=== PATIENT | male | born 1970 | race Caucasian/White ===

== ENCOUNTER 2020-03-25 11:55 | Inpatient (IN) | payer MEDICAID, SELFPAY ==
--- NOTE | 2020-03-25 | CT_ITS ---
EXAMINATION: CT ANGIOGRAM OF THE CHEST WITH AND WITHOUT CONTRAST (CT PULMONARY ANGIOGRAM FOR PE) CLINICAL INFORMATION: Reason for Exam IVDA pleuritic chest pain COMPARISON: None TECHNIQUE: Prior to contrast administration, noncontrast localization images were obtained. Subsequently, multidetector volumetric imaging was performed from the thoracic inlet to below the diaphragms following the administration of 65 mL Omnipaque 350 intravenous contrast. No contrast reaction reported Sagittal, coronal, and MIP oblique sagittal reformatted images were obtained on the CT workstation, uploaded to PACS, and reviewed. This CT examination was performed using dose optimization techniques as appropriate, variously including the following: *Automated exposure control *Adjustment of mA and/or kV according to patient size (this includes techniques or standardized protocols for targeted exams where dose is matched to indication/reason for exam; i.e. extremities or head) *Use of iterative reconstruction technique Total exam dose-length product 346 mGy-cm FINDINGS: QUALITY OF STUDY/CONTRAST BOLUS: Satisfactory. PULMONARY ARTERIES: There is no evidence of large or central pulmonary embolism. Evaluation of smaller segmental and subsegmental pulmonary arteries is limited due to artifact from respiratory motion, particularly at the lung bases. No evidence of a pulmonary embolism is seen. THORACIC AORTA: The thoracic aorta is upper normal in size. The descending thoracic aorta is tortuous. No aneurysm or dissection is seen. LUNG: There may be a 4 mm right middle lobe nodule axial image 28 series 4. There may be a 5 mm left lower lobe nodule axial image 28 series 4. There may be semisolid 7 mm left lower lobe nodule axial image 25 series 4. There is subsegmental atelectasis at the right lung base in the right middle lobe. Evaluation of the lung bases is limited due to respiratory motion. PLEURA: No pleural effusion or pneumothorax. MEDIASTINUM: The heart is enlarged. There is no pericardial effusion. No evidence of septal bowing or right heart strain. There is no adenopathy. There is a small hiatal hernia. CHEST WALL/AXILLA: No axillary or internal mammary lymphadenopathy. OSSEOUS STRUCTURES: There are degenerative changes of the spine. UPPER ABDOMEN: The liver may be enlarged. The visualized liver measures at least 20 cm in length. No reflux of contrast into the hepatic veins to suggest elevated right heart pressures. CT/CT angio chest PE protocol IMPRESSION: Limited exam due to artifact from respiratory motion. No evidence of large or central pulmonary embolism. Question small pulmonary nodules. Enlarged heart. Upper normal-sized thoracic aorta. Hiatal hernia. VTE: negative
[2020-03-25 12:30] VITALS: BP 129/73; PULSE 89; RESP 22; TEMP 36.7; O2SAT 96; BMI 34.2
--- NOTE | 2020-03-25 13:02 | ED.CHESTPAIN ---
HPI - Chest Pain General Chief Complaint: Chest Pain Stated Complaint: chest pain Time Seen by Provider: 03/25/20 13:02 Related Data Home Medications Medication Instructions Recorded Confirmed methadone 03/25/20 Allergies Allergy/AdvReac Type Severity Reaction Status Date / Time No Known Allergies Allergy Unverified 01/03/20 18:53 [No Known Allergies*] [facility] Past Medical History Medical History (Updated 03/25/20 @ 15:32 by Abi Pritchard DO) Substance abuse Social History Social History Smoked in Last 30 Days: No Use of substances other than those prescribed or required for medical reasons: Yes Substance Use Type: Crack/Cocaine and Heroin Substance Use Frequency: Daily Last Used Substance: Hours (ago) Any prior treatment program specific to substance use: Yes Advance Directives: No Advance Directives Information Provided: No Physical Exam Vital Signs: Vital Signs: Last Vital Signs Temp 98.0 F 03/25/20 12:30 Pulse 67 03/25/20 15:21 Resp 16 03/25/20 15:21 BP 128/83 03/25/20 15:21 Pulse Ox 97 03/25/20 15:21 Body Mass Index 34.2 Course Course Course Narrative: this note was copied from visit in error [id number] HPI - Chest Pain General Chief Complaint: Chest Pain Stated Complaint: SOB/CP X4DAYS Time Seen by Provider: 03/25/20 11:33 Source: patient and EMS Mode of arrival: EMS Limitations: no limitations History of Present Illness MD complaint: chest pain and other (shortness of breath) Pertinent past history: other (IVDA just used heroin and cocaine, took his methadone this AM) Onset (ago): day(s) (2) Timing of current episode: constant Onset: during rest and associated with drug use Pain location: substernal and left chest Pain radiation: none Severity: moderate Quality: sharp Relieving factors: nothing Exacerbating factors: inspiration Context: other (IVDA) Associated symptoms: diaphoresis, dyspnea and cough Treatment prior to arrival: none Related Data Home Medications Medication Instructions Recorded Confirmed methadone 03/25/20 Allergies Allergy/AdvReac Type Severity Reaction Status Date / Time No Known Allergies Allergy Unverified 01/03/20 18:06 Review of Systems Review of Systems: Constitutional : No Weight loss, No Fever, No Chills ENT/Mouth : No sore throat, No Rhinorrhea Eyes: No Eye Pain, No Swelling Cardiovascular : pos Chest Pain, pos SOB, no Dyspnea on Exertion, No Orthopnea, No Edema, No Palpitations Respiratory : No Cough, No Sputum Gastrointestinal : pos Nausea, No Vomiting, No Diarrhea, No abdominal Pain, No Hematochezia, No Melena Genitourinary : No Dysuria, No Urinary Frequency Musculoskeletal : No joint pain, No Myalgias, No Joint Swelling Skin : No Skin Lesions, No rash Neuro : No Weakness, No Numbness, No Dizziness, No Headache Psych : No Anxiety/Panic, No Depression Heme/Lymph: No Bruising, No Lymphadenopathy Endocrine : No Polyuria, No Polydipsia All other systems reviewed and are negative [facility] Past Medical History Attestation statement: The following information was validated with the patient. Medical History (Updated 03/25/20 @ 12:08 by Abi Pritchard DO) Substance abuse Social History Social History (Updated 03/25/20 @ 12:08 by Abi Pritchard DO) Smoking Status: Current every day smoker Substance Use Type: Crack/Cocaine, Heroin and IV Drugs Physical Exam Vital Signs: Vital Signs: Last Vital Signs Temp 98.0 F 03/25/20 11:30 Pulse 84 03/25/20 11:30 Resp 22 H 03/25/20 11:30 BP 129/73 03/25/20 11:30 Pulse Ox 96 03/25/20 11:30 Body Mass Index 33.7 Appearance: Alert. Oriented X3. No acute distress. Anxious Eyes: Pupils equal, round and reactive to light. ENT: Pharynx normal. Neck: Normal inspection. Neck supple. CVS: Normal heart rate and rhythm. Pulses normal. Respiratory: No respiratory distress. Breath sounds normal. Abdomen: Soft and non-tender. Skin: Skin warm and sweaty. pale skin color. Normal skin turgor. Extremities: No lower extremity edema. No calf ttp bilateral active track salazar Neuro: Oriented X 3. No motor deficit. No sensory deficit. [address] [address] Emergency Department Note Draft Patient: Brian BonillaMR#: [id number] : 03/17/1987Acct:[id number] Age/Sex: 33 / MADM Date: 03/25/20 Loc:HO.ED Date of Service: 03/25/[address]: cc: ~ HPI - Chest Pain General Chief Complaint: Chest Pain Stated Complaint: SOB/CP X4DAYS Time Seen by Provider: 03/25/20 11:33 Source: patient and EMS Mode of arrival: EMS Limitations: no limitations History of Present Illness MD complaint: chest pain and other (shortness of breath) Pertinent past history: other (IVDA just used heroin and cocaine, took his methadone this AM) Onset (ago): day(s) (2) Timing of current episode: constant Onset: during rest and associated with drug use Pain location: substernal and left chest Pain radiation: none Severity: moderate Quality: sharp Relieving factors: nothing Exacerbating factors: inspiration Context: other (IVDA) Associated symptoms: diaphoresis, dyspnea and cough Treatment prior to arrival: none Related Data Home Medications Medication Instructions Recorded Confirmed methadone 59 mg 03/25/20 Allergies Allergy/AdvReac Type Severity Reaction Status Date / Time No Known Allergies Allergy Unverified 01/03/20 18:06 Review of Systems Review of Systems: Constitutional : No Weight loss, pos Fever, pos Chills, pos sweats ENT/Mouth : No sore throat, No Rhinorrhea Eyes: No Eye Pain, No Swelling Cardiovascular : pos Chest Pain, pos SOB, no Dyspnea on Exertion, No Orthopnea, No Edema, No Palpitations Respiratory : No Cough, No Sputum Gastrointestinal : pos Nausea, No Vomiting, No Diarrhea, No abdominal Pain, No Hematochezia, No Melena Genitourinary : No Dysuria, No Urinary Frequency Musculoskeletal : No joint pain, No Myalgias, No Joint Swelling Skin : No Skin Lesions, No rash Neuro : No Weakness, No Numbness, No Dizziness, No Headache Psych : No Anxiety/Panic, No Depression Heme/Lymph: No Bruising, No Lymphadenopathy Endocrine : No Polyuria, No Polydipsia All other systems reviewed and are negative PMFSH Past Medical History Attestation statement: The following information was validated with the patient. Medical History (Updated 03/25/20 @ 12:08 by Abi Pritchard DO) Substance abuse Social History Social History (Updated 03/25/20 @ 12:08 by Abi Pritchard DO) Smoking Status: Current every day smoker Substance Use Type: Crack/Cocaine, Heroin and IV Drugs Physical Exam Vital Signs: Vital Signs: Last Vital Signs Temp 99.8 F 03/25/20 12:00 Pulse 84 12/08/20 11:30 Resp 22 H 03/25/20 11:30 BP 129/73 03/25/20 11:30 Pulse Ox 100 03/25/20 12:00 Body Mass Index 33.7 Appearance: Alert. Oriented X3. No acute distress. Anxious Eyes: Pupils equal, round and reactive to light. ENT: Pharynx normal. Neck: Normal inspection. Neck supple. CVS: Normal heart rate and rhythm. Pulses normal. Respiratory: No respiratory distress. Breath sounds normal. Abdomen: Soft and non-tender. Skin: Skin warm and sweaty. pale skin color. Normal skin turgor. Extremities: No lower extremity edema. No calf ttp bilateral active track salazar Neuro: Oriented X 3. No motor deficit. No sensory deficit. Course Course Narrative: no pneumonia, no PE, normal troponin but given IVDA could be endocarditis, will admit overnight for ECHO at this time given fevers, pleuritic chest pain, sweats and active IVDA MDM - Chest Pain MDM Narrative Medical decision making narrative: patient with IVDA recently used heroin and cocaine - here with pleuritic chest pain will need labs, cultures, troponin x 1, CTA for PE/pneumonia, possible endocarditis as well, dispo per results and findings ECG Data ECG #1: Attestation: I personally reviewed and interpreted this ECG as follows: ECG interpretation date: 03/25/20 ECG interpretation time: 11:44 Interpretation: Rate: 75 Rhythm: NSR [place]: left Normal P waves. Normal PAT. Normal QRS complex. ST T wave : normal no OSBALDO qTC: normal prior studies: no acute ischemia The study has been interpreted contemporaneously by me. . Discharge Plan Discharge Clinical Impression: Active substance abuse Chest pain Qualifiers: Chest pain type: chest pain on breathing Qualified Code(s): R07.1 - Chest pain on breathing Patient Disposition: Admitted As Inpatient
[2020-03-25 15:21] VITALS: BP 128/83; PULSE 67; RESP 16; O2SAT 97
--- NOTE | 2020-03-25 16:59 | PM.IMHP ---
History of Present Illness Date of Service: 03/25/20 Chief Complaint: chest pain, later developed left buttock pain 49-year-old male complaining of about 4 days of chest pain, anxiety, chills without fever. Patient actively uses IV heroin and snorts cocaine. He also reports injecting alcohol including fireball shots. pain is relieved by heroin, exacerbated by activity and deep breaths. in ED troponin is negative, EKG unremarkable. Afebrile, CTA negative. In ED patient also started complaining of left-sided sciatic pain. Review of Systems Review of Systems: Constitutional: Denies fever, +Chills Eyes: denies blurry vision ENT: denies sore throat CVS: chest pain Respiratory: Denies dyspnea GI: no abdominal pain : denies dysuria MSK: denies neck pain Skin: denies rash Neuro: denies specific motor weakness Psych: denies suicidal ideation Endocrine: denies heat/cold intoleratnce Hematologic: denies easy bleeding Allergy: denies hives [facility] Medical History (Updated 03/25/20 @ 17:05 by Saul Rogers MD) Substance abuse Functional capacity: independent ambulation Pertinent family history: cad Social History Alcohol intake: current Alcohol intake frequency: does not drink Smoking Status: Former smoker Smoked in Last 30 Days: No Use of substances other than those prescribed or required for medical reasons: Yes Substance Use Type: Crack/Cocaine and Heroin Substance Use Frequency: Daily Last Used Substance: Hours (ago) Any prior treatment program specific to substance use: Yes Advance Directives: No Advance Directives Information Provided: No Meds Allergies Allergy/AdvReac Type Severity Reaction Status Date / Time No Known Allergies Allergy Unverified 01/03/20 18:53 [No Known Allergies*] Home Medications Medication Instructions Recorded Confirmed Type methadone 03/25/20 History Physical Exam Vital Signs and Narrative: Vital Signs: Last Vital Signs Temp 98.0 F 03/25/20 12:30 Pulse 67 03/25/20 15:21 Resp 16 03/25/20 15:21 BP 128/83 03/25/20 15:21 Pulse Ox 97 03/25/20 15:21 Body Mass Index 34.2 General: in pain HEENT: atraumatic Neck: normal to visual inspection CVS: S1, S2, RRR Resp: CTA bilateral Chest: non tender GI: soft, non tender, non distended : no CVA tenderness Skin: no rashes Extremities: no edema, no spinal tenderness Neuro: Oriented X3, grossly intact Psych: cooperative, Assessment and Plan (1) Chest pain: Qualifiers: Chest pain type: chest pain on breathing Qualified Code(s): R07.1 - Chest pain on breathing Status: Acute (2) Active substance abuse: Status: Acute (3) Hyponatremia: Status: Acute (4) Chills: Status: Acute 49M presented iwth chest pain, chills chest pain likely cocaine related, now improved, negative trop and ekg chills history ivda, will rule out endocarditis, check echo, cultures empiric vanc likely opiate withdrawl morphine, ativan, psych eval hyponatremia reports high fluid intake, check urine studies, fluid restrict for now, monitor
[2020-03-25 17:12] VITALS: BP 151/92; PULSE 81; RESP 20; TEMP 37.6; O2SAT 100
[2020-03-25] MEDS: Morphine Sulfate 4 MG/ML CARTRIDGE IVPUSH (18:17)
[2020-03-25 18:36] VITALS: BP 161/86; PULSE 82; RESP 20; O2SAT 99
[2020-03-25 19:11] VITALS: BP 161/86; PULSE 87; RESP 15; TEMP 37.6; O2SAT 96
[2020-03-25 19:50] LABS: B Type Natriuretic Peptide 13 pg/mL (<100); Lactic Acid 0.6 mmol/L (0.5-2.0)
[2020-03-25 19:52] LABS: Ethanol < 10 mg/dL
[2020-03-25 19:52] LABS: Barbiturates, Urine Not Detected (Not Detect); Opiate Screen Urine POSITIVE (Not Detect)
[2020-03-25 19:53] LABS: Hematocrit 34.7 % (42-52); Hemoglobin 11.6 g/dl (14.0-18.0); Mean Corpuscular HGB Conc 33.4 g/dl (31.0-36.0); Mean Corpuscular Hemoglobin 30.1 pg (27.0-33.0); Mean Corpuscular Volume 89.9 fL (80-98); Mean Platelet Volume 9.2 fL (9.4-12.4); Platelet Count 164 X10*3/uL (160-400); Red Blood Count 3.86 X10*6/uL (4.60-5.80); Red Cell Distribution Width 13.1 % (11.0-16.0); White Blood Count 11.4 X10*3/uL (4.8-10.8)
[2020-03-25 19:53] LABS: Amphetamine Screen Urine Not Detected (Not Detect); Benzodiazepines Screen Urine Not Detected (Not Detect); Cannabinoid Screen Urine Not Detected (Not Detect); Cocaine Screen Urine POSITIVE (Not Detect); Phencyclidine Screen Urine Not Detected (Not Detect)
[2020-03-25 19:54] LABS: Basophils Percent Auto 0.1 % (0-2); Imm Gran Pct Auto 0.9 % (0.0-0.4); Lymphocytes Absolute Auto 0.7 X10*3/uL (1.2-4.9); Lymphocytes Percent Auto 5.7 % (20-40); MANUAL DIFF FLAG SCAN; Monocytes Absolute Auto 0.8 X10*3/uL (0.1-1.2); Neutrophils Absolute Auto 9.8 X10*3/uL (2.0-8.3); Neutrophils Percent Auto 86.3 % (45-73); SCAN SMEAR FLAG 1
[2020-03-25 19:58] LABS: SLIDE REVIEW VERIFIED
[2020-03-25 19:59] LABS: INTERNATIONAL NORM RATIO 1.1 (0.9-1.1); Prothrombin Time 13.3 SEC (10.8-13.0); Sodium 126 mmol/L (135-145)
[2020-03-25 20:00] LABS: Anion Gap 13 (12-20); Blood Urea Nitrogen 16 mg/dL (9-16); Carbon Dioxide 22 mmol/L (22-29); Chloride 95 mmol/L (96-108); Creatinine Clr Calc Pharmacy 139.4; Estimated Glomerular Filt Rate > 60; Potassium 3.9 mmol/l (3.3-5.1)
[2020-03-25 20:03] LABS: COVID-19 Test Negative (Negative); IDNOW Serial# 9DD0AD1C
[2020-03-25 20:07] LABS: Calcium 8.2 mg/dL (8.4-10.2); Glucose Random 110 mg/dL (60-115)
[2020-03-25 20:08] LABS: Alanine Aminotransferase 26 U/L (0-40); Albumin Level 3.5 g/dL (3.5-5.0); Aspartate Amino Transferase 33 U/L (5-37); Bilirubin Direct 0.3 mg/dL (0.0-0.5); Bilirubin Total 0.6 mg/dL (0.0-1.0); Ferritin 271 ng/mL (20-250); Lactate Dehydrogenase 231 U/L (118-273); Magnesium 2.2 mg/dL (1.6-2.6); Total Protein 7.5 g/dL (6.5-8.0)
[2020-03-25 20:09] LABS: Alkaline Phosphatase 117 U/L (39-117); Lipase 13 U/L (8-78)
[2020-03-25 20:11] LABS: Troponin-I High Sensitivity < 3.5 ng/L (<3.5-35.0)
[2020-03-25 21:04] VITALS: BP 142/67; PULSE 82; RESP 18; TEMP 36.6; O2SAT 97
[2020-03-25] MEDS: LORazepam 2 MG/ML VIAL IVPUSH (21:04)
[2020-03-25 21:05] LABS: Osmolality Urine 708 mosm/kg (373-1093)
[2020-03-25] MEDS: Enoxaparin Sodium 40 MG/0.4 ML SYRINGE SUBCUT (21:07)
[2020-03-25] MEDS: Acetaminophen 325 MG TABLET 650 MG PO (21:08)
[2020-03-26] VITALS (9 sets, daily range): BP systolic 124–163; BP diastolic 78–97; PULSE 75–89; RESP 15–20; TEMP 36.7–38.1; O2SAT 94–97; BMI 34.2
[2020-03-26] MEDS: 0.9 % Sodium Chloride Flush 3 ML SYRINGE IVFLUSH ×3 (00:24→22:01)
[2020-03-26] MEDS: Morphine Sulfate 4 MG/ML CARTRIDGE IVPUSH ×5 (00:26→22:02)
[2020-03-26] MEDS: Acetaminophen 325 MG TABLET 650 MG PO ×3 (04:55→23:55)
[2020-03-26 06:13] LABS: MANUAL DIFF FLAG NO
[2020-03-26 06:26] LABS: Basophils Percent Auto 0.2 % (0-2); Hematocrit 32.4 % (42-52); Hemoglobin 10.8 g/dl (14.0-18.0); Imm Gran Abs Auto 0.08 X10*3/uL (0.00-0.03); Imm Gran Pct Auto 0.7 % (0.0-0.4); Lymphocytes Absolute Auto 1.1 X10*3/uL (1.2-4.9); Lymphocytes Percent Auto 9.5 % (20-40); Mean Corpuscular HGB Conc 33.3 g/dl (31.0-36.0); Mean Corpuscular Hemoglobin 29.4 pg (27.0-33.0); Mean Corpuscular Volume 88.3 fL (80-98); Mean Platelet Volume 9.5 fL (9.4-12.4); Monocytes Absolute Auto 1.2 X10*3/uL (0.1-1.2); Neutrophils Absolute Auto 9.3 X10*3/uL (2.0-8.3); Neutrophils Percent Auto 79.6 % (45-73); Platelet Count 149 X10*3/uL (160-400); Red Blood Count 3.67 X10*6/uL (4.60-5.80); White Blood Count 11.7 X10*3/uL (4.8-10.8)
[2020-03-26 06:47] LABS: Anion Gap 14 (12-20); Blood Urea Nitrogen 8 mg/dL (9-16); Calcium 7.7 mg/dL (8.4-10.2); Carbon Dioxide 23 mmol/L (22-29); Chloride 95 mmol/L (96-108); Creatinine Clr Calc Pharmacy 168.6; Estimated Glomerular Filt Rate > 60; Glucose Random 94 mg/dL (60-115); Potassium 3.5 mmol/l (3.3-5.1); Sodium 128 mmol/L (135-145)
--- NOTE | 2020-03-26 07:32 | PC.NURSE ---
0345; Lab called with positive blood cultures; 2 sets positive, gram positive cocci in clusters. Current patient chart does not have history of blood cultures drawn or results. Patient has 2 charts, first one was initiated in the ED, due to an error on the chart, another chart was created. The blood cultures drawn are charted in the incorrect patient chart, [id number]. The correct and current active patient chart is [id number]. Critical reporting charted under current chart. Slider Assembler made aware, per patient registration supervisor the 2 charts will be merged this morning. MD notified about positive blood cultures and to refer to other patient chart if necessary. Day shift RN update.
--- NOTE | 2020-03-26 08:38 | MHC.CM.PN ---
Male 49 DX Chest pain. He lives with . He is independent all functional mobility. Financial Counselor referral made. Pt was on manjula; but that ended. Education provided re HCP. Patient is considering who he should name. Instructed the Patient that I will assist with HCP, when he is ready. HCP document provided in Thai and Haitian. DP home no services family transport. CM will follow
[2020-03-26] MEDS: LORazepam 2 MG/ML VIAL IVPUSH ×2 (11:31→18:11)
--- NOTE | 2020-03-26 12:23 | P.PNIM_ITS ---
Subjective Subjective Date of Service: 03/26/20 Interval History: feeling better Cardiovascular Cardiovascular: Reports no additional cardiovascular complaints Respiratory Respiratory: Reports no additional respiratory complaints Physical Exam Vital Signs: Vital Signs: Last Vital Signs Temp 98.0 F 03/26/20 08:00 Pulse 75 03/26/20 08:00 Resp 18 03/26/20 08:00 BP 137/89 03/26/20 08:00 Pulse Ox 96 03/26/20 08:00 Body Mass Index 34.2 General: AO X 3, no acute distress Resp: CTA bilateral CVS: S1,S2,RRR GI: soft, non tender, non distended Neuro: motor grossly intact Psych: appropriate affect Objective Data Current Medications Generic Name Dose Route Start Last Admin Trade Name Freq PRN Reason Stop Dose Admin Acetaminophen 650 mg 03/25/20 16:47 03/26/20 04:55 Acetaminophen 325 Mg Tablet PO 650 mg Q6H PRN Administration Pain, Mild (Pain Scale 1-3) Enoxaparin Sodium 40 mg 03/25/20 22:00 03/25/20 21:07 Enoxaparin Sodium 40 Mg/0.4 Ml Syringe SUBCUT 40 mg Q24H MINAL Administration Vancomycin HCl 750 mg/ 275 mls @ 183.333 mls/hr 03/25/20 22:00 03/26/20 07:42 Vancomycin HCl 500 mg/ Sodium IV Infused Chloride Q8H MINAL Infusion Lorazepam 2 mg 03/25/20 16:52 03/26/20 11:31 Lorazepam 2 Mg/Ml Vial IVPUSH 2 mg Q4H PRN Administration anxiety Morphine Sulfate 4 mg 03/25/20 16:52 03/26/20 11:31 Morphine Sulfate 4 Mg/Ml Cartridge IVPUSH 4 mg Q4H PRN Administration pain Sodium Chloride 3 ml 03/26/20 00:00 03/26/20 07:42 0.9 % Sodium Chloride Flush 3 Ml Syringe IVFLUSH Not Given QSHIFT [facility] Labs CBC & Chem 7: 03/26/20 05:25 03/26/20 05:25 Microbiology Microbiology Results: Microbiology 03/25/20 13:05 Blood - Venous Blood Culture - Preliminary 03/25/20 13:05 Blood - Venous Blood Culture - Preliminary Assessment and Plan (1) Chest pain: Status: Acute (2) Active substance abuse: Status: Acute (3) Hyponatremia: Status: Acute (4) Chills: Status: Deleted (5) Bacteremia: Status: Acute Assessment and Plan: 49M presented iwth chest pain, chills chest pain likely cocaine related, now improved, negative trop and ekg chills due to gpc 2/2 in blood likely staph, history ivda, will rule out endocarditis, check echo, follow up repeat cultures continue vanc, ID likely opiate withdrawl improved morphine, ativan, psych eval hyponatremia reports high fluid intake, check urine studies, fluid restrict, labs c/w SIADH please note in ED some information was placed on a different chart such as CTA, the information will be planned to be moved over
--- NOTE | 2020-03-26 14:17 | MHC.CARE ---
Recovery Support note: This database report writer attempted to meet with patient to discuss substance use. Patient was initially able to engage in conversation. Reports he was sober for five years and found Methadone and staying busy with work and school to be helpful during that time. Patient reports him and his relapsed due to the pandemic. This database report writer began to discuss supports and resources with patient however patient requested this database report writer return later on or tomorrow due to brain fog. This database report writer will return tomorrow to continue this conversation with patient.
--- NOTE | 2020-03-26 16:21 | W.PM.IDCN ---
History of Present Illness Data of Consult Service Date: 03/26/20 Requesting physician: Saul Rogers Primary Care Provider: MD MARK Castillo Reason for consult: bacteremia He has used cocaine and opiates He has some fever and chills He has symptoms for 3 days He has gram positive bacteremia Review of Systems Review of Systems: Yes all other systems are reviewed and are negative PMFSH Past Medical History Medical History Substance abuse Functional capacity: independent ambulation Social History Social History Household Members: Spouse Housing: House Do you presently have visiting nurse or other home services: No Alcohol intake: current Alcohol intake frequency: does not drink Smoking Status: Former smoker Smoked in Last 30 Days: No Use of substances other than those prescribed or required for medical reasons: Yes Substance Use Type: Crack/Cocaine and Heroin Substance Use Frequency: Daily Last Used Substance: Unknown Currently Displaying Signs/Symptoms of Drug Intoxication Withdrawal: No Any prior treatment program specific to substance use: Yes Have you been hit, kicked, punched, or otherwise hurt by someone within the past year? If so, by whom?: No Do you feel safe in your current relationship?: Yes Is there a partner from a previous relationship who is making you feel unsafe now?: No Are you made to feel afraid or neglected: No Advance Directives: No Advance Directives Information Provided: No Do you have thoughts of harming others: None Do you have a plan to hurt others: No Plan Recently lost weight without trying: No service: No Current occupational status: unemployed Meds Allergies Allergy/AdvReac Type Severity Reaction Status Date / Time No Known Allergies Allergy Unverified 01/03/20 18:53 [No Known Allergies*] Home Medications Medication Instructions Recorded Confirmed Type methadone 59 mg PO DAILY 03/25/20 03/26/20 History Physical Exam Vital Signs: Vital Signs: Last Vital Signs Temp 98.9 F 03/26/20 15:47 Pulse 75 03/26/20 15:47 Resp 18 03/26/20 15:47 BP 136/85 03/26/20 15:47 Pulse Ox 94 03/26/20 15:47 Body Mass Index 34.2 Const: General: cooperative HENMT: Head: Yes normal to inspection Mouth: oropharynx normal Eyes: General: appearance normal, both eyes and all related structures Resp: Effort & Inspection: normal respiratory effort Cardio: Rate: regular rate Rhythm: regular rhythm GI: Inspection: Yes normal to inspection Skin: General skin exam: no rashes or lesions noted Extrem: General: Yes normal to inspection Assessment and Plan (1) Bacteremia: Problem details: He has bacteremia There is concern over endocarditis Dont see cellulitis Status: Acute Vancomycin Await further cultures Echo Substance counseling (2) Active substance abuse: Status: Acute Results Labs CBC & Chem 7: 03/26/20 05:25 03/26/20 05:25 Labs: Short CBC 03/25/20 03/26/20 Range/Units 13:05 05:25 WBC 11.4 H 11.7 H (4.8-10.8) X10*3/uL Hgb 11.6 L 10.8 L (14.0-18.0) g/dl Hct 34.7 L 32.4 L (42-52) % Plt Count 164 149 L (160-400) X10*3/uL BMP 03/25/20 03/26/20 13:05 05:25 Sodium 126 L 128 L Potassium 3.9 3.5 Chloride 95 L 95 L Carbon Dioxide 22 23 BUN 16 8 L Creatinine 0.75 0.62 Calcium 8.2 L 7.7 L D Liver Function 03/25/20 Range/Units 13:05 Total Bilirubin 0.6 (0.0-1.0) mg/dL Direct Bilirubin 0.3 (0.0-0.5) mg/dL AST 33 (5-37) U/L ALT 26 (0-40) U/L Alkaline Phosphatase 117 (39-117) U/L Albumin 3.5 (3.5-5.0) g/dL Microbiology Microbiology Results: Microbiology 03/25/20 13:05 Blood - Venous Blood Culture - Preliminary 03/25/20 13:05 Blood - Venous Blood Culture - Preliminary
--- NOTE | 2020-03-26 20:30 | CA_ITS ---
Transthoracic Echocardiogram Patient (Last, First, Middle): Brian Bonilla, Gender: Male Date of : 1970 Age: 49 Procedure Date: 03/26/2020 Procedure Type: Transthoracic Echocardiogram [place] [facility] [place]: 172.72 cm Weight: 102. kg BSA: 2.15 m2 Heart Rate: bpm BP: 137 / 89 mmHg Batch Blender: DYLAN Goldman MD: Saul Rogers MD Symptoms: rule out endocarditis Study Quality: Good ECG Rhythm: Sinus Conclusions: - The left ventricular systolic function is normal. The visually estimated ejection fraction is between 65-70%. - There is mild calcification of the aortic valve. - No obvious valvular pathology seen on this study. - There is mild dilatation of the ascending aorta measuring 4.00 cm. Findings Left Ventricle Normal left ventricular cavity size. There is mildly increased left ventricular wall thickness. The left ventricular systolic function is normal. The visually estimated ejection fraction is between 65-70%. There is no evidence of regional wall motion abnormalities. Diastolic function is normal for age. Right Ventricle Normal right ventricular cavity size and systolic function. Atria The left atrium is normal in size. The right atrium is normal in size. Aortic Valve There is a normal trileaflet aortic valve. There is mild calcification of the aortic valve. There is no aortic valve stenosis. There is no aortic valve regurgitation. Mitral Valve There is mild anterior mitral leaflet thickening. There is mild mitral annular calcification. There is trace mitral valve regurgitation. There is no mitral valve stenosis. Pulmonic Valve The pulmonic valve was not well visualized. Tricuspid Valve Normal tricuspid valve structure. There is trace tricuspid valve regurgitation. The pulmonary artery systolic pressure is normal. Great Vessels There is mild dilatation of the ascending aorta measuring 4.00 cm. Venous The inferior vena cava is normal in size and collapses greater than 50% with inspiration. Pericardium/Pleural There is no evidence of pericardial effusion. Prior Study Comparison No prior study available for comparison. Recommendations, Care & Conclusions No obvious valvular pathology seen on this study. Measurements 2D Linear Measurements RVIDd: 3.84 RVIDd Index: 1.79 IVSd: 1.20 0.6-0.9/0.6-1.0 cm LVIDd: 4.98 3.9-5.3/4.2-5.9 cm LVIDd Index: 2.32 2.4-3.2/2.2-3.1 cm/m2 LVIDs: 2.85 2.0-3.6 cm LVPWd: 1.11 0.7-1.1 cm Ao Root: 3.60 2.1-3.5 cm LV Mass: 274.47 67-162/88-224 g LV Mass Index: 127.66 43-95/49-115 g/m2 LVOT Diam: 2.40 3.0+(-)1.3 cm 2D Systolic Function EF 4C: 65.10 >55% EF 2C: 81.40 >55% EF BiP: 75.00 >55% Mitral Valve MV Pk E: 0.80 MV PK A: 0.50 MV Decel Time: 186.00 E/A: 1.60 E'Lateral: 9.14 E'Medial: 9.03 E/E' Med: 8.90 E/E' Lat: 8.80 Aortic Valve AoV Pk Marquis: 1.66 AoV Mn Marquis: 1.28 AoV VTI: 0.28 AoV Pk Grad: 11.00 Aov Mn Grad: 7.00 TRAVIS Cont.VTI: 3.71 LVOT LVOT Pk Marquis: 1.23 LVOT Mn Marquis: 0.90 LVOT VTI: 0.23 LVOT Pk Grad: 6.00 LVOT Mn Grad: 4.00 LVOT Diam: 2.40 LVOT Area: 4.52 Diastolic Function MV Pk E: 0.80 MV Pk A: 0.50 E/A: 1.60 E'Medial: 9.03 E/E' Med: 8.90 E' Laterial: 9.14 E/E' Lat: 8.80 Tricuspid Valve TR Pk Marquis: 1.94 TR Pk Grad: 15.00 RA Press: 8.00 RVSP: 23.00 Great Vessels Aorta Ao Root-2D: 3.60 2.0-3.7 cm Ao Asc: 4.00 2.1-3.4 cm Ao Arch: 3.20 Updated in Other Vendor System with Status of Final Mike Williamson MD electronically signed on 03/26/2020 5:19:00 PM with status of Final
[2020-03-26 21:36] LABS: Vancomycin Trough 10.2 mcg/mL (10.0-20.0)
[2020-03-26] MEDS: Enoxaparin Sodium 40 MG/0.4 ML SYRINGE SUBCUT (22:01)
[2020-03-27] VITALS (7 sets, daily range): BP systolic 136–154; BP diastolic 78–99; PULSE 80–95; RESP 18–19; TEMP 36.6–37.3; O2SAT 95–99
[2020-03-27] MEDS: Acetaminophen 325 MG TABLET 650 MG PO ×3 (06:31→23:23)
[2020-03-27] MEDS: Morphine Sulfate 4 MG/ML CARTRIDGE IVPUSH ×3 (06:40→21:32)
[2020-03-27 06:52] LABS: Basophils Percent Auto 0.2 % (0-2); Hematocrit 34.5 % (42-52); Hemoglobin 11.6 g/dl (14.0-18.0); Imm Gran Abs Auto 0.07 X10*3/uL (0.00-0.03); Imm Gran Pct Auto 0.5 % (0.0-0.4); Lymphocytes Absolute Auto 1.7 X10*3/uL (1.2-4.9); Lymphocytes Percent Auto 12.9 % (20-40); MANUAL DIFF FLAG SCAN; Mean Corpuscular HGB Conc 33.6 g/dl (31.0-36.0); Mean Corpuscular Hemoglobin 29.7 pg (27.0-33.0); Mean Corpuscular Volume 88.2 fL (80-98); Mean Platelet Volume 9.8 fL (9.4-12.4); Monocytes Absolute Auto 1.8 X10*3/uL (0.1-1.2); Monocytes Percent Auto 13.7 % (2-11); Neutrophils Absolute Auto 9.5 X10*3/uL (2.0-8.3); Neutrophils Percent Auto 72.7 % (45-73); Platelet Count 175 X10*3/uL (160-400); Red Blood Count 3.91 X10*6/uL (4.60-5.80); SCAN SMEAR FLAG 1
[2020-03-27 07:23] LABS: Anion Gap 16 (12-20); Blood Urea Nitrogen 9 mg/dL (9-16); Calcium 8.2 mg/dL (8.4-10.2); Carbon Dioxide 24 mmol/L (22-29); Chloride 95 mmol/L (96-108); Creatinine Clr Calc Pharmacy 163.3; Estimated Glomerular Filt Rate > 60; Glucose Fasting 87 mg/dL (60-99); Potassium 4.1 mmol/l (3.3-5.1); Sodium 131 mmol/L (135-145)
[2020-03-27 07:54] LABS: SLIDE REVIEW VERIFIED
[2020-03-27] MEDS: 0.9 % Sodium Chloride Flush 3 ML SYRINGE IVFLUSH ×3 (09:00→21:32)
--- NOTE | 2020-03-27 10:55 | HO.PM.IMPN ---
Subjective Subjective Date of Service: 03/27/20 Interval History: feeling better Cardiovascular Cardiovascular: Reports no additional cardiovascular complaints Respiratory Respiratory: Reports no additional respiratory complaints Physical Exam Vital Signs: Vital Signs: Last Vital Signs Temp 98.6 F 03/27/20 08:00 Pulse 80 03/27/20 08:00 Resp 18 03/27/20 08:00 BP 150/88 H 03/27/20 08:00 Pulse Ox 97 03/27/20 08:00 Body Mass Index 34.2 General: AO X 3, no acute distress Resp: CTA bilateral CVS: S1,S2,RRR GI: soft, non tender, non distended Neuro: motor grossly intact Psych: appropriate affect Objective Data Current Medications Generic Name Dose Route Start Last Admin Trade Name Freq PRN Reason Stop Dose Admin Acetaminophen 650 mg 03/25/20 16:47 03/27/20 06:31 Acetaminophen 325 Mg Tablet PO 650 mg Q6H PRN Administration Pain, Mild (Pain Scale 1-3) Enoxaparin Sodium 40 mg 03/25/20 22:00 03/26/20 22:01 Enoxaparin Sodium 40 Mg/0.4 Ml Syringe SUBCUT 40 mg Q24H MINAL Administration Vancomycin HCl 1,500 mg/ 280 mls @ 186.667 mls/hr 03/27/20 14:00 Sodium Chloride IV Q8H MINAL Lorazepam 2 mg 03/25/20 16:52 03/26/20 18:11 Lorazepam 2 Mg/Ml Vial IVPUSH 2 mg Q4H PRN Administration anxiety Methadone HCl 60 mg 03/26/20 12:30 03/27/20 09:34 Methadone Hcl 1 Mg/0.1 Ml Oral.Conc PO 60 mg DAILY MINAL Administration Morphine Sulfate 4 mg 03/25/20 16:52 03/27/20 06:40 Morphine Sulfate 4 Mg/Ml Cartridge IVPUSH 4 mg Q4H PRN Administration pain Sodium Chloride 3 ml 03/26/20 00:00 03/27/20 09:00 0.9 % Sodium Chloride Flush 3 Ml Syringe IVFLUSH 3 ml QSHIFT MINAL Administration Labs CBC & Chem 7: 03/27/20 05:30 03/27/20 05:32 Microbiology Microbiology Results: Microbiology 03/25/20 13:05 Blood - Venous Blood Culture - Preliminary Staphylococcus aureus 03/25/20 13:05 Blood - Venous Blood Culture - Preliminary Staphylococcus aureus Assessment and Plan (1) Chest pain: Status: Acute (2) Active substance abuse: Status: Acute (3) Hyponatremia: Status: Acute (4) Chills: Status: Deleted (5) Bacteremia: Problem details: He has bacteremia There is concern over endocarditis Dont see cellulitis Status: Acute Assessment and Plan: 49M presented iwth chest pain, chills chest pain likely cocaine related, now improved, negative trop and ekg chills due to staph aureus bacteremia echo unremarkable continue vanc, follow up sensitivities and repeat culture, ID follow up for duration of therapy likely opiate withdrawl improved continue methadone, wean morphine hyponatremia fluid restrict, labs c/w SIADH please note in ED some information was placed on a different chart such as CTA, the information will be planned to be moved over
--- NOTE | 2020-03-27 11:43 | MHC.CARE ---
Recovery Support note: Patient is a 49 year old Kiswahili speaking male who [place] [facility] [place] and was medically admitted. 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 Patient reports him and his both relapsed due to the stress and isolation of the pandemic. Patient reports he has been on Methadone throughout his recovery and has found it helpful. 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 Patient states he previously worked at [employer] for over a year however reports he was let go due to false accusations made by a patient. Patient reports that the false accusations ruined his life and that he has been traumatized by the situation. Discussed recovery supports with patient, including IOP, NA support groups and [facility] [place]. Provided patient with information on these resources. Patient declined the offer to meet with a Ror Engineer at this time. 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 Patient reports that this hospitalization has been a wake up call and that he has no other option. Discussed outpatient therapy with patient and provided patient with information on this support.
[2020-03-27] MEDS: LORazepam 2 MG/ML VIAL IVPUSH ×2 (13:53→23:23)
[2020-03-27] MEDS: Enoxaparin Sodium 40 MG/0.4 ML SYRINGE SUBCUT (21:31)
[2020-03-28] VITALS: BP 138/87; PULSE 87; RESP 18; TEMP 37.3; O2SAT 94
[2020-03-28 04:00] VITALS: BP 135/80; PULSE 75; RESP 20; TEMP 36.9; O2SAT 94
[2020-03-28 06:25] LABS: MANUAL DIFF FLAG NO
[2020-03-28 06:33] LABS: Basophils Percent Auto 0.3 % (0-2); Eosinophils Percent Auto 0.3 % (0-4); Hematocrit 34.9 % (42-52); Hemoglobin 11.6 g/dl (14.0-18.0); Imm Gran Abs Auto 0.12 X10*3/uL (0.00-0.03); Lymphocytes Percent Auto 17.4 % (20-40); Mean Corpuscular HGB Conc 33.2 g/dl (31.0-36.0); Mean Corpuscular Hemoglobin 29.7 pg (27.0-33.0); Mean Corpuscular Volume 89.3 fL (80-98); Mean Platelet Volume 9.7 fL (9.4-12.4); Monocytes Absolute Auto 1.5 X10*3/uL (0.1-1.2); Monocytes Percent Auto 12.7 % (2-11); Neutrophils Absolute Auto 7.9 X10*3/uL (2.0-8.3); Neutrophils Percent Auto 68.3 % (45-73); Platelet Count 189 X10*3/uL (160-400); Red Blood Count 3.91 X10*6/uL (4.60-5.80); Red Cell Distribution Width 13.2 % (11.0-16.0); White Blood Count 11.6 X10*3/uL (4.8-10.8)
[2020-03-28 06:53] LABS: Anion Gap 14 (12-20); Blood Urea Nitrogen 8 mg/dL (9-16); Calcium 8.1 mg/dL (8.4-10.2); Carbon Dioxide 26 mmol/L (22-29); Chloride 95 mmol/L (96-108); Creatinine Clr Calc Pharmacy 160.8; Estimated Glomerular Filt Rate > 60; Glucose Fasting 82 mg/dL (60-99); Potassium 3.9 mmol/l (3.3-5.1); Sodium 131 mmol/L (135-145)
[2020-03-28 08:00] VITALS: BP 143/84; PULSE 85; RESP 17; TEMP 36.8; O2SAT 94
[2020-03-28] MEDS: 0.9 % Sodium Chloride Flush 3 ML SYRINGE IVFLUSH ×3 (08:12→21:42)
[2020-03-28] MEDS: oxyCODONE HCl Immed Release 5 MG TABLET PO ×4 (08:25→21:38)
[2020-03-28] MEDS: LORazepam 2 MG/ML VIAL IVPUSH ×2 (08:25→16:55)
--- NOTE | 2020-03-28 10:48 | HO.PM.IMPN ---
Subjective Subjective Date of Service: 03/28/20 Interval History: Siatica pain Cardiovascular Cardiovascular: Reports no additional cardiovascular complaints Respiratory Respiratory: Reports no additional respiratory complaints Physical Exam Vital Signs: Vital Signs: Last Vital Signs Temp 98.3 F 03/28/20 08:00 Pulse 85 03/28/20 08:00 Resp 17 03/28/20 08:00 BP 143/84 H 03/28/20 08:00 Pulse Ox 94 03/28/20 08:00 Body Mass Index 34.2 General: AO X 3, no acute distress Resp: CTA bilateral CVS: S1,S2,RRR GI: soft, non tender, non distended Neuro: motor grossly intact Psych: appropriate affect Objective Data Current Medications Generic Name Dose Route Start Last Admin Trade Name Freq PRN Reason Stop Dose Admin Acetaminophen 650 mg 03/25/20 16:47 03/27/20 23:23 Acetaminophen 325 Mg Tablet PO 650 mg Q6H PRN Administration Pain, Mild (Pain Scale 1-3) Enoxaparin Sodium 40 mg 03/25/20 22:00 03/27/20 21:31 Enoxaparin Sodium 40 Mg/0.4 Ml Syringe SUBCUT 40 mg Q24H MINAL Administration Vancomycin HCl 1,500 mg/ 280 mls @ 186.667 mls/hr 03/27/20 14:00 03/28/20 08:14 Sodium Chloride IV Infused Q8H MINAL Infusion Lorazepam 2 mg 03/25/20 16:52 03/28/20 08:25 Lorazepam 2 Mg/Ml Vial IVPUSH 2 mg Q4H PRN Administration anxiety Methadone HCl 60 mg 03/26/20 12:30 03/28/20 08:12 Methadone Hcl 1 Mg/0.1 Ml Oral.Conc PO 60 mg DAILY MINAL Administration Morphine Sulfate 4 mg 03/25/20 16:52 03/27/20 21:32 Morphine Sulfate 4 Mg/Ml Cartridge IVPUSH 4 mg Q4H PRN Administration pain Oxycodone HCl 5 mg 03/28/20 08:14 03/28/20 08:25 Oxycodone Hcl Immed Release 5 Mg Tablet PO 5 mg Q4H PRN Administration pain Sodium Chloride 3 ml 03/26/20 00:00 03/28/20 08:12 0.9 % Sodium Chloride Flush 3 Ml Syringe IVFLUSH 3 ml QSHIFT MINAL Administration Labs CBC & Chem 7: 03/28/20 05:23 03/28/20 05:23 Microbiology Microbiology Results: Microbiology 03/27/20 05:30 Blood - Venous Blood Culture - Preliminary No growth after 24 hours. 03/27/20 05:32 Blood - Venous Blood Culture - Preliminary No growth after 24 hours. 03/25/20 13:05 Blood - Venous Blood Culture - Final Staphylococcus aureus 03/25/20 13:05 Blood - Venous Blood Culture - Final Staphylococcus aureus Assessment and Plan (1) Chest pain: Status: Acute (2) Active substance abuse: Status: Acute (3) Hyponatremia: Status: Acute (4) Bacteremia: Problem details: He has bacteremia There is concern over endocarditis Dont see cellulitis Status: Acute Assessment and Plan: 49M presented iwth chest pain, chills chest pain likely cocaine related, now improved, negative trop and ekg chills due to MSSA bacteremia echo unremarkable, CT with septic emboli follow up repeat culture, plan for 6 weeks from negative change vanc to ancef 2gm q8 likely opiate withdrawl improved continue methadone, wean morphine hyponatremia fluid restrict, labs c/w SIADH
[2020-03-28 11:29] VITALS: BP 137/89; PULSE 80; RESP 18; TEMP 36.6; O2SAT 97
[2020-03-28] MEDS: ceFAZolin Sodium/Dextrose,Iso 2 GM/50 ML PIGGYBACK IV ×2 (13:12→21:41)
--- NOTE | 2020-03-28 14:17 | MHC.CM.PN ---
CM met with patient to discuss discharge plan since patient will need 6 wks IV ABT and is on methadone. Patient's choices for STR is [facility], 2nd choice is [facility] in [place]. Referrals made via allscripts. CM will continue to follow for discharge needs.
[2020-03-28 15:19] VITALS: BP 139/85; PULSE 82; RESP 18; TEMP 36.8; O2SAT 96
[2020-03-28] MEDS: Acetaminophen 325 MG TABLET 650 MG PO (16:53)
[2020-03-28 19:17] VITALS: BP 115/81; PULSE 82; RESP 18; TEMP 36.9; O2SAT 95
[2020-03-28] MEDS: Enoxaparin Sodium 40 MG/0.4 ML SYRINGE SUBCUT (21:41)
[2020-03-29] VITALS (7 sets, daily range): BP systolic 110–150; BP diastolic 64–82; PULSE 73–103; RESP 18–20; TEMP 36.4–37.7; O2SAT 92–98
--- NOTE | 2020-03-29 01:16 | PC.NURSE ---
tele revewed by [facility] [place] [facility]
[2020-03-29] MEDS: oxyCODONE HCl Immed Release 5 MG TABLET PO ×2 (05:30→20:22)
[2020-03-29] MEDS: ceFAZolin Sodium/Dextrose,Iso 2 GM/50 ML PIGGYBACK IV ×3 (05:33→21:56)
[2020-03-29] MEDS: LORazepam 2 MG/ML VIAL IVPUSH (05:33)
[2020-03-29] MEDS: 0.9 % Sodium Chloride Flush 3 ML SYRINGE IVFLUSH ×2 (10:04→15:03)
--- NOTE | 2020-03-29 10:57 | HO.PM.IMPN ---
Subjective Subjective Date of Service: 03/29/20 Interval History: sciatica Cardiovascular Cardiovascular: Reports no additional cardiovascular complaints Respiratory Respiratory: Reports no additional respiratory complaints Physical Exam Vital Signs: Vital Signs: Last Vital Signs Temp 98.2 F 03/29/20 08:00 Pulse 81 03/29/20 08:00 Resp 20 03/29/20 08:00 BP 138/73 03/29/20 08:00 Pulse Ox 95 03/29/20 08:00 Body Mass Index 34.2 General: AO X 3, no acute distress Resp: CTA bilateral CVS: S1,S2,RRR GI: soft, non tender, non distended Neuro: motor grossly intact Psych: appropriate affect Objective Data Current Medications Generic Name Dose Route Start Last Admin Trade Name Freq PRN Reason Stop Dose Admin Acetaminophen 650 mg 03/25/20 16:47 03/28/20 16:53 Acetaminophen 325 Mg Tablet PO 650 mg Q6H PRN Administration Pain, Mild (Pain Scale 1-3) Enoxaparin Sodium 40 mg 03/25/20 22:00 03/28/20 21:41 Enoxaparin Sodium 40 Mg/0.4 Ml Syringe SUBCUT 40 mg Q24H MINAL Administration Cefazolin Sodium/Dextrose 2 gm in 50 mls @ 100 mls/hr 03/28/20 13:00 03/29/20 06:37 Ancef IV Infused Q8H MINAL Infusion Lorazepam 2 mg 03/25/20 16:52 03/29/20 05:33 Lorazepam 2 Mg/Ml Vial IVPUSH 2 mg Q4H PRN Administration anxiety Methadone HCl 60 mg 03/26/20 12:30 03/29/20 10:35 Methadone Hcl 1 Mg/0.1 Ml Oral.Conc PO 60 mg DAILY MINAL Administration Morphine Sulfate 4 mg 03/25/20 16:52 03/27/20 21:32 Morphine Sulfate 4 Mg/Ml Cartridge IVPUSH 4 mg Q4H PRN Administration pain Oxycodone HCl 5 mg 03/28/20 08:14 03/29/20 05:30 Oxycodone Hcl Immed Release 5 Mg Tablet PO 5 mg Q4H PRN Administration pain Sodium Chloride 3 ml 03/26/20 00:00 03/29/20 10:04 0.9 % Sodium Chloride Flush 3 Ml Syringe IVFLUSH 3 ml QSHIFT MINAL Administration Labs CBC & Chem 7: 03/28/20 05:23 03/28/20 05:23 Microbiology Microbiology Results: Microbiology 03/27/20 05:32 Blood - Venous Blood Culture - Preliminary No growth after 48 hours. 03/27/20 05:30 Blood - Venous Blood Culture - Preliminary No growth after 24 hours. 03/25/20 13:05 Blood - Venous Blood Culture - Final Staphylococcus aureus 03/25/20 13:05 Blood - Venous Blood Culture - Final Staphylococcus aureus Assessment and Plan (1) Chest pain: Status: Acute (2) Active substance abuse: Status: Acute (3) Hyponatremia: Status: Acute (4) Bacteremia: Problem details: He has bacteremia There is concern over endocarditis Dont see cellulitis Status: Acute Assessment and Plan: 49M presented iwth chest pain, chills chest pain likely cocaine related, now improved, negative trop and ekg chills due to MSSA bacteremia echo unremarkable, CT with septic emboli so far 03/27 cultures negative plan for picc line and 6 weeks ancef 2gm q8h, day 3, end may 07, 2020 will need to be done in observed setting due to IVDA opiate withdrawl improved continue methadone, wean morphine hyponatremia fluid restrict, labs c/w SIADH
[2020-03-29] MEDS: Enoxaparin Sodium 40 MG/0.4 ML SYRINGE SUBCUT (21:56)
[2020-03-30] VITALS (7 sets, daily range): BP systolic 113–140; BP diastolic 70–80; PULSE 66–79; RESP 18–20; TEMP 36.2–37.3; O2SAT 94–98
[2020-03-30] MEDS: 0.9 % Sodium Chloride Flush 3 ML SYRINGE IVFLUSH ×4 (00:13→23:18)
[2020-03-30] MEDS: oxyCODONE HCl Immed Release 5 MG TABLET PO (02:08)
[2020-03-30] MEDS: ceFAZolin Sodium/Dextrose,Iso 2 GM/50 ML PIGGYBACK IV ×3 (05:57→20:32)
[2020-03-30] MEDS: bisacodyL 10 MG SUPP.RECT PR (10:17)
--- NOTE | 2020-03-30 11:09 | HO.PM.IMPN ---
Subjective Subjective Date of Service: 03/30/20 Interval History: constipated Cardiovascular Cardiovascular: Reports no additional cardiovascular complaints Respiratory Respiratory: Reports no additional respiratory complaints Physical Exam Vital Signs: Vital Signs: Last Vital Signs Temp 98.7 F 03/30/20 08:00 Pulse 66 03/30/20 08:00 Resp 20 03/30/20 08:00 BP 116/72 03/30/20 08:00 Pulse Ox 95 03/30/20 08:00 Body Mass Index 34.2 General: AO X 3, no acute distress Resp: CTA bilateral CVS: S1,S2,RRR GI: soft, non tender, non distended Neuro: motor grossly intact Psych: appropriate affect Objective Data Current Medications Generic Name Dose Route Start Last Admin Trade Name Freq PRN Reason Stop Dose Admin Acetaminophen 650 mg 03/25/20 16:47 03/28/20 16:53 Acetaminophen 325 Mg Tablet PO 650 mg Q6H PRN Administration Pain, Mild (Pain Scale 1-3) Enoxaparin Sodium 40 mg 03/25/20 22:00 03/29/20 21:56 Enoxaparin Sodium 40 Mg/0.4 Ml Syringe SUBCUT 40 mg Q24H MINAL Administration Cefazolin Sodium/Dextrose 2 gm in 50 mls @ 100 mls/hr 03/28/20 13:00 03/30/20 07:06 Ancef IV Infused Q8H MINAL Infusion Lorazepam 2 mg 03/25/20 16:52 03/29/20 05:33 Lorazepam 2 Mg/Ml Vial IVPUSH 2 mg Q4H PRN Administration anxiety Methadone HCl 60 mg 03/26/20 12:30 03/30/20 07:41 Methadone Hcl 1 Mg/0.1 Ml Oral.Conc PO 60 mg DAILY MINAL Administration Morphine Sulfate 4 mg 03/25/20 16:52 03/27/20 21:32 Morphine Sulfate 4 Mg/Ml Cartridge IVPUSH 4 mg Q4H PRN Administration pain Oxycodone HCl 5 mg 03/28/20 08:14 03/30/20 02:08 Oxycodone Hcl Immed Release 5 Mg Tablet PO 5 mg Q4H PRN Administration pain Sodium Chloride 3 ml 03/26/20 00:00 03/30/20 07:16 0.9 % Sodium Chloride Flush 3 Ml Syringe IVFLUSH 3 ml QSHIFT MINAL Administration Labs CBC & Chem 7: 03/28/20 05:23 03/28/20 05:23 Microbiology Microbiology Results: Microbiology 03/27/20 05:32 Blood - Venous Blood Culture - Preliminary No growth after 48 hours. 03/27/20 05:30 Blood - Venous Blood Culture - Preliminary No growth after 24 hours. 03/25/20 13:05 Blood - Venous Blood Culture - Final Staphylococcus aureus 03/25/20 13:05 Blood - Venous Blood Culture - Final Staphylococcus aureus Assessment and Plan (1) Chest pain: Status: Acute (2) Active substance abuse: Status: Acute (3) Hyponatremia: Status: Acute (4) Bacteremia: Problem details: He has bacteremia There is concern over endocarditis Dont see cellulitis Status: Acute Assessment and Plan: 49M presented iwth chest pain, chills chest pain likely cocaine related, now improved, negative trop and ekg chills due to MSSA bacteremia echo unremarkable, CT with septic emboli so far 03/27 cultures negative plan for picc line and 6 weeks ancef 2gm q8h, day , end may 07, 2020 will need to be done in observed setting due to IVDA constipation dulcolax pr opiate withdrawl improved continue methadone, wean morphine hyponatremia fluid restrict, labs c/w SIADH
[2020-03-30] MEDS: LORazepam 2 MG/ML VIAL IVPUSH (15:49)
[2020-03-30] MEDS: Enoxaparin Sodium 40 MG/0.4 ML SYRINGE SUBCUT (20:32)
[2020-03-30] MEDS: Morphine Sulfate 4 MG/ML CARTRIDGE IVPUSH (20:32)
[2020-03-31 04:00] VITALS: BP 129/89; PULSE 77; RESP 20; TEMP 36.7; O2SAT 97
[2020-03-31] MEDS: ceFAZolin Sodium/Dextrose,Iso 2 GM/50 ML PIGGYBACK IV ×3 (04:24→20:10)
[2020-03-31 08:00] VITALS: BP 127/78; PULSE 80; RESP 18; O2SAT 94
[2020-03-31] MEDS: 0.9 % Sodium Chloride Flush 3 ML SYRINGE IVFLUSH ×2 (09:52→20:09)
[2020-03-31] MEDS: Morphine Sulfate 4 MG/ML CARTRIDGE IVPUSH ×2 (10:34→20:14)
--- NOTE | 2020-03-31 11:22 | HO.PM.IMPN ---
Subjective Subjective Date of Service: 03/31/20 Interval History: No complaints Cardiovascular Cardiovascular: Reports no additional cardiovascular complaints Respiratory Respiratory: Reports no additional respiratory complaints Physical Exam Vital Signs: Vital Signs: Last Vital Signs Temp 98.1 F 03/31/20 04:00 Pulse 80 03/31/20 08:00 Resp 18 03/31/20 08:00 BP 127/78 03/31/20 08:00 Pulse Ox 94 03/31/20 08:00 Body Mass Index 34.2 General: AO X 3, no acute distress Resp: CTA bilateral CVS: S1,S2,RRR GI: soft, non tender, non distended Neuro: motor grossly intact Psych: appropriate affect Objective Data Current Medications Generic Name Dose Route Start Last Admin Trade Name Freq PRN Reason Stop Dose Admin Acetaminophen 650 mg 03/25/20 16:47 03/28/20 16:53 Acetaminophen 325 Mg Tablet PO 650 mg Q6H PRN Administration Pain, Mild (Pain Scale 1-3) Enoxaparin Sodium 40 mg 03/25/20 22:00 03/30/20 20:32 Enoxaparin Sodium 40 Mg/0.4 Ml Syringe SUBCUT 40 mg Q24H MINAL Administration Cefazolin Sodium/Dextrose 2 gm in 50 mls @ 100 mls/hr 03/28/20 13:00 03/31/20 05:16 Ancef IV Infused Q8H MINAL Infusion Lorazepam 2 mg 03/25/20 16:52 03/30/20 15:49 Lorazepam 2 Mg/Ml Vial IVPUSH 2 mg Q4H PRN Administration anxiety Methadone HCl 60 mg 03/26/20 12:30 03/31/20 09:52 Methadone Hcl 1 Mg/0.1 Ml Oral.Conc PO 60 mg DAILY MINAL Administration Morphine Sulfate 4 mg 03/25/20 16:52 03/31/20 10:34 Morphine Sulfate 4 Mg/Ml Cartridge IVPUSH 4 mg Q4H PRN Administration pain Oxycodone HCl 5 mg 03/28/20 08:14 03/30/20 02:08 Oxycodone Hcl Immed Release 5 Mg Tablet PO 5 mg Q4H PRN Administration pain Sodium Chloride 3 ml 03/26/20 00:00 03/31/20 09:52 0.9 % Sodium Chloride Flush 3 Ml Syringe IVFLUSH 3 ml QSHIFT MINAL Administration Labs CBC & Chem 7: 03/28/20 05:23 03/28/20 05:23 Microbiology Microbiology Results: Microbiology 03/27/20 05:32 Blood - Venous Blood Culture - Preliminary No growth after 48 hours. 03/27/20 05:30 Blood - Venous Blood Culture - Preliminary No growth after 24 hours. 03/25/20 13:05 Blood - Venous Blood Culture - Final Staphylococcus aureus 03/25/20 13:05 Blood - Venous Blood Culture - Final Staphylococcus aureus Assessment and Plan (1) Chest pain: Status: Acute (2) Active substance abuse: Status: Acute (3) Hyponatremia: Status: Acute (4) Bacteremia: Problem details: He has bacteremia There is concern over endocarditis Dont see cellulitis Status: Acute Assessment and Plan: 49M presented iwth chest pain, chills chest pain likely cocaine related, now improved, negative trop and ekg chills due to MSSA bacteremia echo unremarkable, CT with septic emboli so far 03/27 cultures negative plan for picc line and 6 weeks ancef 2gm q8h, day , end may 07, 2020 will need to be done in observed setting due to IVDA, however, as of now patient does not have insurance constipation dulcolax pr opiate withdrawl improved continue methadone, wean morphine hyponatremia fluid restrict, labs c/w SIADH
[2020-03-31 12:00] VITALS: BP 134/84; PULSE 82; RESP 20; TEMP 36.3; O2SAT 96
--- NOTE | 2020-03-31 12:49 | HO.PICC ---
[facility] Diagnosis: [MSSA BACTEREMIA] Indication: [CORRECTION IV ANTIBIOTIC THERAPY] Pertinent Labs: [REVIEWED] Technique: Following informed consent including risks, benefits and alternatives and using sterile technique including cap and mask, sterile gown, glove and drape, the [RIGHT] arm was prepped and draped in the usual sterile fashion of full barrier technique with CHG. Following completion of [place] Protocol the skin and soft tissues were anesthetized with 1% Lidocaine plain. Using ultrasound guidance, [THE RIGHT BRACHIAL] vein access was obtained WITH ONE ATTEMPT BY THIS RN. Over an 0.018 wire through peel-away sheath, a [SINGLE LUMEN] PICC line was positioned. Catheter length is [38 CM] internal length, [1 CM] external length, for a total trimmed length of [39 CM]. The procedure was performed in [ROOM 7]. Tip verification was performed by Yary Mercado with [facility]lock 3CG. Tip located in SVC. Ultrasound was used to document vein patency and for needle entry. A formal ultrasound picture and cardiac rhythm strip was recorded. Vascular Connie Cleaner has released the line for use and it is currently dressed with a StatLock, Tegaderm, and CHG disc. Verification has been performed for blood return and line patency. Arm Circumference: [36 CM] Equipment: [BARD POWER SOLO PICC] Catheter Type: [4 CROATIAN SINGLE LUMEN] Lot #: [[id number]]
--- NOTE | 2020-03-31 14:49 | MHC.CM.PN ---
Patient does not have insurance and not able to go to [facility]. Financial are working with patient to get [facility] health. Discharge plan is [facility] when insurance is obtained.
[2020-03-31 16:00] VITALS: BP 129/70; PULSE 73; RESP 18; TEMP 36.8; O2SAT 98
[2020-03-31 19:57] VITALS: BP 130/75; PULSE 80; RESP 19; TEMP 523.8; TEMP 975; O2SAT 95
[2020-03-31 20:14] VITALS: RESP 19
[2020-03-31] MEDS: Enoxaparin Sodium 40 MG/0.4 ML SYRINGE SUBCUT (22:48)
[2020-04-01] VITALS (8 sets, daily range): BP systolic 98–139; BP diastolic 67–85; PULSE 63–73; RESP 18–20; TEMP 35.5–37.1; O2SAT 94–98
[2020-04-01] MEDS: 0.9 % Sodium Chloride Flush 3 ML SYRINGE IVFLUSH ×4 (01:28→23:45)
[2020-04-01] MEDS: Morphine Sulfate 4 MG/ML CARTRIDGE IVPUSH (01:28)
[2020-04-01] MEDS: Acetaminophen 325 MG TABLET 650 MG PO ×2 (04:59→18:48)
[2020-04-01] MEDS: oxyCODONE HCl Immed Release 5 MG TABLET PO ×3 (05:02→23:09)
[2020-04-01] MEDS: ceFAZolin Sodium/Dextrose,Iso 2 GM/50 ML PIGGYBACK IV ×3 (06:07→22:47)
[2020-04-01 06:17] LABS: MANUAL DIFF FLAG NO
[2020-04-01 06:22] LABS: Basophils Percent Auto 0.3 % (0-2); Eosinophils Percent Auto 0.2 % (0-4); Hematocrit 32.3 % (42-52); Hemoglobin 10.8 g/dl (14.0-18.0); Imm Gran Abs Auto 0.39 X10*3/uL (0.00-0.03); Imm Gran Pct Auto 3.5 % (0.0-0.4); Lymphocytes Absolute Auto 2.3 X10*3/uL (1.2-4.9); Lymphocytes Percent Auto 20.9 % (20-40); Mean Corpuscular HGB Conc 33.4 g/dl (31.0-36.0); Mean Corpuscular Hemoglobin 29.8 pg (27.0-33.0); Mean Platelet Volume 9.1 fL (9.4-12.4); Monocytes Absolute Auto 0.8 X10*3/uL (0.1-1.2); Neutrophils Absolute Auto 7.6 X10*3/uL (2.0-8.3); Neutrophils Percent Auto 68.1 % (45-73); Platelet Count 318 X10*3/uL (160-400); Red Blood Count 3.63 X10*6/uL (4.60-5.80); Red Cell Distribution Width 12.9 % (11.0-16.0); White Blood Count 11.2 X10*3/uL (4.8-10.8)
[2020-04-01 06:48] LABS: Anion Gap 15 (12-20); Blood Urea Nitrogen 13 mg/dL (9-16); Calcium 8.4 mg/dL (8.4-10.2); Carbon Dioxide 22 mmol/L (22-29); Chloride 98 mmol/L (96-108); Creatinine Clr Calc Pharmacy 160.8; Estimated Glomerular Filt Rate > 60; Glucose Fasting 83 mg/dL (60-99); Potassium 4.7 mmol/l (3.3-5.1); Sodium 130 mmol/L (135-145)
[2020-04-01] MEDS: 0.9 % Sodium Chloride Flush 10 ML SYRINGE 5 ML IVFLUSH ×3 (08:13→23:48)
--- NOTE | 2020-04-01 10:55 | HO.PM.IMPN ---
Subjective Subjective Date of Service: 04/01/20 Interval History: seen in f/u for bactremia and awaiting placment, No new issues Physical Exam Vital Signs: Vital Signs: Last Vital Signs Temp 98 F 04/01/20 07:09 Pulse 64 04/01/20 07:09 Resp 18 04/01/20 07:09 BP 118/73 04/01/20 07:09 Pulse Ox 96 04/01/20 07:09 Body Mass Index 34.2 General: AO X 3, no acute distress Resp: CTA bilateral CVS: S1,S2,RRR GI: +BS, NT, no distention Skin: No rash Neuro: motor grossly intact Psych: appropriate affect Objective Data Current Medications Generic Name Dose Route Start Last Admin Trade Name Freq PRN Reason Stop Dose Admin Acetaminophen 650 mg 03/25/20 16:47 04/01/20 04:59 Acetaminophen 325 Mg Tablet PO 650 mg Q6H PRN Administration Pain, Mild (Pain Scale 1-3) Enoxaparin Sodium 40 mg 03/25/20 22:00 03/31/20 22:48 Enoxaparin Sodium 40 Mg/0.4 Ml Syringe SUBCUT 40 mg Q24H MINAL Administration Cefazolin Sodium/Dextrose 2 gm in 50 mls @ 100 mls/hr 03/28/20 13:00 04/01/20 06:40 Ancef IV Infused Q8H MINAL Infusion Lorazepam 2 mg 03/25/20 16:52 03/30/20 15:49 Lorazepam 2 Mg/Ml Vial IVPUSH 2 mg Q4H PRN Administration anxiety Methadone HCl 60 mg 03/26/20 12:30 04/01/20 08:09 Methadone Hcl 1 Mg/0.1 Ml Oral.Conc PO 60 mg DAILY MINAL Administration Morphine Sulfate 4 mg 03/25/20 16:52 04/01/20 01:28 Morphine Sulfate 4 Mg/Ml Cartridge IVPUSH 4 mg Q4H PRN Administration pain Oxycodone HCl 5 mg 03/28/20 08:14 04/01/20 05:02 Oxycodone Hcl Immed Release 5 Mg Tablet PO 5 mg Q4H PRN Administration pain Sodium Chloride 3 ml 03/26/20 00:00 04/01/20 08:10 0.9 % Sodium Chloride Flush 3 Ml Syringe IVFLUSH 3 ml QSHIFT MINAL Administration Sodium Chloride 5 ml 03/31/20 21:00 04/01/20 08:13 0.9 % Sodium Chloride Flush 10 Ml Syringe IVFLUSH 5 ml TID MINAL Administration Labs CBC & Chem 7: 04/01/20 05:15 04/01/20 05:15 Microbiology Microbiology Results: Microbiology 03/27/20 05:32 Blood - Venous Blood Culture - Final No growth after 5 days. 03/27/20 05:30 Blood - Venous Blood Culture - Preliminary No growth after 24 hours. 03/25/20 13:05 Blood - Venous Blood Culture - Final Staphylococcus aureus 03/25/20 13:05 Blood - Venous Blood Culture - Final Staphylococcus aureus Assessment and Plan (1) Chest pain: Status: Acute (2) Active substance abuse: Status: Acute (3) Hyponatremia: Status: Acute (4) Bacteremia: Problem details: He has bacteremia There is concern over endocarditis Dont see cellulitis Status: Acute Assessment and Plan: 49M presented iwth chest pain, chills and found to hace MSSA bacteremia MSSA bacteremia from 03/25 cultures x 2--unlear source. echo unremarkable, CT with septic emboli so far 03/27 cultures negative plan for weeks of ancef 2gm q8h, day , end may 07, 2020. Picc done on 03/31. To go to SNF d/t drug use status chest pain likely cocaine related, now improved, negative trop and ekg constipation dulcolax pr opiate withdrawl improved continue methadone, wean morphine hyponatremia--stable around 130 fluid restrict, labs c/w SIADH
[2020-04-01] MEDS: Enoxaparin Sodium 40 MG/0.4 ML SYRINGE SUBCUT (22:47)
[2020-04-02] MEDS: Acetaminophen 325 MG TABLET 650 MG PO ×3 (03:15→23:42)
[2020-04-02] MEDS: oxyCODONE HCl Immed Release 5 MG TABLET PO ×4 (03:15→23:43)
[2020-04-02 04:00] VITALS: BP 116/72; PULSE 70; RESP 18; TEMP 37; O2SAT 97
[2020-04-02] MEDS: ceFAZolin Sodium/Dextrose,Iso 2 GM/50 ML PIGGYBACK IV ×3 (05:57→21:26)
[2020-04-02] MEDS: 0.9 % Sodium Chloride Flush 3 ML SYRINGE IVFLUSH ×3 (07:34→23:38)
[2020-04-02 08:00] VITALS: BP 126/76; PULSE 69; RESP 20; TEMP 36.2; O2SAT 99
--- NOTE | 2020-04-02 10:06 | MHC.CM.PN ---
CM spoke with Karla in [facility] who reports they never received a referral for this patient. CM re-faxed referral, fax confirmation scanned into chart. CM will continue to follow patient for discharge needs.
--- NOTE | 2020-04-02 11:39 | HO.PM.IMPN ---
Subjective Subjective Date of Service: 04/02/20 Interval History: seen in f/u for bactremia and awaiting placment, No new issues Physical Exam Vital Signs: Vital Signs: Last Vital Signs Temp 97.2 F 04/02/20 08:00 Pulse 69 04/02/20 08:00 Resp 20 04/02/20 08:00 BP 126/76 04/02/20 08:00 Pulse Ox 99 04/02/20 08:00 Body Mass Index 34.2 General: AO X 3, no acute distress Resp: CTA bilateral CVS: S1,S2,RRR GI: +BS, NT, no distention Skin: No rash Neuro: motor grossly intact Psych: appropriate affect Objective Data Current Medications Generic Name Dose Route Start Last Admin Trade Name Freq PRN Reason Stop Dose Admin Acetaminophen 650 mg 03/25/20 16:47 04/02/20 03:15 Acetaminophen 325 Mg Tablet PO 650 mg Q6H PRN Administration Pain, Mild (Pain Scale 1-3) Enoxaparin Sodium 40 mg 03/25/20 22:00 04/01/20 22:47 Enoxaparin Sodium 40 Mg/0.4 Ml Syringe SUBCUT 40 mg Q24H MINAL Administration Cefazolin Sodium/Dextrose 2 gm in 50 mls @ 100 mls/hr 03/28/20 13:00 04/02/20 06:27 Ancef IV Infused Q8H MINAL Infusion Lorazepam 2 mg 03/25/20 16:52 03/30/20 15:49 Lorazepam 2 Mg/Ml Vial IVPUSH 2 mg Q4H PRN Administration anxiety Methadone HCl 60 mg 03/26/20 12:30 04/02/20 07:35 Methadone Hcl 1 Mg/0.1 Ml Oral.Conc PO 60 mg DAILY MINAL Administration Morphine Sulfate 4 mg 03/25/20 16:52 04/01/20 01:28 Morphine Sulfate 4 Mg/Ml Cartridge IVPUSH 4 mg Q4H PRN Administration pain Sodium Chloride 3 ml 03/26/20 00:00 04/02/20 07:34 0.9 % Sodium Chloride Flush 3 Ml Syringe IVFLUSH 3 ml QSHIFT MINAL Administration Sodium Chloride 5 ml 03/31/20 21:00 04/01/20 23:48 0.9 % Sodium Chloride Flush 10 Ml Syringe IVFLUSH 5 ml TID MINAL Administration Labs CBC & Chem 7: 04/01/20 05:15 04/01/20 05:15 Microbiology Microbiology Results: Microbiology 03/27/20 05:30 Blood - Venous Blood Culture - Final No growth after 5 days. 03/27/20 05:32 Blood - Venous Blood Culture - Final No growth after 5 days. 03/25/20 13:05 Blood - Venous Blood Culture - Final Staphylococcus aureus 03/25/20 13:05 Blood - Venous Blood Culture - Final Staphylococcus aureus Assessment and Plan (1) Chest pain: Status: Acute (2) Active substance abuse: Status: Acute (3) Hyponatremia: Status: Acute (4) Bacteremia: Status: Acute Assessment and Plan: 49M presented iwth chest pain, chills and found to hace MSSA bacteremia MSSA bacteremia from 03/25 cultures x 2--unlear source. echo unremarkable, CT with septic emboli so far 03/27 cultures negative plan for weeks of ancef 2gm q8h, day 742, end may 07, 2020. Picc done on 03/31. To go to SNF d/t drug use status chest pain likely cocaine related, now improved, negative trop and ekg constipation dulcolax pr opiate withdrawl improved continue methadone, wean morphine hyponatremia--stable around 130 fluid restrict, labs c/w SIADH
[2020-04-02 12:00] VITALS: BP 119/75; PULSE 69; RESP 20; TEMP 36.5; O2SAT 99
[2020-04-02] MEDS: 0.9 % Sodium Chloride Flush 10 ML SYRINGE 5 ML IVFLUSH ×2 (12:34→21:27)
--- NOTE | 2020-04-02 14:30 | MHC.CLN ---
F/U 75% AVG DIET RX: REGULAR 1500CC FLUID RESTRICTION-APPROPRIATE FOLLOWING
[2020-04-02 15:43] VITALS: BP 119/68; PULSE 87; RESP 20; TEMP 36.3; O2SAT 97
[2020-04-02 19:19] VITALS: BP 133/80; PULSE 75; RESP 20; TEMP 36.4; O2SAT 97
[2020-04-02] MEDS: Enoxaparin Sodium 40 MG/0.4 ML SYRINGE SUBCUT (21:26)
[2020-04-03] VITALS: BP 140/83; PULSE 72; RESP 18; TEMP 36.9; O2SAT 97
[2020-04-03 03:21] VITALS: BP 129/79; PULSE 65; RESP 18; TEMP 37.1; O2SAT 96
[2020-04-03] MEDS: ceFAZolin Sodium/Dextrose,Iso 2 GM/50 ML PIGGYBACK IV ×3 (05:46→20:08)
[2020-04-03] MEDS: Acetaminophen 325 MG TABLET 650 MG PO ×3 (05:46→19:20)
[2020-04-03] MEDS: oxyCODONE HCl Immed Release 5 MG TABLET PO ×3 (05:47→19:21)
[2020-04-03 08:00] VITALS: BP 119/81; PULSE 76; RESP 18; TEMP 36.4; O2SAT 98
[2020-04-03] MEDS: 0.9 % Sodium Chloride Flush 3 ML SYRINGE IVFLUSH ×3 (08:34→20:08)
[2020-04-03] MEDS: 0.9 % Sodium Chloride Flush 10 ML SYRINGE 5 ML IVFLUSH ×3 (08:34→20:09)
[2020-04-03 12:00] VITALS: BP 145/87; PULSE 82; RESP 18; TEMP 36.7; O2SAT 100
[2020-04-03 16:00] VITALS: BP 114/68; PULSE 71; RESP 18; TEMP 37.1; O2SAT 96
[2020-04-03 19:58] VITALS: BP 141/80; PULSE 81; RESP 18; TEMP 37.8; O2SAT 96
[2020-04-03] MEDS: Enoxaparin Sodium 40 MG/0.4 ML SYRINGE SUBCUT (20:08)
[2020-04-04] VITALS (9 sets, daily range): BP systolic 103–147; BP diastolic 58–97; PULSE 62–87; RESP 18–20; TEMP 36.6–38.7; O2SAT 96–99
[2020-04-04] MEDS: Magnesium Hydrox/Alum Hydrox 30 ML ORAL.SUSP 15 ML PO (01:44)
[2020-04-04] MEDS: oxyCODONE HCl Immed Release 5 MG TABLET PO ×4 (01:48→20:39)
[2020-04-04] MEDS: Acetaminophen 325 MG TABLET 650 MG PO ×4 (01:48→20:40)
[2020-04-04] MEDS: ceFAZolin Sodium/Dextrose,Iso 2 GM/50 ML PIGGYBACK IV ×3 (05:10→20:40)
[2020-04-04] MEDS: 0.9 % Sodium Chloride Flush 10 ML SYRINGE 5 ML IVFLUSH ×3 (08:06→21:27)
--- NOTE | 2020-04-04 11:21 | HO.PM.IMPN ---
Subjective Subjective Date of Service: 04/04/20 Interval History: seen in f/u for bactremia and awaiting placment. Fever of 101, no sob, no cough, no sore throat, no loss of taste or smell Physical Exam Vital Signs: Vital Signs: Last Vital Signs Temp 101.6 F H 04/04/20 08:00 Pulse 62 04/04/20 08:00 Resp 20 04/04/20 08:00 BP 141/79 H 04/04/20 08:00 Pulse Ox 98 04/04/20 08:00 Body Mass Index 34.2 General: AO X 3, no acute distress Resp: CTA bilateral CVS: S1,S2,RRR GI: +BS, NT, no distention Skin: No rash Neuro: motor grossly intact Psych: appropriate affect Objective Data Current Medications Generic Name Dose Route Start Last Admin Trade Name Freq PRN Reason Stop Dose Admin Acetaminophen 650 mg 03/25/20 16:47 04/04/20 08:06 Acetaminophen 325 Mg Tablet PO 650 mg Q6H PRN Administration Pain, Mild (Pain Scale 1-3) Enoxaparin Sodium 40 mg 03/25/20 22:00 04/03/20 20:08 Enoxaparin Sodium 40 Mg/0.4 Ml Syringe SUBCUT 40 mg Q24H MINAL Administration Cefazolin Sodium/Dextrose 2 gm in 50 mls @ 100 mls/hr 03/28/20 13:00 04/04/20 05:47 Ancef IV Infused Q8H MINAL Infusion Methadone HCl 60 mg 03/26/20 12:30 04/04/20 08:06 Methadone Hcl 1 Mg/0.1 Ml Oral.Conc PO 60 mg DAILY MINAL Administration Oxycodone HCl 5 mg 04/02/20 12:34 04/04/20 08:06 Oxycodone Hcl Immed Release 5 Mg Tablet PO 5 mg Q6H PRN Administration Pain, Severe (Pain Scale 7-10) Sodium Chloride 3 ml 03/26/20 00:00 04/04/20 08:09 0.9 % Sodium Chloride Flush 3 Ml Syringe IVFLUSH Not Given QSHIFT MINAL Sodium Chloride 5 ml 03/31/20 21:00 04/04/20 08:06 0.9 % Sodium Chloride Flush 10 Ml Syringe IVFLUSH 5 ml TID MINAL Administration Labs CBC & Chem 7: 04/01/20 05:15 04/01/20 05:15 Microbiology Microbiology Results: Microbiology 03/27/20 05:30 Blood - Venous Blood Culture - Final No growth after 5 days. 03/27/20 05:32 Blood - Venous Blood Culture - Final No growth after 5 days. 03/25/20 13:05 Blood - Venous Blood Culture - Final Staphylococcus aureus 03/25/20 13:05 Blood - Venous Blood Culture - Final Staphylococcus aureus Assessment and Plan (1) Chest pain: Status: Acute (2) Active substance abuse: Status: Acute (3) Hyponatremia: Status: Acute (4) Bacteremia: Status: Acute Assessment and Plan: 49M presented iwth chest pain, chills and found to hace MSSA bacteremia MSSA bacteremia from 03/25 cultures x 2--unlear source. echo unremarkable, CT with septic emboli so far 03/27 cultures negative plan for weeks of ancef 2gm q8h, day 742, end may 07, 2020. Picc done on 03/31. To go to SNF d/t drug use status chest pain likely cocaine related, now improved, negative trop and ekg Fever--repeat blood cultures. constipation dulcolax pr opiate withdrawl improved continue methadone, wean morphine hyponatremia--stable around 130 fluid restrict, labs c/w SIADH
--- NOTE | 2020-04-04 12:12 | MHC.CM.PN ---
Patient continues on IV Cefazolin Q8hrs for MSSA bacteremia and will need 6 wks total. CM spoke with Karla in financial who states patient has [facility] from [employer]. Karla will work with patient to pick a plan and get [employer] activated. CM will update [facility] . CM will continue to follow patient for discharge needs.
[2020-04-04] MEDS: Enoxaparin Sodium 40 MG/0.4 ML SYRINGE SUBCUT (20:39)
[2020-04-04] MEDS: 0.9 % Sodium Chloride Flush 3 ML SYRINGE IVFLUSH (20:39)
[2020-04-05 04:00] VITALS: BP 116/78; PULSE 77; RESP 20; TEMP 37.6; O2SAT 98
[2020-04-05] MEDS: oxyCODONE HCl Immed Release 5 MG TABLET PO ×4 (04:00→21:46)
[2020-04-05] MEDS: ceFAZolin Sodium/Dextrose,Iso 2 GM/50 ML PIGGYBACK IV ×3 (04:01→21:47)
[2020-04-05] MEDS: Acetaminophen 325 MG TABLET 650 MG PO ×4 (04:01→21:46)
[2020-04-05 07:38] VITALS: BP 117/80; PULSE 67; RESP 18; TEMP 36.7; O2SAT 95
[2020-04-05] MEDS: 0.9 % Sodium Chloride Flush 10 ML SYRINGE 5 ML IVFLUSH ×3 (08:10→21:46)
[2020-04-05] MEDS: 0.9 % Sodium Chloride Flush 3 ML SYRINGE IVFLUSH ×4 (08:10→21:46)
[2020-04-05 08:46] LABS: COVID-19 Test Negative (Negative); IDNOW Serial# 9DD0AD1C
--- NOTE | 2020-04-05 11:02 | HO.PM.IMPN ---
Subjective Subjective Date of Service: 04/05/20 Interval History: seen in f/u for bactremia and awaiting placment. Fever of 101, no sob, no cough, no sore throat, no loss of taste or smell ROS: fever, no sob, no chest pain, no conusion Physical Exam Vital Signs: Vital Signs: Last Vital Signs Temp 98.1 F 04/05/20 07:38 Pulse 67 04/05/20 07:38 Resp 18 04/05/20 07:38 BP 117/80 04/05/20 07:38 Pulse Ox 95 04/05/20 07:38 Body Mass Index 34.2 General: AO X 3, no acute distress Resp: CTA bilateral CVS: S1,S2,RRR GI: +BS, NT, no distention Skin: No rash Neuro: motor grossly intact Psych: appropriate affect Objective Data Current Medications Generic Name Dose Route Start Last Admin Trade Name Freq PRN Reason Stop Dose Admin Acetaminophen 650 mg 03/25/20 16:47 04/05/20 10:05 Acetaminophen 325 Mg Tablet PO 650 mg Q6H PRN Administration Pain, Mild (Pain Scale 1-3) Enoxaparin Sodium 40 mg 03/25/20 22:00 04/04/20 20:39 Enoxaparin Sodium 40 Mg/0.4 Ml Syringe SUBCUT 40 mg Q24H MINAL Administration Cefazolin Sodium/Dextrose 2 gm in 50 mls @ 100 mls/hr 04/04/20 21:00 04/05/20 05:02 Ancef IV Infused Q8H MINAL Infusion Methadone HCl 60 mg 03/26/20 12:30 04/05/20 08:10 Methadone Hcl 1 Mg/0.1 Ml Oral.Conc PO 60 mg DAILY MINAL Administration Oxycodone HCl 5 mg 04/02/20 12:34 04/05/20 10:05 Oxycodone Hcl Immed Release 5 Mg Tablet PO 5 mg Q6H PRN Administration Pain, Severe (Pain Scale 7-10) Sodium Chloride 3 ml 03/26/20 00:00 04/05/20 08:10 0.9 % Sodium Chloride Flush 3 Ml Syringe IVFLUSH 3 ml QSHIFT MINAL Administration Sodium Chloride 5 ml 03/31/20 21:00 04/05/20 08:10 0.9 % Sodium Chloride Flush 10 Ml Syringe IVFLUSH 5 ml TID MINAL Administration Labs CBC & Chem 7: 04/01/20 05:15 04/01/20 05:15 Microbiology Microbiology Results: Microbiology 03/27/20 05:30 Blood - Venous Blood Culture - Final No growth after 5 days. 03/27/20 05:32 Blood - Venous Blood Culture - Final No growth after 5 days. 03/25/20 13:05 Blood - Venous Blood Culture - Final Staphylococcus aureus 03/25/20 13:05 Blood - Venous Blood Culture - Final Staphylococcus aureus Assessment and Plan (1) Chest pain: Status: Acute (2) Active substance abuse: Status: Acute (3) Hyponatremia: Status: Acute (4) Bacteremia: Status: Acute Assessment and Plan: 49M presented iwth chest pain, chills and found to hace MSSA bacteremia MSSA bacteremia from 03/25 cultures x 2--unlear source. Fever the last 24 hours echo unremarkable, CT with septic emboli so far 03/27 cultures negative plan for 6 weeks of ancef 2gm q8h, day , end may 07, 2020. Picc placed on 03/31. To go to SNF d/t drug use status, so far no insurance -negative covid 04/05 -repeat blood cultures today chest pain likely cocaine related, now improved, negative trop and ekg Fever--repeat blood cultures. constipation dulcolax pr opiate withdrawl improved continue methadone, wean morphine hyponatremia--stable around 130 fluid restrict, labs c/w SIADH Essentially can't leave unless he gets insurance
[2020-04-05 11:08] VITALS: BP 131/87; PULSE 62; RESP 18; TEMP 36.7; O2SAT 96
[2020-04-05 11:30] LABS: Anion Gap 12 (12-20); Blood Urea Nitrogen 11 mg/dL (9-16); Calcium 9.1 mg/dL (8.4-10.2); Carbon Dioxide 26 mmol/L (22-29); Chloride 100 mmol/L (96-108); Creatinine Clr Calc Pharmacy 141.3; Estimated Glomerular Filt Rate > 60; Glucose Random 96 mg/dL (60-115); Potassium 5.1 mmol/l (3.3-5.1); Sodium 133 mmol/L (135-145)
[2020-04-05 15:06] VITALS: BP 137/82; PULSE 62; RESP 18; TEMP 36.1; O2SAT 97
[2020-04-05 18:50] VITALS: BP 135/94; PULSE 68; RESP 18; TEMP 36.8; O2SAT 97
[2020-04-05] MEDS: Enoxaparin Sodium 40 MG/0.4 ML SYRINGE SUBCUT (21:47)
[2020-04-06] VITALS: BP 116/68; PULSE 63; RESP 18; TEMP 36.7; O2SAT 96
[2020-04-06 03:10] VITALS: BP 137/86; PULSE 71; RESP 18; TEMP 36.6; O2SAT 97
[2020-04-06] MEDS: oxyCODONE HCl Immed Release 5 MG TABLET PO ×3 (04:13→23:11)
[2020-04-06] MEDS: ceFAZolin Sodium/Dextrose,Iso 2 GM/50 ML PIGGYBACK IV ×3 (04:13→21:05)
[2020-04-06] MEDS: Acetaminophen 325 MG TABLET 650 MG PO ×3 (04:13→23:10)
[2020-04-06 07:07] LABS: Hemoglobin 10.7 g/dl (14.0-18.0); Mean Corpuscular HGB Conc 32.4 g/dl (31.0-36.0); Mean Corpuscular Hemoglobin 29.4 pg (27.0-33.0); Mean Corpuscular Volume 90.7 fL (80-98); Mean Platelet Volume 8.9 fL (9.4-12.4); Platelet Count 332 X10*3/uL (160-400); Red Blood Count 3.64 X10*6/uL (4.60-5.80); Red Cell Distribution Width 12.5 % (11.0-16.0); White Blood Count 7.6 X10*3/uL (4.8-10.8)
[2020-04-06 07:19] VITALS: BP 108/71; PULSE 57; RESP 18; TEMP 36.9; O2SAT 95
[2020-04-06] MEDS: 0.9 % Sodium Chloride Flush 3 ML SYRINGE IVFLUSH ×3 (08:59→13:24)
[2020-04-06] MEDS: 0.9 % Sodium Chloride Flush 10 ML SYRINGE 5 ML IVFLUSH ×3 (09:00→21:07)
--- NOTE | 2020-04-06 09:04 | HO.PM.IMPN ---
Subjective Subjective Date of Service: 04/06/20 Interval History: seen in f/u for bactremia and awaiting placment. No more fever and no new iss ROS: no fever, no sob, no chest pain, no confusion Physical Exam Vital Signs: Vital Signs: Last Vital Signs Temp 98.5 F 04/06/20 07:19 Pulse 57 04/06/20 07:19 Resp 18 04/06/20 07:19 BP 108/71 04/06/20 07:19 Pulse Ox 95 04/06/20 07:19 Body Mass Index 34.2 General: AO X 3, no acute distress Resp: CTA bilateral CVS: S1,S2,RRR GI: +BS, NT, no distention Skin: No rash Neuro: motor grossly intact Psych: appropriate affect Objective Data Current Medications Generic Name Dose Route Start Last Admin Trade Name Freq PRN Reason Stop Dose Admin Acetaminophen 650 mg 03/25/20 16:47 04/06/20 04:13 Acetaminophen 325 Mg Tablet PO 650 mg Q6H PRN Administration Pain, Mild (Pain Scale 1-3) Enoxaparin Sodium 40 mg 03/25/20 22:00 04/05/20 21:47 Enoxaparin Sodium 40 Mg/0.4 Ml Syringe SUBCUT 40 mg Q24H MINAL Administration Cefazolin Sodium/Dextrose 2 gm in 50 mls @ 100 mls/hr 04/04/20 21:00 04/06/20 05:12 Ancef IV Infused Q8H MINAL Infusion Methadone HCl 60 mg 03/26/20 12:30 04/06/20 08:59 Methadone Hcl 1 Mg/0.1 Ml Oral.Conc PO 60 mg DAILY MINAL Administration Oxycodone HCl 5 mg 04/02/20 12:34 04/06/20 04:13 Oxycodone Hcl Immed Release 5 Mg Tablet PO 5 mg Q6H PRN Administration Pain, Severe (Pain Scale 7-10) Sodium Chloride 3 ml 03/26/20 00:00 04/06/20 09:00 0.9 % Sodium Chloride Flush 3 Ml Syringe IVFLUSH 3 ml QSHIFT MINAL Administration Sodium Chloride 5 ml 03/31/20 21:00 04/06/20 09:00 0.9 % Sodium Chloride Flush 10 Ml Syringe IVFLUSH 5 ml TID MINAL Administration Labs CBC & Chem 7: 04/06/20 05:50 04/05/20 07:55 Microbiology Microbiology Results: Microbiology 03/27/20 05:30 Blood - Venous Blood Culture - Final No growth after 5 days. 03/27/20 05:32 Blood - Venous Blood Culture - Final No growth after 5 days. 03/25/20 13:05 Blood - Venous Blood Culture - Final Staphylococcus aureus 03/25/20 13:05 Blood - Venous Blood Culture - Final Staphylococcus aureus Assessment and Plan (1) Chest pain: Status: Acute (2) Active substance abuse: Status: Acute (3) Hyponatremia: Status: Acute (4) Bacteremia: Status: Acute Assessment and Plan: 49M presented iwth chest pain, chills and found to hace MSSA bacteremia MSSA bacteremia from 03/25 cultures x 2--unlear source. Fever the last 24 hours echo unremarkable, CT with septic emboli so far 03/27 cultures negative plan for 6 weeks of ancef 2gm q8h, day 742, end may 07, 2020. Picc placed on 03/31. To go to SNF d/t drug use status, so far no insurance -negative covid 04/05 -repeat blood cultures 04/05--pending chest pain likely cocaine related, now improved, negative trop and ekg Fever on --repeaed blood cultures. constipation dulcolax pr opiate withdrawl improved continue methadone, wean morphine hyponatremia--stable around 130 fluid restrict, labs c/w SIADH Essentially can't leave unless he gets insurance and get placed
[2020-04-06 11:30] VITALS: BP 141/96; PULSE 68; RESP 18; TEMP 36.6; O2SAT 96
[2020-04-06 15:18] VITALS: BP 128/74; PULSE 82; RESP 18; TEMP 36.9; O2SAT 96
[2020-04-06 19:43] VITALS: BP 119/81; PULSE 68; RESP 18; TEMP 37.1; O2SAT 97
[2020-04-06] MEDS: Enoxaparin Sodium 40 MG/0.4 ML SYRINGE SUBCUT (21:06)
[2020-04-07] VITALS (7 sets, daily range): BP systolic 111–134; BP diastolic 67–84; PULSE 54–74; RESP 18–20; TEMP 36.4–37; O2SAT 95–98
[2020-04-07] MEDS: ceFAZolin Sodium/Dextrose,Iso 2 GM/50 ML PIGGYBACK IV ×3 (05:20→22:10)
[2020-04-07] MEDS: 0.9 % Sodium Chloride Flush 3 ML SYRINGE IVFLUSH ×2 (08:32→16:37)
[2020-04-07] MEDS: 0.9 % Sodium Chloride Flush 10 ML SYRINGE 5 ML IVFLUSH ×3 (08:33→22:09)
--- NOTE | 2020-04-07 11:52 | MHC.CM.PN ---
Patient is on IV Cefazolin for MRSA bacteremia. Also has drug history and on methadone. Patient is waiting for [facility] [place], TC to Ryanne in financial who will look into his insurance and get back to . Discharge plan is to [facility] when he has insurance. Will need S transport. will continue to follow patient for discharge needs.
--- NOTE | 2020-04-07 13:02 | HO.PM.IMPN ---
Subjective Subjective Date of Service: 04/07/20 Interval History: no complaints Cardiovascular Cardiovascular: Reports no additional cardiovascular complaints Respiratory Respiratory: Reports no additional respiratory complaints Physical Exam Vital Signs: Vital Signs: Last Vital Signs Temp 97.6 F 04/07/20 11:19 Pulse 74 04/07/20 11:19 Resp 18 04/07/20 11:19 BP 134/84 04/07/20 11:19 Pulse Ox 97 04/07/20 11:19 Body Mass Index 34.2 General: AO X 3, no acute distress Resp: CTA bilateral CVS: S1,S2,RRR GI: soft, non tender, non distended Neuro: motor grossly intact Psych: appropriate affect Objective Data Current Medications Generic Name Dose Route Start Last Admin Trade Name Freq PRN Reason Stop Dose Admin Acetaminophen 650 mg 03/25/20 16:47 04/06/20 23:10 Acetaminophen 325 Mg Tablet PO 650 mg Q6H PRN Administration Pain, Mild (Pain Scale 1-3) Enoxaparin Sodium 40 mg 03/25/20 22:00 04/06/20 21:06 Enoxaparin Sodium 40 Mg/0.4 Ml Syringe SUBCUT 40 mg Q24H MINAL Administration Cefazolin Sodium/Dextrose 2 gm in 50 mls @ 100 mls/hr 04/04/20 21:00 04/07/20 11:47 Ancef IV 100 mls/hr Q8H MINAL Administration Methadone HCl 60 mg 03/26/20 12:30 04/07/20 08:32 Methadone Hcl 1 Mg/0.1 Ml Oral.Conc PO 60 mg DAILY MINAL Administration Sodium Chloride 3 ml 03/26/20 00:00 04/07/20 08:32 0.9 % Sodium Chloride Flush 3 Ml Syringe IVFLUSH 3 ml QSHIFT MINAL Administration Sodium Chloride 5 ml 03/31/20 21:00 04/07/20 08:33 0.9 % Sodium Chloride Flush 10 Ml Syringe IVFLUSH 5 ml TID MINAL Administration Labs CBC & Chem 7: 04/06/20 05:50 04/05/20 07:55 Microbiology Microbiology Results: Microbiology 04/05/20 07:55 Blood - Venous Blood Culture - Preliminary No growth after 48 hours. 04/05/20 08:10 Blood - Venous Blood Culture - Preliminary No growth after 48 hours. 03/27/20 05:30 Blood - Venous Blood Culture - Final No growth after 5 days. 03/27/20 05:32 Blood - Venous Blood Culture - Final No growth after 5 days. 03/25/20 13:05 Blood - Venous Blood Culture - Final Staphylococcus aureus 03/25/20 13:05 Blood - Venous Blood Culture - Final Staphylococcus aureus Assessment and Plan (1) Chest pain: Status: Acute (2) Active substance abuse: Status: Acute (3) Hyponatremia: Status: Acute (4) Bacteremia: Status: Acute Assessment and Plan: 49M presented iwth chest pain, chills chest pain likely cocaine related, resolved, negative trop and ekg chills due to MSSA bacteremia echo unremarkable, CT with septic emboli 03/27 cultures negative s/p picc line, plan for 6 weeks ancef 2gm q8h, day , end may 07, 2020 will need to be done in observed setting due to IVDA, awaiting placement opiate withdrawl improved continue methadone hyponatremia fluid restrict, labs c/w SIADH, improved
[2020-04-07] MEDS: Enoxaparin Sodium 40 MG/0.4 ML SYRINGE SUBCUT (22:10)
[2020-04-08 03:49] VITALS: BP 110/58; PULSE 64; RESP 18; TEMP 36.8; O2SAT 95
[2020-04-08] MEDS: ceFAZolin Sodium/Dextrose,Iso 2 GM/50 ML PIGGYBACK IV ×3 (04:42→22:19)
[2020-04-08 07:41] VITALS: BP 139/81; PULSE 80; RESP 18; TEMP 36.4; O2SAT 96
[2020-04-08] MEDS: 0.9 % Sodium Chloride Flush 10 ML SYRINGE 5 ML IVFLUSH ×3 (09:39→22:20)
[2020-04-08] MEDS: 0.9 % Sodium Chloride Flush 3 ML SYRINGE IVFLUSH (09:40)
[2020-04-08 11:41] VITALS: BP 125/70; PULSE 73; RESP 18; TEMP 36.7; O2SAT 95
--- NOTE | 2020-04-08 12:37 | HO.PM.IMPN ---
Subjective Subjective Date of Service: 04/08/20 Interval History: No complaint Cardiovascular Cardiovascular: Reports no additional cardiovascular complaints Respiratory Respiratory: Reports no additional respiratory complaints Physical Exam Vital Signs: Vital Signs: Last Vital Signs Temp 98.0 F 04/08/20 11:41 Pulse 73 04/08/20 11:41 Resp 18 04/08/20 11:41 BP 125/70 04/08/20 11:41 Pulse Ox 95 04/08/20 11:41 Body Mass Index 34.2 General: AO X 3, no acute distress Resp: CTA bilateral CVS: S1,S2,RRR GI: soft, non tender, non distended Neuro: motor grossly intact Psych: appropriate affect Objective Data Current Medications Generic Name Dose Route Start Last Admin Trade Name Freq PRN Reason Stop Dose Admin Acetaminophen 650 mg 03/25/20 16:47 04/06/20 23:10 Acetaminophen 325 Mg Tablet PO 650 mg Q6H PRN Administration Pain, Mild (Pain Scale 1-3) Enoxaparin Sodium 40 mg 03/25/20 22:00 04/07/20 22:10 Enoxaparin Sodium 40 Mg/0.4 Ml Syringe SUBCUT 40 mg Q24H MINAL Administration Cefazolin Sodium/Dextrose 2 gm in 50 mls @ 100 mls/hr 04/04/20 21:00 04/08/20 05:18 Ancef IV Infused Q8H MINAL Infusion Methadone HCl 60 mg 03/26/20 12:30 04/08/20 09:39 Methadone Hcl 1 Mg/0.1 Ml Oral.Conc PO 60 mg DAILY MINAL Administration Sodium Chloride 3 ml 03/26/20 00:00 04/08/20 09:40 0.9 % Sodium Chloride Flush 3 Ml Syringe IVFLUSH 3 ml QSHIFT IMNAL Administration Sodium Chloride 5 ml 03/31/20 21:00 04/08/20 09:39 0.9 % Sodium Chloride Flush 10 Ml Syringe IVFLUSH 5 ml TID MINAL Administration Labs CBC & Chem 7: 04/06/20 05:50 04/05/20 07:55 Microbiology Microbiology Results: Microbiology 04/05/20 07:55 Blood - Venous Blood Culture - Preliminary No growth after 48 hours. 04/05/20 08:10 Blood - Venous Blood Culture - Preliminary No growth after 48 hours. 03/27/20 05:30 Blood - Venous Blood Culture - Final No growth after 5 days. 03/27/20 05:32 Blood - Venous Blood Culture - Final No growth after 5 days. 03/25/20 13:05 Blood - Venous Blood Culture - Final Staphylococcus aureus 03/25/20 13:05 Blood - Venous Blood Culture - Final Staphylococcus aureus Assessment and Plan (1) Chest pain: Status: Acute (2) Active substance abuse: Status: Acute (3) Hyponatremia: Status: Acute (4) Bacteremia: Status: Acute Assessment and Plan: 49M presented iwth chest pain, chills chest pain likely cocaine related, resolved, negative trop and ekg chills due to MSSA bacteremia echo unremarkable, CT with septic emboli 03/27 cultures negative s/p picc line, plan for 6 weeks ancef 2gm q8h, day , end may 07, 2020 will need to be done in observed setting due to IVDA, awaiting placement opiate withdrawl improved continue methadone hyponatremia fluid restrict, labs c/w SIADH, improved
[2020-04-08 15:44] VITALS: BP 118/69; PULSE 78; RESP 20; TEMP 36.7; O2SAT 97
[2020-04-08 19:26] VITALS: BP 102/61; PULSE 66; RESP 20; TEMP 36.6; O2SAT 96
--- NOTE | 2020-04-08 20:28 | PC.NURSE ---
04/08/20 at 20:00 recorded by TWIN and verified by Rivera KING RN.
[2020-04-08] MEDS: Enoxaparin Sodium 40 MG/0.4 ML SYRINGE SUBCUT (22:20)
[2020-04-09] VITALS (7 sets, daily range): BP systolic 99–120; BP diastolic 58–83; PULSE 65–82; RESP 18; TEMP 36.1–37.3; O2SAT 95–97
[2020-04-09] MEDS: 0.9 % Sodium Chloride Flush 3 ML SYRINGE IVFLUSH ×3 (00:42→17:13)
[2020-04-09] MEDS: ceFAZolin Sodium/Dextrose,Iso 2 GM/50 ML PIGGYBACK IV ×3 (05:50→20:12)
[2020-04-09] MEDS: 0.9 % Sodium Chloride Flush 10 ML SYRINGE 5 ML IVFLUSH ×3 (08:56→21:36)
--- NOTE | 2020-04-09 11:07 | HO.PM.IMPN ---
Subjective Subjective Date of Service: 04/09/20 Interval History: no complaints Cardiovascular Cardiovascular: Reports no additional cardiovascular complaints Gastrointestinal Gastrointestinal: Reports no additional gastrointestinal complaints Physical Exam Vital Signs: Vital Signs: Last Vital Signs Temp 96.9 F 04/09/20 10:58 Pulse 82 04/09/20 10:58 Resp 18 04/09/20 10:58 BP 119/83 04/09/20 10:58 Pulse Ox 97 04/09/20 10:58 Body Mass Index 34.2 General: AO X 3, no acute distress Resp: CTA bilateral CVS: S1,S2,RRR GI: soft, non tender, non distended Neuro: motor grossly intact Psych: appropriate affect Objective Data Current Medications Generic Name Dose Route Start Last Admin Trade Name Freq PRN Reason Stop Dose Admin Acetaminophen 650 mg 03/25/20 16:47 04/06/20 23:10 Acetaminophen 325 Mg Tablet PO 650 mg Q6H PRN Administration Pain, Mild (Pain Scale 1-3) Enoxaparin Sodium 40 mg 03/25/20 22:00 04/08/20 22:20 Enoxaparin Sodium 40 Mg/0.4 Ml Syringe SUBCUT 40 mg Q24H MINAL Administration Cefazolin Sodium/Dextrose 2 gm in 50 mls @ 100 mls/hr 04/04/20 21:00 04/09/20 06:31 Ancef IV Infused Q8H MINAL Infusion Methadone HCl 60 mg 03/26/20 12:30 04/09/20 08:56 Methadone Hcl 1 Mg/0.1 Ml Oral.Conc PO 60 mg DAILY MINAL Administration Sodium Chloride 3 ml 03/26/20 00:00 04/09/20 08:55 0.9 % Sodium Chloride Flush 3 Ml Syringe IVFLUSH 3 ml QSHIFT MINAL Administration Sodium Chloride 5 ml 03/31/20 21:00 04/09/20 08:56 0.9 % Sodium Chloride Flush 10 Ml Syringe IVFLUSH 5 ml TID MINAL Administration Labs CBC & Chem 7: 04/06/20 05:50 04/05/20 07:55 Microbiology Microbiology Results: Microbiology 04/05/20 07:55 Blood - Venous Blood Culture - Preliminary No growth after 48 hours. 04/05/20 08:10 Blood - Venous Blood Culture - Preliminary No growth after 48 hours. 03/27/20 05:30 Blood - Venous Blood Culture - Final No growth after 5 days. 03/27/20 05:32 Blood - Venous Blood Culture - Final No growth after 5 days. 03/25/20 13:05 Blood - Venous Blood Culture - Final Staphylococcus aureus 03/25/20 13:05 Blood - Venous Blood Culture - Final Staphylococcus aureus Assessment and Plan (1) Chest pain: Status: Acute (2) Active substance abuse: Status: Acute (3) Hyponatremia: Status: Acute (4) Bacteremia: Status: Acute Assessment and Plan: 49M presented iwth chest pain, chills chest pain likely cocaine related, resolved, negative trop and ekg chills due to MSSA bacteremia echo unremarkable, CT with septic emboli 03/27 cultures negative s/p picc line, plan for 6 weeks ancef 2gm q8h, day , end may 07, 2020 will need to be done in observed setting due to IVDA, awaiting placement opiate withdrawl improved continue methadone hyponatremia fluid restrict, labs c/w SIADH, improved
--- NOTE | 2020-04-09 13:59 | MHC.CLN ---
F/U 100% PO DIET RX: REGULAR 1500CC FLUID RESTRICTION-APPROPRIATE 1900 CALORIES PER DAY WILL PROMOTE SLOW WT LOSS FOLLOWING
--- NOTE | 2020-04-09 14:41 | MHC.CM.PN ---
Discharge plan is to [facility] when bed available. CM received message today from [facility], no bed available today. patient made aware. CM will continue to follow for discharge needs.
[2020-04-09] MEDS: Enoxaparin Sodium 40 MG/0.4 ML SYRINGE SUBCUT (20:12)
[2020-04-10] MEDS: 0.9 % Sodium Chloride Flush 3 ML SYRINGE IVFLUSH ×2 (00:27→07:50)
[2020-04-10 03:48] VITALS: BP 108/58; PULSE 61; RESP 16; TEMP 36.2; O2SAT 98
[2020-04-10] MEDS: ceFAZolin Sodium/Dextrose,Iso 2 GM/50 ML PIGGYBACK IV ×3 (06:23→20:59)
[2020-04-10] MEDS: 0.9 % Sodium Chloride Flush 10 ML SYRINGE 5 ML IVFLUSH ×3 (07:50→21:01)
[2020-04-10 08:00] VITALS: BP 122/81; PULSE 84; RESP 18; TEMP 36.7; O2SAT 97
--- NOTE | 2020-04-10 10:56 | HO.PM.IMPN ---
Subjective Subjective Date of Service: 04/10/20 Interval History: no complaints Cardiovascular Cardiovascular: Reports no additional cardiovascular complaints Respiratory Respiratory: Reports no additional respiratory complaints Physical Exam Vital Signs: Vital Signs: Last Vital Signs Temp 98.0 F 04/10/20 08:00 Pulse 84 04/10/20 08:00 Resp 18 04/10/20 08:00 BP 122/81 04/10/20 08:00 Pulse Ox 97 04/10/20 08:00 Body Mass Index 34.2 General: AO X 3, no acute distress Resp: CTA bilateral CVS: S1,S2,RRR GI: soft, non tender, non distended Neuro: motor grossly intact Psych: appropriate affect Objective Data Current Medications Generic Name Dose Route Start Last Admin Trade Name Freq PRN Reason Stop Dose Admin Acetaminophen 650 mg 03/25/20 16:47 04/06/20 23:10 Acetaminophen 325 Mg Tablet PO 650 mg Q6H PRN Administration Pain, Mild (Pain Scale 1-3) Enoxaparin Sodium 40 mg 03/25/20 22:00 04/09/20 20:12 Enoxaparin Sodium 40 Mg/0.4 Ml Syringe SUBCUT 40 mg Q24H MINAL Administration Cefazolin Sodium/Dextrose 2 gm in 50 mls @ 100 mls/hr 04/04/20 21:00 04/10/20 07:01 Ancef IV Infused Q8H MINAL Infusion Methadone HCl 60 mg 03/26/20 12:30 04/10/20 07:50 Methadone Hcl 1 Mg/0.1 Ml Oral.Conc PO 60 mg DAILY MINAL Administration Sodium Chloride 3 ml 03/26/20 00:00 04/10/20 07:50 0.9 % Sodium Chloride Flush 3 Ml Syringe IVFLUSH 3 ml QSHIFT MINAL Administration Sodium Chloride 5 ml 03/31/20 21:00 04/10/20 07:50 0.9 % Sodium Chloride Flush 10 Ml Syringe IVFLUSH 5 ml TID MINAL Administration Labs CBC & Chem 7: 04/06/20 05:50 04/05/20 07:55 Microbiology Microbiology Results: Microbiology 04/05/20 07:55 Blood - Venous Blood Culture - Final No growth after 5 days. 04/05/20 08:10 Blood - Venous Blood Culture - Final No growth after 5 days. 03/27/20 05:30 Blood - Venous Blood Culture - Final No growth after 5 days. 03/27/20 05:32 Blood - Venous Blood Culture - Final No growth after 5 days. 03/25/20 13:05 Blood - Venous Blood Culture - Final Staphylococcus aureus 03/25/20 13:05 Blood - Venous Blood Culture - Final Staphylococcus aureus Assessment and Plan (1) Chest pain: Status: Acute (2) Active substance abuse: Status: Acute (3) Hyponatremia: Status: Acute (4) Bacteremia: Status: Acute Assessment and Plan: 49M presented iwth chest pain, chills chest pain likely cocaine related, resolved, negative trop and ekg chills due to MSSA bacteremia echo unremarkable, CT with septic emboli 03/27 cultures negative s/p picc line, plan for 6 weeks ancef 2gm q8h, day , end may 07, 2020 will need to be done in observed setting due to IVDA, awaiting placement opiate withdrawl improved continue methadone hyponatremia fluid restrict, labs c/w SIADH, improved
[2020-04-10 11:53] VITALS: BP 125/65; PULSE 66; RESP 18; TEMP 36.6; O2SAT 96
[2020-04-10 15:58] VITALS: BP 106/78; PULSE 66; RESP 18; TEMP 35.7; O2SAT 95
[2020-04-10 19:42] VITALS: BP 130/78; PULSE 68; TEMP 36.5; O2SAT 98
[2020-04-10] MEDS: Enoxaparin Sodium 40 MG/0.4 ML SYRINGE SUBCUT (21:00)
[2020-04-11] VITALS: BP 106/69; PULSE 73; RESP 16; TEMP 36.7; O2SAT 95
[2020-04-11 03:22] VITALS: BP 123/67; PULSE 62; RESP 16; TEMP 36.7; O2SAT 96
[2020-04-11] MEDS: ceFAZolin Sodium/Dextrose,Iso 2 GM/50 ML PIGGYBACK IV ×3 (04:06→20:11)
[2020-04-11 08:00] VITALS: BP 138/96; PULSE 67; RESP 16; TEMP 36.7; O2SAT 95
[2020-04-11] MEDS: 0.9 % Sodium Chloride Flush 10 ML SYRINGE 5 ML IVFLUSH ×3 (08:37→20:12)
--- NOTE | 2020-04-11 09:10 | MHC.CM.PN ---
CM received a message from [facility] indicating they would not be accepting this pt. Referrals made to [facility]. Pt will need 6 weeks of IV Abx Ancef q 8 and is on methadone maintenance.
--- NOTE | 2020-04-11 09:47 | HO.PM.IMPN ---
Subjective Subjective Date of Service: 04/11/20 Interval History: no complaints Cardiovascular Cardiovascular: Reports no additional cardiovascular complaints Respiratory Respiratory: Reports no additional respiratory complaints Physical Exam Vital Signs: Vital Signs: Last Vital Signs Temp 98.0 F 04/11/20 08:00 Pulse 67 04/11/20 08:00 Resp 16 04/11/20 08:00 BP 138/96 H 04/11/20 08:00 Pulse Ox 95 04/11/20 08:00 Body Mass Index 34.2 General: AO X 3, no acute distress Resp: CTA bilateral CVS: S1,S2,RRR GI: soft, non tender, non distended Neuro: motor grossly intact Psych: appropriate affect Objective Data Current Medications Generic Name Dose Route Start Last Admin Trade Name Freq PRN Reason Stop Dose Admin Acetaminophen 650 mg 03/25/20 16:47 04/06/20 23:10 Acetaminophen 325 Mg Tablet PO 650 mg Q6H PRN Administration Pain, Mild (Pain Scale 1-3) Enoxaparin Sodium 40 mg 03/25/20 22:00 04/10/20 21:00 Enoxaparin Sodium 40 Mg/0.4 Ml Syringe SUBCUT 40 mg Q24H MINAL Administration Cefazolin Sodium/Dextrose 2 gm in 50 mls @ 100 mls/hr 04/04/20 21:00 04/11/20 04:36 Ancef IV Infused Q8H MINAL Infusion Methadone HCl 60 mg 03/26/20 12:30 04/11/20 08:37 Methadone Hcl 1 Mg/0.1 Ml Oral.Conc PO 60 mg DAILY MINAL Administration Sodium Chloride 3 ml 03/26/20 00:00 04/11/20 08:38 0.9 % Sodium Chloride Flush 3 Ml Syringe IVFLUSH Not Given QSHIFT MINAL Sodium Chloride 5 ml 03/31/20 21:00 04/11/20 08:37 0.9 % Sodium Chloride Flush 10 Ml Syringe IVFLUSH 5 ml TID MINAL Administration Labs CBC & Chem 7: 04/06/20 05:50 04/05/20 07:55 Microbiology Microbiology Results: Microbiology 04/05/20 07:55 Blood - Venous Blood Culture - Final No growth after 5 days. 04/05/20 08:10 Blood - Venous Blood Culture - Final No growth after 5 days. 03/27/20 05:30 Blood - Venous Blood Culture - Final No growth after 5 days. 03/27/20 05:32 Blood - Venous Blood Culture - Final No growth after 5 days. 03/25/20 13:05 Blood - Venous Blood Culture - Final Staphylococcus aureus 03/25/20 13:05 Blood - Venous Blood Culture - Final Staphylococcus aureus Assessment and Plan (1) Chest pain: Status: Acute (2) Active substance abuse: Status: Acute (3) Hyponatremia: Status: Acute (4) Bacteremia: Status: Acute Assessment and Plan: 49M presented iwth chest pain, chills chest pain likely cocaine related, resolved, negative trop and ekg chills due to MSSA bacteremia echo unremarkable, CT with septic emboli 03/27 cultures negative s/p picc line, plan for 6 weeks ancef 2gm q8h, day , end may 07, 2020 will need to be done in observed setting due to IVDA, awaiting placement opiate withdrawl improved continue methadone hyponatremia fluid restrict, labs c/w SIADH, improved
[2020-04-11 11:32] VITALS: BP 111/76; PULSE 76; RESP 20; TEMP 36.7; O2SAT 97
--- NOTE | 2020-04-11 13:54 | MHC.CM.PN ---
[facility] VIA BLS FOR IV ABX. CM WILL FOLLOW.
[2020-04-11 15:42] VITALS: BP 104/71; PULSE 65; RESP 16; TEMP 36.6; O2SAT 95
--- NOTE | 2020-04-11 18:18 | PC.NURSE ---
Pt alert and oriented, able to make needs known. Ambulates freely within room with steady gait, educated on daily plan and safety. Pt repos self.
[2020-04-11 19:40] VITALS: BP 117/77; PULSE 66; RESP 16; TEMP 36.6; O2SAT 97
[2020-04-11] MEDS: Enoxaparin Sodium 40 MG/0.4 ML SYRINGE SUBCUT (20:11)
[2020-04-11] MEDS: 0.9 % Sodium Chloride Flush 3 ML SYRINGE IVFLUSH (20:12)
[2020-04-12] VITALS (7 sets, daily range): BP systolic 110–138; BP diastolic 66–98; PULSE 56–70; RESP 18–20; TEMP 36.6–36.9; O2SAT 95–96
[2020-04-12] MEDS: ceFAZolin Sodium/Dextrose,Iso 2 GM/50 ML PIGGYBACK IV ×3 (04:59→20:12)
[2020-04-12] MEDS: 0.9 % Sodium Chloride Flush 10 ML SYRINGE 5 ML IVFLUSH ×3 (07:53→20:16)
--- NOTE | 2020-04-12 11:50 | HO.PM.IMPN ---
Subjective Subjective Date of Service: 04/12/20 Interval History: no compaints Cardiovascular Cardiovascular: Reports no additional cardiovascular complaints Gastrointestinal Gastrointestinal: Reports no additional gastrointestinal complaints Physical Exam Vital Signs: Vital Signs: Last Vital Signs Temp 98.0 F 04/12/20 08:00 Pulse 59 04/12/20 08:00 Resp 20 04/12/20 08:00 BP 130/96 H 04/12/20 08:00 Pulse Ox 95 04/12/20 08:00 Body Mass Index 34.2 General: AO X 3, no acute distress Resp: CTA bilateral CVS: S1,S2,RRR GI: soft, non tender, non distended Neuro: motor grossly intact Psych: appropriate affect Objective Data Current Medications Generic Name Dose Route Start Last Admin Trade Name Freq PRN Reason Stop Dose Admin Acetaminophen 650 mg 03/25/20 16:47 04/06/20 23:10 Acetaminophen 325 Mg Tablet PO 650 mg Q6H PRN Administration Pain, Mild (Pain Scale 1-3) Enoxaparin Sodium 40 mg 03/25/20 22:00 04/11/20 20:11 Enoxaparin Sodium 40 Mg/0.4 Ml Syringe SUBCUT 40 mg Q24H MINAL Administration Cefazolin Sodium/Dextrose 2 gm in 50 mls @ 100 mls/hr 04/04/20 21:00 04/12/20 05:33 Ancef IV Infused Q8H MINAL Infusion Methadone HCl 60 mg 03/26/20 12:30 04/12/20 07:53 Methadone Hcl 1 Mg/0.1 Ml Oral.Conc PO 60 mg DAILY MINAL Administration Sodium Chloride 3 ml 03/26/20 00:00 04/12/20 07:36 0.9 % Sodium Chloride Flush 3 Ml Syringe IVFLUSH Not Given QSHIFT MINAL Sodium Chloride 5 ml 03/31/20 21:00 04/12/20 07:53 0.9 % Sodium Chloride Flush 10 Ml Syringe IVFLUSH 5 ml TID MINAL Administration Labs CBC & Chem 7: 04/06/20 05:50 04/05/20 07:55 Microbiology Microbiology Results: Microbiology 04/05/20 07:55 Blood - Venous Blood Culture - Final No growth after 5 days. 04/05/20 08:10 Blood - Venous Blood Culture - Final No growth after 5 days. 03/27/20 05:30 Blood - Venous Blood Culture - Final No growth after 5 days. 03/27/20 05:32 Blood - Venous Blood Culture - Final No growth after 5 days. 03/25/20 13:05 Blood - Venous Blood Culture - Final Staphylococcus aureus 03/25/20 13:05 Blood - Venous Blood Culture - Final Staphylococcus aureus Assessment and Plan (1) Chest pain: Status: Acute (2) Active substance abuse: Status: Acute (3) Hyponatremia: Status: Acute (4) Bacteremia: Status: Acute Assessment and Plan: 49M presented iwth chest pain, chills chest pain likely cocaine related, resolved, negative trop and ekg chills due to MSSA bacteremia echo unremarkable, CT with septic emboli 03/27 cultures negative s/p picc line, plan for 6 weeks ancef 2gm q8h, day , end may 07, 2020 will need to be done in observed setting due to IVDA, awaiting placement will monitor labs weekly opiate withdrawl improved continue methadone hyponatremia fluid restrict, labs c/w SIADH, improved
[2020-04-12] MEDS: 0.9 % Sodium Chloride Flush 3 ML SYRINGE IVFLUSH (20:13)
[2020-04-12] MEDS: Enoxaparin Sodium 40 MG/0.4 ML SYRINGE SUBCUT (20:13)
[2020-04-13] VITALS (7 sets, daily range): BP systolic 99–127; BP diastolic 56–75; PULSE 53–70; RESP 14–18; TEMP 36.6–37; O2SAT 95–97
[2020-04-13] MEDS: ceFAZolin Sodium/Dextrose,Iso 2 GM/50 ML PIGGYBACK IV ×3 (04:54→20:59)
[2020-04-13 06:34] LABS: MANUAL DIFF FLAG NO
[2020-04-13 07:00] LABS: Basophils Percent Auto 0.6 % (0-2); Eosinophils Absolute Auto 0.1 X10*3/uL (0.0-0.4); Eosinophils Percent Auto 0.8 % (0-4); Hematocrit 34.2 % (42-52); Hemoglobin 11.1 g/dl (14.0-18.0); Imm Gran Abs Auto 0.07 X10*3/uL (0.00-0.03); Imm Gran Pct Auto 1.1 % (0.0-0.4); Lymphocytes Absolute Auto 2.9 X10*3/uL (1.2-4.9); Lymphocytes Percent Auto 45.1 % (20-40); Mean Corpuscular HGB Conc 32.5 g/dl (31.0-36.0); Mean Corpuscular Hemoglobin 29.4 pg (27.0-33.0); Mean Corpuscular Volume 90.5 fL (80-98); Mean Platelet Volume 8.9 fL (9.4-12.4); Monocytes Absolute Auto 0.7 X10*3/uL (0.1-1.2); Monocytes Percent Auto 11.2 % (2-11); Neutrophils Absolute Auto 2.6 X10*3/uL (2.0-8.3); Neutrophils Percent Auto 41.2 % (45-73); Platelet Count 277 X10*3/uL (160-400); Red Blood Count 3.78 X10*6/uL (4.60-5.80); Red Cell Distribution Width 12.4 % (11.0-16.0); White Blood Count 6.3 X10*3/uL (4.8-10.8)
[2020-04-13 07:21] LABS: Anion Gap 13 (12-20); Blood Urea Nitrogen 13 mg/dL (9-16); Carbon Dioxide 25 mmol/L (22-29); Chloride 103 mmol/L (96-108); Creatinine Clr Calc Pharmacy 143.2; Estimated Glomerular Filt Rate > 60; Glucose Fasting 94 mg/dL (60-99); Potassium 4.5 mmol/l (3.3-5.1); Sodium 136 mmol/L (135-145)
[2020-04-13] MEDS: 0.9 % Sodium Chloride Flush 10 ML SYRINGE 5 ML IVFLUSH ×3 (07:56→21:30)
--- NOTE | 2020-04-13 11:35 | HO.PM.IMPN ---
Subjective Subjective Date of Service: 04/13/20 Interval History: no complaints Cardiovascular Cardiovascular: Reports no additional cardiovascular complaints Respiratory Respiratory: Reports no additional respiratory complaints Physical Exam Vital Signs: Vital Signs: Last Vital Signs Temp 98.2 F 04/13/20 08:00 Pulse 60 04/13/20 08:00 Resp 18 04/13/20 08:00 BP 127/68 04/13/20 08:00 Pulse Ox 96 04/13/20 08:00 Body Mass Index 34.2 General: AO X 3, no acute distress Resp: CTA bilateral CVS: S1,S2,RRR GI: soft, non tender, non distended Neuro: motor grossly intact Psych: appropriate affect Objective Data Current Medications Generic Name Dose Route Start Last Admin Trade Name Freq PRN Reason Stop Dose Admin Acetaminophen 650 mg 03/25/20 16:47 04/06/20 23:10 Acetaminophen 325 Mg Tablet PO 650 mg Q6H PRN Administration Pain, Mild (Pain Scale 1-3) Enoxaparin Sodium 40 mg 03/25/20 22:00 04/12/20 20:13 Enoxaparin Sodium 40 Mg/0.4 Ml Syringe SUBCUT 40 mg Q24H MINAL Administration Cefazolin Sodium/Dextrose 2 gm in 50 mls @ 100 mls/hr 04/04/20 21:00 04/13/20 05:29 Ancef IV Infused Q8H MINAL Infusion Methadone HCl 60 mg 03/26/20 12:30 04/13/20 07:56 Methadone Hcl 1 Mg/0.1 Ml Oral.Conc PO 60 mg DAILY MINAL Administration Sodium Chloride 3 ml 03/26/20 00:00 04/13/20 07:57 0.9 % Sodium Chloride Flush 3 Ml Syringe IVFLUSH Not Given QSHIFT MINAL Sodium Chloride 5 ml 03/31/20 21:00 04/13/20 07:56 0.9 % Sodium Chloride Flush 10 Ml Syringe IVFLUSH 5 ml TID MINAL Administration Labs CBC & Chem 7: 04/13/20 06:15 04/13/20 06:15 Microbiology Microbiology Results: Microbiology 04/05/20 07:55 Blood - Venous Blood Culture - Final No growth after 5 days. 04/05/20 08:10 Blood - Venous Blood Culture - Final No growth after 5 days. 03/27/20 05:30 Blood - Venous Blood Culture - Final No growth after 5 days. 03/27/20 05:32 Blood - Venous Blood Culture - Final No growth after 5 days. 03/25/20 13:05 Blood - Venous Blood Culture - Final Staphylococcus aureus 03/25/20 13:05 Blood - Venous Blood Culture - Final Staphylococcus aureus Assessment and Plan (1) Chest pain: Status: Acute (2) Active substance abuse: Status: Acute (3) Hyponatremia: Status: Acute (4) Bacteremia: Status: Acute Assessment and Plan: 49M presented iwth chest pain, chills chest pain likely cocaine related, resolved, negative trop and ekg chills due to MSSA bacteremia echo unremarkable, CT with septic emboli 03/27 cultures negative s/p picc line, plan for 6 weeks ancef 2gm q8h, day , end may 07, 2020 will need to be done in observed setting due to IVDA, awaiting placement will monitor labs weekly opiate withdrawl improved continue methadone hyponatremia fluid restrict, labs c/w SIADH, improved
[2020-04-13] MEDS: Enoxaparin Sodium 40 MG/0.4 ML SYRINGE SUBCUT (21:02)
[2020-04-14 03:22] VITALS: BP 108/70; PULSE 51; RESP 16; TEMP 36.7; O2SAT 97
[2020-04-14] MEDS: ceFAZolin Sodium/Dextrose,Iso 2 GM/50 ML PIGGYBACK IV ×3 (05:33→21:04)
[2020-04-14 08:00] VITALS: BP 117/70; PULSE 69; RESP 18; TEMP 36.5; O2SAT 98
[2020-04-14] MEDS: 0.9 % Sodium Chloride Flush 10 ML SYRINGE 5 ML IVFLUSH ×3 (08:16→21:44)
[2020-04-14] MEDS: 0.9 % Sodium Chloride Flush 3 ML SYRINGE IVFLUSH ×5 (08:16→21:05)
--- NOTE | 2020-04-14 10:10 | HO.PM.IMPN ---
Subjective Subjective Date of Service: 04/14/20 <Ryanne Guerrier NP - Last Filed: 04/14/20 10:23> 04/14/20 <Margaret Jacome MD - Last Filed: 04/14/20 12:39> Interval History: no complaints <Ryanne Guerrier NP - Last Filed: 04/14/20 10:23> Patient offers no acute complaints is requesting for regular diet and no fluid restriction. <Margaret Jacome MD - Last Filed: 04/14/20 12:39> Review of Systems Constitutional: Denies fever, +Chills Eyes: denies blurry vision ENT: denies sore throat CVS: chest pain Respiratory: Denies dyspnea GI: no abdominal pain : denies dysuria MSK: denies neck pain Skin: denies rash Neuro: denies specific motor weakness Psych: denies suicidal ideation Endocrine: denies heat/cold intoleratnce Hematologic: denies easy bleeding Allergy: denies hives <Ryanne Guerrier NP - Last Filed: 04/14/20 10:23> General no headache no dizziness no fever chills. CVS no chest pain, no palpitation. Respiratory no cough no sputum production no respiratory distress. Gastrointestinal no nausea no vomiting, no abdominal pain <Margaret Jacome MD - Last Filed: 04/14/20 12:39> Cardiovascular Cardiovascular: Reports no additional cardiovascular complaints <Ryanne Guerrier NP - Last Filed: 04/14/20 10:23> Respiratory Respiratory: Reports no additional respiratory complaints <Ryanne Guerrier NP - Last Filed: 04/14/20 10:23> Gastrointestinal Gastrointestinal: Reports no additional gastrointestinal complaints <Ryanne Guerrier NP - Last Filed: 04/14/20 10:23> Physical Exam Vital Signs: Vital Signs: Last Vital Signs Temp 97.7 F 04/14/20 08:00 Pulse 69 04/14/20 08:00 Resp 18 04/14/20 08:00 BP 117/70 04/14/20 08:00 Pulse Ox 98 04/14/20 08:00 Body Mass Index 34.2 <Ryanne Guerrier NP - Last Filed: 04/14/20 10:23> Appearing in no acute distress, walking around room head is normocephalic atraumatic eyes pupils are PERRLA sclera is anicteric mouth throat mucous membranes are intact and moist neck is supple no lymphadenopathy, no JVD noted lung sounds are clear to auscultation heart regular rate rhythm, clear S1, S2 positive bowel sounds, abdomen is soft, nontender neuro patient is alert x3, no focal deficits <Ryanne Guerrier NP - Last Filed: 04/14/20 10:23> Const: General: cooperative <Ryanne Guerrier NP - Last Filed: 04/14/20 10:23> Objective Data Current Medications Generic Name Dose Route Start Last Admin Trade Name Freq PRN Reason Stop Dose Admin Acetaminophen 650 mg 03/25/20 16:47 04/06/20 23:10 Acetaminophen 325 Mg Tablet PO 650 mg Q6H PRN Administration Pain, Mild (Pain Scale 1-3) Enoxaparin Sodium 40 mg 03/25/20 22:00 04/13/20 21:02 Enoxaparin Sodium 40 Mg/0.4 Ml Syringe SUBCUT 40 mg Q24H MINAL Administration Cefazolin Sodium/Dextrose 2 gm in 50 mls @ 100 mls/hr 04/04/20 21:00 04/14/20 06:03 Ancef IV Infused Q8H MINAL Infusion Methadone HCl 60 mg 03/26/20 12:30 04/14/20 08:16 Methadone Hcl 1 Mg/0.1 Ml Oral.Conc PO 60 mg DAILY MINAL Administration Sodium Chloride 3 ml 03/26/20 00:00 04/14/20 08:16 0.9 % Sodium Chloride Flush 3 Ml Syringe IVFLUSH 3 ml QSHIFT MINAL Administration Sodium Chloride 5 ml 03/31/20 21:00 04/14/20 08:16 0.9 % Sodium Chloride Flush 10 Ml Syringe IVFLUSH 5 ml TID MINAL Administration <Ryanne Guerrier NP - Last Filed: 04/14/20 10:23> Labs CBC & Chem 7: : 04/13/20 06:15 04/13/20 06:15 <Ryanne Guerrier NP - Last Filed: 04/14/20 10:23> Microbiology Microbiology Results: Microbiology 04/05/20 07:55 Blood - Venous Blood Culture - Final No growth after 5 days. 04/05/20 08:10 Blood - Venous Blood Culture - Final No growth after 5 days. 03/27/20 05:30 Blood - Venous Blood Culture - Final No growth after 5 days. 03/27/20 05:32 Blood - Venous Blood Culture - Final No growth after 5 days. 03/25/20 13:05 Blood - Venous Blood Culture - Final Staphylococcus aureus 03/25/20 13:05 Blood - Venous Blood Culture - Final Staphylococcus aureus <Ryanne Guerrier NP - Last Filed: 04/14/20 10:23> Quality VTE Deep Vein Thrombosis/Pulmonary Embolism Present on Admission: No <Ryanne Guerrier NP - Last Filed: 04/14/20 10:23> Assessment and Plan (1) Chest pain: Status: Acute <Ryanne Guerrier NP - Last Filed: 04/14/20 10:23> (2) Active substance abuse: Status: Acute <Ryanne Guerrier NP - Last Filed: 04/14/20 10:23> (3) Hyponatremia: Status: Acute <Ryanne Guerrier NP - Last Filed: 04/14/20 10:23> (4) Bacteremia: Status: Acute <Ryanne Guerrier NP - Last Filed: 04/14/20 10:23> Assessment and Plan: 49 year old man admitted with MSSA Bacteremia, presented with chest pain, chills MSSA bacteremia Echo unremarkable, CT with septic emboli 03/27 cultures negative S/p picc line, plan for 6 weeks Ancef 2gm q8h, day , end May 07, 2020 will need to be done in observed setting due to IVDA, awaiting placement will monitor labs weekly Chest pain likely cocaine related, resolved, negative trop and ekg Opiate withdrawl Improved continue methadone Hyponatremia Resolved, Stop fluid restrict Regular diet <Ryanne Guerrier NP - Last Filed: 04/14/20 10:23>
[2020-04-14 11:26] VITALS: BP 119/81; PULSE 66; RESP 18; TEMP 36.7; O2SAT 96
--- NOTE | 2020-04-14 13:26 | MHC.CM.PN ---
DP IV ABX 6 week plan of treatment. [facility] and [facility] following. NO bed available at either facility. Asked via [employer], both facilities: If a bed becomes available, do you anticipate accepting this patient? Waiting for response. CM will follow.
[2020-04-14 16:00] VITALS: BP 136/78; PULSE 67; RESP 16; TEMP 36.6; O2SAT 96
[2020-04-14 19:55] VITALS: BP 125/85; PULSE 63; RESP 16; TEMP 36.6; O2SAT 96
[2020-04-14] MEDS: Enoxaparin Sodium 40 MG/0.4 ML SYRINGE SUBCUT (21:05)
[2020-04-15 00:16] VITALS: BP 105/65; PULSE 56; RESP 16; TEMP 36.6; O2SAT 96
[2020-04-15 03:29] VITALS: BP 112/72; PULSE 55; RESP 16; TEMP 36.6; O2SAT 97
[2020-04-15] MEDS: ceFAZolin Sodium/Dextrose,Iso 2 GM/50 ML PIGGYBACK IV ×3 (05:21→20:42)
[2020-04-15] MEDS: 0.9 % Sodium Chloride Flush 10 ML SYRINGE 5 ML IVFLUSH ×3 (08:05→20:43)
[2020-04-15 12:00] VITALS: BP 107/72; PULSE 60; RESP 20; TEMP 36.7; O2SAT 96
[2020-04-15] MEDS: 0.9 % Sodium Chloride Flush 3 ML SYRINGE IVFLUSH (15:41)
--- NOTE | 2020-04-15 15:54 | HO.PM.IMPN ---
Subjective Subjective Date of Service: 04/15/20 Interval History: Patient being followed for bacteremia, patient offers no acute complaints denies diarrhea history of longstanding constipation, no fever no chills no acute overnight issues. Review of Systems General no headache, no dizziness, no fever chills. CVS no chest pain, no palpitation. Respiratory no cough, no sputum production, no respiratory distress. Gastrointestinal no nausea, no vomiting, no abdominal pain Physical Exam Vital Signs: Vital Signs: Last Vital Signs Temp 98.1 F 04/15/20 12:00 Pulse 60 04/15/20 12:00 Resp 20 04/15/20 12:00 BP 107/72 04/15/20 12:00 Pulse Ox 96 04/15/20 12:00 Body Mass Index 34.2 General no acute distress. Neck is supple no JVD. CVS regular rate rhythm, Respiratory lungs clear to auscultation, no respiratory distress Gastrointestinal abdomen soft, nontender, bowel sounds audible. Extremities no clubbing cyanosis or edema. Neuro nonfocal . Skin no rash Objective Data Current Medications Generic Name Dose Route Start Last Admin Trade Name Freq PRN Reason Stop Dose Admin Acetaminophen 650 mg 03/25/20 16:47 04/06/20 23:10 Acetaminophen 325 Mg Tablet PO 650 mg Q6H PRN Administration Pain, Mild (Pain Scale 1-3) Enoxaparin Sodium 40 mg 03/25/20 22:00 04/14/20 21:05 Enoxaparin Sodium 40 Mg/0.4 Ml Syringe SUBCUT 40 mg Q24H MINAL Administration Cefazolin Sodium/Dextrose 2 gm in 50 mls @ 100 mls/hr 04/04/20 21:00 04/15/20 13:06 Ancef IV Infused Q8H MINAL Infusion Methadone HCl 60 mg 03/26/20 12:30 04/15/20 08:06 Methadone Hcl 1 Mg/0.1 Ml Oral.Conc PO 60 mg DAILY MINAL Administration Sodium Chloride 3 ml 03/26/20 00:00 04/15/20 15:41 0.9 % Sodium Chloride Flush 3 Ml Syringe IVFLUSH 3 ml QSHIFT MINAL Administration Sodium Chloride 5 ml 03/31/20 21:00 04/15/20 15:42 0.9 % Sodium Chloride Flush 10 Ml Syringe IVFLUSH 5 ml TID MINAL Administration Labs CBC & Chem 7: 04/13/20 06:15 04/13/20 06:15 Microbiology Microbiology Results: Microbiology 04/05/20 07:55 Blood - Venous Blood Culture - Final No growth after 5 days. 04/05/20 08:10 Blood - Venous Blood Culture - Final No growth after 5 days. 03/27/20 05:30 Blood - Venous Blood Culture - Final No growth after 5 days. 03/27/20 05:32 Blood - Venous Blood Culture - Final No growth after 5 days. 03/25/20 13:05 Blood - Venous Blood Culture - Final Staphylococcus aureus 03/25/20 13:05 Blood - Venous Blood Culture - Final Staphylococcus aureus Quality VTE Deep Vein Thrombosis/Pulmonary Embolism Present on Admission: No Assessment and Plan (1) Bacteremia: Status: Acute (2) Hyponatremia: Status: Acute (3) Chest pain: Status: Acute (4) Active substance abuse: Status: Acute Assessment and Plan: 49M presented iwth chest pain, chills chest pain likely cocaine related, resolved, negative trop and ekg MSSA bacteremia echo unremarkable, CT with septic emboli 03/27 cultures negative s/p picc line, plan for 6 weeks ancef 2gm q8h, day , end may 07, 2020,will need to be done in observed setting due to IVDA, awaiting placement will monitor labs weekly opiate withdrawl improved, continue methadone hyponatremia Resolved, labs c/w SIADH, discontinue fluid restrict
[2020-04-15 16:00] VITALS: BP 113/62; PULSE 110; RESP 18; TEMP 36.6; O2SAT 98
[2020-04-15 19:59] VITALS: BP 118/68; PULSE 65; RESP 18; TEMP 36.6; O2SAT 97
[2020-04-15 23:52] VITALS: BP 106/61; PULSE 60; RESP 16; TEMP 36.1; O2SAT 96
[2020-04-16] MEDS: 0.9 % Sodium Chloride Flush 3 ML SYRINGE IVFLUSH ×3 (00:20→15:06)
[2020-04-16 03:34] VITALS: BP 110/61; PULSE 60; RESP 18; TEMP 36.6; O2SAT 96
[2020-04-16] MEDS: ceFAZolin Sodium/Dextrose,Iso 2 GM/50 ML PIGGYBACK IV ×3 (05:15→20:16)
[2020-04-16 07:55] VITALS: BP 117/72; PULSE 67; RESP 18; TEMP 36.4; O2SAT 99
[2020-04-16] MEDS: 0.9 % Sodium Chloride Flush 10 ML SYRINGE 5 ML IVFLUSH ×3 (09:23→20:16)
[2020-04-16 11:54] VITALS: BP 139/95; PULSE 93; RESP 18; TEMP 36.8; O2SAT 97
--- NOTE | 2020-04-16 13:43 | MHC.CLN ---
F/U 100% PO DIET RX: REGULAR-APPROPRIATE FLUID RESTRICTION D/C PER MD 1900 CALORIES PER DAY WILL PROMOTE SLOW WT LOSS FOLLOWING
--- NOTE | 2020-04-16 13:47 | MHC.CM.PN ---
Patient continues on IV Cefazolin for MSSA bacteremia and does have a drug history. patient will need IV ABT x 6 wks with a stop date of 05/07/2020. [facility] are following patient but still does not have available beds. Patient and MD are aware. Patient will need BLS transport. CM will continue to follow patient for discharge needs.
--- NOTE | 2020-04-16 14:26 | HO.PM.IMPN ---
Subjective Subjective Date of Service: 04/16/20 Interval History: Patient being followed for MSSA bacteremia, patient offers no acute complaints, no fever, no chills ambulating in room with no issues. Review of Systems Review of Systems General no headache, no dizziness, no fever chills. CVS no chest pain, no palpitation. Respiratory no cough, no sputum production, no respiratory distress. Gastrointestinal no nausea, no vomiting, no abdominal pain Physical Exam Vital Signs: Vital Signs: Last Vital Signs Temp 98.3 F 04/16/20 11:54 Pulse 93 04/16/20 11:54 Resp 18 04/16/20 11:54 BP 139/95 H 04/16/20 11:54 Pulse Ox 97 04/16/20 11:54 Body Mass Index 34.2 General no acute distress. Neck is supple no JVD. CVS regular rate rhythm, Respiratory lungs clear to auscultation, no respiratory distress Gastrointestinal abdomen soft, nontender, bowel sounds audible. Extremities no clubbing cyanosis or edema. Neuro nonfocal . Skin no rash Objective Data Current Medications Generic Name Dose Route Start Last Admin Trade Name Freq PRN Reason Stop Dose Admin Acetaminophen 650 mg 03/25/20 16:47 04/06/20 23:10 Acetaminophen 325 Mg Tablet PO 650 mg Q6H PRN Administration Pain, Mild (Pain Scale 1-3) Enoxaparin Sodium 40 mg 03/25/20 22:00 04/15/20 20:43 Enoxaparin Sodium 40 Mg/0.4 Ml Syringe SUBCUT Not Given Q24H MINAL Cefazolin Sodium/Dextrose 2 gm in 50 mls @ 100 mls/hr 04/04/20 21:00 04/16/20 13:32 Ancef IV 100 mls/hr Q8H MINAL Administration Methadone HCl 60 mg 03/26/20 12:30 04/16/20 09:23 Methadone Hcl 1 Mg/0.1 Ml Oral.Conc PO 60 mg DAILY MINAL Administration Psyllium Hydrophilic Mucilloid 3.4 gm 04/16/20 10:05 04/16/20 11:30 Psyllium Seed 3.4 Gm Powd.Pack PO 3.4 gm DAILY MINAL Administration Sodium Chloride 3 ml 03/26/20 00:00 04/16/20 09:23 0.9 % Sodium Chloride Flush 3 Ml Syringe IVFLUSH 3 ml QSHIFT MINAL Administration Sodium Chloride 5 ml 03/31/20 21:00 04/16/20 09:23 0.9 % Sodium Chloride Flush 10 Ml Syringe IVFLUSH 5 ml TID MINAL Administration Labs CBC & Chem 7: 04/13/20 06:15 04/13/20 06:15 Microbiology Microbiology Results: Microbiology 04/05/20 07:55 Blood - Venous Blood Culture - Final No growth after 5 days. 04/05/20 08:10 Blood - Venous Blood Culture - Final No growth after 5 days. 03/27/20 05:30 Blood - Venous Blood Culture - Final No growth after 5 days. 03/27/20 05:32 Blood - Venous Blood Culture - Final No growth after 5 days. 03/25/20 13:05 Blood - Venous Blood Culture - Final Staphylococcus aureus 03/25/20 13:05 Blood - Venous Blood Culture - Final Staphylococcus aureus Quality VTE Deep Vein Thrombosis/Pulmonary Embolism Present on Admission: No Assessment and Plan (1) Bacteremia: Status: Acute (2) Hyponatremia: Status: Acute (3) Chest pain: Status: Acute (4) Active substance abuse: Status: Acute Assessment and Plan: 49M presented iwth chest pain, chills chest pain likely cocaine related, resolved, negative trop and ekg MSSA bacteremia No recurrent fever chills, no new symptoms echo unremarkable, CT with septic emboli 03/27 cultures negative s/p picc line, plan for 6 weeks ancef 2gm q8h, day 18, end may 07, 2020,will need to be done in observed setting due to IVDA, awaiting placement will monitor labs weekly opiate withdrawl improved, continue methadone Chronic constipation likely due to methadone will add Metamucil. hyponatremia Resolved, labs c/w SIADH, discontinue fluid restrict
[2020-04-16 15:44] VITALS: BP 136/92; PULSE 66; RESP 18; TEMP 36.4; O2SAT 95
[2020-04-16 19:01] VITALS: BP 133/96; PULSE 69; RESP 18; TEMP 36.8; O2SAT 95
[2020-04-16 23:44] VITALS: BP 120/64; PULSE 65; RESP 18; TEMP 36.9; O2SAT 96
[2020-04-17] MEDS: 0.9 % Sodium Chloride Flush 3 ML SYRINGE IVFLUSH ×4 (00:03→20:14)
[2020-04-17 04:00] VITALS: BP 120/74; PULSE 70; RESP 18; TEMP 37.1; O2SAT 96
[2020-04-17] MEDS: ceFAZolin Sodium/Dextrose,Iso 2 GM/50 ML PIGGYBACK IV ×3 (04:08→20:13)
[2020-04-17 08:00] VITALS: BP 103/59; PULSE 60; RESP 18; TEMP 36.7; O2SAT 98
[2020-04-17] MEDS: 0.9 % Sodium Chloride Flush 10 ML SYRINGE 5 ML IVFLUSH ×3 (08:23→20:14)
--- NOTE | 2020-04-17 10:30 | HO.PM.IMPN ---
Subjective Subjective Date of Service: 04/17/20 Interval History: Patient being followed for methicillin sensitive bacteremia, patient resting comfortably in bed offers no acute complaints no fever chills in last several days moving bowels. Review of Systems Review of Systems General no headache, no dizziness, no fever chills. CVS no chest pain, no palpitation. Respiratory no cough, no sputum production, no respiratory distress. Gastrointestinal no nausea, no vomiting, no abdominal pain Physical Exam Vital Signs: Vital Signs: Last Vital Signs Temp 98.1 F 04/17/20 08:00 Pulse 60 04/17/20 08:00 Resp 18 04/17/20 08:00 BP 103/59 L 04/17/20 08:00 Pulse Ox 98 04/17/20 08:00 Body Mass Index 34.2 General no acute distress. Neck is supple no JVD. CVS regular rate rhythm, Respiratory lungs clear to auscultation, no respiratory distress Gastrointestinal abdomen soft, nontender, bowel sounds audible. Extremities no clubbing cyanosis or edema. Neuro nonfocal . Skin no rash Objective Data Current Medications Generic Name Dose Route Start Last Admin Trade Name Freq PRN Reason Stop Dose Admin Acetaminophen 650 mg 03/25/20 16:47 04/06/20 23:10 Acetaminophen 325 Mg Tablet PO 650 mg Q6H PRN Administration Pain, Mild (Pain Scale 1-3) Enoxaparin Sodium 40 mg 03/25/20 22:00 04/16/20 20:16 Enoxaparin Sodium 40 Mg/0.4 Ml Syringe SUBCUT Not Given Q24H MINAL Cefazolin Sodium/Dextrose 2 gm in 50 mls @ 100 mls/hr 04/04/20 21:00 04/17/20 04:38 Ancef IV Infused Q8H MINAL Infusion Methadone HCl 60 mg 03/26/20 12:30 04/17/20 08:24 Methadone Hcl 1 Mg/0.1 Ml Oral.Conc PO 60 mg DAILY MINAL Administration Psyllium Hydrophilic Mucilloid 3.4 gm 04/16/20 10:05 04/17/20 08:24 Psyllium Seed 3.4 Gm Powd.Pack PO 3.4 gm DAILY MINAL Administration Sodium Chloride 3 ml 03/26/20 00:00 04/17/20 08:23 0.9 % Sodium Chloride Flush 3 Ml Syringe IVFLUSH 3 ml QSHIFT MINAL Administration Sodium Chloride 5 ml 03/31/20 21:00 04/17/20 08:23 0.9 % Sodium Chloride Flush 10 Ml Syringe IVFLUSH 5 ml TID MINAL Administration Labs CBC & Chem 7: 04/13/20 06:15 04/13/20 06:15 Microbiology Microbiology Results: Microbiology 04/05/20 07:55 Blood - Venous Blood Culture - Final No growth after 5 days. 04/05/20 08:10 Blood - Venous Blood Culture - Final No growth after 5 days. 03/27/20 05:30 Blood - Venous Blood Culture - Final No growth after 5 days. 03/27/20 05:32 Blood - Venous Blood Culture - Final No growth after 5 days. 03/25/20 13:05 Blood - Venous Blood Culture - Final Staphylococcus aureus 03/25/20 13:05 Blood - Venous Blood Culture - Final Staphylococcus aureus Quality VTE Deep Vein Thrombosis/Pulmonary Embolism Present on Admission: No Assessment and Plan (1) Bacteremia: Status: Acute (2) Hyponatremia: Status: Acute (3) Chest pain: Status: Acute (4) Active substance abuse: Status: Acute Assessment and Plan: 49M presented iwth chest pain, chills chest pain No recurrent symptoms of chest pain was likely cocaine related, negative trop and ekg, no further cardiac workup warranted MSSA bacteremia No recurrent fever chills, no new symptoms echo unremarkable, CT with septic emboli 03/27 cultures negative s/p picc line, plan for 6 weeks ancef 2gm q8h, day 18, end may 07, 2020,will need to be done in observed setting due to IVDA, awaiting placement will monitor labs weekly, last blood work from 04/13 showed stable electrolytes and renal function opiate withdrawl improved, continue methadone Chronic constipation likely due to methadone, continue Metamucil. hyponatremia Resolved, labs c/w SIADH, discontinue fluid restrict
[2020-04-17 11:10] VITALS: BP 110/73; PULSE 72; RESP 18; TEMP 36.6; O2SAT 98
[2020-04-17 15:02] VITALS: BP 104/59; PULSE 67; RESP 18; TEMP 36.7; O2SAT 96
[2020-04-17 20:00] VITALS: BP 127/77; PULSE 73; RESP 18; TEMP 37; O2SAT 97
[2020-04-17 23:25] VITALS: BP 106/60; PULSE 59; RESP 18; TEMP 36.6; O2SAT 97
[2020-04-18] VITALS (7 sets, daily range): BP systolic 100–126; BP diastolic 62–80; PULSE 66–79; RESP 16–71; TEMP 36.1–36.8; O2SAT 96–98
[2020-04-18] MEDS: ceFAZolin Sodium/Dextrose,Iso 2 GM/50 ML PIGGYBACK IV ×3 (05:37→21:15)
[2020-04-18] MEDS: 0.9 % Sodium Chloride Flush 3 ML SYRINGE IVFLUSH ×2 (07:51→16:05)
[2020-04-18] MEDS: 0.9 % Sodium Chloride Flush 10 ML SYRINGE 5 ML IVFLUSH ×3 (07:51→22:08)
--- NOTE | 2020-04-18 09:27 | HO.PM.IMPN ---
Subjective Subjective Date of Service: 04/18/20 Interval History: Patient being followed for methicillin sensitive bacteremia, patient offers no acute complaints no fever , no chills in last several days, moving bowels. Review of Systems General no headache, no dizziness, no fever chills. CVS no chest pain, no palpitation. Respiratory no cough, no sputum production, no respiratory distress. Gastrointestinal no nausea, no vomiting, no abdominal pain Physical Exam Vital Signs: Vital Signs: Last Vital Signs Temp 98.2 F 04/18/20 07:39 Pulse 67 04/18/20 07:39 Resp 18 04/18/20 07:39 BP 100/63 04/18/20 07:39 Pulse Ox 96 04/18/20 07:39 Body Mass Index 34.2 General no acute distress. Neck is supple no JVD. CVS regular rate rhythm, Respiratory lungs clear to auscultation, no respiratory distress Gastrointestinal abdomen soft, nontender, bowel sounds audible. Extremities no clubbing cyanosis or edema. Neuro nonfocal . Skin no rash Objective Data Current Medications Generic Name Dose Route Start Last Admin Trade Name Freq PRN Reason Stop Dose Admin Acetaminophen 650 mg 03/25/20 16:47 04/06/20 23:10 Acetaminophen 325 Mg Tablet PO 650 mg Q6H PRN Administration Pain, Mild (Pain Scale 1-3) Enoxaparin Sodium 40 mg 03/25/20 22:00 04/17/20 21:06 Enoxaparin Sodium 40 Mg/0.4 Ml Syringe SUBCUT Not Given Q24H MINAL Methadone HCl 60 mg 03/26/20 12:30 04/18/20 07:50 Methadone Hcl 1 Mg/0.1 Ml Oral.Conc PO 60 mg DAILY MINAL Administration Psyllium Hydrophilic Mucilloid 3.4 gm 04/16/20 10:05 04/18/20 07:51 Psyllium Seed 3.4 Gm Powd.Pack PO 3.4 gm DAILY MINAL Administration Sodium Chloride 3 ml 03/26/20 00:00 04/18/20 07:51 0.9 % Sodium Chloride Flush 3 Ml Syringe IVFLUSH 3 ml QSHIFT MINAL Administration Sodium Chloride 5 ml 03/31/20 21:00 04/18/20 07:51 0.9 % Sodium Chloride Flush 10 Ml Syringe IVFLUSH 5 ml TID MINAL Administration Labs CBC & Chem 7: 04/13/20 06:15 04/13/20 06:15 Microbiology Microbiology Results: Microbiology 04/05/20 07:55 Blood - Venous Blood Culture - Final No growth after 5 days. 04/05/20 08:10 Blood - Venous Blood Culture - Final No growth after 5 days. 03/27/20 05:30 Blood - Venous Blood Culture - Final No growth after 5 days. 03/27/20 05:32 Blood - Venous Blood Culture - Final No growth after 5 days. 03/25/20 13:05 Blood - Venous Blood Culture - Final Staphylococcus aureus 03/25/20 13:05 Blood - Venous Blood Culture - Final Staphylococcus aureus Quality VTE Deep Vein Thrombosis/Pulmonary Embolism Present on Admission: No Assessment and Plan (1) Bacteremia: Status: Acute (2) Hyponatremia: Status: Acute (3) Chest pain: Status: Acute (4) Active substance abuse: Status: Acute Assessment and Plan: 49M presented with chest pain, chills chest pain No recurrent symptoms of chest pain, was likely cocaine related, negative trop and ekg, no further cardiac workup warranted MSSA bacteremia No recurrent fever, chills, no new symptoms echo unremarkable, CT with septic emboli 03/27 cultures negative s/p picc line, plan for 6 weeks ancef 2gm q8h, day , end may 07, 2020,will need to be done in observed setting due to IVDA, awaiting placement will monitor labs weekly, last blood work from 04/13 showed stable electrolytes and renal function opiate withdrawl improved, continue methadone Chronic constipation likely due to methadone, continue Metamucil, no bowel issues in last several days. hyponatremia Resolved, labs c/w SIADH, discontinue fluid restrict
[2020-04-19] MEDS: 0.9 % Sodium Chloride Flush 3 ML SYRINGE IVFLUSH ×3 (00:13→15:26)
[2020-04-19 03:44] VITALS: BP 106/62; PULSE 61; RESP 16; TEMP 36; O2SAT 96
[2020-04-19] MEDS: ceFAZolin Sodium/Dextrose,Iso 2 GM/50 ML PIGGYBACK IV ×3 (05:35→21:01)
[2020-04-19 07:58] VITALS: BP 135/74; PULSE 67; RESP 18; TEMP 36.7; O2SAT 97
[2020-04-19] MEDS: 0.9 % Sodium Chloride Flush 10 ML SYRINGE 5 ML IVFLUSH ×3 (08:01→23:42)
[2020-04-19 11:05] VITALS: BP 132/90; PULSE 73; RESP 18; TEMP 37.3; O2SAT 96
--- NOTE | 2020-04-19 13:21 | HO.PM.IMPN ---
Subjective Subjective Date of Service: 04/19/20 Interval History: Patient being followed for methicillin sensitive bacteremia, patient offers no acute complaints no fever , no chills in last several days, moving bowels. Review of Systems General no headache, no dizziness, no fever chills, no sleep in last 2 nights. CVS no chest pain, no palpitation. Respiratory no cough, no sputum production, no respiratory distress. Gastrointestinal no nausea, no vomiting, no abdominal pain, complaining of heart burn. Physical Exam Vital Signs: Vital Signs: Last Vital Signs Temp 99.1 F 04/19/20 11:05 Pulse 73 04/19/20 11:05 Resp 18 04/19/20 11:05 BP 132/90 H 04/19/20 11:05 Pulse Ox 96 04/19/20 11:05 Body Mass Index 34.2 HENMT: Other: General patient resting comfortably in no acute distress. Neck is supple no JVD. CVS regular rate rhythm, Respiratory lungs clear to auscultation, no respiratory distress. Gastrointestinal abdomen soft, nontender, bowel sounds audible. Extremities no clubbing,no cyanosis or edema. Neuro nonfocal. Skin no rash Objective Data Current Medications Generic Name Dose Route Start Last Admin Trade Name Freq PRN Reason Stop Dose Admin Acetaminophen 650 mg 03/25/20 16:47 04/06/20 23:10 Acetaminophen 325 Mg Tablet PO 650 mg Q6H PRN Administration Pain, Mild (Pain Scale 1-3) Al Hydroxide/Mg Hydroxide 15 ml 04/18/20 13:53 Magnesium Hydrox/Alum Hydrox 30 Ml Oral.Susp PO Q4H PRN Indigestion Enoxaparin Sodium 40 mg 03/25/20 22:00 04/18/20 21:20 Enoxaparin Sodium 40 Mg/0.4 Ml Syringe SUBCUT Not Given Q24H MINAL Cefazolin Sodium/Dextrose 2 gm in 50 mls @ 100 mls/hr 04/18/20 14:00 04/19/20 13:06 Ancef IV 100 mls/hr Q8H MINAL Administration Methadone HCl 60 mg 03/26/20 12:30 04/19/20 08:01 Methadone Hcl 1 Mg/0.1 Ml Oral.Conc PO 60 mg DAILY MINAL Administration Polyethylene Glycol 17 gm 04/19/20 13:20 Polyethylene Glycol 3350 17 Gm Powd.Pack PO DAILY PRN Constipation Sodium Chloride 3 ml 03/26/20 00:00 04/19/20 08:01 0.9 % Sodium Chloride Flush 3 Ml Syringe IVFLUSH 3 ml QSHIFT MINAL Administration Sodium Chloride 5 ml 03/31/20 21:00 04/19/20 08:01 0.9 % Sodium Chloride Flush 10 Ml Syringe IVFLUSH 5 ml TID MINAL Administration Labs CBC & Chem 7: 04/13/20 06:15 04/13/20 06:15 Microbiology Microbiology Results: Microbiology 04/05/20 07:55 Blood - Venous Blood Culture - Final No growth after 5 days. 04/05/20 08:10 Blood - Venous Blood Culture - Final No growth after 5 days. 03/27/20 05:30 Blood - Venous Blood Culture - Final No growth after 5 days. 03/27/20 05:32 Blood - Venous Blood Culture - Final No growth after 5 days. 03/25/20 13:05 Blood - Venous Blood Culture - Final Staphylococcus aureus 03/25/20 13:05 Blood - Venous Blood Culture - Final Staphylococcus aureus Quality VTE Deep Vein Thrombosis/Pulmonary Embolism Present on Admission: No Assessment and Plan (1) Bacteremia: Status: Acute (2) Hyponatremia: Status: Acute (3) Chest pain: Status: Acute (4) Active substance abuse: Status: Acute Assessment and Plan: 49M presented with chest pain, chills chest pain No recurrent symptoms of chest pain, was likely cocaine related, negative trop and ekg, no further cardiac workup warranted MSSA bacteremia No recurrent fever, chills, no new symptoms echo unremarkable, CT with septic emboli 03/27 cultures negative s/p picc line, plan for 6 weeks ancef 2gm q8h, day , end may 07, 2020,will need to be done in observed setting due to IVDA, awaiting placement will monitor labs weekly, last blood work from 04/13 showed stable electrolytes and renal function opiate withdrawl improved, continue methadone Chronic constipation likely due to methadone, will DC Metamucil due to side effects and placed on MiraLax as needed, no bowel issues in last several days. hyponatremia Resolved, labs c/w SIADH, discontinue fluid restrict.
[2020-04-19 15:14] VITALS: BP 142/83; PULSE 73; RESP 18; TEMP 37.1; O2SAT 97
[2020-04-19 18:50] VITALS: BP 130/79; PULSE 66; RESP 18; TEMP 36.8; O2SAT 97
[2020-04-19 23:55] VITALS: BP 109/56; PULSE 63; RESP 18; TEMP 36.1; O2SAT 98
[2020-04-20] MEDS: 0.9 % Sodium Chloride Flush 3 ML SYRINGE IVFLUSH ×2 (00:13→08:38)
[2020-04-20 03:37] VITALS: BP 103/61; PULSE 55; RESP 18; TEMP 36.6; O2SAT 97
[2020-04-20] MEDS: ceFAZolin Sodium/Dextrose,Iso 2 GM/50 ML PIGGYBACK IV ×3 (05:54→20:38)
[2020-04-20 07:10] LABS: MANUAL DIFF FLAG NO
[2020-04-20 07:19] LABS: Basophils Percent Auto 0.5 % (0-2); Eosinophils Absolute Auto 0.1 X10*3/uL (0.0-0.4); Eosinophils Percent Auto 1.8 % (0-4); Hematocrit 34.1 % (42-52); Hemoglobin 10.9 g/dl (14.0-18.0); Imm Gran Abs Auto 0.04 X10*3/uL (0.00-0.03); Imm Gran Pct Auto 0.7 % (0.0-0.4); Lymphocytes Absolute Auto 2.5 X10*3/uL (1.2-4.9); Lymphocytes Percent Auto 44.1 % (20-40); Mean Corpuscular Hemoglobin 29.1 pg (27.0-33.0); Mean Corpuscular Volume 91.2 fL (80-98); Mean Platelet Volume 9.3 fL (9.4-12.4); Monocytes Absolute Auto 0.6 X10*3/uL (0.1-1.2); Monocytes Percent Auto 10.2 % (2-11); Neutrophils Absolute Auto 2.4 X10*3/uL (2.0-8.3); Neutrophils Percent Auto 42.7 % (45-73); Platelet Count 193 X10*3/uL (160-400); Red Blood Count 3.74 X10*6/uL (4.60-5.80); Red Cell Distribution Width 12.9 % (11.0-16.0); White Blood Count 5.7 X10*3/uL (4.8-10.8)
[2020-04-20 07:39] LABS: Anion Gap 13 (12-20); Blood Urea Nitrogen 11 mg/dL (9-16); Calcium 8.8 mg/dL (8.4-10.2); Carbon Dioxide 25 mmol/L (22-29); Chloride 102 mmol/L (96-108); Creatinine Clr Calc Pharmacy 151.5; Estimated Glomerular Filt Rate > 60; Glucose Random 115 mg/dL (60-115); Sodium 136 mmol/L (135-145)
[2020-04-20 08:00] VITALS: BP 132/90; PULSE 62; RESP 18; TEMP 36.6; O2SAT 98
[2020-04-20] MEDS: 0.9 % Sodium Chloride Flush 10 ML SYRINGE 5 ML IVFLUSH ×3 (08:38→20:42)
[2020-04-20 08:58] VITALS: BP 143/75; PULSE 69; RESP 18; TEMP 36.6; O2SAT 98
--- NOTE | 2020-04-20 13:56 | MHC.CM.PN ---
nurse test case developer note electronic medical record reviewed alng with case discussed with staff martine . clinical updates sent to [facility] and [facility]je[facility] as well as the short term rehab, discharge adam patient madai need 6 weeks iv abx , has pic line str vs ltac
--- NOTE | 2020-04-20 14:56 | HO.PM.IMPN ---
Subjective Subjective Date of Service: 04/20/20 Interval History: Patient being followed for methicillin sensitive bacteremia, patient offers no acute complaints no fever , no chills in last several days, moving bowels. Review of Systems General no headache, no dizziness, no fever chills, no sleep in last 2 nights. CVS no chest pain, no palpitation. Respiratory no cough, no sputum production, no respiratory distress. Gastrointestinal no nausea, no vomiting, no abdominal pain, complaining of heart burn. Physical Exam Vital Signs: Vital Signs: Last Vital Signs Temp 97.9 F 04/20/20 08:58 Pulse 69 04/20/20 08:58 Resp 18 04/20/20 08:58 BP 143/75 H 04/20/20 08:58 Pulse Ox 98 04/20/20 08:58 Body Mass Index 34.2 HENMT: Other: General patient resting comfortably in no acute distress. Neck is supple no JVD. CVS regular rate rhythm, Respiratory lungs clear to auscultation, no respiratory distress. Gastrointestinal abdomen soft, nontender, bowel sounds audible. Extremities no clubbing,no cyanosis or edema. Neuro nonfocal. Skin no rash Objective Data Current Medications Generic Name Dose Route Start Last Admin Trade Name Freq PRN Reason Stop Dose Admin Acetaminophen 650 mg 03/25/20 16:47 04/06/20 23:10 Acetaminophen 325 Mg Tablet PO 650 mg Q6H PRN Administration Pain, Mild (Pain Scale 1-3) Al Hydroxide/Mg Hydroxide 15 ml 04/18/20 13:53 Magnesium Hydrox/Alum Hydrox 30 Ml Oral.Susp PO Q4H PRN Indigestion Enoxaparin Sodium 40 mg 03/25/20 22:00 04/19/20 21:01 Enoxaparin Sodium 40 Mg/0.4 Ml Syringe SUBCUT Not Given Q24H MINAL Cefazolin Sodium/Dextrose 2 gm in 50 mls @ 100 mls/hr 04/18/20 14:00 04/20/20 14:23 Ancef IV 100 mls/hr Q8H MINAL Administration Methadone HCl 60 mg 03/26/20 12:30 04/20/20 10:25 Methadone Hcl 1 Mg/0.1 Ml Oral.Conc PO 60 mg DAILY MINAL Administration Polyethylene Glycol 17 gm 04/19/20 13:20 Polyethylene Glycol 3350 17 Gm Powd.Pack PO DAILY PRN Constipation Sodium Chloride 3 ml 03/26/20 00:00 04/20/20 08:38 0.9 % Sodium Chloride Flush 3 Ml Syringe IVFLUSH 3 ml QSHIFT MINAL Administration Sodium Chloride 5 ml 03/31/20 21:00 04/20/20 14:23 0.9 % Sodium Chloride Flush 10 Ml Syringe IVFLUSH 5 ml TID MINAL Administration Labs CBC & Chem 7: 04/20/20 06:13 04/20/20 06:13 Microbiology Microbiology Results: Microbiology 04/05/20 07:55 Blood - Venous Blood Culture - Final No growth after 5 days. 04/05/20 08:10 Blood - Venous Blood Culture - Final No growth after 5 days. 03/27/20 05:30 Blood - Venous Blood Culture - Final No growth after 5 days. 03/27/20 05:32 Blood - Venous Blood Culture - Final No growth after 5 days. 03/25/20 13:05 Blood - Venous Blood Culture - Final Staphylococcus aureus 03/25/20 13:05 Blood - Venous Blood Culture - Final Staphylococcus aureus Quality VTE Deep Vein Thrombosis/Pulmonary Embolism Present on Admission: No Assessment and Plan (1) Bacteremia: Status: Acute (2) Hyponatremia: Status: Acute (3) Chest pain: Status: Acute (4) Active substance abuse: Status: Acute Assessment and Plan: 49M presented with chest pain, chills chest pain No recurrent symptoms of chest pain, was likely cocaine related, negative trop and ekg, no further cardiac workup warranted MSSA bacteremia No recurrent fever, chills, no new symptoms echo unremarkable, CT with septic emboli 03/27 cultures negative s/p picc line, plan for 6 weeks ancef 2gm q8h, day 18, end may 07, 2020,will need to be done in observed setting due to IVDA, awaiting placement Repeat labs from today showed stable electrolytes and CBC will monitor labs weekly opiate withdrawl improved, continue methadone Chronic constipation likely due to methadone, will DC Metamucil due to side effects and placed on MiraLax as needed, no bowel issues in last several days. hyponatremia Resolved, labs c/w SIADH, discontinue fluid restrict.
[2020-04-20 15:35] VITALS: BP 125/80; PULSE 76; RESP 18; TEMP 36.5; O2SAT 97
[2020-04-20 19:49] VITALS: BP 118/71; PULSE 72; RESP 18; TEMP 36.7; O2SAT 95
[2020-04-20 23:26] VITALS: BP 105/57; PULSE 68; RESP 20; TEMP 36.7; O2SAT 96
[2020-04-21 03:51] VITALS: BP 100/55; PULSE 60; RESP 20; TEMP 36.8; O2SAT 96
[2020-04-21] MEDS: ceFAZolin Sodium/Dextrose,Iso 2 GM/50 ML PIGGYBACK IV ×3 (05:03→21:15)
[2020-04-21 06:48] VITALS: BP 126/80; PULSE 59; RESP 18; TEMP 36.9; O2SAT 99
[2020-04-21] MEDS: 0.9 % Sodium Chloride Flush 10 ML SYRINGE 5 ML IVFLUSH ×3 (08:31→21:16)
--- NOTE | 2020-04-21 09:54 | MHC.CM.PN ---
[facility] SENT TO [facility] AND [facility]. CASE MANAGEMENT FOLLOWING FOR A BED OFFER.
--- NOTE | 2020-04-21 10:12 | HO.PM.IMPN ---
Subjective Subjective Date of Service: 04/21/20 Interval History: no copmlaints Cardiovascular Cardiovascular: Reports no additional cardiovascular complaints Respiratory Respiratory: Reports no additional respiratory complaints Physical Exam Vital Signs: Vital Signs: Last Vital Signs Temp 98.4 F 04/21/20 06:48 Pulse 59 04/21/20 06:48 Resp 18 04/21/20 06:48 BP 126/80 04/21/20 06:48 Pulse Ox 99 04/21/20 06:48 Body Mass Index 34.2 General: AO X 3, no acute distress Resp: CTA bilateral CVS: S1,S2,RRR GI: soft, non tender, non distended Neuro: motor grossly intact Psych: appropriate affect Objective Data Current Medications Generic Name Dose Route Start Last Admin Trade Name Freq PRN Reason Stop Dose Admin Acetaminophen 650 mg 03/25/20 16:47 04/06/20 23:10 Acetaminophen 325 Mg Tablet PO 650 mg Q6H PRN Administration Pain, Mild (Pain Scale 1-3) Al Hydroxide/Mg Hydroxide 15 ml 04/18/20 13:53 Magnesium Hydrox/Alum Hydrox 30 Ml Oral.Susp PO Q4H PRN Indigestion Enoxaparin Sodium 40 mg 03/25/20 22:00 04/20/20 20:43 Enoxaparin Sodium 40 Mg/0.4 Ml Syringe SUBCUT Not Given Q24H MINAL Cefazolin Sodium/Dextrose 2 gm in 50 mls @ 100 mls/hr 04/18/20 14:00 04/21/20 05:40 Ancef IV Infused Q8H MINAL Infusion Methadone HCl 60 mg 03/26/20 12:30 04/21/20 08:29 Methadone Hcl 1 Mg/0.1 Ml Oral.Conc PO 60 mg DAILY MINAL Administration Polyethylene Glycol 17 gm 04/19/20 13:20 Polyethylene Glycol 3350 17 Gm Powd.Pack PO DAILY PRN Constipation Sodium Chloride 3 ml 03/26/20 00:00 04/21/20 06:25 0.9 % Sodium Chloride Flush 3 Ml Syringe IVFLUSH Not Given QSHIFT MINAL Sodium Chloride 5 ml 03/31/20 21:00 04/21/20 08:31 0.9 % Sodium Chloride Flush 10 Ml Syringe IVFLUSH 5 ml TID MINAL Administration Labs CBC & Chem 7: 04/20/20 06:13 04/20/20 06:13 Microbiology Microbiology Results: Microbiology 04/05/20 07:55 Blood - Venous Blood Culture - Final No growth after 5 days. 04/05/20 08:10 Blood - Venous Blood Culture - Final No growth after 5 days. 03/27/20 05:30 Blood - Venous Blood Culture - Final No growth after 5 days. 03/27/20 05:32 Blood - Venous Blood Culture - Final No growth after 5 days. 03/25/20 13:05 Blood - Venous Blood Culture - Final Staphylococcus aureus 03/25/20 13:05 Blood - Venous Blood Culture - Final Staphylococcus aureus Quality VTE Deep Vein Thrombosis/Pulmonary Embolism Present on Admission: No Assessment and Plan (1) Bacteremia: Status: Acute (2) Hyponatremia: Status: Acute (3) Chest pain: Status: Acute (4) Active substance abuse: Status: Acute Assessment and Plan: 49M presented with chest pain, chills chest pain No recurrent symptoms of chest pain, was likely cocaine related, negative trop and ekg, no further cardiac workup warranted MSSA bacteremia No recurrent fever, chills, no new symptoms echo unremarkable, CT with septic emboli 03/27 cultures negative s/p picc line, plan for 6 weeks ancef 2gm q8h, day , end may 07, 2020,will need to be done in observed setting due to IVDA, awaiting placement Repeat labs from today showed stable electrolytes and CBC will monitor labs weekly opiate withdrawl improved, continue methadone Chronic constipation likely due to methadone, MiraLax as needed, no bowel issues in last several days. hyponatremia Resolved, labs c/w SIADH, discontinue fluid restrict.
[2020-04-21 10:48] VITALS: BP 122/82; PULSE 70; RESP 18; TEMP 36.7; O2SAT 96
[2020-04-21 16:00] VITALS: BP 100/67; PULSE 68; RESP 19; TEMP 36.4; O2SAT 95
[2020-04-21 19:53] VITALS: BP 123/72; PULSE 77; RESP 20; TEMP 36.4; O2SAT 96
[2020-04-21 23:10] VITALS: BP 123/87; PULSE 77; RESP 20; TEMP 36.6; O2SAT 96
[2020-04-22] MEDS: 0.9 % Sodium Chloride Flush 3 ML SYRINGE IVFLUSH ×2 (00:28→07:08)
[2020-04-22 03:46] VITALS: BP 107/56; PULSE 86; RESP 20; TEMP 37.1; O2SAT 96
[2020-04-22] MEDS: ceFAZolin Sodium/Dextrose,Iso 2 GM/50 ML PIGGYBACK IV ×3 (05:15→21:16)
[2020-04-22 07:07] VITALS: BP 118/81; PULSE 63; RESP 16; TEMP 36.2; O2SAT 98
[2020-04-22] MEDS: 0.9 % Sodium Chloride Flush 10 ML SYRINGE 5 ML IVFLUSH ×3 (07:08→21:16)
--- NOTE | 2020-04-22 10:13 | HO.PM.IMPN ---
Subjective Subjective Date of Service: 04/22/20 Interval History: no complaints Cardiovascular Cardiovascular: Reports no additional cardiovascular complaints Gastrointestinal Gastrointestinal: Reports no additional gastrointestinal complaints Physical Exam Vital Signs: Vital Signs: Last Vital Signs Temp 97.1 F 04/22/20 07:07 Pulse 63 04/22/20 07:07 Resp 16 04/22/20 07:07 BP 118/81 04/22/20 07:07 Pulse Ox 98 04/22/20 07:07 Body Mass Index 34.2 General: AO X 3, no acute distress Resp: CTA bilateral CVS: S1,S2,RRR GI: soft, non tender, non distended Neuro: motor grossly intact Psych: appropriate affect Objective Data Current Medications Generic Name Dose Route Start Last Admin Trade Name Freq PRN Reason Stop Dose Admin Acetaminophen 650 mg 03/25/20 16:47 04/06/20 23:10 Acetaminophen 325 Mg Tablet PO 650 mg Q6H PRN Administration Pain, Mild (Pain Scale 1-3) Al Hydroxide/Mg Hydroxide 15 ml 04/18/20 13:53 Magnesium Hydrox/Alum Hydrox 30 Ml Oral.Susp PO Q4H PRN Indigestion Enoxaparin Sodium 40 mg 03/25/20 22:00 04/21/20 21:15 Enoxaparin Sodium 40 Mg/0.4 Ml Syringe SUBCUT Not Given Q24H MINAL Cefazolin Sodium/Dextrose 2 gm in 50 mls @ 100 mls/hr 04/18/20 14:00 04/22/20 05:50 Ancef IV Infused Q8H MINAL Infusion Methadone HCl 60 mg 03/26/20 12:30 04/22/20 07:57 Methadone Hcl 1 Mg/0.1 Ml Oral.Conc PO 60 mg DAILY MINAL Administration Polyethylene Glycol 17 gm 04/19/20 13:20 Polyethylene Glycol 3350 17 Gm Powd.Pack PO DAILY PRN Constipation Sodium Chloride 3 ml 03/26/20 00:00 04/22/20 07:08 0.9 % Sodium Chloride Flush 3 Ml Syringe IVFLUSH 3 ml QSHIFT MINAL Administration Sodium Chloride 5 ml 03/31/20 21:00 04/22/20 07:08 0.9 % Sodium Chloride Flush 10 Ml Syringe IVFLUSH 5 ml TID MINAL Administration Labs CBC & Chem 7: 04/20/20 06:13 04/20/20 06:13 Microbiology Microbiology Results: Microbiology 04/05/20 07:55 Blood - Venous Blood Culture - Final No growth after 5 days. 04/05/20 08:10 Blood - Venous Blood Culture - Final No growth after 5 days. 03/27/20 05:30 Blood - Venous Blood Culture - Final No growth after 5 days. 03/27/20 05:32 Blood - Venous Blood Culture - Final No growth after 5 days. 03/25/20 13:05 Blood - Venous Blood Culture - Final Staphylococcus aureus 03/25/20 13:05 Blood - Venous Blood Culture - Final Staphylococcus aureus Quality VTE Deep Vein Thrombosis/Pulmonary Embolism Present on Admission: No Assessment and Plan (1) Bacteremia: Status: Acute (2) Hyponatremia: Status: Acute (3) Chest pain: Status: Acute (4) Active substance abuse: Status: Acute Assessment and Plan: 49M presented with chest pain, chills chest pain No recurrent symptoms of chest pain, was likely cocaine related, negative trop and ekg, no further cardiac workup warranted MSSA bacteremia No recurrent fever, chills, no new symptoms echo unremarkable, CT with septic emboli 03/27 cultures negative s/p picc line, plan for 6 weeks ancef 2gm q8h, day , end may 07, 2020,will need to be done in observed setting due to IVDA, awaiting placement Repeat labs from today showed stable electrolytes and CBC will monitor labs weekly opiate withdrawl improved, continue methadone Chronic constipation likely due to methadone, MiraLax as needed, no bowel issues in last several days. hyponatremia Resolved, labs c/w SIADH, discontinue fluid restrict.
[2020-04-22 11:03] VITALS: BP 120/70; PULSE 79; RESP 15; TEMP 36.3; O2SAT 96
[2020-04-22] MEDS: Magnesium Hydrox/Alum Hydrox 30 ML ORAL.SUSP 15 ML PO (12:24)
[2020-04-22 16:00] VITALS: BP 119/86; PULSE 70; RESP 16; TEMP 36.6; O2SAT 95
--- NOTE | 2020-04-22 16:20 | MHC.CM.PN ---
MULTIPLE ATTEMPTS TO COMMUNICATE WITH [facility]. OF THIS NOTE, NO COMMUNICATIONS FROM FACILITY SINCE APRIL 11, 2020. CALL TO [facility] MAIN LINE ([phone]) RESULTS IN THIS [employer] LEAVING A MESSAGE FOR YAMILET IGLESIAS TO CALL THIS [employer] BACK. S[employer]IOR [employer] WILL GIVE THE MESSAGE TO YAMILET ON Tuesday.
[2020-04-22 19:00] VITALS: BP 122/85; PULSE 80; RESP 20; TEMP 36.8; O2SAT 96
[2020-04-22 23:15] VITALS: BP 129/56; PULSE 66; RESP 20; TEMP 36.7; O2SAT 95
[2020-04-23 03:15] VITALS: BP 99/50; PULSE 67; RESP 20; TEMP 36.7; O2SAT 96
[2020-04-23] MEDS: ceFAZolin Sodium/Dextrose,Iso 2 GM/50 ML PIGGYBACK IV ×3 (06:06→22:17)
[2020-04-23 07:34] VITALS: BP 121/79; PULSE 93; RESP 18; TEMP 36.6; O2SAT 97
[2020-04-23] MEDS: 0.9 % Sodium Chloride Flush 3 ML SYRINGE IVFLUSH ×2 (08:06→14:01)
[2020-04-23] MEDS: 0.9 % Sodium Chloride Flush 10 ML SYRINGE 5 ML IVFLUSH ×3 (08:07→22:18)
--- NOTE | 2020-04-23 10:16 | HO.PM.IMPN ---
Subjective Subjective Date of Service: 04/23/20 Interval History: no copmlaints Cardiovascular Cardiovascular: Reports no additional cardiovascular complaints Respiratory Respiratory: Reports no additional respiratory complaints Physical Exam Vital Signs: Vital Signs: Last Vital Signs Temp 97.8 F 04/23/20 07:34 Pulse 93 04/23/20 07:34 Resp 18 04/23/20 07:34 BP 121/79 04/23/20 07:34 Pulse Ox 97 04/23/20 07:34 Body Mass Index 34.2 General: AO X 3, no acute distress Resp: CTA bilateral CVS: S1,S2,RRR GI: soft, non tender, non distended Neuro: motor grossly intact Psych: appropriate affect Objective Data Current Medications Generic Name Dose Route Start Last Admin Trade Name Freq PRN Reason Stop Dose Admin Acetaminophen 650 mg 03/25/20 16:47 04/06/20 23:10 Acetaminophen 325 Mg Tablet PO 650 mg Q6H PRN Administration Pain, Mild (Pain Scale 1-3) Al Hydroxide/Mg Hydroxide 15 ml 04/18/20 13:53 04/22/20 12:24 Magnesium Hydrox/Alum Hydrox 30 Ml Oral.Susp PO 15 ml Q4H PRN Administration Indigestion Enoxaparin Sodium 40 mg 03/25/20 22:00 04/22/20 21:16 Enoxaparin Sodium 40 Mg/0.4 Ml Syringe SUBCUT Not Given Q24H MINAL Cefazolin Sodium/Dextrose 2 gm in 50 mls @ 100 mls/hr 04/18/20 14:00 04/23/20 06:45 Ancef IV Infused Q8H MINAL Infusion Methadone HCl 60 mg 03/26/20 12:30 04/23/20 08:06 Methadone Hcl 1 Mg/0.1 Ml Oral.Conc PO 60 mg DAILY MINAL Administration Polyethylene Glycol 17 gm 04/19/20 13:20 Polyethylene Glycol 3350 17 Gm Powd.Pack PO DAILY PRN Constipation Sodium Chloride 3 ml 03/26/20 00:00 04/23/20 08:06 0.9 % Sodium Chloride Flush 3 Ml Syringe IVFLUSH 3 ml QSHIFT MINAL Administration Sodium Chloride 5 ml 03/31/20 21:00 04/23/20 08:07 0.9 % Sodium Chloride Flush 10 Ml Syringe IVFLUSH 5 ml TID MINAL Administration Labs CBC & Chem 7: 04/20/20 06:13 04/20/20 06:13 Microbiology Microbiology Results: Microbiology 04/05/20 07:55 Blood - Venous Blood Culture - Final No growth after 5 days. 04/05/20 08:10 Blood - Venous Blood Culture - Final No growth after 5 days. 03/27/20 05:30 Blood - Venous Blood Culture - Final No growth after 5 days. 03/27/20 05:32 Blood - Venous Blood Culture - Final No growth after 5 days. 03/25/20 13:05 Blood - Venous Blood Culture - Final Staphylococcus aureus 03/25/20 13:05 Blood - Venous Blood Culture - Final Staphylococcus aureus Quality VTE Deep Vein Thrombosis/Pulmonary Embolism Present on Admission: No Assessment and Plan (1) Bacteremia: Status: Acute (2) Hyponatremia: Status: Acute (3) Chest pain: Status: Acute (4) Active substance abuse: Status: Acute Assessment and Plan: 49M presented with chest pain, chills chest pain No recurrent symptoms of chest pain, was likely cocaine related, negative trop and ekg, no further cardiac workup warranted MSSA bacteremia No recurrent fever, chills, no new symptoms echo unremarkable, CT with septic emboli 03/27 cultures negative s/p picc line, plan for 6 weeks ancef 2gm q8h, day , end may 07, 2020,will need to be done in observed setting due to IVDA, awaiting placement Repeat labs from today showed stable electrolytes and CBC will monitor labs weekly opiate withdrawl improved, continue methadone Chronic constipation likely due to methadone, MiraLax as needed, no bowel issues in last several days. hyponatremia Resolved, labs c/w SIADH, discontinue fluid restrict.
[2020-04-23 11:53] VITALS: BP 133/82; PULSE 104; RESP 18; TEMP 36.7; O2SAT 97
--- NOTE | 2020-04-23 13:57 | MHC.CM.PN ---
[facility] AND [facility] UPDATED IN [facility]. MULTIPLE ATTEMPTS TO MAKE CONTACT WITH [facility] ARE PROVING FUTILE. PATIENT AWARE OF ATTEMPTS TO SECURE A BED
--- NOTE | 2020-04-23 13:59 | MHC.CM.PN ---
[facility] IS CLOSED TO ADMISSIONS
--- NOTE | 2020-04-23 14:21 | MHC.CM.PN ---
[facility] HAS RESPONDED IN [facility], INQUIRING ABOUT PATIENT'S INSURANCE POLICY INFORMATION GIVEN. CASE MANAGEMENT WILL WAIT FOR A RESPONSE
--- NOTE | 2020-04-23 15:25 | MHC.CLN ---
F/U 100% PO DIET RX: REGULAR-APPROPRIATE 1900 CALORIES PER DAY WILL PROMOTE SLOW WT LOSS FOLLOWING
[2020-04-23 16:00] VITALS: BP 110/70; PULSE 64; RESP 14; TEMP 36.1; O2SAT 98
[2020-04-23 19:04] VITALS: BP 143/81; PULSE 85; RESP 20; TEMP 36.8; O2SAT 96
[2020-04-23 23:53] VITALS: BP 108/64; PULSE 69; RESP 20; TEMP 36.6; O2SAT 97
[2020-04-24] MEDS: 0.9 % Sodium Chloride Flush 3 ML SYRINGE IVFLUSH ×4 (00:56→22:50)
[2020-04-24 03:55] VITALS: BP 139/69; PULSE 62; RESP 20; TEMP 36.7; O2SAT 94
[2020-04-24] MEDS: ceFAZolin Sodium/Dextrose,Iso 2 GM/50 ML PIGGYBACK IV ×3 (06:29→22:12)
[2020-04-24] MEDS: 0.9 % Sodium Chloride Flush 10 ML SYRINGE 5 ML IVFLUSH ×3 (07:24→22:12)
[2020-04-24 07:47] VITALS: BP 101/69; PULSE 66; RESP 20; TEMP 36.8; O2SAT 97
--- NOTE | 2020-04-24 10:44 | HO.PM.IMPN ---
Subjective Subjective Date of Service: 04/24/20 Interval History: no complaints Cardiovascular Cardiovascular: Reports no additional cardiovascular complaints Gastrointestinal Gastrointestinal: Reports no additional gastrointestinal complaints Physical Exam Vital Signs: Vital Signs: Last Vital Signs Temp 98.3 F 04/24/20 07:47 Pulse 66 04/24/20 07:47 Resp 20 04/24/20 07:47 BP 101/69 04/24/20 07:47 Pulse Ox 97 04/24/20 07:47 Body Mass Index 34.2 General: AO X 3, no acute distress Resp: CTA bilateral CVS: S1,S2,RRR GI: soft, non tender, non distended Neuro: motor grossly intact Psych: appropriate affect Objective Data Current Medications Generic Name Dose Route Start Last Admin Trade Name Freq PRN Reason Stop Dose Admin Acetaminophen 650 mg 03/25/20 16:47 04/06/20 23:10 Acetaminophen 325 Mg Tablet PO 650 mg Q6H PRN Administration Pain, Mild (Pain Scale 1-3) Al Hydroxide/Mg Hydroxide 15 ml 04/18/20 13:53 04/22/20 12:24 Magnesium Hydrox/Alum Hydrox 30 Ml Oral.Susp PO 15 ml Q4H PRN Administration Indigestion Enoxaparin Sodium 40 mg 03/25/20 22:00 04/23/20 22:18 Enoxaparin Sodium 40 Mg/0.4 Ml Syringe SUBCUT Not Given Q24H MINAL Cefazolin Sodium/Dextrose 2 gm in 50 mls @ 100 mls/hr 04/18/20 14:00 04/24/20 07:24 Ancef IV Infused Q8H MINAL Infusion Methadone HCl 60 mg 03/26/20 12:30 04/24/20 07:49 Methadone Hcl 1 Mg/0.1 Ml Oral.Conc PO 60 mg DAILY MINAL Administration Polyethylene Glycol 17 gm 04/19/20 13:20 Polyethylene Glycol 3350 17 Gm Powd.Pack PO DAILY PRN Constipation Sodium Chloride 3 ml 03/26/20 00:00 04/24/20 07:24 0.9 % Sodium Chloride Flush 3 Ml Syringe IVFLUSH 3 ml QSHIFT MINAL Administration Sodium Chloride 5 ml 03/31/20 21:00 04/24/20 07:24 0.9 % Sodium Chloride Flush 10 Ml Syringe IVFLUSH 5 ml TID MINAL Administration Labs CBC & Chem 7: 04/20/20 06:13 04/20/20 06:13 Microbiology Microbiology Results: Microbiology 04/05/20 07:55 Blood - Venous Blood Culture - Final No growth after 5 days. 04/05/20 08:10 Blood - Venous Blood Culture - Final No growth after 5 days. 03/27/20 05:30 Blood - Venous Blood Culture - Final No growth after 5 days. 03/27/20 05:32 Blood - Venous Blood Culture - Final No growth after 5 days. 03/25/20 13:05 Blood - Venous Blood Culture - Final Staphylococcus aureus 03/25/20 13:05 Blood - Venous Blood Culture - Final Staphylococcus aureus Quality VTE Deep Vein Thrombosis/Pulmonary Embolism Present on Admission: No Assessment and Plan (1) Bacteremia: Status: Acute (2) Hyponatremia: Status: Acute (3) Chest pain: Status: Acute (4) Active substance abuse: Status: Acute Assessment and Plan: 49M presented with chest pain, chills chest pain No recurrent symptoms of chest pain, was likely cocaine related, negative trop and ekg, no further cardiac workup warranted MSSA bacteremia No recurrent fever, chills, no new symptoms echo unremarkable, CT with septic emboli 03/27 cultures negative s/p picc line, plan for 6 weeks ancef 2gm q8h, day , end may 07, 2020,will need to be done in observed setting due to IVDA, awaiting placement Repeat labs from today showed stable electrolytes and CBC will monitor labs weekly opiate withdrawl improved, continue methadone Chronic constipation likely due to methadone, MiraLax as needed, no bowel issues in last several days. hyponatremia Resolved, labs c/w SIADH, discontinue fluid restrict.
[2020-04-24 11:26] VITALS: BP 112/79; PULSE 75; RESP 20; TEMP 36.6; O2SAT 96
--- NOTE | 2020-04-24 14:09 | MHC.CM.PN ---
Updates sent to all facilities following. CM awaiting responses to determine if they have a bed open or will have one soon.
[2020-04-24 16:00] VITALS: BP 118/80; PULSE 72; RESP 14; TEMP 35.6; O2SAT 95
[2020-04-24 19:25] VITALS: BP 115/86; PULSE 75; RESP 18; TEMP 36.6; O2SAT 95
--- NOTE | 2020-04-24 22:13 | PC.NURSE ---
Pt refuses Lovenox, pt is ambulatory and does laps around the hallways
[2020-04-25] VITALS (7 sets, daily range): BP systolic 96–132; BP diastolic 44–79; PULSE 64–72; RESP 16–18; TEMP 36.1–37.2; O2SAT 95–97
[2020-04-25] MEDS: ceFAZolin Sodium/Dextrose,Iso 2 GM/50 ML PIGGYBACK IV ×3 (05:10→20:59)
[2020-04-25] MEDS: 0.9 % Sodium Chloride Flush 10 ML SYRINGE 5 ML IVFLUSH ×3 (08:15→20:58)
[2020-04-25] MEDS: 0.9 % Sodium Chloride Flush 3 ML SYRINGE IVFLUSH (08:15)
--- NOTE | 2020-04-25 10:31 | HO.PM.IMPN ---
Subjective Subjective Date of Service: 04/25/20 Interval History: no complaints Cardiovascular Cardiovascular: Reports no additional cardiovascular complaints Gastrointestinal Gastrointestinal: Reports no additional gastrointestinal complaints Physical Exam Vital Signs: Vital Signs: Last Vital Signs Temp 98.4 F 04/25/20 06:49 Pulse 72 04/25/20 06:49 Resp 18 04/25/20 06:49 BP 116/67 04/25/20 06:49 Pulse Ox 97 04/25/20 06:49 Body Mass Index 34.2 General: AO X 3, no acute distress Resp: CTA bilateral CVS: S1,S2,RRR GI: soft, non tender, non distended Neuro: motor grossly intact Psych: appropriate affect Objective Data Current Medications Generic Name Dose Route Start Last Admin Trade Name Freq PRN Reason Stop Dose Admin Acetaminophen 650 mg 03/25/20 16:47 04/06/20 23:10 Acetaminophen 325 Mg Tablet PO 650 mg Q6H PRN Administration Pain, Mild (Pain Scale 1-3) Al Hydroxide/Mg Hydroxide 15 ml 04/18/20 13:53 04/22/20 12:24 Magnesium Hydrox/Alum Hydrox 30 Ml Oral.Susp PO 15 ml Q4H PRN Administration Indigestion Enoxaparin Sodium 40 mg 03/25/20 22:00 04/24/20 22:12 Enoxaparin Sodium 40 Mg/0.4 Ml Syringe SUBCUT Not Given Q24H MINAL Cefazolin Sodium/Dextrose 2 gm in 50 mls @ 100 mls/hr 04/18/20 14:00 04/25/20 05:59 Ancef IV Infused Q8H MINAL Infusion Methadone HCl 60 mg 03/26/20 12:30 04/25/20 08:15 Methadone Hcl 1 Mg/0.1 Ml Oral.Conc PO 60 mg DAILY MINAL Administration Polyethylene Glycol 17 gm 04/19/20 13:20 Polyethylene Glycol 3350 17 Gm Powd.Pack PO DAILY PRN Constipation Sodium Chloride 3 ml 03/26/20 00:00 04/25/20 08:15 0.9 % Sodium Chloride Flush 3 Ml Syringe IVFLUSH 3 ml QSHIFT MINAL Administration Sodium Chloride 5 ml 03/31/20 21:00 04/25/20 08:15 0.9 % Sodium Chloride Flush 10 Ml Syringe IVFLUSH 5 ml TID MINAL Administration Labs CBC & Chem 7: 04/20/20 06:13 04/20/20 06:13 Microbiology Microbiology Results: Microbiology 04/05/20 07:55 Blood - Venous Blood Culture - Final No growth after 5 days. 04/05/20 08:10 Blood - Venous Blood Culture - Final No growth after 5 days. 03/27/20 05:30 Blood - Venous Blood Culture - Final No growth after 5 days. 03/27/20 05:32 Blood - Venous Blood Culture - Final No growth after 5 days. 03/25/20 13:05 Blood - Venous Blood Culture - Final Staphylococcus aureus 03/25/20 13:05 Blood - Venous Blood Culture - Final Staphylococcus aureus Quality VTE Deep Vein Thrombosis/Pulmonary Embolism Present on Admission: No Assessment and Plan (1) Bacteremia: Status: Acute (2) Hyponatremia: Status: Acute (3) Chest pain: Status: Acute (4) Active substance abuse: Status: Acute Assessment and Plan: 49M presented with chest pain, chills chest pain No recurrent symptoms of chest pain, was likely cocaine related, negative trop and ekg, no further cardiac workup warranted MSSA bacteremia No recurrent fever, chills, no new symptoms echo unremarkable, CT with septic emboli 03/27 cultures negative s/p picc line, plan for 6 weeks ancef 2gm q8h, day 3042, end may 07, 2020,will need to be done in observed setting due to IVDA, awaiting placement Repeat labs from today showed stable electrolytes and CBC will monitor labs weekly opiate withdrawl improved, continue methadone Chronic constipation likely due to methadone, MiraLax as needed, no bowel issues in last several days. hyponatremia Resolved, labs c/w SIADH, discontinue fluid restrict.
[2020-04-25] MEDS: Magnesium Hydrox/Alum Hydrox 30 ML ORAL.SUSP 15 ML PO (19:34)
[2020-04-26] MEDS: ceFAZolin Sodium/Dextrose,Iso 2 GM/50 ML PIGGYBACK IV ×3 (06:29→21:26)
[2020-04-26] MEDS: 0.9 % Sodium Chloride Flush 3 ML SYRINGE IVFLUSH ×2 (07:16)
[2020-04-26] MEDS: 0.9 % Sodium Chloride Flush 10 ML SYRINGE 5 ML IVFLUSH ×3 (07:17→21:26)
[2020-04-26 07:49] VITALS: BP 123/79; PULSE 73; RESP 18; TEMP 36.5; O2SAT 99
--- NOTE | 2020-04-26 10:11 | HO.PM.IMPN ---
Subjective Subjective Date of Service: 04/26/20 Interval History: no complaints Cardiovascular Cardiovascular: Reports no additional cardiovascular complaints Gastrointestinal Gastrointestinal: Reports no additional gastrointestinal complaints Physical Exam Vital Signs: Vital Signs: Last Vital Signs Temp 97.7 F 04/26/20 07:49 Pulse 73 04/26/20 07:49 Resp 18 04/26/20 07:49 BP 123/79 04/26/20 07:49 Pulse Ox 99 04/26/20 07:49 Body Mass Index 34.2 General: AO X 3, no acute distress Resp: CTA bilateral CVS: S1,S2,RRR GI: soft, non tender, non distended Neuro: motor grossly intact Psych: appropriate affect Objective Data Current Medications Generic Name Dose Route Start Last Admin Trade Name Freq PRN Reason Stop Dose Admin Acetaminophen 650 mg 03/25/20 16:47 04/06/20 23:10 Acetaminophen 325 Mg Tablet PO 650 mg Q6H PRN Administration Pain, Mild (Pain Scale 1-3) Al Hydroxide/Mg Hydroxide 15 ml 04/18/20 13:53 04/25/20 19:34 Magnesium Hydrox/Alum Hydrox 30 Ml Oral.Susp PO 15 ml Q4H PRN Administration Indigestion Enoxaparin Sodium 40 mg 03/25/20 22:00 04/25/20 20:59 Enoxaparin Sodium 40 Mg/0.4 Ml Syringe SUBCUT Not Given Q24H MINAL Cefazolin Sodium/Dextrose 2 gm in 50 mls @ 100 mls/hr 04/25/20 22:00 04/26/20 07:12 Ancef IV Infused Q8H MINAL Infusion Irrigating Solution 5 ml 04/26/20 09:45 Sodium Chloride 0.9 % Irrig So 500 Ml Irrig.Soln IRRIGATION BID MINAL Methadone HCl 60 mg 03/26/20 12:30 04/26/20 08:15 Methadone Hcl 1 Mg/0.1 Ml Oral.Conc PO 60 mg DAILY MINAL Administration Multi-Ingred Cream/Lotion/Oil/Oint 1 appl 04/26/20 09:45 Mineral Oil/Petrolatum,White 106 Gm Tube TOPICAL BID MINAL Polyethylene Glycol 17 gm 04/19/20 13:20 Polyethylene Glycol 3350 17 Gm Powd.Pack PO DAILY PRN Constipation Sodium Chloride 3 ml 03/26/20 00:00 04/26/20 07:16 0.9 % Sodium Chloride Flush 3 Ml Syringe IVFLUSH 3 ml QSHIFT MINAL Administration Sodium Chloride 5 ml 03/31/20 21:00 04/26/20 07:17 0.9 % Sodium Chloride Flush 10 Ml Syringe IVFLUSH 5 ml TID MINAL Administration Labs CBC & Chem 7: 04/20/20 06:13 04/20/20 06:13 Microbiology Microbiology Results: Microbiology 04/05/20 07:55 Blood - Venous Blood Culture - Final No growth after 5 days. 04/05/20 08:10 Blood - Venous Blood Culture - Final No growth after 5 days. 03/27/20 05:30 Blood - Venous Blood Culture - Final No growth after 5 days. 03/27/20 05:32 Blood - Venous Blood Culture - Final No growth after 5 days. 03/25/20 13:05 Blood - Venous Blood Culture - Final Staphylococcus aureus 03/25/20 13:05 Blood - Venous Blood Culture - Final Staphylococcus aureus Quality VTE Deep Vein Thrombosis/Pulmonary Embolism Present on Admission: No Assessment and Plan (1) Bacteremia: Status: Acute (2) Hyponatremia: Status: Acute (3) Chest pain: Status: Acute (4) Active substance abuse: Status: Acute Assessment and Plan: 49M presented with chest pain, chills chest pain No recurrent symptoms of chest pain, was likely cocaine related, negative trop and ekg, no further cardiac workup warranted MSSA bacteremia No recurrent fever, chills, no new symptoms echo unremarkable, CT with septic emboli 03/27 cultures negative s/p picc line, plan for 6 weeks ancef 2gm q8h, day , end may 07, 2020,will need to be done in observed setting due to IVDA, awaiting placement will monitor labs weekly opiate withdrawl improved, continue methadone hyponatremia Resolved, labs c/w SIADH, discontinue fluid restrict.
[2020-04-26] MEDS: Magnesium Hydrox/Alum Hydrox 30 ML ORAL.SUSP 15 ML PO (10:27)
[2020-04-26 11:08] VITALS: BP 127/82; PULSE 78; RESP 18; TEMP 36.1; O2SAT 97
[2020-04-26] MEDS: Sodium Chloride 0.65 % Nasal 44 ML SPRBTL 1 SPRAY NOSTRIL-B ×2 (12:56→21:27)
[2020-04-26] MEDS: Mineral Oil/Petrolatum,White 106 GM Tube 1 APPL TOPICAL ×2 (12:57→21:26)
[2020-04-26 16:00] VITALS: BP 134/92; PULSE 71; RESP 18; TEMP 36.5; O2SAT 97
[2020-04-26 19:13] VITALS: BP 130/91; PULSE 73; RESP 19; TEMP 36.9; O2SAT 97
[2020-04-26 23:57] VITALS: BP 127/85; PULSE 67; RESP 16; TEMP 37.1; O2SAT 97
[2020-04-27 04:00] VITALS: BP 138/93; PULSE 73; RESP 16; TEMP 37.4; O2SAT 97
[2020-04-27] MEDS: ceFAZolin Sodium/Dextrose,Iso 2 GM/50 ML PIGGYBACK IV ×3 (05:45→21:39)
[2020-04-27 07:31] VITALS: BP 130/80; PULSE 66; RESP 18; TEMP 36.3; O2SAT 97
[2020-04-27] MEDS: Sodium Chloride 0.65 % Nasal 44 ML SPRBTL 1 SPRAY NOSTRIL-B ×2 (08:20→21:38)
[2020-04-27] MEDS: Mineral Oil/Petrolatum,White 106 GM Tube 1 APPL TOPICAL ×2 (08:20→21:38)
[2020-04-27] MEDS: 0.9 % Sodium Chloride Flush 10 ML SYRINGE 5 ML IVFLUSH ×2 (08:21→21:38)
--- NOTE | 2020-04-27 10:12 | HO.PM.IMPN ---
Subjective Subjective Date of Service: 04/27/20 Interval History: insomnia Cardiovascular Cardiovascular: Reports no additional cardiovascular complaints Gastrointestinal Gastrointestinal: Reports no additional gastrointestinal complaints Physical Exam Vital Signs: Vital Signs: Last Vital Signs Temp 97.4 F 04/27/20 07:31 Pulse 66 04/27/20 07:31 Resp 18 04/27/20 07:31 BP 130/80 04/27/20 07:31 Pulse Ox 97 04/27/20 07:31 Body Mass Index 34.2 General: AO X 3, no acute distress Resp: CTA bilateral CVS: S1,S2,RRR GI: soft, non tender, non distended Neuro: motor grossly intact Psych: appropriate affect Objective Data Current Medications Generic Name Dose Route Start Last Admin Trade Name Freq PRN Reason Stop Dose Admin Acetaminophen 650 mg 03/25/20 16:47 04/06/20 23:10 Acetaminophen 325 Mg Tablet PO 650 mg Q6H PRN Administration Pain, Mild (Pain Scale 1-3) Al Hydroxide/Mg Hydroxide 15 ml 04/18/20 13:53 04/26/20 10:27 Magnesium Hydrox/Alum Hydrox 30 Ml Oral.Susp PO 15 ml Q4H PRN Administration Indigestion Enoxaparin Sodium 40 mg 03/25/20 22:00 04/26/20 22:16 Enoxaparin Sodium 40 Mg/0.4 Ml Syringe SUBCUT Not Given Q24H MINAL Cefazolin Sodium/Dextrose 2 gm in 50 mls @ 100 mls/hr 04/25/20 22:00 04/27/20 06:26 Ancef IV Infused Q8H MINAL Infusion Methadone HCl 60 mg 03/26/20 12:30 04/27/20 08:20 Methadone Hcl 1 Mg/0.1 Ml Oral.Conc PO 60 mg DAILY MINAL Administration Multi-Ingred Cream/Lotion/Oil/Oint 1 appl 04/26/20 09:45 04/27/20 08:20 Mineral Oil/Petrolatum,White 106 Gm Tube TOPICAL 1 appl BID MINAL Administration Polyethylene Glycol 17 gm 04/19/20 13:20 Polyethylene Glycol 3350 17 Gm Powd.Pack PO DAILY PRN Constipation Sodium Chloride 3 ml 03/26/20 00:00 04/27/20 00:29 0.9 % Sodium Chloride Flush 3 Ml Syringe IVFLUSH Not Given QSHIFT MINAL Sodium Chloride 5 ml 03/31/20 21:00 04/27/20 08:21 0.9 % Sodium Chloride Flush 10 Ml Syringe IVFLUSH 5 ml TID MINAL Administration Sodium Chloride 1 spray 04/26/20 21:00 04/27/20 08:20 Sodium Chloride 0.65 % Nasal 44 Ml Sprbtl NOSTRIL-B 1 spray BID MINAL Administration Labs CBC & Chem 7: 04/20/20 06:13 04/20/20 06:13 Microbiology Microbiology Results: Microbiology 04/05/20 07:55 Blood - Venous Blood Culture - Final No growth after 5 days. 04/05/20 08:10 Blood - Venous Blood Culture - Final No growth after 5 days. 03/27/20 05:30 Blood - Venous Blood Culture - Final No growth after 5 days. 03/27/20 05:32 Blood - Venous Blood Culture - Final No growth after 5 days. 03/25/20 13:05 Blood - Venous Blood Culture - Final Staphylococcus aureus 03/25/20 13:05 Blood - Venous Blood Culture - Final Staphylococcus aureus Quality VTE Deep Vein Thrombosis/Pulmonary Embolism Present on Admission: No Assessment and Plan (1) Bacteremia: Status: Acute (2) Hyponatremia: Status: Acute (3) Chest pain: Status: Acute (4) Active substance abuse: Status: Acute Assessment and Plan: 49M presented with chest pain, chills chest pain No recurrent symptoms of chest pain, was likely cocaine related, negative trop and ekg, no further cardiac workup warranted MSSA bacteremia No recurrent fever, chills, no new symptoms echo unremarkable, CT with septic emboli 03/27 cultures negative s/p picc line, plan for 6 weeks ancef 2gm q8h, day , end may 07, 2020,will need to be done in observed setting due to IVDA, awaiting placement will monitor labs weekly opiate withdrawl improved, continue methadone hyponatremia Resolved, labs c/w SIADH, discontinue fluid restrict.
[2020-04-27 12:00] VITALS: BP 111/74; PULSE 91; RESP 18; TEMP 36.5; O2SAT 96
--- NOTE | 2020-04-27 14:12 | MHC.CM.PN ---
UPDATES SENT TO [facility] AND [facility]. [facility] LAST COMMUNICATION REPORTS NO MALE QUARANTINE BED AVAILABLE YET. CASE MANAGEMENT TO CONTINUE EFFORTS TO SECURE A BED
[2020-04-27 15:08] VITALS: BP 119/80; PULSE 74; TEMP 36.3; O2SAT 97
[2020-04-27 19:59] VITALS: BP 120/81; PULSE 72; RESP 18; TEMP 36.7; O2SAT 96
[2020-04-27 23:29] VITALS: BP 115/63; PULSE 70; RESP 16; TEMP 36.8; O2SAT 96
[2020-04-28] MEDS: diphenhydrAMINE HCL 50 MG/ML VIAL 25 MG IVPUSH ×2 (01:55→20:51)
[2020-04-28 03:53] VITALS: BP 101/57; PULSE 65; RESP 18; TEMP 36.1; O2SAT 97
[2020-04-28] MEDS: ceFAZolin Sodium/Dextrose,Iso 2 GM/50 ML PIGGYBACK IV ×3 (06:18→22:13)
[2020-04-28 06:29] LABS: Basophils Percent Auto 0.4 % (0-2); Eosinophils Absolute Auto 0.1 X10*3/uL (0.0-0.4); Eosinophils Percent Auto 2.2 % (0-4); Hematocrit 34.9 % (42-52); Hemoglobin 11.1 g/dl (14.0-18.0); Imm Gran Abs Auto 0.02 X10*3/uL (0.00-0.03); Imm Gran Pct Auto 0.4 % (0.0-0.4); Lymphocytes Absolute Auto 2.3 X10*3/uL (1.2-4.9); Lymphocytes Percent Auto 47.7 % (20-40); MANUAL DIFF FLAG NO; Mean Corpuscular HGB Conc 31.8 g/dl (31.0-36.0); Mean Corpuscular Hemoglobin 29.5 pg (27.0-33.0); Mean Corpuscular Volume 92.8 fL (80-98); Mean Platelet Volume 9.1 fL (9.4-12.4); Monocytes Absolute Auto 0.7 X10*3/uL (0.1-1.2); Monocytes Percent Auto 13.6 % (2-11); Neutrophils Absolute Auto 1.8 X10*3/uL (2.0-8.3); Neutrophils Percent Auto 35.7 % (45-73); Platelet Count 181 X10*3/uL (160-400); Red Blood Count 3.76 X10*6/uL (4.60-5.80); Red Cell Distribution Width 13.2 % (11.0-16.0); White Blood Count 4.9 X10*3/uL (4.8-10.8)
[2020-04-28 06:52] LABS: Anion Gap 12 (12-20); Blood Urea Nitrogen 9 mg/dL (9-16); Carbon Dioxide 27 mmol/L (22-29); Chloride 103 mmol/L (96-108); Creatinine Clr Calc Pharmacy 158.4; Estimated Glomerular Filt Rate > 60; Glucose Fasting 92 mg/dL (60-99); Potassium 4.7 mmol/l (3.3-5.1); Sodium 137 mmol/L (135-145)
[2020-04-28 07:34] VITALS: BP 121/80; PULSE 70; RESP 18; TEMP 36.6; O2SAT 98
[2020-04-28] MEDS: 0.9 % Sodium Chloride Flush 10 ML SYRINGE 5 ML IVFLUSH ×3 (08:14→20:51)
[2020-04-28] MEDS: Sodium Chloride 0.65 % Nasal 44 ML SPRBTL 1 SPRAY NOSTRIL-B ×2 (08:15→20:51)
[2020-04-28] MEDS: Mineral Oil/Petrolatum,White 106 GM Tube 1 APPL TOPICAL ×2 (08:15→20:51)
--- NOTE | 2020-04-28 09:28 | MHC.CM.PN ---
[facility] ADDED TO SNF REFERRALS. CASE MANAGEMENT CONTINUING TO FOLLOW. ABX TO DC ON 05/07/20
[2020-04-28 12:00] VITALS: BP 114/71; PULSE 74; RESP 18; TEMP 35.9; O2SAT 98
--- NOTE | 2020-04-28 13:30 | P.PNIM_ITS ---
Subjective Subjective Date of Service: 04/28/20 Interval History: the patient was seen and evaluated this morning Laying in bed, feels comfortable Denies any fever, chills or shortness of breath No reported other overnight events. Systemic review: No fever, chills or weakness No chest pain, palpitation No shortness of breath or coughing No abdominal pain, nausea or vomiting No urinary symptoms No any rash or wounds Physical Exam 2 Vital Signs: Vital Signs: Last Vital Signs Temp 96.7 F L 04/28/20 12:00 Pulse 74 04/28/20 12:00 Resp 18 04/28/20 12:00 BP 114/71 04/28/20 12:00 Pulse Ox 98 04/28/20 12:00 Body Mass Index 34.2 Constitutional : Alert, oriented, not in distress Neck : Normal inspection, Supple Cardiovascular : RRR, S1 S2, no lower extremity edema Respiratory : Good bilateral air entry, no crackles, wheezes or rhonchi Gastrointestinal: soft, lax, Normal bowel sounds, Non tender Skin : Warm/Dry, No rash Neurological : Alert & oriented x3, No focal deficit Objective Data Current Medications Generic Name Dose Route Start Last Admin Trade Name Freq PRN Reason Stop Dose Admin Acetaminophen 650 mg 03/25/20 16:47 04/06/20 23:10 Acetaminophen 325 Mg Tablet PO 650 mg Q6H PRN Administration Pain, Mild (Pain Scale 1-3) Al Hydroxide/Mg Hydroxide 15 ml 04/18/20 13:53 04/26/20 10:27 Magnesium Hydrox/Alum Hydrox 30 Ml Oral.Susp PO 15 ml Q4H PRN Administration Indigestion Enoxaparin Sodium 40 mg 03/25/20 22:00 04/27/20 21:38 Enoxaparin Sodium 40 Mg/0.4 Ml Syringe SUBCUT Not Given Q24H MINAL Cefazolin Sodium/Dextrose 2 gm in 50 mls @ 100 mls/hr 04/25/20 22:00 04/28/20 07:28 Ancef IV Infused Q8H MINAL Infusion Methadone HCl 60 mg 03/26/20 12:30 04/28/20 08:14 Methadone Hcl 1 Mg/0.1 Ml Oral.Conc PO 60 mg DAILY MINAL Administration Multi-Ingred Cream/Lotion/Oil/Oint 1 appl 04/26/20 09:45 04/28/20 08:15 Mineral Oil/Petrolatum,White 106 Gm Tube TOPICAL 1 appl BID MINAL Administration Polyethylene Glycol 17 gm 04/19/20 13:20 Polyethylene Glycol 3350 17 Gm Powd.Pack PO DAILY PRN Constipation Sodium Chloride 3 ml 03/26/20 00:00 04/28/20 08:15 0.9 % Sodium Chloride Flush 3 Ml Syringe IVFLUSH Not Given QSHIFT MINAL Sodium Chloride 5 ml 03/31/20 21:00 04/28/20 08:14 0.9 % Sodium Chloride Flush 10 Ml Syringe IVFLUSH 5 ml TID MINAL Administration Sodium Chloride 1 spray 04/26/20 21:00 04/28/20 08:15 Sodium Chloride 0.65 % Nasal 44 Ml Sprbtl NOSTRIL-B 1 spray BID MINAL Administration Labs CBC & Chem 7: 04/28/20 06:12 04/28/20 06:12 Microbiology Microbiology Results: Microbiology 04/05/20 07:55 Blood - Venous Blood Culture - Final No growth after 5 days. 04/05/20 08:10 Blood - Venous Blood Culture - Final No growth after 5 days. 03/27/20 05:30 Blood - Venous Blood Culture - Final No growth after 5 days. 03/27/20 05:32 Blood - Venous Blood Culture - Final No growth after 5 days. 03/25/20 13:05 Blood - Venous Blood Culture - Final Staphylococcus aureus 03/25/20 13:05 Blood - Venous Blood Culture - Final Staphylococcus aureus Quality VTE Deep Vein Thrombosis/Pulmonary Embolism Present on Admission: No Assessment and Plan (1) Bacteremia: Status: Acute (2) Hyponatremia: Status: Acute (3) Chest pain: Status: Acute (4) Active substance abuse: Status: Acute Assessment and Plan: 49M presented with history of IV drug abuse presents to the hospital with chest pain, chills chest pain No recurrent symptoms of chest pain, was likely cocaine related, negative trop and ekg, no further cardiac workup warranted MSSA bacteremia No recurrent fever, chills, no new symptoms echo unremarkable, CT with septic emboli 03/27 cultures negative s/p picc line, plan for 6 weeks ancef 2gm q8h, day 33/42, end may 07, 2020,will need to be done in observed setting due to IVDA, awaiting placement will monitor labs weekly opiate withdrawl improved, continue methadone hyponatremia Resolved, labs c/w SIADH, discontinue fluid restrict. DVT PPX Lovenox
[2020-04-28 16:00] VITALS: BP 124/85; PULSE 64; RESP 20; TEMP 36.6; O2SAT 96
[2020-04-28 19:27] VITALS: BP 119/73; PULSE 74; RESP 19; TEMP 36.4; O2SAT 96
[2020-04-28] MEDS: 0.9 % Sodium Chloride Flush 3 ML SYRINGE IVFLUSH (22:14)
[2020-04-28 23:12] VITALS: BP 134/71; PULSE 65; RESP 16; TEMP 36.4; O2SAT 97
[2020-04-29 02:42] VITALS: BP 134/82; PULSE 64; RESP 16; TEMP 36.4
[2020-04-29] MEDS: ceFAZolin Sodium/Dextrose,Iso 2 GM/50 ML PIGGYBACK IV ×3 (04:57→21:37)
[2020-04-29 07:20] VITALS: BP 123/79; PULSE 66; RESP 18; TEMP 36.9; O2SAT 97
[2020-04-29] MEDS: Sodium Chloride 0.65 % Nasal 44 ML SPRBTL 1 SPRAY NOSTRIL-B ×2 (08:04→21:36)
[2020-04-29] MEDS: Mineral Oil/Petrolatum,White 106 GM Tube 1 APPL TOPICAL ×2 (08:05→21:36)
[2020-04-29] MEDS: 0.9 % Sodium Chloride Flush 10 ML SYRINGE 5 ML IVFLUSH ×3 (08:05→21:37)
[2020-04-29 12:00] VITALS: BP 120/87; PULSE 74; RESP 18; TEMP 36.9; O2SAT 96
--- NOTE | 2020-04-29 13:05 | P.PNIM_ITS ---
Subjective Subjective Date of Service: 04/29/20 Interval History: the patient was seen and evaluated this morning Laying in bed, feels comfortable Denies any fever, chills or shortness of breath No reported other overnight events. Systemic review: No fever, chills or weakness No chest pain, palpitation No shortness of breath or coughing No abdominal pain, nausea or vomiting No urinary symptoms No any rash or wounds Physical Exam 2 Vital Signs: Vital Signs: Last Vital Signs Temp 98.5 F 04/29/20 12:00 Pulse 74 04/29/20 12:00 Resp 18 04/29/20 12:00 BP 120/87 04/29/20 12:00 Pulse Ox 96 04/29/20 12:00 Body Mass Index 34.2 Constitutional : Alert, oriented, not in distress Neck : Normal inspection, Supple Cardiovascular : RRR, S1 S2, no lower extremity edema Respiratory : Good bilateral air entry, no crackles, wheezes or rhonchi Gastrointestinal: soft, lax, Normal bowel sounds, Non tender Skin : Warm/Dry, No rash Neurological : Alert & oriented x3, No focal deficit Objective Data Current Medications Generic Name Dose Route Start Last Admin Trade Name Freq PRN Reason Stop Dose Admin Acetaminophen 650 mg 03/25/20 16:47 04/06/20 23:10 Acetaminophen 325 Mg Tablet PO 650 mg Q6H PRN Administration Pain, Mild (Pain Scale 1-3) Al Hydroxide/Mg Hydroxide 15 ml 04/18/20 13:53 04/26/20 10:27 Magnesium Hydrox/Alum Hydrox 30 Ml Oral.Susp PO 15 ml Q4H PRN Administration Indigestion Enoxaparin Sodium 40 mg 03/25/20 22:00 04/28/20 22:14 Enoxaparin Sodium 40 Mg/0.4 Ml Syringe SUBCUT Not Given Q24H MINAL Cefazolin Sodium/Dextrose 2 gm in 50 mls @ 100 mls/hr 04/25/20 22:00 04/29/20 05:44 Ancef IV Infused Q8H MINAL Infusion Methadone HCl 60 mg 03/26/20 12:30 04/29/20 08:04 Methadone Hcl 1 Mg/0.1 Ml Oral.Conc PO 60 mg DAILY MINAL Administration Multi-Ingred Cream/Lotion/Oil/Oint 1 appl 04/26/20 09:45 04/29/20 08:05 Mineral Oil/Petrolatum,White 106 Gm Tube TOPICAL 1 appl BID MINAL Administration Polyethylene Glycol 17 gm 04/19/20 13:20 Polyethylene Glycol 3350 17 Gm Powd.Pack PO DAILY PRN Constipation Sodium Chloride 3 ml 03/26/20 00:00 04/29/20 08:05 0.9 % Sodium Chloride Flush 3 Ml Syringe IVFLUSH Not Given QSHIFT MINAL Sodium Chloride 5 ml 03/31/20 21:00 04/29/20 08:05 0.9 % Sodium Chloride Flush 10 Ml Syringe IVFLUSH 5 ml TID MINAL Administration Sodium Chloride 1 spray 04/26/20 21:00 04/29/20 08:04 Sodium Chloride 0.65 % Nasal 44 Ml Sprbtl NOSTRIL-B 1 spray BID MINAL Administration Labs CBC & Chem 7: 04/28/20 06:12 04/28/20 06:12 Microbiology Microbiology Results: Microbiology 04/05/20 07:55 Blood - Venous Blood Culture - Final No growth after 5 days. 04/05/20 08:10 Blood - Venous Blood Culture - Final No growth after 5 days. 03/27/20 05:30 Blood - Venous Blood Culture - Final No growth after 5 days. 03/27/20 05:32 Blood - Venous Blood Culture - Final No growth after 5 days. 03/25/20 13:05 Blood - Venous Blood Culture - Final Staphylococcus aureus 03/25/20 13:05 Blood - Venous Blood Culture - Final Staphylococcus aureus Quality VTE Deep Vein Thrombosis/Pulmonary Embolism Present on Admission: No Assessment and Plan (1) Bacteremia: Status: Acute (2) Hyponatremia: Status: Acute (3) Chest pain: Status: Acute (4) Active substance abuse: Status: Acute Assessment and Plan: 49M presented with history of IV drug abuse presents to the hospital with chest pain, chills MSSA bacteremia No recurrent fever, chills, no new symptoms echo unremarkable, CT with septic emboli 03/27 cultures negative s/p picc line, plan for 6 weeks ancef 2gm q8h, day 33/42, end may 07, 2020,will need to be done in observed setting due to IVDA, awaiting placement will monitor labs weekly chest pain No recurrent symptoms of chest pain, was likely cocaine related negative trop and ekg, no further cardiac workup warranted opiate withdrawl Resolved Continue methadone hyponatremia Resolved, labs c/w SIADH, discontinue fluid restrict. DVT PPX Lovenox
--- NOTE | 2020-04-29 14:45 | MHC.CLN ---
F/U 100% PO DIET RX: REGULAR-APPROPRIATE 1900 CALORIES PER DAY WILL PROMOTE SLOW WT LOSS FOLLOWING
[2020-04-29 15:49] VITALS: BP 124/81; PULSE 77; RESP 16; TEMP 36.2; O2SAT 97
[2020-04-29 19:18] VITALS: BP 133/84; PULSE 73; RESP 16; TEMP 36.6; O2SAT 95
[2020-04-29] MEDS: diphenhydrAMINE HCL 25 MG TABLET 50 MG PO (22:56)
[2020-04-29 23:39] VITALS: BP 110/67; PULSE 70; RESP 16; TEMP 36.9; O2SAT 97
[2020-04-30 04:00] VITALS: BP 109/73; PULSE 66; RESP 18; TEMP 36.1; O2SAT 98
[2020-04-30] MEDS: ceFAZolin Sodium/Dextrose,Iso 2 GM/50 ML PIGGYBACK IV ×3 (06:03→21:08)
[2020-04-30 06:45] VITALS: BP 105/63; PULSE 69; RESP 18; TEMP 36.8; O2SAT 97
[2020-04-30] MEDS: 0.9 % Sodium Chloride Flush 10 ML SYRINGE 5 ML IVFLUSH ×3 (08:16→21:44)
[2020-04-30] MEDS: Sodium Chloride 0.65 % Nasal 44 ML SPRBTL 1 SPRAY NOSTRIL-B ×2 (08:17→21:10)
[2020-04-30] MEDS: Mineral Oil/Petrolatum,White 106 GM Tube 1 APPL TOPICAL ×2 (08:17→21:10)
[2020-04-30 10:46] VITALS: BP 114/64; PULSE 78; RESP 18; TEMP 37; O2SAT 97
--- NOTE | 2020-04-30 11:48 | MHC.CM.PN ---
electronic medical record reviewed and case discussed on multiple disciplinary rounds. patient is still receiving iv abx q 8hrs, case discussed eaeronnieer this week with id doctor to see if his antibiotic can be changed to qd and have qd peripheral stick for this med here at [facility]. she responded that their is no other alternative , he will complete his course of iv antibiotic on 05/07/20. clinical updates sent to str and to [facility] discharge plan - to complet duration of iv abx n 05/07/20 clinical updates to short term rehab for pic line iv abx, as well as to [facility]
--- NOTE | 2020-04-30 12:13 | P.PNIM_ITS ---
Subjective Subjective Date of Service: 04/30/20 Interval History: the patient was seen and evaluated this morning Laying in bed, feels comfortable Denies any fever, chills or shortness of breath No reported other overnight events. Systemic review: No fever, chills or weakness No chest pain, palpitation No shortness of breath or coughing No abdominal pain, nausea or vomiting No urinary symptoms No any rash or wounds Physical Exam 2 Vital Signs: Vital Signs: Last Vital Signs Temp 98.6 F 04/30/20 10:46 Pulse 78 04/30/20 10:46 Resp 18 04/30/20 10:46 BP 114/64 04/30/20 10:46 Pulse Ox 97 04/30/20 10:46 Body Mass Index 34.2 Constitutional : Alert, oriented, not in distress Neck : Normal inspection, Supple Cardiovascular : RRR, S1 S2, no lower extremity edema Respiratory : Good bilateral air entry, no crackles, wheezes or rhonchi Gastrointestinal: soft, lax, Normal bowel sounds, Non tender Skin : Warm/Dry, No rash Neurological : Alert & oriented x3, No focal deficit Objective Data Current Medications Generic Name Dose Route Start Last Admin Trade Name Freq PRN Reason Stop Dose Admin Acetaminophen 650 mg 03/25/20 16:47 04/06/20 23:10 Acetaminophen 325 Mg Tablet PO 650 mg Q6H PRN Administration Pain, Mild (Pain Scale 1-3) Al Hydroxide/Mg Hydroxide 15 ml 04/18/20 13:53 04/26/20 10:27 Magnesium Hydrox/Alum Hydrox 30 Ml Oral.Susp PO 15 ml Q4H PRN Administration Indigestion Diphenhydramine HCl 50 mg 04/29/20 21:42 04/29/20 22:56 Diphenhydramine Hcl 25 Mg Tablet PO 50 mg BEDTIME PRN Administration insomnia Enoxaparin Sodium 40 mg 03/25/20 22:00 04/29/20 21:40 Enoxaparin Sodium 40 Mg/0.4 Ml Syringe SUBCUT Not Given Q24H MINAL Cefazolin Sodium/Dextrose 2 gm in 50 mls @ 100 mls/hr 04/25/20 22:00 04/30/20 06:38 Ancef IV Infused Q8H MINAL Infusion Methadone HCl 60 mg 03/26/20 12:30 04/30/20 08:15 Methadone Hcl 1 Mg/0.1 Ml Oral.Conc PO 60 mg DAILY MINAL Administration Multi-Ingred Cream/Lotion/Oil/Oint 1 appl 04/26/20 09:45 04/30/20 08:17 Mineral Oil/Petrolatum,White 106 Gm Tube TOPICAL 1 appl BID MINAL Administration Polyethylene Glycol 17 gm 04/19/20 13:20 Polyethylene Glycol 3350 17 Gm Powd.Pack PO DAILY PRN Constipation Sodium Chloride 3 ml 03/26/20 00:00 04/30/20 08:16 0.9 % Sodium Chloride Flush 3 Ml Syringe IVFLUSH Not Given QSHIFT MINAL Sodium Chloride 5 ml 03/31/20 21:00 04/30/20 08:16 0.9 % Sodium Chloride Flush 10 Ml Syringe IVFLUSH 5 ml TID MINAL Administration Sodium Chloride 1 spray 04/26/20 21:00 04/30/20 08:17 Sodium Chloride 0.65 % Nasal 44 Ml Sprbtl NOSTRIL-B 1 spray BID MINAL Administration Labs CBC & Chem 7: 04/28/20 06:12 04/28/20 06:12 Microbiology Microbiology Results: Microbiology 04/05/20 07:55 Blood - Venous Blood Culture - Final No growth after 5 days. 04/05/20 08:10 Blood - Venous Blood Culture - Final No growth after 5 days. 03/27/20 05:30 Blood - Venous Blood Culture - Final No growth after 5 days. 03/27/20 05:32 Blood - Venous Blood Culture - Final No growth after 5 days. 03/25/20 13:05 Blood - Venous Blood Culture - Final Staphylococcus aureus 03/25/20 13:05 Blood - Venous Blood Culture - Final Staphylococcus aureus Quality VTE Deep Vein Thrombosis/Pulmonary Embolism Present on Admission: No Assessment and Plan (1) Bacteremia: Status: Acute (2) Hyponatremia: Status: Acute (3) Chest pain: Status: Acute (4) Active substance abuse: Status: Acute Assessment and Plan: 49M presented with history of IV drug abuse presents to the hospital with chest pain, chills MSSA bacteremia No recurrent fever, chills, no new symptoms echo unremarkable, CT with septic emboli 03/27 cultures negative s/p picc line, plan for 6 weeks ancef 2gm q8h, day 34/42, end may 07, 2020,will need to be done in observed setting due to IVDA, awaiting placement will monitor labs weekly chest pain No recurrent symptoms of chest pain, was likely cocaine related negative trop and ekg, no further cardiac workup warranted opiate withdrawl Resolved Continue methadone hyponatremia Resolved, labs c/w SIADH, discontinue fluid restrict. DVT PPX Lovenox
[2020-04-30 15:33] VITALS: BP 117/77; PULSE 75; RESP 18; TEMP 35.9; O2SAT 96
--- NOTE | 2020-04-30 16:21 | PM.IDPN ---
Subjective Subjective Date of Service: 05/25/20 Interval History: He has no complaints Objective Data Labs CBC & Chem 7: 05/05/20 05:41 05/05/20 05:41 Microbiology Microbiology Results: Microbiology 04/05/20 07:55 Blood - Venous Blood Culture - Final No growth after 5 days. 04/05/20 08:10 Blood - Venous Blood Culture - Final No growth after 5 days. 03/27/20 05:30 Blood - Venous Blood Culture - Final No growth after 5 days. 03/27/20 05:32 Blood - Venous Blood Culture - Final No growth after 5 days. 03/25/20 13:05 Blood - Venous Blood Culture - Final Staphylococcus aureus 03/25/20 13:05 Blood - Venous Blood Culture - Final Staphylococcus aureus Physical Exam Vital Signs: Vital Signs: Last Vital Signs Temp 96.7 F L 04/30/20 15:33 Pulse 75 04/30/20 15:33 Resp 18 04/30/20 15:33 BP 117/77 04/30/20 15:33 Pulse Ox 96 04/30/20 15:33 Body Mass Index 34.2 Const: General: cooperative HENMT: Head: Yes normal to inspection Mouth: Normal oral and palatal mucosa present Eyes: General: appearance normal, both eyes and all related structures Resp: Effort & Inspection: normal respiratory effort Cardio: Rate: regular rate Rhythm: regular rhythm GI: Palpation (GI): Soft to palpation and not firm Skin: General skin exam: no rashes or lesions noted Neuro: General: moves all extremities Assessment and Plan Assessment and plan (1) Bacteremia: Status: Resolved Assessment and Plan: 6 weeks IV Nafcillin Finish May 08 Time Spent With Patient Time: Total time spent is greater than 50% in coordination of care (as documented) at patient's floor/unit and/or counseling patient: Time with patient: 15 - 24 minutes
[2020-04-30 20:00] VITALS: BP 140/87; PULSE 81; RESP 18; TEMP 36.6; O2SAT 97
[2020-04-30] MEDS: 0.9 % Sodium Chloride Flush 3 ML SYRINGE IVFLUSH (21:09)
[2020-04-30] MEDS: diphenhydrAMINE HCL 25 MG TABLET 50 MG PO (21:43)
[2020-05-01] VITALS: BP 120/80; PULSE 67; RESP 16; TEMP 36; O2SAT 97
[2020-05-01 03:12] VITALS: BP 95/66; PULSE 67; RESP 16; TEMP 36.7; O2SAT 96
[2020-05-01] MEDS: ceFAZolin Sodium/Dextrose,Iso 2 GM/50 ML PIGGYBACK IV ×3 (06:02→21:59)
[2020-05-01 07:11] VITALS: BP 131/90; PULSE 72; RESP 18; TEMP 36.9; O2SAT 96
[2020-05-01] MEDS: 0.9 % Sodium Chloride Flush 3 ML SYRINGE IVFLUSH ×3 (08:29→21:59)
[2020-05-01] MEDS: 0.9 % Sodium Chloride Flush 10 ML SYRINGE 5 ML IVFLUSH ×3 (08:30→22:02)
[2020-05-01] MEDS: Sodium Chloride 0.65 % Nasal 44 ML SPRBTL 1 SPRAY NOSTRIL-B ×2 (08:31→22:03)
[2020-05-01] MEDS: Mineral Oil/Petrolatum,White 106 GM Tube 1 APPL TOPICAL ×2 (08:31→22:03)
[2020-05-01 12:00] VITALS: BP 121/94; PULSE 83; RESP 18; TEMP 36.3; O2SAT 96
--- NOTE | 2020-05-01 14:49 | HO.PM.IMPN ---
Subjective Subjective Date of Service: 05/01/20 Interval History: The patient was seen and evaluated this morning Laying in bed, feels comfortable Denies any fever, chills or shortness of breath No reported other overnight events. Systemic review: No fever, chills or weakness No chest pain, palpitation No shortness of breath or coughing No abdominal pain, nausea or vomiting No urinary symptoms No any rash or wounds Physical Exam Vital Signs: Vital Signs: Last Vital Signs Temp 97.4 F 05/01/20 12:00 Pulse 83 05/01/20 12:00 Resp 18 05/01/20 12:00 BP 121/94 H 05/01/20 12:00 Pulse Ox 96 05/01/20 12:00 Body Mass Index 34.2 Constitutional : Alert, oriented, not in distress Neck : Normal inspection, Supple Cardiovascular : RRR, S1 S2, no lower extremity edema Respiratory : Good bilateral air entry, no crackles, wheezes or rhonchi Gastrointestinal: soft, lax, Normal bowel sounds, Non tender Skin : Warm/Dry, No rash Neurological : Alert & oriented x3, No focal deficit Objective Data Current Medications Generic Name Dose Route Start Last Admin Trade Name Freq PRN Reason Stop Dose Admin Acetaminophen 650 mg 03/25/20 16:47 04/06/20 23:10 Acetaminophen 325 Mg Tablet PO 650 mg Q6H PRN Administration Pain, Mild (Pain Scale 1-3) Al Hydroxide/Mg Hydroxide 15 ml 04/18/20 13:53 04/26/20 10:27 Magnesium Hydrox/Alum Hydrox 30 Ml Oral.Susp PO 15 ml Q4H PRN Administration Indigestion Diphenhydramine HCl 50 mg 04/29/20 21:42 04/30/20 21:43 Diphenhydramine Hcl 25 Mg Tablet PO 50 mg BEDTIME PRN Administration insomnia Enoxaparin Sodium 40 mg 03/25/20 22:00 04/30/20 21:09 Enoxaparin Sodium 40 Mg/0.4 Ml Syringe SUBCUT Not Given Q24H MINAL Cefazolin Sodium/Dextrose 2 gm in 50 mls @ 100 mls/hr 04/25/20 22:00 05/01/20 06:33 Ancef IV Infused Q8H MINAL Infusion Methadone HCl 60 mg 03/26/20 12:30 05/01/20 08:29 Methadone Hcl 1 Mg/0.1 Ml Oral.Conc PO 60 mg DAILY MINAL Administration Multi-Ingred Cream/Lotion/Oil/Oint 1 appl 04/26/20 09:45 05/01/20 08:31 Mineral Oil/Petrolatum,White 106 Gm Tube TOPICAL 1 appl BID MINAL Administration Polyethylene Glycol 17 gm 04/19/20 13:20 Polyethylene Glycol 3350 17 Gm Powd.Pack PO DAILY PRN Constipation Sodium Chloride 3 ml 03/26/20 00:00 05/01/20 08:29 0.9 % Sodium Chloride Flush 3 Ml Syringe IVFLUSH 3 ml QSHIFT MINAL Administration Sodium Chloride 5 ml 03/31/20 21:00 05/01/20 08:30 0.9 % Sodium Chloride Flush 10 Ml Syringe IVFLUSH 5 ml TID MINAL Administration Sodium Chloride 1 spray 04/26/20 21:00 05/01/20 08:31 Sodium Chloride 0.65 % Nasal 44 Ml Sprbtl NOSTRIL-B 1 spray BID MINAL Administration Labs CBC & Chem 7: 04/28/20 06:12 04/28/20 06:12 Microbiology Microbiology Results: Microbiology 04/05/20 07:55 Blood - Venous Blood Culture - Final No growth after 5 days. 04/05/20 08:10 Blood - Venous Blood Culture - Final No growth after 5 days. 03/27/20 05:30 Blood - Venous Blood Culture - Final No growth after 5 days. 03/27/20 05:32 Blood - Venous Blood Culture - Final No growth after 5 days. 03/25/20 13:05 Blood - Venous Blood Culture - Final Staphylococcus aureus 03/25/20 13:05 Blood - Venous Blood Culture - Final Staphylococcus aureus Quality VTE Deep Vein Thrombosis/Pulmonary Embolism Present on Admission: No Assessment and Plan (1) Bacteremia: Status: Acute (2) Hyponatremia: Status: Acute (3) Chest pain: Status: Acute (4) Active substance abuse: Status: Acute Assessment and Plan: 49M presented with history of IV drug abuse presents to the hospital with chest pain, chills MSSA bacteremia No recurrent fever, chills, no new symptoms echo unremarkable, CT with septic emboli 03/27 cultures negative s/p picc line, plan for 6 weeks ancef 2gm q8h, day 35/42, end May 08, 2020 will need to be done in observed setting due to IVDA, awaiting placement will monitor labs weekly chest pain No recurrent symptoms of chest pain, was likely cocaine related negative trop and ekg, no further cardiac workup warranted opiate withdrawl Resolved Continue methadone hyponatremia Resolved, labs c/w SIADH, discontinue fluid restrict. DVT PPX Lovenox
[2020-05-01 16:00] VITALS: BP 111/61; PULSE 69; RESP 16; TEMP 36.3; O2SAT 95
[2020-05-01 20:00] VITALS: BP 115/72; PULSE 83; RESP 18; TEMP 36.6; O2SAT 96
[2020-05-01] MEDS: diphenhydrAMINE HCL 25 MG TABLET 50 MG PO (22:02)
[2020-05-02] VITALS: BP 121/71; PULSE 80; RESP 16; TEMP 36.9; O2SAT 97
[2020-05-02 04:00] VITALS: BP 111/64; PULSE 68; RESP 16; TEMP 36.7; O2SAT 96
[2020-05-02] MEDS: ceFAZolin Sodium/Dextrose,Iso 2 GM/50 ML PIGGYBACK IV ×3 (06:02→20:18)
[2020-05-02 07:24] VITALS: BP 117/73; PULSE 76; RESP 18; TEMP 36.6; O2SAT 99
[2020-05-02] MEDS: Sodium Chloride 0.65 % Nasal 44 ML SPRBTL 1 SPRAY NOSTRIL-B ×2 (09:26→20:23)
[2020-05-02] MEDS: 0.9 % Sodium Chloride Flush 10 ML SYRINGE 5 ML IVFLUSH ×3 (09:28→20:18)
[2020-05-02] MEDS: Mineral Oil/Petrolatum,White 106 GM Tube 1 APPL TOPICAL ×2 (09:29→20:23)
--- NOTE | 2020-05-02 10:59 | MHC.CM.PN ---
OF THIS NOTE, NO BED OFFERS. EACH REFERRAL HAS DENIED, WITH THE EXCEPTION OF [facility]. [facility] DOES NOT HAVE AN OPEN BED OT OFFER. PATIENT WILL LIKELY BE HERE TO COMPLETE HIS IV ABX REGIMEN, WHICH ENDS ON 05/07/20
[2020-05-02 11:47] VITALS: BP 107/72; PULSE 99; RESP 18; TEMP 36.2; O2SAT 96
--- NOTE | 2020-05-02 12:23 | HO.PM.IMPN ---
Subjective Subjective Date of Service: 05/02/20 Interval History: The patient was seen and evaluated this morning Laying in bed, feels comfortable Denies any fever, chills or shortness of breath No reported other overnight events. Systemic review: No fever, chills or weakness No chest pain, palpitation No shortness of breath or coughing No abdominal pain, nausea or vomiting No urinary symptoms No any rash or wounds Physical Exam Vital Signs: Vital Signs: Last Vital Signs Temp 97.2 F 05/02/20 11:47 Pulse 99 05/02/20 11:47 Resp 18 05/02/20 11:47 BP 107/72 05/02/20 11:47 Pulse Ox 96 05/02/20 11:47 Body Mass Index 34.2 Const: Other: Constitutional : Alert, oriented, not in distress Neck : Normal inspection, Supple Cardiovascular : RRR, S1 S2, no lower extremity edema Respiratory : Good bilateral air entry, no crackles, wheezes or rhonchi Gastrointestinal: soft, lax, Normal bowel sounds, Non tender Skin : Warm/Dry, No rash Neurological : Alert & oriented x3, No focal deficit Objective Data Current Medications Generic Name Dose Route Start Last Admin Trade Name Freq PRN Reason Stop Dose Admin Acetaminophen 650 mg 03/25/20 16:47 04/06/20 23:10 Acetaminophen 325 Mg Tablet PO 650 mg Q6H PRN Administration Pain, Mild (Pain Scale 1-3) Al Hydroxide/Mg Hydroxide 15 ml 04/18/20 13:53 04/26/20 10:27 Magnesium Hydrox/Alum Hydrox 30 Ml Oral.Susp PO 15 ml Q4H PRN Administration Indigestion Diphenhydramine HCl 50 mg 04/29/20 21:42 05/01/20 22:02 Diphenhydramine Hcl 25 Mg Tablet PO 50 mg BEDTIME PRN Administration insomnia Enoxaparin Sodium 40 mg 03/25/20 22:00 05/01/20 22:04 Enoxaparin Sodium 40 Mg/0.4 Ml Syringe SUBCUT Not Given Q24H MINAL Cefazolin Sodium/Dextrose 2 gm in 50 mls @ 100 mls/hr 04/25/20 22:00 05/02/20 06:37 Ancef IV Infused Q8H MINAL Infusion Methadone HCl 60 mg 03/26/20 12:30 05/02/20 09:25 Methadone Hcl 1 Mg/0.1 Ml Oral.Conc PO 60 mg DAILY MINAL Administration Multi-Ingred Cream/Lotion/Oil/Oint 1 appl 04/26/20 09:45 05/02/20 09:29 Mineral Oil/Petrolatum,White 106 Gm Tube TOPICAL 1 appl BID MINAL Administration Polyethylene Glycol 17 gm 04/19/20 13:20 Polyethylene Glycol 3350 17 Gm Powd.Pack PO DAILY PRN Constipation Sodium Chloride 3 ml 03/26/20 00:00 05/02/20 09:27 0.9 % Sodium Chloride Flush 3 Ml Syringe IVFLUSH Not Given QSHIFT MINAL Sodium Chloride 5 ml 03/31/20 21:00 05/02/20 09:28 0.9 % Sodium Chloride Flush 10 Ml Syringe IVFLUSH 5 ml TID MINAL Administration Sodium Chloride 1 spray 04/26/20 21:00 05/02/20 09:26 Sodium Chloride 0.65 % Nasal 44 Ml Sprbtl NOSTRIL-B 1 spray BID MINAL Administration Labs CBC & Chem 7: 04/28/20 06:12 04/28/20 06:12 Microbiology Microbiology Results: Microbiology 04/05/20 07:55 Blood - Venous Blood Culture - Final No growth after 5 days. 04/05/20 08:10 Blood - Venous Blood Culture - Final No growth after 5 days. 03/27/20 05:30 Blood - Venous Blood Culture - Final No growth after 5 days. 03/27/20 05:32 Blood - Venous Blood Culture - Final No growth after 5 days. 03/25/20 13:05 Blood - Venous Blood Culture - Final Staphylococcus aureus 03/25/20 13:05 Blood - Venous Blood Culture - Final Staphylococcus aureus Quality VTE Deep Vein Thrombosis/Pulmonary Embolism Present on Admission: No Assessment and Plan (1) Bacteremia: Status: Acute (2) Hyponatremia: Status: Acute (3) Chest pain: Status: Acute (4) Active substance abuse: Status: Acute Assessment and Plan: 49M presented with history of IV drug abuse presents to the hospital with chest pain, chills MSSA bacteremia No recurrent fever, chills, no new symptoms echo unremarkable, CT with septic emboli 03/27 cultures negative s/p picc line, plan for 6 weeks ancef 2gm q8h, day 36/42, end May 08, 2020 will need to be done in observed setting due to IVDA, awaiting placement will monitor labs weekly chest pain No recurrent symptoms of chest pain, was likely cocaine related negative trop and ekg, no further cardiac workup warranted opiate withdrawl Resolved Continue methadone hyponatremia Resolved, labs c/w SIADH, discontinue fluid restrict. DVT PPX Lovenox
[2020-05-02 16:00] VITALS: BP 112/78; PULSE 97; RESP 18; TEMP 36.6; O2SAT 94
[2020-05-02] MEDS: Magnesium Hydrox/Alum Hydrox 30 ML ORAL.SUSP 15 ML PO (20:27)
[2020-05-02 21:00] VITALS: BP 125/87; PULSE 75; RESP 18; TEMP 36.4; O2SAT 97
[2020-05-02] MEDS: diphenhydrAMINE HCL 25 MG TABLET 50 MG PO (21:11)
[2020-05-03] VITALS: BP 109/76; PULSE 84; RESP 16; TEMP 36.2; O2SAT 96
[2020-05-03 04:00] VITALS: BP 113/66; PULSE 67; RESP 16; TEMP 37.1; O2SAT 96
[2020-05-03] MEDS: ceFAZolin Sodium/Dextrose,Iso 2 GM/50 ML PIGGYBACK IV ×3 (06:19→21:00)
[2020-05-03 08:00] VITALS: BP 140/89; PULSE 76; RESP 17; TEMP 37.1; O2SAT 97
[2020-05-03] MEDS: 0.9 % Sodium Chloride Flush 10 ML SYRINGE 5 ML IVFLUSH ×3 (09:13→20:50)
[2020-05-03] MEDS: Mineral Oil/Petrolatum,White 106 GM Tube 1 APPL TOPICAL ×2 (09:14→20:48)
[2020-05-03] MEDS: Sodium Chloride 0.65 % Nasal 44 ML SPRBTL 1 SPRAY NOSTRIL-B ×2 (09:14→20:47)
[2020-05-03 12:00] VITALS: BP 138/66; PULSE 76; RESP 15; TEMP 36.7; O2SAT 95
--- NOTE | 2020-05-03 14:21 | HO.PM.IMPN ---
Subjective Subjective Date of Service: 05/03/20 Interval History: The patient was seen and evaluated this morning Laying in bed, feels comfortable Denies any fever, chills or shortness of breath No reported other overnight events. Systemic review: No fever, chills or weakness No chest pain, palpitation No shortness of breath or coughing No abdominal pain, nausea or vomiting No urinary symptoms No any rash or wounds Physical Exam Vital Signs: Vital Signs: Last Vital Signs Temp 98.0 F 05/03/20 12:00 Pulse 76 05/03/20 12:00 Resp 15 05/03/20 12:00 BP 138/66 05/03/20 12:00 Pulse Ox 95 05/03/20 12:00 Body Mass Index 34.2 Constitutional : Alert, oriented, not in distress Neck : Normal inspection, Supple Cardiovascular : RRR, S1 S2, no lower extremity edema Respiratory : Good bilateral air entry, no crackles, wheezes or rhonchi Gastrointestinal: soft, lax, Normal bowel sounds, Non tender Skin : Warm/Dry, No rash Neurological : Alert & oriented x3, No focal deficit Objective Data Current Medications Generic Name Dose Route Start Last Admin Trade Name Freq PRN Reason Stop Dose Admin Acetaminophen 650 mg 03/25/20 16:47 04/06/20 23:10 Acetaminophen 325 Mg Tablet PO 650 mg Q6H PRN Administration Pain, Mild (Pain Scale 1-3) Al Hydroxide/Mg Hydroxide 15 ml 04/18/20 13:53 05/02/20 20:27 Magnesium Hydrox/Alum Hydrox 30 Ml Oral.Susp PO 15 ml Q4H PRN Administration Indigestion Diphenhydramine HCl 50 mg 04/29/20 21:42 05/02/20 21:11 Diphenhydramine Hcl 25 Mg Tablet PO 50 mg BEDTIME PRN Administration insomnia Enoxaparin Sodium 40 mg 03/25/20 22:00 05/02/20 20:23 Enoxaparin Sodium 40 Mg/0.4 Ml Syringe SUBCUT Not Given Q24H MINAL Cefazolin Sodium/Dextrose 2 gm in 50 mls @ 100 mls/hr 05/03/20 06:00 05/03/20 08:03 Ancef IV Infused Q8H MINAL Infusion Methadone HCl 60 mg 03/26/20 12:30 05/03/20 09:13 Methadone Hcl 1 Mg/0.1 Ml Oral.Conc PO 60 mg DAILY MINAL Administration Multi-Ingred Cream/Lotion/Oil/Oint 1 appl 04/26/20 09:45 05/03/20 09:14 Mineral Oil/Petrolatum,White 106 Gm Tube TOPICAL 1 appl BID MINAL Administration Polyethylene Glycol 17 gm 04/19/20 13:20 Polyethylene Glycol 3350 17 Gm Powd.Pack PO DAILY PRN Constipation Sodium Chloride 3 ml 03/26/20 00:00 05/03/20 09:14 0.9 % Sodium Chloride Flush 3 Ml Syringe IVFLUSH Not Given QSHIFT MINAL Sodium Chloride 5 ml 03/31/20 21:00 05/03/20 09:13 0.9 % Sodium Chloride Flush 10 Ml Syringe IVFLUSH 5 ml TID MINAL Administration Sodium Chloride 1 spray 04/26/20 21:00 05/03/20 09:14 Sodium Chloride 0.65 % Nasal 44 Ml Sprbtl NOSTRIL-B 1 spray BID MINAL Administration Labs CBC & Chem 7: 04/28/20 06:12 04/28/20 06:12 Microbiology Microbiology Results: Microbiology 04/05/20 07:55 Blood - Venous Blood Culture - Final No growth after 5 days. 04/05/20 08:10 Blood - Venous Blood Culture - Final No growth after 5 days. 03/27/20 05:30 Blood - Venous Blood Culture - Final No growth after 5 days. 03/27/20 05:32 Blood - Venous Blood Culture - Final No growth after 5 days. 03/25/20 13:05 Blood - Venous Blood Culture - Final Staphylococcus aureus 03/25/20 13:05 Blood - Venous Blood Culture - Final Staphylococcus aureus Quality VTE Deep Vein Thrombosis/Pulmonary Embolism Present on Admission: No Assessment and Plan (1) Bacteremia: Status: Acute (2) Hyponatremia: Status: Acute (3) Chest pain: Status: Acute (4) Active substance abuse: Status: Acute Assessment and Plan: 49M presented with history of IV drug abuse presents to the hospital with chest pain, chills MSSA bacteremia No recurrent fever, chills, no new symptoms echo unremarkable, CT with septic emboli 03/27 cultures negative s/p picc line, plan for 6 weeks ancef 2gm q8h, day 37/42, end May 08, 2020 will need to be done in observed setting due to IVDA, awaiting placement will monitor labs weekly chest pain No recurrent symptoms of chest pain, was likely cocaine related negative trop and ekg, no further cardiac workup warranted opiate withdrawl Resolved Continue methadone hyponatremia Resolved, labs c/w SIADH, discontinue fluid restrict. DVT PPX Lovenox
[2020-05-03 15:10] VITALS: BP 139/95; PULSE 83; RESP 18; TEMP 36.1; O2SAT 96
[2020-05-03] MEDS: Magnesium Hydrox/Alum Hydrox 30 ML ORAL.SUSP 15 ML PO (19:24)
[2020-05-03 19:53] VITALS: BP 133/74; PULSE 80; RESP 18; TEMP 36.3; O2SAT 96
--- NOTE | 2020-05-03 20:02 | PC.NURSE ---
P-patient reported noticing blister under upper patr of PICC line drsg,lifted up drsg and pulled skin off I-new PICC line drsg applied,small skin angelina present 1 cm long,area cleansed and left open to air E-will monitor
[2020-05-03] MEDS: diphenhydrAMINE HCL 25 MG TABLET 50 MG PO (22:34)
[2020-05-04] VITALS (7 sets, daily range): BP systolic 91–122; BP diastolic 66–75; PULSE 68–96; RESP 16–20; TEMP 36.3–37.2; O2SAT 96–99
[2020-05-04] MEDS: ceFAZolin Sodium/Dextrose,Iso 2 GM/50 ML PIGGYBACK IV ×3 (05:55→21:24)
[2020-05-04] MEDS: 0.9 % Sodium Chloride Flush 10 ML SYRINGE 5 ML IVFLUSH ×3 (09:14→21:24)
[2020-05-04] MEDS: Sodium Chloride 0.65 % Nasal 44 ML SPRBTL 1 SPRAY NOSTRIL-B ×2 (09:22→21:24)
[2020-05-04] MEDS: Mineral Oil/Petrolatum,White 106 GM Tube 1 APPL TOPICAL ×2 (09:22→21:25)
--- NOTE | 2020-05-04 11:12 | HO.PM.IMPN ---
Subjective Subjective Date of Service: 05/04/20 Interval History: The patient was seen and evaluated this morning Laying in bed, feels comfortable Denies any fever, chills or shortness of breath No reported other overnight events. Systemic review: No fever, chills or weakness No chest pain, palpitation No shortness of breath or coughing No abdominal pain, nausea or vomiting No urinary symptoms No any rash or wounds Physical Exam Vital Signs: Vital Signs: Last Vital Signs Temp 98.0 F 05/04/20 08:00 Pulse 68 05/04/20 07:38 Resp 20 05/04/20 07:38 BP 108/66 05/04/20 07:38 Pulse Ox 97 05/04/20 07:38 Body Mass Index 34.2 Const: Other: Constitutional : Alert, oriented, not in distress Neck : Normal inspection, Supple Cardiovascular : RRR, S1 S2, no lower extremity edema Respiratory : Good bilateral air entry, no crackles, wheezes or rhonchi Gastrointestinal: soft, lax, Normal bowel sounds, Non tender Skin : Warm/Dry, No rash Neurological : Alert & oriented x3, No focal deficit Objective Data Current Medications Generic Name Dose Route Start Last Admin Trade Name Freq PRN Reason Stop Dose Admin Acetaminophen 650 mg 03/25/20 16:47 04/06/20 23:10 Acetaminophen 325 Mg Tablet PO 650 mg Q6H PRN Administration Pain, Mild (Pain Scale 1-3) Al Hydroxide/Mg Hydroxide 15 ml 04/18/20 13:53 05/03/20 19:24 Magnesium Hydrox/Alum Hydrox 30 Ml Oral.Susp PO 15 ml Q4H PRN Administration Indigestion Diphenhydramine HCl 50 mg 04/29/20 21:42 05/03/20 22:34 Diphenhydramine Hcl 25 Mg Tablet PO 50 mg BEDTIME PRN Administration insomnia Enoxaparin Sodium 40 mg 03/25/20 22:00 05/03/20 20:48 Enoxaparin Sodium 40 Mg/0.4 Ml Syringe SUBCUT Not Given Q24H MINAL Cefazolin Sodium/Dextrose 2 gm in 50 mls @ 100 mls/hr 05/03/20 06:00 05/04/20 06:34 Ancef IV Infused Q8H MINAL Infusion Methadone HCl 60 mg 03/26/20 12:30 05/04/20 09:15 Methadone Hcl 1 Mg/0.1 Ml Oral.Conc PO 60 mg DAILY MINAL Administration Multi-Ingred Cream/Lotion/Oil/Oint 1 appl 04/26/20 09:45 05/04/20 09:22 Mineral Oil/Petrolatum,White 106 Gm Tube TOPICAL 1 appl BID MINAL Administration Polyethylene Glycol 17 gm 04/19/20 13:20 Polyethylene Glycol 3350 17 Gm Powd.Pack PO DAILY PRN Constipation Sodium Chloride 3 ml 03/26/20 00:00 05/04/20 09:14 0.9 % Sodium Chloride Flush 3 Ml Syringe IVFLUSH Not Given QSHIFT MINAL Sodium Chloride 5 ml 03/31/20 21:00 05/04/20 09:14 0.9 % Sodium Chloride Flush 10 Ml Syringe IVFLUSH 5 ml TID MINAL Administration Sodium Chloride 1 spray 04/26/20 21:00 05/04/20 09:22 Sodium Chloride 0.65 % Nasal 44 Ml Sprbtl NOSTRIL-B 1 spray BID MINAL Administration Labs CBC & Chem 7: 04/28/20 06:12 04/28/20 06:12 Microbiology Microbiology Results: Microbiology 04/05/20 07:55 Blood - Venous Blood Culture - Final No growth after 5 days. 04/05/20 08:10 Blood - Venous Blood Culture - Final No growth after 5 days. 03/27/20 05:30 Blood - Venous Blood Culture - Final No growth after 5 days. 03/27/20 05:32 Blood - Venous Blood Culture - Final No growth after 5 days. 03/25/20 13:05 Blood - Venous Blood Culture - Final Staphylococcus aureus 03/25/20 13:05 Blood - Venous Blood Culture - Final Staphylococcus aureus Quality VTE Deep Vein Thrombosis/Pulmonary Embolism Present on Admission: No Assessment and Plan (1) Bacteremia: Status: Acute (2) Hyponatremia: Status: Acute (3) Chest pain: Status: Acute (4) Active substance abuse: Status: Acute Assessment and Plan: 49M presented with history of IV drug abuse presents to the hospital with chest pain, chills MSSA bacteremia No recurrent fever, chills, no new symptoms echo unremarkable, CT with septic emboli 03/27 cultures negative s/p picc line, plan for 6 weeks ancef 2gm q8h, day 39/42, end May 07, 2020 will need to be done in observed setting due to IVDA, awaiting placement or finishing antibiotics in the hospital will monitor labs weekly chest pain No recurrent symptoms of chest pain, was likely cocaine related negative trop and ekg, no further cardiac workup warranted opiate withdrawl Resolved Continue methadone hyponatremia Resolved, labs c/w SIADH, discontinue fluid restrict. DVT PPX Lovenox
[2020-05-04] MEDS: 0.9 % Sodium Chloride Flush 3 ML SYRINGE IVFLUSH (21:25)
[2020-05-04] MEDS: diphenhydrAMINE HCL 25 MG TABLET 50 MG PO (22:34)
[2020-05-05] VITALS: BP 91/66; PULSE 61; RESP 16; TEMP 35.9; O2SAT 95
[2020-05-05 04:15] VITALS: BP 94/59; PULSE 61; RESP 16; TEMP 36.1; O2SAT 96
[2020-05-05] MEDS: ceFAZolin Sodium/Dextrose,Iso 2 GM/50 ML PIGGYBACK IV ×3 (05:50→21:39)
[2020-05-05 06:43] LABS: Hematocrit 34.4 % (42-52); Hemoglobin 11.1 g/dl (14.0-18.0); Mean Corpuscular HGB Conc 32.3 g/dl (31.0-36.0); Mean Corpuscular Hemoglobin 29.9 pg (27.0-33.0); Mean Corpuscular Volume 92.7 fL (80-98); Mean Platelet Volume 9.3 fL (9.4-12.4); Platelet Count 163 X10*3/uL (160-400); Red Blood Count 3.71 X10*6/uL (4.60-5.80); Red Cell Distribution Width 13.6 % (11.0-16.0); White Blood Count 4.6 X10*3/uL (4.8-10.8)
[2020-05-05 07:00] LABS: Anion Gap 14 (12-20); Blood Urea Nitrogen 12 mg/dL (9-16); Calcium 8.6 mg/dL (8.4-10.2); Carbon Dioxide 24 mmol/L (22-29); Chloride 103 mmol/L (96-108); Estimated Glomerular Filt Rate > 60; Glucose Random 82 mg/dL (60-115); Potassium 4.2 mmol/l (3.3-5.1); Sodium 137 mmol/L (135-145)
[2020-05-05] MEDS: 0.9 % Sodium Chloride Flush 3 ML SYRINGE IVFLUSH ×3 (07:19→21:40)
[2020-05-05] MEDS: Sodium Chloride 0.65 % Nasal 44 ML SPRBTL 1 SPRAY NOSTRIL-B ×2 (08:14→21:40)
[2020-05-05] MEDS: Mineral Oil/Petrolatum,White 106 GM Tube 1 APPL TOPICAL ×2 (08:14→21:40)
--- NOTE | 2020-05-05 11:32 | MHC.CM.PN ---
PER HOSPITALIST ROUNDS, PATIENT IS EXPECTED TO COMPLETE HIS IV ABX ON 05/07/20. PLAN FOR DISCHARGE HOME - SELF CARE AT THAT TIME.
[2020-05-05 11:36] VITALS: BP 104/88; PULSE 85; RESP 20; TEMP 36.5; O2SAT 96
--- NOTE | 2020-05-05 12:09 | HO.PM.IMPN ---
Subjective Subjective Date of Service: 05/05/20 Interval History: The patient was seen and evaluated this morning Laying in bed, feels comfortable Denies any fever, chills or shortness of breath No reported other overnight events. Systemic review: No fever, chills or weakness No chest pain, palpitation No shortness of breath or coughing No abdominal pain, nausea or vomiting No urinary symptoms No any rash or wounds Physical Exam Vital Signs: Vital Signs: Last Vital Signs Temp 97.7 F 05/05/20 11:36 Pulse 85 05/05/20 11:36 Resp 20 05/05/20 11:36 BP 104/88 05/05/20 11:36 Pulse Ox 96 05/05/20 11:36 Body Mass Index 34.2 Const: Other: Constitutional : Alert, oriented, not in distress Neck : Normal inspection, Supple Cardiovascular : RRR, S1 S2, no lower extremity edema Respiratory : Good bilateral air entry, no crackles, wheezes or rhonchi Gastrointestinal: soft, lax, Normal bowel sounds, Non tender Skin : Warm/Dry, No rash Neurological : Alert & oriented x3, No focal deficit Objective Data Current Medications Generic Name Dose Route Start Last Admin Trade Name Freq PRN Reason Stop Dose Admin Acetaminophen 650 mg 03/25/20 16:47 04/06/20 23:10 Acetaminophen 325 Mg Tablet PO 650 mg Q6H PRN Administration Pain, Mild (Pain Scale 1-3) Al Hydroxide/Mg Hydroxide 15 ml 04/18/20 13:53 05/03/20 19:24 Magnesium Hydrox/Alum Hydrox 30 Ml Oral.Susp PO 15 ml Q4H PRN Administration Indigestion Diphenhydramine HCl 50 mg 04/29/20 21:42 05/04/20 22:34 Diphenhydramine Hcl 25 Mg Tablet PO 50 mg BEDTIME PRN Administration insomnia Enoxaparin Sodium 40 mg 03/25/20 22:00 05/04/20 21:25 Enoxaparin Sodium 40 Mg/0.4 Ml Syringe SUBCUT Not Given Q24H MINAL Cefazolin Sodium/Dextrose 2 gm in 50 mls @ 100 mls/hr 05/03/20 06:00 05/05/20 06:20 Ancef IV Infused Q8H MINAL Infusion Methadone HCl 60 mg 03/26/20 12:30 05/05/20 08:13 Methadone Hcl 1 Mg/0.1 Ml Oral.Conc PO 60 mg DAILY MINAL Administration Multi-Ingred Cream/Lotion/Oil/Oint 1 appl 04/26/20 09:45 05/05/20 08:14 Mineral Oil/Petrolatum,White 106 Gm Tube TOPICAL 1 appl BID MINAL Administration Polyethylene Glycol 17 gm 04/19/20 13:20 Polyethylene Glycol 3350 17 Gm Powd.Pack PO DAILY PRN Constipation Sodium Chloride 3 ml 03/26/20 00:00 05/05/20 07:19 0.9 % Sodium Chloride Flush 3 Ml Syringe IVFLUSH 3 ml QSHIFT MINAL Administration Sodium Chloride 5 ml 03/31/20 21:00 05/04/20 21:24 0.9 % Sodium Chloride Flush 10 Ml Syringe IVFLUSH 5 ml TID MINAL Administration Sodium Chloride 1 spray 04/26/20 21:00 05/05/20 08:14 Sodium Chloride 0.65 % Nasal 44 Ml Sprbtl NOSTRIL-B 1 spray BID MINAL Administration Labs CBC & Chem 7: 05/05/20 05:41 05/05/20 05:41 Microbiology Microbiology Results: Microbiology 04/05/20 07:55 Blood - Venous Blood Culture - Final No growth after 5 days. 04/05/20 08:10 Blood - Venous Blood Culture - Final No growth after 5 days. 03/27/20 05:30 Blood - Venous Blood Culture - Final No growth after 5 days. 03/27/20 05:32 Blood - Venous Blood Culture - Final No growth after 5 days. 03/25/20 13:05 Blood - Venous Blood Culture - Final Staphylococcus aureus 03/25/20 13:05 Blood - Venous Blood Culture - Final Staphylococcus aureus Quality VTE Deep Vein Thrombosis/Pulmonary Embolism Present on Admission: No Assessment and Plan (1) Bacteremia: Status: Acute (2) Hyponatremia: Status: Acute (3) Chest pain: Status: Acute (4) Active substance abuse: Status: Acute Assessment and Plan: 49M presented with history of IV drug abuse presents to the hospital with chest pain, chills MSSA bacteremia No recurrent fever, chills, no new symptoms echo unremarkable, CT with septic emboli 03/27 cultures negative s/p picc line, plan for 6 weeks ancef 2gm q8h, day 40/42, end May 07, 2020 awaiting placement or finishing antibiotics in the hospital will monitor labs weekly chest pain No recurrent symptoms of chest pain, was likely cocaine related negative trop and ekg, no further cardiac workup warranted opiate withdrawl Resolved Continue methadone hyponatremia Resolved, labs c/w SIADH, discontinue fluid restrict. DVT PPX Lovenox
[2020-05-05] MEDS: Magnesium Hydrox/Alum Hydrox 30 ML ORAL.SUSP 15 ML PO (12:15)
[2020-05-05] MEDS: 0.9 % Sodium Chloride Flush 10 ML SYRINGE 5 ML IVFLUSH ×3 (12:17→22:53)
[2020-05-05 16:00] VITALS: BP 117/81; PULSE 72; RESP 20; TEMP 36.3; O2SAT 97
[2020-05-05 19:13] VITALS: BP 126/80; PULSE 79; RESP 20; TEMP 36.3; O2SAT 96
[2020-05-05] MEDS: diphenhydrAMINE HCL 25 MG TABLET 50 MG PO (21:45)
[2020-05-05 23:35] VITALS: BP 101/65; PULSE 78; RESP 18; TEMP 36.1; O2SAT 95
[2020-05-06 03:23] VITALS: BP 101/60; PULSE 74; RESP 18; TEMP 36.4; O2SAT 97
[2020-05-06] MEDS: ceFAZolin Sodium/Dextrose,Iso 2 GM/50 ML PIGGYBACK IV ×3 (06:06→21:14)
[2020-05-06] MEDS: 0.9 % Sodium Chloride Flush 10 ML SYRINGE 5 ML IVFLUSH ×3 (07:54→21:15)
[2020-05-06] MEDS: Magnesium Hydrox/Alum Hydrox 30 ML ORAL.SUSP 15 ML PO (07:54)
[2020-05-06] MEDS: Mineral Oil/Petrolatum,White 106 GM Tube 1 APPL TOPICAL ×2 (07:55→20:29)
[2020-05-06] MEDS: Sodium Chloride 0.65 % Nasal 44 ML SPRBTL 1 SPRAY NOSTRIL-B ×2 (07:56→20:29)
[2020-05-06] MEDS: 0.9 % Sodium Chloride Flush 3 ML SYRINGE IVFLUSH ×2 (07:58→23:31)
[2020-05-06 08:00] VITALS: BP 146/73; PULSE 72; RESP 18; TEMP 36.7; O2SAT 96
[2020-05-06 11:19] VITALS: BP 141/92; PULSE 88; RESP 18; TEMP 37.1; O2SAT 97
--- NOTE | 2020-05-06 12:47 | HO.PM.IMPN ---
Subjective Subjective Date of Service: 05/06/20 Interval History: Patient sitting in bed in no acute distress denies fever chills noticed rash at site of PICC line dressing with mild discomfort, no other acute issues overnight. Review of Systems General no headache, no dizziness, no fever chills. CVS no chest pain, no palpitation. Respiratory no cough, no shortness of breath Gastrointestinal no nausea, no vomiting, no abdominal pain Physical Exam Vital Signs: Vital Signs: Last Vital Signs Temp 98.7 F 05/06/20 11:19 Pulse 88 05/06/20 11:19 Resp 18 05/06/20 11:19 BP 141/92 H 05/06/20 11:19 Pulse Ox 97 05/06/20 11:19 Body Mass Index 34.2 Const: Other: General no acute distress. Neck is supple no JVD. CVS regular rate rhythm, Respiratory lungs clear to auscultation, no respiratory distress Gastrointestinal abdomen soft, nontender, bowel sounds audible Extremities no clubbing, cyanosis or edema. Neuro nonfocal Skin small area of redness at site of PICC line dressing removal /PICC line site with no redness or drainage Objective Data Current Medications Generic Name Dose Route Start Last Admin Trade Name Freq PRN Reason Stop Dose Admin Acetaminophen 650 mg 03/25/20 16:47 04/06/20 23:10 Acetaminophen 325 Mg Tablet PO 650 mg Q6H PRN Administration Pain, Mild (Pain Scale 1-3) Al Hydroxide/Mg Hydroxide 15 ml 04/18/20 13:53 05/06/20 07:54 Magnesium Hydrox/Alum Hydrox 30 Ml Oral.Susp PO 15 ml Q4H PRN Administration Indigestion Diphenhydramine HCl 50 mg 04/29/20 21:42 05/05/20 21:45 Diphenhydramine Hcl 25 Mg Tablet PO 50 mg BEDTIME PRN Administration insomnia Enoxaparin Sodium 40 mg 03/25/20 22:00 05/05/20 21:43 Enoxaparin Sodium 40 Mg/0.4 Ml Syringe SUBCUT Not Given Q24H MINAL Cefazolin Sodium/Dextrose 2 gm in 50 mls @ 100 mls/hr 05/03/20 06:00 05/06/20 06:37 Ancef IV Infused Q8H MINAL Infusion Methadone HCl 60 mg 03/26/20 12:30 05/06/20 07:54 Methadone Hcl 1 Mg/0.1 Ml Oral.Conc PO 60 mg DAILY MINAL Administration Multi-Ingred Cream/Lotion/Oil/Oint 1 appl 04/26/20 09:45 05/06/20 07:55 Mineral Oil/Petrolatum,White 106 Gm Tube TOPICAL 1 appl BID MINAL Administration Polyethylene Glycol 17 gm 04/19/20 13:20 Polyethylene Glycol 3350 17 Gm Powd.Pack PO DAILY PRN Constipation Sodium Chloride 3 ml 03/26/20 00:00 05/06/20 07:58 0.9 % Sodium Chloride Flush 3 Ml Syringe IVFLUSH 3 ml QSHIFT MINAL Administration Sodium Chloride 5 ml 03/31/20 21:00 05/06/20 07:54 0.9 % Sodium Chloride Flush 10 Ml Syringe IVFLUSH 5 ml TID MINAL Administration Sodium Chloride 1 spray 04/26/20 21:00 05/06/20 07:56 Sodium Chloride 0.65 % Nasal 44 Ml Sprbtl NOSTRIL-B 1 spray BID MINAL Administration Labs CBC & Chem 7: 05/05/20 05:41 05/05/20 05:41 Microbiology Microbiology Results: Microbiology 04/05/20 07:55 Blood - Venous Blood Culture - Final No growth after 5 days. 04/05/20 08:10 Blood - Venous Blood Culture - Final No growth after 5 days. 03/27/20 05:30 Blood - Venous Blood Culture - Final No growth after 5 days. 03/27/20 05:32 Blood - Venous Blood Culture - Final No growth after 5 days. 03/25/20 13:05 Blood - Venous Blood Culture - Final Staphylococcus aureus 03/25/20 13:05 Blood - Venous Blood Culture - Final Staphylococcus aureus Quality VTE Deep Vein Thrombosis/Pulmonary Embolism Present on Admission: No Assessment and Plan (1) Bacteremia: Status: Acute (2) Hyponatremia: Status: Acute (3) Chest pain: Status: Acute (4) Active substance abuse: Status: Acute Assessment and Plan: 49M presented with history of IV drug abuse presents to the hospital with chest pain, chills MSSA bacteremia Patient receiving IV Ancef for bacteremia, No recurrent fever, no chills, no new symptoms echo unremarkable, CT with septic emboli 03/27 cultures negative s/p picc line, plan for 6 weeks of ancef 2gm q8h, day 41/42, end May 07, 2020 Will remove PICC line after completing the course of antibiotic tomorrow and will arrange for discharge Rash Right upper extremity will place bacitracin ointment. chest pain No recurrent symptoms of chest pain, was likely cocaine related negative trop and ekg, no further cardiac workup warranted opiate withdrawl Resolved Continue methadone hyponatremia Resolved, labs c/w SIADH, no fluid restrict. Constipation resolved continue bowel regimen DVT PPX Lovenox
[2020-05-06] MEDS: Bacitracin Oint 14 GM TUBE 1 APPL TOPICAL ×2 (13:40→20:28)
[2020-05-06 15:42] VITALS: BP 116/63; PULSE 65; RESP 16; TEMP 36.6; O2SAT 98
[2020-05-06 20:00] VITALS: BP 127/71; PULSE 71; RESP 20; TEMP 36.2; O2SAT 98
[2020-05-06] MEDS: diphenhydrAMINE HCL 25 MG TABLET 50 MG PO (20:27)
[2020-05-06 23:39] VITALS: BP 129/89; PULSE 65; RESP 16; TEMP 36.2; O2SAT 98
[2020-05-07 03:56] VITALS: BP 119/61; PULSE 66; RESP 16; TEMP 37.1; O2SAT 97
[2020-05-07] MEDS: ceFAZolin Sodium/Dextrose,Iso 2 GM/50 ML PIGGYBACK IV (05:38)
[2020-05-07] MEDS: Bacitracin Oint 14 GM TUBE 1 APPL TOPICAL (07:00)
[2020-05-07] MEDS: 0.9 % Sodium Chloride Flush 10 ML SYRINGE 5 ML IVFLUSH (07:00)
[2020-05-07] MEDS: 0.9 % Sodium Chloride Flush 3 ML SYRINGE IVFLUSH (07:00)
[2020-05-07] MEDS: Sodium Chloride 0.65 % Nasal 44 ML SPRBTL 1 SPRAY NOSTRIL-B (07:01)
[2020-05-07 07:48] VITALS: BP 147/98; PULSE 67; RESP 18; TEMP 36.7; O2SAT 98
[2020-05-07] MEDS: Mineral Oil/Petrolatum,White 106 GM Tube 1 APPL TOPICAL (08:10)
--- NOTE | 2020-05-07 08:20 | MHC.CM.PN ---
Patient has been medically cleared for dc to home today, no services.
--- NOTE | 2020-05-07 09:36 | PC.NURSE ---
Call placed to [facility], to let them know that I would be faxing last methadone dose to them. Faxed last dose to [facility] patients councelor there. Confirmation received back.
--- NOTE | 2020-05-07 10:39 | P.DS_ITS ---
DS: Providers Provider Date of Service: 05/07/20 Date of admission: 03/25/20 16:47 Primary care physician: Francisco Tam MD Consults: 03/25/20 20:30 Consult to Psychiatry Routine Consulting Provider: Ale Woo Reason for consultation: opioid dependence 03/26/20 10:33 Consult to Infectious Diseases Routine Consulting Provider: Makenzie Soriano Reason for consultation: ivda, bacteremia 03/26/20 12:34 Consult to Care Team Routine Comment: Reason for consultation: Recovery Support consult (Robin). Currently on MAT. Please see H&P DS: Diagnosis Discharge Diagnosis (1) Bacteremia: Status: Acute (2) Hyponatremia: Status: Acute (3) Chest pain: Status: Acute (4) Active substance abuse: Status: Acute DS: Medications Discharge Medications Home Medications: Home Medications Medication Instructions Recorded Confirmed methadone 59 mg PO DAILY 03/25/20 03/26/20 DS: Summary Hospital Course Hospital Course: History of presenting illness Chief Complaint: chest pain, later developed left buttock pain 49-year-old male complaining of about 4 days of chest pain, anxiety, chills without fever. Patient actively uses IV heroin and snorts cocaine. He also reports injecting alcohol including fireball shots. pain is relieved by heroin, exacerbated by activity and deep breaths. in ED troponin is negative, EKG unremarkable. Afebrile, CTA negative. In ED patient also started complaining of left-sided sciatic pain. Hospital course 49M presented with history of IV drug abuse presents to the hospital with chest pain, chills patient diagnosed to have MSSA bacteremia treated with IV Ancef and finish 6 weeks course of antibiotic repeat blood cultures from 03/[address] chest showed septic emboli,No recurrent fever, no chills, no new symptoms patient is now being discharged home with strong recommendation to abstain from illicit drugs. In regard to his chest pain he had no recurrent episode was likely cocaine related his troponin and EKG were unremarkable. Patient has been continued on methadone home dose Rash Right upper extremity advised to use bacitracin ointment. hyponatremia Resolved, labs c/w SIADH Constipation resolved was likely due to methadone patient has Metamucil at home. Time Spent with Patient Time attestation: Total time spent providing and/or coordinating discharge services: Discharge coordination time: Greater than 30 minutes Quality: VTE Deep Vein Thrombosis/Pulmonary Embolism Present on Admission: No Physical Exam Vital Signs: Vital Signs: Last Vital Signs Temp 98.1 F 05/07/20 07:48 Pulse 67 05/07/20 07:48 Resp 18 05/07/20 07:48 BP 147/98 H 05/07/20 07:48 Pulse Ox 98 05/07/20 07:48 Body Mass Index 34.2 General no acute distress. Neck is supple no JVD. CVS regular rate rhythm, Respiratory lungs clear to auscultation, no respiratory distress Gastrointestinal abdomen soft, nontender, bowel sounds audible Extremities no clubbing, cyanosis or edema. Neuro nonfocal Skin small area of redness right upper arm, no surrounding erythema or induration, no drainage. DS: Data Data Completed and Pending Labs on day of discharge: Laboratory Tests 03/25/20 03/25/20 03/25/20 13:05 13:05 13:05 WBC 11.4 H RBC 3.86 L Hgb 11.6 L Hct 34.7 L MCV 89.9 MCH 30.1 MCHC 33.4 RDW 13.1 Plt Count 164 MPV 9.2 L Immature Gran % (Auto) 0.9 H Neut % (Auto) 86.3 H Lymph % (Auto) 5.7 L [place] % (Auto) 7.0 Eos % (Auto) 0.0 Baso % (Auto) 0.1 Lymph # (Auto) 0.7 L [place] # (Auto) 0.8 Eos # (Auto) 0.0 Baso # (Auto) 0.0 Abs Immat Gran (auto) 0.10 H Absolute Neuts (auto) 9.8 H Absolute Nucleated RBC 0.000 Nucleated RBC % (auto) 0.0 Smear Tech's Comments VERIFIED PT INR APTT Sodium 126 L Potassium 3.9 Chloride 95 L Carbon Dioxide 22 Anion Gap 13 BUN 16 Creatinine 0.75 Estim Creat Clear Calc 139.4 Estimated GFR > 60 Random Glucose 110 Fasting Glucose Lactic Acid Calcium 8.2 L Magnesium 2.2 Ferritin 271 H Total Bilirubin 0.6 Direct Bilirubin 0.3 AST 33 ALT 26 Alkaline Phosphatase 117 Lactate Dehydrogenase 231 Troponin I High Sens < 3.5 B-Natriuretic Peptide 13 Total Protein 7.5 Albumin 3.5 Lipase 13 Procalcitonin Urine Osmolality Ur Random Sodium Vancomycin Trough Urine Opiates Screen Ur Barbiturates Screen Ur Phencyclidine Scrn Ur Amphetamines Screen U Benzodiazepines Scrn Urine Cocaine Screen U Marijuana (THC) Screen Ethyl Alcohol COVID-19 ([facility]) COVID-19 [facility]Present Com 03/25/20 03/25/20 03/25/20 13:05 13:05 13:05 WBC RBC Hgb Hct MCV MCH MCHC RDW Plt Count MPV Immature Gran % (Auto) Neut % (Auto) Lymph % (Auto) [place] % (Auto) Eos % (Auto) Baso % (Auto) Lymph # (Auto) [place] # (Auto) Eos # (Auto) Baso # (Auto) Abs Immat Gran (auto) Absolute Neuts (auto) Absolute Nucleated RBC Nucleated RBC % (auto) Smear Tech's Comments PT 13.3 H INR 1.1 APTT 30.0 Sodium Potassium Chloride Carbon Dioxide Anion Gap BUN Creatinine Estim Creat Clear Calc Estimated GFR Random Glucose Fasting Glucose Lactic Acid 0.6 Calcium Magnesium Ferritin Total Bilirubin Direct Bilirubin AST ALT Alkaline Phosphatase Lactate Dehydrogenase Troponin I High Sens B-Natriuretic Peptide Total Protein Albumin Lipase Procalcitonin 0.60 Urine Osmolality Ur Random Sodium Vancomycin Trough Urine Opiates Screen Ur Barbiturates Screen Ur Phencyclidine Scrn Ur Amphetamines Screen U Benzodiazepines Scrn Urine Cocaine Screen U Marijuana (THC) Screen Ethyl Alcohol COVID-19 ([facility]) COVID-19 [facility]Present Com 03/25/20 03/25/20 03/25/20 13:05 13:11 13:32 WBC RBC Hgb Hct MCV MCH MCHC RDW Plt Count MPV Immature Gran % (Auto) Neut % (Auto) Lymph % (Auto) [place] % (Auto) Eos % (Auto) Baso % (Auto) Lymph # (Auto) [place] # (Auto) Eos # (Auto) Baso # (Auto) Abs Immat Gran (auto) Absolute Neuts (auto) Absolute Nucleated RBC Nucleated RBC % (auto) Smear Tech's Comments PT INR APTT Sodium Potassium Chloride Carbon Dioxide Anion Gap BUN Creatinine Estim Creat Clear Calc Estimated GFR Random Glucose Fasting Glucose Lactic Acid Calcium Magnesium Ferritin Total Bilirubin Direct Bilirubin AST ALT Alkaline Phosphatase Lactate Dehydrogenase Troponin I High Sens B-Natriuretic Peptide Total Protein Albumin Lipase Procalcitonin Urine Osmolality Ur Random Sodium Vancomycin Trough Urine Opiates Screen POSITIVE H Ur Barbiturates Screen Not Detected Ur Phencyclidine Scrn Not Detected Ur Amphetamines Screen Not Detected U Benzodiazepines Scrn Not Detected Urine Cocaine Screen POSITIVE H U Marijuana (THC) Screen Not Detected Ethyl Alcohol < 10 COVID-19 ([facility]) Negative COVID-19 Clin Com See Note 03/25/20 03/25/20 03/26/20 19:16 19:16 05:25 WBC 11.7 H RBC 3.67 L Hgb 10.8 L Hct 32.4 L MCV 88.3 MCH 29.4 MCHC 33.3 RDW 13.0 Plt Count 149 L MPV 9.5 Immature Gran % (Auto) 0.7 H Neut % (Auto) 79.6 H Lymph % (Auto) 9.5 L [place] % (Auto) 10.0 Eos % (Auto) 0.0 Baso % (Auto) 0.2 Lymph # (Auto) 1.1 L [place] # (Auto) 1.2 Eos # (Auto) 0.0 Baso # (Auto) 0.0 Abs Immat Gran (auto) 0.08 H Absolute Neuts (auto) 9.3 H Absolute Nucleated RBC 0.000 Nucleated RBC % (auto) 0.0 Smear Tech's Comments PT INR APTT Sodium Potassium Chloride Carbon Dioxide Anion Gap BUN Creatinine Estim Creat Clear Calc Estimated GFR Random Glucose Fasting Glucose Lactic Acid Calcium Magnesium Ferritin Total Bilirubin Direct Bilirubin AST ALT Alkaline Phosphatase Lactate Dehydrogenase Troponin I High Sens B-Natriuretic Peptide Total Protein Albumin Lipase Procalcitonin Urine Osmolality 708 Ur Random Sodium 75.0 Vancomycin Trough Urine Opiates Screen Ur Barbiturates Screen Ur Phencyclidine Scrn Ur Amphetamines Screen U Benzodiazepines Scrn Urine Cocaine Screen U Marijuana (THC) Screen Ethyl Alcohol COVID-19 ([facility]) COVID-19 Clin Com 03/26/20 03/26/20 03/27/20 05:25 20:56 05:30 WBC 13.0 H RBC 3.91 L Hgb 11.6 L Hct 34.5 L MCV 88.2 MCH 29.7 MCHC 33.6 RDW 13.0 Plt Count 175 MPV 9.8 Immature Gran % (Auto) 0.5 H Neut % (Auto) 72.7 Lymph % (Auto) 12.9 L [place] % (Auto) 13.7 H Eos % (Auto) 0.0 Baso % (Auto) 0.2 Lymph # (Auto) 1.7 [place] # (Auto) 1.8 H Eos # (Auto) 0.0 Baso # (Auto) 0.0 Abs Immat Gran (auto) 0.07 H Absolute Neuts (auto) 9.5 H Absolute Nucleated RBC 0.000 Nucleated RBC % (auto) 0.0 Smear Tech's Comments VERIFIED PT INR APTT Sodium 128 L Potassium 3.5 Chloride 95 L Carbon Dioxide 23 Anion Gap 14 BUN 8 L Creatinine 0.62 Estim Creat Clear Calc 168.6 Estimated GFR > 60 Random Glucose 94 Fasting Glucose Lactic Acid Calcium 7.7 L D Magnesium Ferritin Total Bilirubin Direct Bilirubin AST ALT Alkaline Phosphatase Lactate Dehydrogenase Troponin I High Sens B-Natriuretic Peptide Total Protein Albumin Lipase Procalcitonin Urine Osmolality Ur Random Sodium Vancomycin Trough 10.2 Urine Opiates Screen Ur Barbiturates Screen Ur Phencyclidine Scrn Ur Amphetamines Screen U Benzodiazepines Scrn Urine Cocaine Screen U Marijuana (THC) Screen Ethyl Alcohol COVID-19 ([facility]) COVID-19 Clin Com 03/27/20 03/28/20 03/28/20 05:32 05:23 05:23 WBC 11.6 H RBC 3.91 L Hgb 11.6 L Hct 34.9 L MCV 89.3 MCH 29.7 MCHC 33.2 RDW 13.2 Plt Count 189 MPV 9.7 Immature Gran % (Auto) 1.0 H Neut % (Auto) 68.3 Lymph % (Auto) 17.4 L [place] % (Auto) 12.7 H Eos % (Auto) 0.3 Baso % (Auto) 0.3 Lymph # (Auto) 2.0 [place] # (Auto) 1.5 H Eos # (Auto) 0.0 Baso # (Auto) 0.0 Abs Immat Gran (auto) 0.12 H Absolute Neuts (auto) 7.9 Absolute Nucleated RBC 0.000 Nucleated RBC % (auto) 0.0 Smear Tech's Comments PT INR APTT Sodium 131 L 131 L Potassium 4.1 3.9 Chloride 95 L 95 L Carbon Dioxide 24 26 Anion Gap 16 14 BUN 9 8 L Creatinine 0.64 0.65 Estim Creat Clear Calc 163.3 160.8 Estimated GFR > 60 > 60 Random Glucose Fasting Glucose 87 82 Lactic Acid Calcium 8.2 L D 8.1 L Magnesium Ferritin Total Bilirubin Direct Bilirubin AST ALT Alkaline Phosphatase Lactate Dehydrogenase Troponin I High Sens B-Natriuretic Peptide Total Protein Albumin Lipase Procalcitonin Urine Osmolality Ur Random Sodium Vancomycin Trough Urine Opiates Screen Ur Barbiturates Screen Ur Phencyclidine Scrn Ur Amphetamines Screen U Benzodiazepines Scrn Urine Cocaine Screen U Marijuana (THC) Screen Ethyl Alcohol COVID-19 ([facility]) COVID-19 Clin Com 04/01/20 04/01/20 04/05/20 05:15 05:15 07:55 WBC 11.2 H RBC 3.63 L Hgb 10.8 L Hct 32.3 L MCV 89.0 MCH 29.8 MCHC 33.4 RDW 12.9 Plt Count 318 D MPV 9.1 L Immature Gran % (Auto) 3.5 H Neut % (Auto) 68.1 Lymph % (Auto) 20.9 [place] % (Auto) 7.0 Eos % (Auto) 0.2 Baso % (Auto) 0.3 Lymph # (Auto) 2.3 [place] # (Auto) 0.8 Eos # (Auto) 0.0 Baso # (Auto) 0.0 Abs Immat Gran (auto) 0.39 H Absolute Neuts (auto) 7.6 Absolute Nucleated RBC 0.000 Nucleated RBC % (auto) 0.0 Smear Tech's Comments PT INR APTT Sodium 130 L 133 L Potassium 4.7 D 5.1 Chloride 98 100 Carbon Dioxide 22 26 Anion Gap 15 12 BUN 13 D 11 Creatinine 0.65 0.74 Estim Creat Clear Calc 160.8 141.3 Estimated GFR > 60 > 60 Random Glucose 96 Fasting Glucose 83 Lactic Acid Calcium 8.4 9.1 D Magnesium Ferritin Total Bilirubin Direct Bilirubin AST ALT Alkaline Phosphatase Lactate Dehydrogenase Troponin I High Sens B-Natriuretic Peptide Total Protein Albumin Lipase Procalcitonin Urine Osmolality Ur Random Sodium Vancomycin Trough Urine Opiates Screen Ur Barbiturates Screen Ur Phencyclidine Scrn Ur Amphetamines Screen U Benzodiazepines Scrn Urine Cocaine Screen U Marijuana (THC) Screen Ethyl Alcohol COVID-19 ([facility]) COVID-19 Clin Com 04/05/20 04/06/20 04/13/20 08:20 05:50 06:15 WBC 7.6 6.3 RBC 3.64 L 3.78 L Hgb 10.7 L 11.1 L Hct 33.0 L 34.2 L MCV 90.7 90.5 MCH 29.4 29.4 MCHC 32.4 32.5 RDW 12.5 12.4 Plt Count 332 277 MPV 8.9 L 8.9 L Immature Gran % (Auto) 1.1 H Neut % (Auto) 41.2 L Lymph % (Auto) 45.1 H [place] % (Auto) 11.2 H Eos % (Auto) 0.8 Baso % (Auto) 0.6 Lymph # (Auto) 2.9 [place] # (Auto) 0.7 Eos # (Auto) 0.1 Baso # (Auto) 0.0 Abs Immat Gran (auto) 0.07 H Absolute Neuts (auto) 2.6 Absolute Nucleated RBC 0.000 0.000 Nucleated RBC % (auto) 0.0 0.0 Smear Tech's Comments PT INR APTT Sodium Potassium Chloride Carbon Dioxide Anion Gap BUN Creatinine Estim Creat Clear Calc Estimated GFR Random Glucose Fasting Glucose Lactic Acid Calcium Magnesium Ferritin Total Bilirubin Direct Bilirubin AST ALT Alkaline Phosphatase Lactate Dehydrogenase Troponin I High Sens B-Natriuretic Peptide Total Protein Albumin Lipase Procalcitonin Urine Osmolality Ur Random Sodium Vancomycin Trough Urine Opiates Screen Ur Barbiturates Screen Ur Phencyclidine Scrn Ur Amphetamines Screen U Benzodiazepines Scrn Urine Cocaine Screen U Marijuana (THC) Screen Ethyl Alcohol COVID-19 ([facility]) Negative COVID-19 Clin Com See Note 04/13/20 04/20/20 04/20/20 06:15 06:13 06:13 WBC 5.7 RBC 3.74 L Hgb 10.9 L Hct 34.1 L MCV 91.2 MCH 29.1 MCHC 32.0 RDW 12.9 Plt Count 193 D MPV 9.3 L Immature Gran % (Auto) 0.7 H Neut % (Auto) 42.7 L Lymph % (Auto) 44.1 H [place] % (Auto) 10.2 Eos % (Auto) 1.8 Baso % (Auto) 0.5 Lymph # (Auto) 2.5 [place] # (Auto) 0.6 Eos # (Auto) 0.1 Baso # (Auto) 0.0 Abs Immat Gran (auto) 0.04 H Absolute Neuts (auto) 2.4 Absolute Nucleated RBC 0.000 Nucleated RBC % (auto) 0.0 Smear Tech's Comments PT INR APTT Sodium 136 136 Potassium 4.5 4.0 Chloride 103 102 Carbon Dioxide 25 25 Anion Gap 13 13 BUN 13 11 Creatinine 0.73 0.69 Estim Creat Clear Calc 143.2 151.5 Estimated GFR > 60 > 60 Random Glucose 115 Fasting Glucose 94 Lactic Acid Calcium 9.0 8.8 Magnesium Ferritin Total Bilirubin Direct Bilirubin AST ALT Alkaline Phosphatase Lactate Dehydrogenase Troponin I High Sens B-Natriuretic Peptide Total Protein Albumin Lipase Procalcitonin Urine Osmolality Ur Random Sodium Vancomycin Trough Urine Opiates Screen Ur Barbiturates Screen Ur Phencyclidine Scrn Ur Amphetamines Screen U Benzodiazepines Scrn Urine Cocaine Screen U Marijuana (THC) Screen Ethyl Alcohol COVID-19 ([facility]) COVID-19 Clin Com 04/28/20 04/28/20 05/05/20 06:12 06:12 05:41 WBC 4.9 4.6 L RBC 3.76 L 3.71 L Hgb 11.1 L 11.1 L Hct 34.9 L 34.4 L MCV 92.8 92.7 MCH 29.5 29.9 MCHC 31.8 32.3 RDW 13.2 13.6 Plt Count 181 163 MPV 9.1 L 9.3 L Immature Gran % (Auto) 0.4 Neut % (Auto) 35.7 L Lymph % (Auto) 47.7 H [place] % (Auto) 13.6 H Eos % (Auto) 2.2 Baso % (Auto) 0.4 Lymph # (Auto) 2.3 [place] # (Auto) 0.7 Eos # (Auto) 0.1 Baso # (Auto) 0.0 Abs Immat Gran (auto) 0.02 Absolute Neuts (auto) 1.8 L Absolute Nucleated RBC 0.000 0.000 Nucleated RBC % (auto) 0.0 0.0 Smear Tech's Comments PT INR APTT Sodium 137 Potassium 4.7 Chloride 103 Carbon Dioxide 27 Anion Gap 12 BUN 9 Creatinine 0.66 Estim Creat Clear Calc 158.4 Estimated GFR > 60 Random Glucose Fasting Glucose 92 Lactic Acid Calcium 9.0 Magnesium Ferritin Total Bilirubin Direct Bilirubin AST ALT Alkaline Phosphatase Lactate Dehydrogenase Troponin I High Sens B-Natriuretic Peptide Total Protein Albumin Lipase Procalcitonin Urine Osmolality Ur Random Sodium Vancomycin Trough Urine Opiates Screen Ur Barbiturates Screen Ur Phencyclidine Scrn Ur Amphetamines Screen U Benzodiazepines Scrn Urine Cocaine Screen U Marijuana (THC) Screen Ethyl Alcohol COVID-19 ([facility]) COVID-19 Clin Com 05/05/20 05:41 WBC RBC Hgb Hct MCV MCH MCHC RDW Plt Count MPV Immature Gran % (Auto) Neut % (Auto) Lymph % (Auto) [place] % (Auto) Eos % (Auto) Baso % (Auto) Lymph # (Auto) [place] # (Auto) Eos # (Auto) Baso # (Auto) Abs Immat Gran (auto) Absolute Neuts (auto) Absolute Nucleated RBC Nucleated RBC % (auto) Smear Tech's Comments PT INR APTT Sodium 137 Potassium 4.2 Chloride 103 Carbon Dioxide 24 Anion Gap 14 BUN 12 Creatinine 0.67 Estim Creat Clear Calc 156.0 Estimated GFR > 60 Random Glucose 82 Fasting Glucose Lactic Acid Calcium 8.6 Magnesium Ferritin Total Bilirubin Direct Bilirubin AST ALT Alkaline Phosphatase Lactate Dehydrogenase Troponin I High Sens B-Natriuretic Peptide Total Protein Albumin Lipase Procalcitonin Urine Osmolality Ur Random Sodium Vancomycin Trough Urine Opiates Screen Ur Barbiturates Screen Ur Phencyclidine Scrn Ur Amphetamines Screen U Benzodiazepines Scrn Urine Cocaine Screen U Marijuana (THC) Screen Ethyl Alcohol COVID-19 ([facility]) COVID-19 Clin Com Discharge Plan Discharge Patient Disposition: Home, Self-Care Referrals: Francisco Tam MD [Primary Care Provider] - Discharge Medications: Continued methadone liquid 59 mg PO DAILY RF: 0 Discharge Orders: Discharge Order (Routine); Ordered 05/07/20 Ordered By: Margaret Jacome Diet: advance to usual diet Activity on Discharge: As tolerated Visit Report Forms: Patient Portal Discharge page Care Plan Goals: Abstinence from illicit drug use Health Concerns: Substance abuse Plan of Treatment: Follow-up with primary care physician
--- NOTE | 2020-05-07 10:49 | HO.PICC ---
PICC Line Insertion PICC REMOVAL PER REQUEST 1. DATE REMOVED- 05/07/2020 2. REASON- PER REQUEST; NO LONGER NEEDED 3. INSERTED LENGTH- 39 CM SINGLE LUMEN PASV PICC 4. REMOVED LENGTH- 39 CM SINGLE LUMEN PASV PICC, INTACT 5. A TEGADERM DRESSING WITH SMALL PIECE OF XEROFORM OVERLYING PUNCTURE SITE WAS APPLIED. PT DENIES COMPLAINTS. NO NOTED BLEEDING/SWELLING.
== END 2020-05-07 11:32 | disposition home or self-care (01) | DRG 134 ==
LOC: HO.ED 15:32 → HO.IMC 18:25 → HO.S3 04-20 08:32
PROVIDERS: Internal Medicine; Student in an Organized Health Care Education/Training Program; Admitting Provider Internal Medicine; Emergency Provider Emergency Medicine; PCP Internal Medicine; Visit Provider Hospitalist
DX: I26.90 Septic pulmonary embolism without acute cor pulmonale (principal); E22.2 Syndrome of inappropriate secretion of antidiuretic hormone; B95.61 Methicillin susceptible Staphylococcus aureus infection as the cause of diseases classified elsewhere; Z20.822 Contact with and (suspected) exposure to COVID-19; F11.23 Opioid dependence with withdrawal; K59.03 Drug induced constipation; T40.3X5A Adverse effect of methadone, initial encounter; Y92.9 Unspecified place or not applicable
CPT/HCPCS: 36415; 36573; 71275; 80048; 80076; 80202; 80307; 80320; 82728; 83605; 83615; 83690; 83735; 83880; 83935; 84145; 84300; 84484; 85025; 85027; 85610; 85730; 87040; 87077; 87147; 87186; 87635; 93005; 93306; 99283; 99285; C1751; J0690; J0696; J1200; J1650; J2060; J2270; J3370; Q0163; Q9967

== ENCOUNTER 2020-10-20 19:49 | Emergency (ER) | payer OTHER, SELFPAY ==
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
[2020-10-20 20:03] VITALS: BP 140/75; PULSE 82; RESP 16; TEMP 36.1; O2SAT 96; BMI 32.6
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
[2020-10-20 21:38] VITALS: BP 133/86; PULSE 58; RESP 16; O2SAT 98
== END 2020-10-20 22:15 | disposition home or self-care (01) ==
PROVIDERS: Emergency Provider Emergency Medicine; PCP Internal Medicine
DX: S06.0X9A Concussion with loss of consciousness of unspecified duration, initial encounter (principal); S00.91XA Abrasion of unspecified part of head, initial encounter; V43.52XA Car driver injured in collision with other type car in traffic accident, initial encounter; Y93.89 Activity, other specified; Y92.410 Unspecified street and highway as the place of occurrence of the external cause; Y99.9 Unspecified external cause status
CPT/HCPCS: 70450; 71046; 72125; 99284

== ENCOUNTER 2021-08-18 04:23 | Emergency (ER) | payer OTHER, SELFPAY ==
--- NOTE | ~2021-08-18 | XR_ITS ---
EXAMINATION: XR CHEST CLINICAL INFORMATION: Edema COMPARISON: 10/20/2020 TECHNIQUE: Frontal view of the chest was obtained. FINDINGS: Lung volumes are symmetric. No focal consolidation is seen. No evidence of pneumothorax, pleural effusion, or pulmonary edema. Cardiac silhouette appears near the upper limits of normal in size. No acute osseous findings are seen. XR/XR chest 1V IMPRESSION: No acute cardiopulmonary findings.
--- NOTE | ~2021-08-18 | CT_ITS ---
EXAMINATION: CT ANGIOGRAM OF THE CHEST WITH AND WITHOUT CONTRAST (CT PULMONARY ANGIOGRAM FOR PE) CLINICAL INFORMATION: Reason for Exam Shortness of breath, dizziness, leg swelling COMPARISON: 03.25.2020 TECHNIQUE: Prior to contrast administration, noncontrast localization images were obtained. Subsequently, multidetector volumetric imaging was performed from the thoracic inlet to below the diaphragms following the administration of 65 mL Omnipaque 350 intravenous contrast. No contrast reaction reported Sagittal, coronal, and MIP oblique sagittal reformatted images were obtained on the CT workstation, uploaded to PACS, and reviewed. This CT examination was performed using dose optimization techniques as appropriate, variously including the following: *Automated exposure control *Adjustment of mA and/or kV according to patient size (this includes techniques or standardized protocols for targeted exams where dose is matched to indication/reason for exam; i.e. extremities or head) *Use of iterative reconstruction technique Total exam dose-length product 428 mGy-cm FINDINGS: QUALITY OF STUDY/CONTRAST BOLUS: Satisfactory. PULMONARY ARTERIES: No central or segmental pulmonary emboli. THORACIC AORTA: No aneurysm or dissection. LUNG: No pneumonitis or parenchymal consolidation.. Stable 4 mm nodule within the left lower lobe adjacent to the major fissure, likely intrapulmonary lymph node. An additional stable intrapulmonary lymph node is present along the minor fissure. No suspicious pulmonary nodules. PLEURA: No pleural effusion or pneumothorax. MEDIASTINUM: Normal heart size. No pericardial effusion. No hilar or mediastinal lymphadenopathy. No evidence of septal bowing or right heart strain. CHEST WALL/AXILLA: No axillary or internal mammary lymphadenopathy. OSSEOUS STRUCTURES: Nonrecent mild superior inferior endplate compression deformities at T11. Endplate osteophytes present throughout the thoracic spine. UPPER ABDOMEN: Nodular hepatic surface contour. CT/CT angio chest PE protocol IMPRESSION: * No pulmonary embolism. * No acute pulmonary parenchymal abnormalities. * New but nonrecent mild compression fracture at T11. * Query cirrhosis. VTE:
[2021-08-18 04:33] VITALS: BP 115/82; BP 127/72; PULSE 62; PULSE 65; RESP 16; TEMP 36.7; O2SAT 100; O2SAT 99; BMI 39.2
--- NOTE | 2021-08-18 05:58 | ECG_ITS ---
Test Reason : EDEMA Blood Pressure : / mmHG Vent. Rate : 060 BPM Atrial Rate : 060 BPM P-R Int : 170 ms QRS Dur : 082 ms QT Int : 496 ms P-R-T Axes : 000 190 169 degrees QTc Int : 496 ms Normal sinus rhythm Right superior axis deviation ST & T wave abnormality, consider inferior ischemia Abnormal ECG No previous ECGs available Referred By: Shilpa Morrow Electronically Signed By:LETI POWELL MD
[2021-08-18 06:12] VITALS: BP 117/64; PULSE 61; RESP 14; O2SAT 97
[2021-08-18 06:14] LABS: MANUAL DIFF FLAG NO
[2021-08-18 06:15] LABS: Basophils Percent Auto 0.2 % (0-2); Eosinophils Percent Auto 0.7 % (0-4); Hematocrit 32.1 % (42.0-52.0); Hemoglobin 10.6 g/dl (14.0-18.0); Imm Gran Abs Auto 0.01 X10*3/uL (0.00-0.03); Imm Gran Pct Auto 0.2 % (0.0-0.4); Lymphocytes Absolute Auto 1.7 X10*3/uL (1.2-4.9); Lymphocytes Percent Auto 36.4 % (20-40); Mean Corpuscular Hemoglobin 30.4 pg (27.0-33.0); Monocytes Absolute Auto 0.6 X10*3/uL (0.1-1.2); Monocytes Percent Auto 13.9 % (2-11); Neutrophils Absolute Auto 2.2 x10*3/uL (2.0-8.3); Neutrophils Percent Auto 48.6 % (45-73); Platelet Count 163 X10*3/uL (160-400); Red Blood Count 3.49 X10*6/uL (4.60-5.80); White Blood Count 4.6 X10*3/uL (4.8-10.8)
[2021-08-18 06:28] LABS: Anion Gap 12 (12-20); Blood Urea Nitrogen 13 mg/dL (9-16); Calcium 8.8 mg/dL (8.4-10.2); Carbon Dioxide 25 mmol/L (22-29); Chloride 106 mmol/L (96-108); Creatinine Clr Calc Pharmacy 156.3; Estimated Glomerular Filt Rate > 60; Glucose Random 98 mg/dL (60-115); Potassium 4.5 mmol/L (3.3-5.1); Sodium 138 mmol/L (135-145)
[2021-08-18 06:35] LABS: Troponin-I High Sensitivity < 3.5 ng/L (<3.5-35.0)
--- NOTE | 2021-08-18 06:58 | ED_ITS ---
HPI - Extremity Problem General Chief complaint: Extremity Problem Stated complaint: leg swelling Time Seen by Provider: 08/18/21 06:36 Source: patient Mode of arrival: ambulatory History of Present Illness HPI Narrative: 50-year-old male arrives via EMS with history being on the methadone program but still using heroin and last used on Tuesday. Patient reports that he has bilateral lower extremity swelling, right greater than left, and also complains of intermittent shortness of breath. Patient states that the swelling started approximately 4 days ago in the triage note, however he has informed me that the swelling has been ongoing and that he had a consultation with Dr. Lozoya to discuss possible treatment for his venous stasis and varicosity problem. Patient states that he missed his appointment for ultrasound. As per the triage note he described getting dizzy more frequently all walking with the associated shortness of breath. Related Data Home Medications Medication Instructions Recorded Confirmed methadone 59 mg PO DAILY 03/25/20 03/26/20 Previous Rx's Medication Instructions Recorded albuterol sulfate 90 mcg/actuation 2 puff PO Q6H PRN 30 Days #6.7 g 06/23/20 aerosol inhaler (ProAir HFA) escitalopram oxalate 10 mg tablet 10 mg PO DAILY #30 tab 07/17/20 Allergies Allergy/AdvReac Type Severity Reaction Status Date / Time No Known Allergies Allergy Verified 06/11/20 13:43 [No Known Allergies*] Review of Systems Review of Systems: Pertinent positives and negatives as stated in HPI 10 point review of systems is otherwise negative. PMFSH Past Medical History Source: nursing notes reviewed Medical History Anxiety Hospital discharge follow-up Substance abuse Family History Family History Mother Diabetes Heart problem Father Esophagus cancer Social History Social History Household Members: Spouse Housing: House Do you presently have visiting nurse or other home services: No Alcohol intake: former Patient Tobacco Use Status: Former Tobacco user Use of substances other than those prescribed or required for medical reasons: No Substance Use Type: Crack/Cocaine and Heroin Advance Directives: No service: No Current occupational status: unemployed Physical Exam Vital Signs: Vital Signs: Last Vital Signs Temp 98.1 F 08/18/21 04:33 Pulse 52 08/18/21 07:56 Resp 10 L 08/18/21 07:56 BP 101/70 08/18/21 07:56 Pulse Ox 96 08/18/21 07:56 BMI result Body Mass Index 39.2 VITAL SIGNS: Reviewed. GENERAL: Well developed, well nourished, in no acute distress. HEAD: Normocephalic/atraumatic EYES: PERRLA, EOMI EARS: Ext canals without abnormality OROPHARYNX: no oral lesions noted, posterior pharynx clear LUNGS: Normal breath sounds. No adventitious sounds or accessory muscle use. SpO2<97> CARDIOVASCULAR: Regular rate and rhythm without noted murmurs, no JVD but bilateral nonpitting lower edema noted ABDOMEN: Soft, non-tender, non-distended with bowel sounds. MUSCULOSKELETAL: No tenderness, deformities, or effusions noted on gross inspection. EXTREMITIES: No cyanosis, clubbing but patient has what appears to be chronic bilateral venous stasis with significant venous varicosity extremities are warm with good pulses and good capillary refill. SKIN: Inspection of the skin reveals no rashes, obvious track salazar on bilateral upper extremities NEUROLOGIC: Alert and oriented x 4. Strength and sensation to light touch were grossly intact x 4. Course Course Course Narrative: 50-year-old male with history and presentation most likely secondary to chronic venous stasis with chronic varicosities and no evidence to suggest cellulitis. All investigations reviewed, D-dimer mildly elevated will proceed with CT angio with PE protocol. MDM - Extremity (Nontraumatic) Lab Data Result diagrams: 08/18/21 06:09 08/18/21 06:09 Labs: Lab Results 08/18/21 08/18/21 08/18/21 Range/Units 06:09 06:09 06:09 WBC 4.6 L (4.8-10.8) X10*3/uL RBC 3.49 L (4.60-5.80) X10*6/uL Hgb 10.6 L (14.0-18.0) g/dl Hct 32.1 L (42.0-52.0) % MCV 92.0 (80.0-98.0) fL MCH 30.4 (27.0-33.0) pg MCHC 33.0 (31.0-36.0) g/dl RDW 13.0 (11.0-16.0) % Plt Count 163 (160-400) X10*3/uL MPV 9.0 L (9.4-12.4) fL Immature Gran % (Auto) 0.2 (0.0-0.4) % Neut % (Auto) 48.6 (45-73) % Lymph % (Auto) 36.4 (20-40) % Bartholomew % (Auto) 13.9 H (2-11) % Eos % (Auto) 0.7 (0-4) % Baso % (Auto) 0.2 (0-2) % Lymph # (Auto) 1.7 (1.2-4.9) X10*3/uL Bartholomew # (Auto) 0.6 (0.1-1.2) X10*3/uL Eos # (Auto) 0.0 (0.0-0.4) X10*3/uL Baso # (Auto) 0.0 (0.0-0.2) X10*3/uL Abs Immat Gran (auto) 0.01 (0.00-0.03) X10*3/uL Absolute Neuts (auto) 2.2 (2.0-8.3) x10*3/uL Absolute Nucleated RBC 0.000 (0.0-0.012) X10*3/uL Nucleated RBC % (auto) 0.0 (0.0-0.2) /100WBC D-Dimer High Sensitivty NG/ML Sodium 138 (135-145) mmol/L Potassium 4.5 (3.3-5.1) mmol/L Chloride 106 (96-108) mmol/L Carbon Dioxide 25 (22-29) mmol/L Anion Gap 12 (12-20) BUN 13 (9-16) mg/dL Creatinine 0.71 (0.5-1.4) mg/dL Estim Creat Clear Calc 156.3 Estimated GFR > 60 Random Glucose 98 (60-115) mg/dL Calcium 8.8 (8.4-10.2) mg/dL Troponin I High Sens < 3.5 (<3.5-35.0) ng/L 08/18/21 Range/Units 06:51 WBC (4.8-10.8) X10*3/uL RBC (4.60-5.80) X10*6/uL Hgb (14.0-18.0) g/dl Hct (42.0-52.0) % MCV (80.0-98.0) fL MCH (27.0-33.0) pg MCHC (31.0-36.0) g/dl RDW (11.0-16.0) % Plt Count (160-400) X10*3/uL MPV (9.4-12.4) fL Immature Gran % (Auto) (0.0-0.4) % Neut % (Auto) (45-73) % Lymph % (Auto) (20-40) % Bartholomew % (Auto) (2-11) % Eos % (Auto) (0-4) % Baso % (Auto) (0-2) % Lymph # (Auto) (1.2-4.9) X10*3/uL Bartholomew # (Auto) (0.1-1.2) X10*3/uL Eos # (Auto) (0.0-0.4) X10*3/uL Baso # (Auto) (0.0-0.2) X10*3/uL Abs Immat Gran (auto) (0.00-0.03) X10*3/uL Absolute Neuts (auto) (2.0-8.3) x10*3/uL Absolute Nucleated RBC (0.0-0.012) X10*3/uL Nucleated RBC % (auto) (0.0-0.2) /100WBC D-Dimer High Sensitivty 297 NG/ML Sodium (135-145) mmol/L Potassium (3.3-5.1) mmol/L Chloride (96-108) mmol/L Carbon Dioxide (22-29) mmol/L Anion Gap (12-20) BUN (9-16) mg/dL Creatinine (0.5-1.4) mg/dL Estim Creat Clear Calc Estimated GFR Random Glucose (60-115) mg/dL Calcium (8.4-10.2) mg/dL Troponin I High Sens (<3.5-35.0) ng/L ECG Data Attestation EKG: I personally reviewed and interpreted this ECG as follows: Prior ECG tracings: not available for review Interpretation: NSR, HR-60, no STEMI, MA/QRS/QTC are within normal limits. Discharge Plan Discharge Clinical Impression: Localized swelling of both lower legs, Substance use disorder Patient Disposition: Still a Patient Instructions: Leg Edema (ED) Additional Instructions: Follow-up with your primary care provider in the next 2-3 days. Return to the ER for worsening symptoms. Prescriptions: No Action albuterol sulfate [ProAir HFA] 90 mcg/actuation HFA aerosol inhaler 2 puff PO Q6H PRN (Reason: for wheezing) 30 Days Qty: 6.7 0RF escitalopram oxalate 10 mg tablet 10 mg PO DAILY Qty: 30 5RF methadone liquid 59 mg PO DAILY 0RF
[2021-08-18 07:03] LABS: D Dimer High Sensitivity 297 NG/ML
[2021-08-18 07:56] VITALS: BP 101/70; PULSE 52; RESP 10; O2SAT 96
--- NOTE | 2021-08-18 08:07 | PC.NURSE ---
pt a&ox, vss, pt resting comfortably. c/o intermittent 5/10 right calf pain. pt to CT. no new orders at this time.
[2021-08-18] MEDS: iohexoL 350 MG/ML 100 ML INFUS..BTL IV (08:21)
== END 2021-08-18 10:12 | disposition home or self-care (01) ==
PROVIDERS: Emergency Provider Student in an Organized Health Care Education/Training Program
DX: R60.0 Localized edema (principal); F11.10 Opioid abuse, uncomplicated; F14.10 Cocaine abuse, uncomplicated; Z87.891 Personal history of nicotine dependence; Z79.899 Other long term (current) drug therapy
CPT/HCPCS: 36415; 71045; 71275; 80048; 84484; 85025; 85379; 93005; 99284; Q9967

== ENCOUNTER 2021-10-29 10:58 | Outpatient (REF) | payer OTHER, SELFPAY ==
[2021-10-29 12:13] LABS: Appearance Urine CLEAR; Color Urine YELLOW; Glucose Urine UA NEG (NEG); Leukocyte Esterase Urine NEG (NEG); Nitrite Urine NEG (NEG); PH 6.5 (5.0-8.0); Urine Blood NEG (NEG); Urine Ketones NEG (NEG); Urine Protein NEG (NEG-TRACE)
[2021-10-29 12:17] LABS: Hematocrit 36.4 % (42.0-52.0); Hemoglobin 12.4 g/dl (14.0-18.0); Mean Corpuscular HGB Conc 34.1 g/dl (31.0-36.0); Mean Corpuscular Hemoglobin 30.2 pg (27.0-33.0); Mean Corpuscular Volume 88.8 fL (80.0-98.0); Mean Platelet Volume 9.5 fL (9.4-12.4); Platelet Count 183 X10*3/uL (160-400); Red Cell Distribution Width 12.9 % (11.0-16.0); White Blood Count 5.7 X10*3/uL (4.8-10.8)
[2021-10-29 12:38] LABS: Alanine Aminotransferase 16 U/L (0-40); Albumin Level 4.1 g/dL (3.5-5.0); Alkaline Phosphatase 98 U/L (39-117); Anion Gap 12 (12-20); Aspartate Amino Transferase 25 U/L (5-37); Bilirubin Direct 0.2 mg/dL (0.0-0.5); Bilirubin Total 0.5 mg/dL (0.0-1.0); Blood Urea Nitrogen 14 mg/dL (9-16); Calcium 8.9 mg/dL (8.4-10.2); Carbon Dioxide 24 mmol/L (22-29); Chloride 106 mmol/L (96-108); Cholesterol 185 mg/dL; Estimated Glomerular Filt Rate > 60; Glucose Random 77 mg/dL (60-115); HDL Cholesterol 42 mg/dL; LDL Cholesterol Calculated 110 mg/dl; Potassium 4.4 mmol/L (3.3-5.1); Sodium 138 mmol/L (135-145); Triglycerides 167 mg/dL
[2021-10-29 12:48] LABS: Thyroid Stimulating Hormone 1.85 uIU/mL (0.32-4.0)
== END 2021-10-29 10:59 | disposition home or self-care (01) ==
LOC: HO.LAB 10:58
PROVIDERS: PCP Internal Medicine; Visit Provider Internal Medicine
DX: F19.10 Other psychoactive substance abuse, uncomplicated (principal); F41.9 Anxiety disorder, unspecified
CPT/HCPCS: 36415; 80048; 80061; 80076; 81003; 84443; 85027

== ENCOUNTER 2021-12-22 09:01 | Outpatient (REF) | payer OTHER, SELFPAY ==
--- NOTE | ~2021-12-22 | US_ITS ---
EXAMINATION: US LOWER EXTREMITY VENOUS (REFLUX EXAM), BILATERAL CLINICAL INDICATION: This is a 51-year-old male with varicose veins and venous insufficiency. COMPARISON: None. TECHNIQUE: Color flow triplex imaging and compression Doppler was performed to evaluate both the deep and the superficial systems bilaterally. To evaluate the superficial system, the examination was performed in the upright position. Color-flow Doppler ultrasound and compression ultrasound were utilized. In addition, maneuvers were utilized to demonstrate reflux. FINDINGS: 1. DEEP VENOUS ULTRASOUND OF THE RIGHT LOWER EXTREMITY: Common Femoral Vein: Compressible, normal respiratory variation and augmented flow. Femoral vein: Compressible, normal color flow and augmentation. Popliteal Vein: Compressible but with reflux of 2760 ms. Deep Reflux: There is evidence of reflux in the deep system in either the common femoral vein or the popliteal vein. There is no evidence of a Richards's cyst. 2. SUPERFICIAL ULTRASOUND WITH DOPPLER OF RIGHT LOWER EXTREMITY: GREAT SAPHENOUS VEIN: Saphenofemoral Junction: 0.7 cm. There is no reflux. Mid Thigh: 0.6 cm. There is no reflux. Above Knee: 0.9 cm. The reflux time is 2812 ms. Below Knee: 0.6 cm. The reflux time is 2736 ms. Mid Calf: 0.4 cm. The reflux time is 2764 ms. Ankle: 0.3 cm. The reflux time is 2816 ms. GSV REFLUX: There is no reflux at the saphenofemoral junction. Reflux begins above the knee and extends down to the ankle of greater than 2 seconds. DUPLICATED GREAT SAPHENOUS VEIN: There is a 0.4 cm duplicated medial great saphenous vein without reflux. SMALL SAPHENOUS VEIN: Proximal: 0.2 cm Distal: 0.4 cm SSV REFLUX: No evidence of reflux. VEIN OF GIACOMINI: None Imaged. PERFORATORS: There are 0.3 cm perforators in the proximal calf with greater than 2 seconds of reflux. There are 0.2 cm mid calf perforators with greater than 2 seconds of reflux. VARICOSITIES: There are 0.4 cm distal thigh varicose veins with greater than 2 seconds of reflux. There are 0.5 cm proximal calf varicose veins with greater than 2 seconds of reflux. 3. DEEP VENOUS ULTRASOUND OF THE LEFT LOWER EXTREMITY: Common Femoral Vein: Compressible, normal respiratory variation and augmented flow. Femoral Vein: Compressible, normal color flow and augmentation. Popliteal Vein: Compressible, normal augmentation. Deep Reflux: There is no evidence of reflux in the deep system in either the common femoral vein or the popliteal vein. There is no evidence of a Richards's cyst. 4. SUPERFICIAL ULTRASOUND WITH DOPPLER OF LEFT LOWER EXTREMITY: GREAT SAPHENOUS VEIN: Saphenofemoral Junction: 0.8 cm Mid Thigh: 0.2 cm Above Knee: 0.2 cm Below Knee: 0.2 cm. The reflux time is 2708 ms. There is no reflux above or below this area. Mid Calf: 0.2 cm Ankle: 0.2 cm GSV REFLUX: There is isolated reflux below the knee but not at the saphenofemoral junction. DUPLICATED GREAT SAPHENOUS VEIN: There is a 0.4 cm duplicated medial great saphenous vein without evidence of reflux. SMALL SAPHENOUS VEIN: Proximal: 0.1 cm Distal: 0.2 cm SSV REFLUX: No evidence of reflux. VEIN OF GIACOMINI: None Imaged. PERFORATORS: There are 0.2 cm perforators in the proximal calf with greater than 2 seconds of reflux. VARICOSITIES: There are 0.3 cm proximal thigh and knee varicose veins without reflux. US/US venous duplex LE BI IMPRESSION: 1. There is a patent right great saphenous vein without reflux at the saphenofemoral junction. Reflux begins above the knee and measures greater than 2 seconds from that level down to the ankle. 2. There is a patent right small saphenous vein without evidence of reflux. 3. There are varicose veins in the distal thigh and calf with greater than 2 seconds of reflux. 4. There is a patent left great saphenous vein without reflux at the saphenofemoral junction. There is only isolated reflux below the knee. 5. There is a patent duplicated medial left great saphenous vein without reflux. 6. There is a patent left small saphenous vein without evidence of reflux. 7. There are varicose veins measuring 0.3 cm in the proximal left thigh and knee without reflux.
== END 2021-12-22 09:02 | disposition home or self-care (01) ==
LOC: HO.US 09:01
PROVIDERS: Visit Provider Surgery Vascular Surgery
DX: I83.893 Varicose veins of bilateral lower extremities with other complications (principal)
CPT/HCPCS: 93970

== ENCOUNTER → 2021-12-29 10:50 | Outpatient (BNVA) | payer OTHER, SELFPAY | PROVIDERS: PCP Internal Medicine; Visit Provider Surgery Vascular Surgery | DX: I83.11 Varicose veins of right lower extremity with inflammation (principal) | CPT/HCPCS: 99212 ==

== ENCOUNTER → 2022-01-15 12:12 | Outpatient (BNVA) | payer OTHER, SELFPAY | PROVIDERS: PCP Internal Medicine; Visit Provider Surgery Vascular Surgery | DX: I83.12 Varicose veins of left lower extremity with inflammation (principal) | CPT/HCPCS: 36482 ==

== ENCOUNTER 2022-01-18 13:46 | Outpatient (REF) | payer OTHER, SELFPAY ==
--- NOTE | ~2022-01-18 | US_ITS ---
EXAMINATION: TRIPLEX SCANNING OF RIGHT LOWER EXTREMITY; SUPERFICIAL ULTRASOUND WITH DOPPLER OF RIGHT LOWER EXTREMITY CLINICAL INFORMATION: Status post Venaseal of a 3.62 cm segment of the right great saphenous vein Ambulatory phlebectomy performed: No COMPARISON: Preprocedure study on 12/22/2021. TECHNIQUE: Color flow triplex imaging and compression Doppler were performed as well as superficial ultrasound with Doppler. FINDINGS: RIGHT LOWER EXTREMITY DEEP VENOUS SYSTEM: Respiratory variation, normal compression and augmented flow are noted throughout the lower extremity. The visualized common femoral vein, femoral vein, profunda femoral vein, popliteal vein and the calf veins show no evidence of deep venous thrombosis. There is no evidence of Richards's cyst. SUPERFICIAL VENOUS SYSTEM: The great saphenous vein is occluded from the access site to just before the saphenofemoral junction. There is no extension of thrombus into the deep system. US/US venous duplex LE RT IMPRESSION: 1. No evidence of DVT. 2. Excellent appearance status post ablation of the proximal right great saphenous vein.
== END 2022-01-18 13:47 | disposition home or self-care (01) ==
LOC: HO.US 13:46
PROVIDERS: Visit Provider Surgery Vascular Surgery
DX: M79.604 Pain in right leg (principal)
CPT/HCPCS: 93971

== ENCOUNTER → 2022-01-28 10:45 | Outpatient (BNVA) | payer OTHER, SELFPAY | PROVIDERS: PCP Internal Medicine; Visit Provider Surgery Vascular Surgery | DX: I83.11 Varicose veins of right lower extremity with inflammation (principal) | CPT/HCPCS: 99212 ==

== ENCOUNTER 2022-03-04 09:44 | Outpatient (REF) | payer OTHER, SELFPAY ==
--- NOTE | ~2022-03-04 | XR_ITS ---
EXAMINATION: XR LUMBOSACRAL SPINE CLINICAL INFORMATION: Pain COMPARISON: None TECHNIQUE: Three views of the lumbosacral spine. FINDINGS: Bone alignment is normal. There is a moderate L4 body compression fracture. This does not appear acute. There is a moderate T11 vertebral body compression fracture that does not appear acute. There may be a mild old T12 vertebral body compression fracture as well. Disc spaces are normal. There is lower lumbar spine facet arthritis. XR/XR lumbar spine 2-3V IMPRESSION: Old-appearing lower thoracic and L4 vertebral body compression fractures. Lower lumbar spine facet arthritis.
== END 2022-03-04 09:45 | disposition home or self-care (01) ==
LOC: HO.XRAY 09:44
PROVIDERS: PCP Internal Medicine; Visit Provider Internal Medicine
DX: M54.6 Pain in thoracic spine (principal)
CPT/HCPCS: 72100

== ENCOUNTER 2022-06-08 14:00 | Outpatient (RCR) | payer OTHER, SELFPAY ==
--- NOTE | 2022-05-20 16:03 | MHC.PT.EP ---
[facility] [place] Office [place] Office [place] Office [address] Kanwal Winkler [address] [phone] F: [phone] F: [phone] F: [phone] F: [phone] Physical Therapy Plan of Care Date of Evaluation: Date of Surgery: Diagnosis: pain in thoracic spine Assessment: 51 y/o male referred to PT with pain in thoracic spine. He has mid back pain and low back pain that radiates into L lateral leg (numb lateral thigh) down to L heel. He also has L4 compression fx and ? other compression fx per patient from falls. Currently reports pain and difficulty with bending, walking, stairs, lifting, sleeping, standing, and washing dishes. Examination shows decreased lumbar AROM, decreased core/hip/ knee strength, increased lumbar paraspinal tissue spasm, impaired postural awareness. and impaired gait pattern. Recommend PT 2x/week for 5 weeks to address impairments, implement HEP, and optimize functional mobiltiy. Frequency and Duration: The patient will be seen 2x/week for 5 weeks Short Term Goals: 3 weeks Compliant with HEP Demosntrate proper diaphragmatic breathing without neck/shoulder compensation Fdc Goals: 5 weeks I with HEP and self management of sx Pt will be able to stand > 20 minutes with pain < 3/10 Improve B LE strenght to 4/5 throughout Treatment Plan: Modalities to reduce pain, spasms and effusion. Manual therapy to restore motion and function. Therapeutic exercise to improve strength and flexibility. Neuromuscular re-education for posture and balance. Therapeutic activities to return to functional activities of daily living. Electronically signed by: Rylee Borges PT Please sign and return to therapist. Thank you for your referral.
--- NOTE | 2022-07-13 13:54 | MHC.PT.DC ---
[facility] [place] Office [place] Office [place] Office [address] Kanwal Winkler [address] [phone] F: [phone] F: [phone] F: [phone] F: [phone] Physical Therapy Discharge Report Diagnosis: pain in thoracic spine Date of Surgery: Date of Evaluation: 05/20/22 Date of Discharge: 07/13/22 Treatments to Date: 4 Cancellations to Date: 4 No Shows to Date: 2 Discharge Status: Independent with HEP Visit Non-compliance Discharge Summary: He had poor attendance and is d/c secondary to noncompliant with scheduling policy. At time of last attended visit, he was I with HEP. Electronically signed by: Rylee Borges PT Please sign and return to therapist. Thank you for your referral.
== END 2022-07-13 13:55 | disposition home or self-care (01) ==
LOC: HO.PT 14:00
PROVIDERS: PCP Internal Medicine; Visit Provider Internal Medicine
DX: M54.6 Pain in thoracic spine (principal)
CPT/HCPCS: 97110; 97112; 97162

== ENCOUNTER 2022-11-11 13:37 | Outpatient (AMB) | payer OTHER, SELFPAY ==
--- NOTE | 2022-11-11 13:54 | MHC.PC.OV ---
Vital Signs 11/11/22 13:55 Height 5 ft 8 in Weight 256 lb 8 oz BMI 39.0 BP 110/72 Blood Pressure Location Lt brachial Position Sitting Pulse 67 Pulse Source Pulse Oximeter Pulse Oximetry (%) 98 Oxygen Delivery Method Room Air Intake Visit Reasons: 3 month f/u Intake Note: Patient is here to follow up on GERD, Lower thoracic back pain. Pt requesting for Sleep study. Event Specialist Product Demonstrator Required: No Ecology Teacher: Not Required per policy Accompanied by: Self / Same As Patient Allergies tetanus and diphtheria toxoids Allergy (Intermediate, Verified 11/11/22 14:23) Rash Medication List - Last Reconciled 11/11/22 by Francisco Tam MD albuterol sulfate 90 mcg/actuation (Ventolin HFA) 1 inh inhalation QID PRN aripiprazole 15 mg PO DAILY cane As directed cyclobenzaprine 10 mg PO BEDTIME fluoxetine 20 mg PO DAILY gabapentin mg PO meloxicam 15 mg (2 x 7.5 mg) PO DAILY [methadone 80 mg PO DAILY] omeprazole 20 mg PO DAILY zolpidem (Ambien) 5 mg PO BEDTIME Tobacco use date assessed: 11/11/22 Dental Screening Dental Screen Date: 11/11/22 Did you have a dental visit in the last 12 months?: No Did you have a dental problem in the last 6 months where you did not have access to dental care?: No Was dental information given to patient?: Patient has dentist HPI 3 month f/u HPI Details 51-year-old male presents to the office to discuss his chronic medical conditions. Patient continues to have low back pain. He completed the physical therapy with minimal relief. Has been taking the meloxicam and cyclobenzaprine started. He has lowered the his methadone dose and the pain symptoms have worsened. He does not want to go back to increasing his methadone dosage. Pain is worse in the lower back when he bends forward. Patient also has been having symptoms of fatigue and increased tiredness. He has been snoring very loudly. He would like to get it test for sleep apnea. [facility] Medical History (Updated 11/11/22 @ 14:26 by Francisco Tam MD) Anxiety GERD (gastroesophageal reflux disease) Hospital discharge follow-up Lower thoracic back pain Obstructive sleep apnea Stasis dermatitis of both legs Substance abuse Varicose vein of leg Surgical History History of shoulder surgery History of varicose vein stripping Family History Mother Diabetes Heart problem Father Esophagus cancer Other Mental health disorder Substance use disorder Social History Household Members: Spouse Housing: House Do you presently have visiting nurse or other home services: No Alcohol intake: former Patient Tobacco Use Status: Former Tobacco user e-Cigarette/Vaping Use: Never Used Second Hand Smoke Exposure: Yes Substance Use Type: Crack/Cocaine and Heroin service: No Current occupational status: unemployed Cognitive needs: Yes (cane) Hearing needs: No Vision needs: No Questionnaire Thrive Questionnaire Date Thrive assessed: 08/13/22 YOUSUF-7 AMB Questionnaire YOUSUF-7 Date YOUSUF - 7 assessed: 08/13/22 Source: Developed by Drs. Paolo Elam, Shreya Roman, Alberto Seo and colleagues, with an educational ashleigh from [employer]. Physical exam (Primary Care) Vital Signs: Last Vital Signs Pulse 67 11/11/22 13:55 BP 110/72 11/11/22 13:55 Pulse Ox 98 11/11/22 13:55 Oxygen Delivery Method Room Air 11/11/22 13:55 Care Plan Goal for BP management: Blood pressure is in range. Continue current medications. BMI result Body Mass Index 39.0 BMI Assessment/Plan discussion: High (1 lb per week weight loss suggested.) BMI High, discussed plan: lifestyle, weight reduction and dietary Tobacco/Smoking Status: Tobacco use Status Tobacco use date assessed 11/11/22 11/11/22 14:06 Patient Tobacco Use Status Former Tobacco user 11/11/22 14:06 e-Cigarette/Vaping Use Never Used 11/11/22 14:06 Thrive Assessment: Date of Thrive Assessment Date Thrive assessed 08/13/22 11/11/22 14:06 Const General: cooperative, healthy appearing and comfortable HENMT Head: Yes normal to inspection and Yes atraumatic Eyes General: appearance normal, both eyes and all related structures Neck Neck: Yes normal visual inspection and Yes full ROM Chest Chest palpation & inspection: normal inspection of the chest Resp Effort & Inspection: normal respiratory effort Auscultation: clear to auscultation bilaterally Cardio Jugular venous distension: no JVD Palpation: normal PMI Rate: regular rate Heart sounds: S1 normal heart sound present and S2 normal heart sound present GI Palpation (GI): Soft to palpation and No hepatosplenomegaly present Extrem General: Yes normal to inspection and Yes full ROM Assessment and Plan Assessment & Plan (1) Lower thoracic back pain: Code(s): M54.6 - Pain in thoracic spine Plan: Referral to pain management will be done. (2) GERD (gastroesophageal reflux disease): Code(s): K21.9 - Gastro-esophageal reflux disease without esophagitis Plan: Continue current medications. (3) Obstructive sleep apnea: Code(s): G47.33 - Obstructive sleep apnea (adult) (pediatric) Plan: Sleep study will be ordered. Will call with the results. Orders: Orders Basic Metabolic Panel Today K21.9 - Gastro-esophageal reflux disease without esophagitis, M54.6 - Pain in thoracic spine C Reactive Protein Today K21.9 - Gastro-esophageal reflux disease without esophagitis, M54.6 - Pain in thoracic spine Lipid Panel Today K21.9 - Gastro-esophageal reflux disease without esophagitis, M54.6 - Pain in thoracic spine Liver Panel Today K21.9 - Gastro-esophageal reflux disease without esophagitis, M54.6 - Pain in thoracic spine Thyroid Stimulating Hormone Today K21.9 - Gastro-esophageal reflux disease without esophagitis, M54.6 - Pain in thoracic spine Complete Blood Count no Diff Today K21.9 - Gastro-esophageal reflux disease without esophagitis, M54.6 - Pain in thoracic spine Referrals Pain Management Referral M54.6 - Pain in thoracic spine Medications: Refilled cyclobenzaprine 10 mg PO BEDTIME 14 tabs 0RF Coding Level of Care Code Est Pt Level 4 (45954) Diagnoses Lower thoracic back pain M54.6 GERD (gastroesophageal reflux disease) K21.9 Obstructive sleep apnea G47.33
[2022-11-11 13:55] VITALS: BP 110/72; PULSE 67; O2SAT 98; BMI 39.0
== END 2022-11-11 14:13 | disposition home or self-care (01) ==
PROVIDERS: PCP Internal Medicine; Visit Provider Internal Medicine
DX: M54.6 Pain in thoracic spine (principal); K21.9 Gastro-esophageal reflux disease without esophagitis; G47.33 Obstructive sleep apnea (adult) (pediatric)
CPT/HCPCS: 99214

== ENCOUNTER 2022-11-11 14:22 | Outpatient (REF) | payer OTHER, SELFPAY ==
[2022-11-11 14:48] LABS: Hematocrit 37.3 % (42.0-52.0); Hemoglobin 12.4 g/dl (14.0-18.0); Mean Corpuscular HGB Conc 33.2 g/dl (31.0-36.0); Mean Corpuscular Hemoglobin 30.8 pg (27.0-33.0); Mean Corpuscular Volume 92.6 fL (80.0-98.0); Mean Platelet Volume 9.1 fL (9.4-12.4); Platelet Count 183 X10*3/uL (160-400); Red Blood Count 4.03 X10*6/uL (4.60-5.80); Red Cell Distribution Width 12.1 % (11.0-16.0); White Blood Count 8.4 X10*3/uL (4.8-10.8)
[2022-11-11 15:42] LABS: Thyroid Stimulating Hormone 1.62 uIU/mL (0.32-4.0)
[2022-11-11 16:42] LABS: Alanine Aminotransferase 24 U/L (0-40); Albumin Level 3.8 g/dL (3.5-5.0); Alkaline Phosphatase 93 U/L (39-117); Anion Gap 16 (12-20); Aspartate Amino Transferase 27 U/L (5-37); Bilirubin Direct 0.1 mg/dL (0.0-0.5); Bilirubin Total 0.3 mg/dL (0.0-1.0); Blood Urea Nitrogen 7 mg/dL (9-16); C Reactive Protein 0.81 mg/dL (< or = 0.50); Calcium 9.5 mg/dL (8.4-10.2); Carbon Dioxide 23 mmol/L (22-29); Chloride 105 mmol/L (96-108); Estimated Glomerular Filt Rate > 60; Glucose Random 90 mg/dL (60-115); Potassium 4.6 mmol/L (3.3-5.1); Sodium 139 mmol/L (135-145); Total Protein 8.1 g/dL (6.5-8.0)
== END 2022-11-11 14:23 | disposition home or self-care (01) ==
LOC: HO.LAB 14:22
PROVIDERS: PCP Internal Medicine; Visit Provider Internal Medicine
DX: K21.9 Gastro-esophageal reflux disease without esophagitis (principal); M54.6 Pain in thoracic spine
CPT/HCPCS: 36415; 80048; 80076; 84443; 85027; 86140

== ENCOUNTER 2022-11-18 08:43 | Outpatient (AMB) | payer OTHER, SELFPAY ==
--- NOTE | 2022-11-18 08:51 | A.OFFVIS_ITS ---
Intake Vital Signs 11/18/22 08:59 Height 5 ft 8 in Weight 251 lb 1 oz BMI 38.2 BP 130/90 H Blood Pressure Location Rt brachial Position Sitting Respiration 18 Pulse 76 Pulse Source Pulse Oximeter Pulse Oximetry (%) 96 Oxygen Delivery Method Room Air Intake Visit Reasons: thoracic pain - Procedures only Allergies tetanus and diphtheria toxoids Allergy (Intermediate, Verified 11/18/22 08:52) Rash HPI HPI Comments History of Present Illness Details Brian is a very pleasant 51-year-old male who presents to the office today for evaluation and management of his chronic middle and lower back pain. Patient complaining of 9/10 left lower back pain with radiation down left leg to the level of the ankle. Patient has suffered with this pain for several years and attributes it to multiple falls in the past while he was ?actively using ?. He endorses numbness tingling and burning sensation down the left leg. Pain is constant, worse in the evenings and has not responded to muscle relaxers, nonsteroidal anti-inflammatory medicines, chiropractor or physical therapy. He reports he last attended physical therapy several months ago but continues with home exercise program though this does not improve the pain. Patient had recent imaging which was reviewed today with him showing old thoracic and lumbar compression fractures. He denies history of known trauma other than these falls. Patient denies red flag symptoms including loss of bowel, bladder or saddle anesthesia. In terms of muscle damage condition is described as aching, spasming, hot, burning, stabbing, sharp, tingling, cramping, squeezing, numb, throbbing, pins and needles. Pain is negatively impacting enjoyment of life, general activity, mood, normal work, recreational activities, sleep and walking. [facility] Medical History (Updated 11/18/22 @ 11:56 by Iveth Thakkar APRN, MORTGAGE ACCOUNTING CLERK) Anxiety GERD (gastroesophageal reflux disease) Hospital discharge follow-up Lower thoracic back pain Obstructive sleep apnea Stasis dermatitis of both legs Substance abuse Varicose vein of leg Surgical History History of shoulder surgery History of varicose vein stripping Family History Mother Diabetes Heart problem Father Esophagus cancer Other Mental health disorder Substance use disorder Social History Household Members: Spouse Housing: House Do you presently have visiting nurse or other home services: No Alcohol intake: former Patient Tobacco Use Status: Former Tobacco user e-Cigarette/Vaping Use: Never Used Second Hand Smoke Exposure: Yes Substance Use Type: Crack/Cocaine and Heroin service: No Current occupational status: unemployed Cognitive needs: Yes (cane) Hearing needs: No Vision needs: No Review of Systems Const All systems reviewed & are unremarkable except as noted in HPI and below Physical Exam General: awake, alert, oriented. Answers questions appropriately. Fully engaged in examination. Skin: warm, dry, intact without visible rashes or lesions. HEENT: Normocephalic. Conjuntivae clear without exudate. Sclera non-icteric. Hearing intact. Cardiac: External chest normal in appearance. Respiratory: No signs of trauma. No signs of respiratory distress. No cough, audible wheezing or stridor. Abdomen: without gross distension. Neurological: Oriented to person, place, time and situation. Thought process intact. No gait abnormalities appreciated. Psychiatric: Appropriate mood and affect. Good judgment and insight. Back/Spine/Pelvis Other: Able to stand on bilateral tiptoes and bilateral heels. Able to transition from sit to stand unassisted. Ambulates with bilaterally normal heel strike and toe off Tender to palpation over left PSIS and paraspinal muscles in region of L2-3 to L4-5 ROM: limited secondary to pain with extension to 5 degrees. flexion to 50 degrees Strength: 5/5 BLE Straight leg raises with and without dorsiflexion positive on left Facet loading positive bilaterally YASHIRA positive bilaterally Thigh thrust positive on left SI compression positive on left Results Reviewed Results Reviewed: 03/12/2022 Three views of the lumbosacral spine. FINDINGS: Bone alignment is normal. There is a moderate L4 body compression fracture. This does not appear acute. There is a moderate T11 vertebral body compression fracture that does not appear acute. There may be a mild old T12 vertebral body compression fracture as well. Disc spaces are normal. There is lower lumbar spine facet arthritis. IMPRESSION: Old-appearing lower thoracic and L4 vertebral body compression fractures. Lower lumbar spine facet arthritis. Assessment & Plan Assessment & Plan (1) Hx of compression fracture of spine: Code(s): Z87.81 - Personal history of (healed) traumatic fracture (2) Lumbar radiculopathy: Code(s): M54.16 - Radiculopathy, lumbar region (3) Facet arthritis of lumbar region: Code(s): M47.816 - Spondylosis without myelopathy or radiculopathy, lumbar region (4) Lumbar spondylosis: Code(s): M47.816 - Spondylosis without myelopathy or radiculopathy, lumbar region (5) Sacroiliac joint dysfunction of left side: Code(s): M53.3 - Sacrococcygeal disorders, not elsewhere classified Plan Brian is a very pleasant 51 year old male who presented to the office today for evaluation and management of his chronic middle and lower back pain. History, physical exam and provocative testing consistent with left side SI joint dysfunction, left lumbar radiculopathy and thoracic/lumbar facet arthropathy. Most recent xray reviewed. MRI lumbar spine without contrast and MRI thoracic spine without contrast ordered today for further evaluation. Pending results of MRI consider referral to Dr Bird, neurosurgery at [facility]. Will schedule for Fluoroscopy guided diagnostic left SI joint injection with local anesthetic for left sacroiliac joint dysfunction. Discussed options for treatment including diagnostic interventional testing, epidural steroid injections, peripheral nerve stimulation with Sprint, RFA and more permanent neuromodulation. All questions and concerns have been answered and patient agrees with the plan. Patient will follow up here after MRI/injection, sooner if needed. Orders: Orders MR lumbar spine wo con Today M54.16 - Radiculopathy, lumbar region, Z87.81 - Personal history of (healed) traumatic fracture MR thoracic spine wo con Today Z87.81 - Personal history of (healed) traumatic fracture Coding Level of Care Code New Pt Level 4 (74190) Diagnoses Hx of compression fracture of spine Z87.81 Lumbar radiculopathy M54.16 Facet arthritis of lumbar region M47.816 Lumbar spondylosis M47.816 Sacroiliac joint dysfunction of left side M53.3
[2022-11-18 08:59] VITALS: BP 130/90; PULSE 76; RESP 18; O2SAT 96; BMI 38.2
== END 2022-11-18 09:41 | disposition home or self-care (01) ==
PROVIDERS: PCP Internal Medicine; Visit Provider Registered Nurse Emergency
DX: M54.16 Radiculopathy, lumbar region (principal); M47.816 Spondylosis without myelopathy or radiculopathy, lumbar region; M53.3 Sacrococcygeal disorders, not elsewhere classified; Z87.81 Personal history of (healed) traumatic fracture
CPT/HCPCS: 99204

== ENCOUNTER → 2022-11-18 08:43 | Outpatient (BNVA) | payer OTHER, SELFPAY | PROVIDERS: PCP Internal Medicine; Visit Provider Registered Nurse Emergency | DX: M54.16 Radiculopathy, lumbar region (principal); M47.816 Spondylosis without myelopathy or radiculopathy, lumbar region; M53.3 Sacrococcygeal disorders, not elsewhere classified; Z87.81 Personal history of (healed) traumatic fracture | CPT/HCPCS: 99202 ==

== ENCOUNTER 2023-01-04 08:20 | Emergency (ER) | payer OTHER, SELFPAY ==
--- NOTE | ~2023-01-04 | XR_ITS ---
EXAMINATION: XR CHEST CLINICAL INFORMATION: Left-sided chest pain COMPARISON: chest x-ray and CTA chest 08/18/2021 TECHNIQUE: 2 views of the chest were obtained. FINDINGS: Cardiac silhouette is normal in size. The lungs are well aerated. There is no lobar consolidation. No pleural effusion or pneumothorax. Moderate degenerative changes of the spine. XR/XR chest 2V IMPRESSION: No acute pulmonary pathology.
--- NOTE | 2023-01-04 08:25 | ECG_ITS ---
Test Reason : chest pain Blood Pressure : / mmHG Vent. Rate : 064 BPM Atrial Rate : 064 BPM P-R Int : 160 ms QRS Dur : 082 ms QT Int : 436 ms P-R-T Axes : 023 -15 011 degrees QTc Int : 449 ms Normal sinus rhythm Minimal voltage criteria for LVH, may be normal variant ( R in aVL ) Borderline ECG When compared with ECG of 18-AUG-2021 06:08, QRS axis Shifted right Non-specific change in ST segment in Lateral leads Referred By: Generic ED Physician Electronically Signed By:ALEK CHILDERS
[2023-01-04 08:36] VITALS: BP 146/71; PULSE 94; RESP 16; TEMP 37; O2SAT 98; BMI 40.0
[2023-01-04 08:39] LABS: MANUAL DIFF FLAG NO
[2023-01-04 08:48] LABS: Basophils Percent Auto 0.4 % (0-2); Eosinophils Absolute Auto 0.1 X10*3/uL (0.0-0.4); Eosinophils Percent Auto 1.1 % (0-4); Hematocrit 33.4 % (42.0-52.0); Hemoglobin 11.1 g/dl (14.0-18.0); Imm Gran Abs Auto 0.02 X10*3/uL (0.00-0.03); Imm Gran Pct Auto 0.4 % (0.0-0.4); Lymphocytes Absolute Auto 2.3 X10*3/uL (1.2-4.9); Lymphocytes Percent Auto 41.5 % (20-40); Mean Corpuscular HGB Conc 33.2 g/dl (31.0-36.0); Mean Corpuscular Hemoglobin 30.3 pg (27.0-33.0); Mean Corpuscular Volume 91.3 fL (80.0-98.0); Mean Platelet Volume 8.9 fL (9.4-12.4); Monocytes Absolute Auto 0.6 X10*3/uL (0.1-1.2); Neutrophils Absolute Auto 2.6 x10*3/uL (2.0-8.3); Neutrophils Percent Auto 46.6 % (45-73); Platelet Count 178 X10*3/uL (160-400); Red Blood Count 3.66 X10*6/uL (4.60-5.80); Red Cell Distribution Width 12.5 % (11.0-16.0); White Blood Count 5.6 X10*3/uL (4.8-10.8)
--- NOTE | 2023-01-04 08:49 | ED_ITS ---
HPI - Chest Pain General Chief Complaint: Chest Pain Stated Complaint: Chest Pain X 2 Days Time Seen by Provider: 01/04/23 08:48 Source: patient Mode of arrival: ambulatory Limitations: no limitations History of Present Illness HPI narrative: 52 yo male with history of DANIEL, GERD, reactive airway disease, anxiety, PVD, substance abuse on methadone with history of IVDA and MSSA bacteremia in the past, current cocaine use who presents to the ER for evaluation of intermittent, non-radiating, throbbing left sided chest pains for the last 2 days. The pains come and go and last seconds to a few minutes. No associated SOB, nausea, diaphoresis, dyspnea, anxiety. He currently has no pain. No leg swelling. No recent strenuous activity or heavy lifting. MD complaint: chest pain Onset (ago): day(s) (2) Timing of current episode: episodic Prior episodes: Yes (age 22, told it was muscular) Onset: during rest Pain location: left chest Pain radiation: none Severity: moderate Quality: other (throbbing) Relieving factors: nothing Exacerbating factors: nothing Context: other (cocaine use) Treatment prior to arrival: none Risk Factors Coronary artery disease risk factors: cocaine use Thoracic aortic dissection risk factors: none Related Data Home Medications Medication Instructions Recorded Confirmed methadone 80 mg PO DAILY 11/26/21 11/11/22 aripiprazole 15 mg tablet 15 mg PO DAILY 11/11/22 11/11/22 fluoxetine 20 mg tablet 20 mg PO DAILY 11/11/22 11/11/22 gabapentin 400 mg capsule mg PO 11/11/22 11/11/22 zolpidem 5 mg tablet (Ambien) 5 mg PO BEDTIME 11/11/22 11/11/22 Previous Rx's Medication Instructions Recorded cane #1 ea 03/26/22 meloxicam 7.5 mg tablet 15 mg (2 x 7.5 mg) PO DAILY #30 08/13/22 tabs omeprazole 20 mg capsule,delayed 20 mg PO DAILY #90 caps 08/13/22 release albuterol sulfate 90 mcg/actuation 1 puff PO QID PRN for wheezing #18 11/29/22 aerosol inhaler (Ventolin HFA) grams cyclobenzaprine 10 mg tablet 10 mg PO BEDTIME #14 tabs 12/17/22 Allergies Allergy/AdvReac Type Severity Reaction Status Date / Time tetanus and diphtheria Allergy Intermediate Rash Verified 11/18/22 08:52 toxoids Review of Systems 2 Review of Systems: Yes all other systems are reviewed and are negative [facility] Past Medical History Medical History (Updated 01/04/23 @ 09:08 by JARRED Mccarty) Obstructive sleep apnea GERD (gastroesophageal reflux disease) Lower thoracic back pain Varicose vein of leg Stasis dermatitis of both legs Anxiety Hospital discharge follow-up Substance abuse Surgical History History of varicose vein stripping History of shoulder surgery Family History Family History Mother Diabetes Heart problem Father Esophagus cancer Other Mental health disorder Substance use disorder Social History Social History Household Members: Spouse Housing: House Do you presently have visiting nurse or other home services: No Alcohol intake: never Patient Tobacco Use Status: Former Tobacco user Smoked in Last 30 Days: No e-Cigarette/Vaping Use: Never Used Second Hand Smoke Exposure: Yes Use of substances other than those prescribed or required for medical reasons: Yes Substance Use Type: Crack/Cocaine Last Used Substance: Days (ago) Advance Directives: No service: No Current occupational status: unemployed Cognitive needs: Yes (cane) Hearing needs: No Vision needs: No Physical Exam 2 Vital Signs: Vital Signs: Last Vital Signs Temp 98.6 F 01/04/23 08:36 Pulse 68 01/04/23 09:07 Resp 16 01/04/23 09:07 BP 129/97 H 01/04/23 09:07 Pulse Ox 98 01/04/23 09:07 O2 Del Method Room Air 01/04/23 09:07 BMI result Body Mass Index 40.0 Appearance: Alert. Oriented X3. No acute distress. Head: normocephalic, atraumatic. Eyes: Pupils equal, round and reactive to light. ENT: Pharynx normal. No tonsillar swelling or exudate. Neck: Normal inspection. Neck supple. CVS: Normal heart rate and rhythm. Pulses normal. Chest wall is nontender Respiratory: No respiratory distress. Breath sounds normal. Abdomen: Soft and nontender. +BS x4 Skin: Skin warm and dry. Normal skin color. Normal skin turgor. No rashes. Extremities: No lower extremity edema. No joint swelling. No calf swelling or tendernes Neuro/psych: Oriented X 3. No motor deficit. No sensory deficit. CN II-XII intact. Normal speech and cognition. Medical Decision Making Medical Decision Making [facility] Narrative: 52 yo male with history of DANIEL, GERD, reactive airway disease, anxiety, PVD, substance abuse on methadone with history of IVDA and MSSA bacteremia in the past, current cocaine use who presents to the ER for evaluation of intermittent, non-radiating, throbbing left sided chest pains for the last 2 days. He had one event during interview that lasted seconds and self resolved. EKG without concerning ischemic changes. troponin negative. cxr clear HEART score 2. could be cocaine induced vasospasm. at this time patient is stable for d/c home with cessation of cocaine and PCP & cardiology follow up. return precautions were discussed and all questions were answered. stable for d/c Differential Diagnosis Differential Diagnoses: The differential diagnosis associated with the presentation includes coronary vasospasm, cocaine induced vasoconstriction, ACS, anxiety, costochondritis, pericarditis, myocarditis Admission/Observation Consideration of admission/observation: Escalation of care including admission/observation considered Lab Data [facility] Lab Attestation statement: I reviewed the patient's lab results. 01/04/23 08:34 01/04/23 08:34 Labs: Lab Results 01/04/23 Range/Units 08:34 WBC 5.6 (4.8-10.8) X10*3/uL RBC 3.66 L (4.60-5.80) X10*6/uL Hgb 11.1 L (14.0-18.0) g/dl Hct 33.4 L (42.0-52.0) % MCV 91.3 (80.0-98.0) fL MCH 30.3 (27.0-33.0) pg MCHC 33.2 (31.0-36.0) g/dl RDW 12.5 (11.0-16.0) % Plt Count 178 (160-400) X10*3/uL MPV 8.9 L (9.4-12.4) fL Immature Gran % (Auto) 0.4 (0.0-0.4) % Neut % (Auto) 46.6 (45-73) % Lymph % (Auto) 41.5 H (20-40) % [place]leigh % (Auto) 10.0 (2-11) % Eos % (Auto) 1.1 (0-4) % Baso % (Auto) 0.4 (0-2) % Lymph # (Auto) 2.3 (1.2-4.9) X10*3/uL [place]leigh # (Auto) 0.6 (0.1-1.2) X10*3/uL Eos # (Auto) 0.1 (0.0-0.4) X10*3/uL Baso # (Auto) 0.0 (0.0-0.2) X10*3/uL Abs Immat Gran (auto) 0.02 (0.00-0.03) X10*3/uL Absolute Neuts (auto) 2.6 (2.0-8.3) x10*3/uL Absolute Nucleated RBC 0.000 (0.0-0.012) X10*3/uL Nucleated RBC % (auto) 0.0 (0.0-0.2) /100WBC Sodium 136 (135-145) mmol/L Potassium 4.1 (3.3-5.1) mmol/L Chloride 103 (96-108) mmol/L Carbon Dioxide 26 (22-29) mmol/L Anion Gap 11 L (12-20) BUN 8 L (9-16) mg/dL Creatinine 0.78 (0.5-1.4) mg/dL Estim Creat Clear Calc 140.7 Estimated GFR > 60 Random Glucose 89 (60-115) mg/dL Calcium 9.3 (8.4-10.2) mg/dL Troponin I High Sens < 2.7 (<3.5-35.0) ng/L B-Natriuretic Peptide 28 (<100) pg/mL Independent Interpretation I performed an independent interpretation of an: EKG and Plain X-Ray Interpretation: ekg w/ normal sinus rhythm, HR 64 bpm, isolated t-wave inversion in lead III only, no ST segment elevations or depression cxr w/ clear lungs, no PTX or PNA Radiology Impression Discussion of test interpretation with radiology: I have reviewed the radiologist's reading. Radiologist Impression: EXAMINATION: XR CHEST CLINICAL INFORMATION: Left-sided chest pain COMPARISON: chest x-ray and CTA chest 08/18/2021 TECHNIQUE: 2 views of the chest were obtained. FINDINGS: Cardiac silhouette is normal in size. The lungs are well aerated. There is no lobar consolidation. No pleural effusion or pneumothorax. Moderate degenerative changes of the spine. XR/XR chest 2V IMPRESSION: No acute pulmonary pathology. External Record Review External record reviewed: Inpatient record, Office record, Outpatient record, Prior outpatient labs and Prior outpatient radiology Prescription Management I considered prescription management with: Pain Medication and Other (nitroglycerina) Chronic Conditions Patient?s care impacted by: Other (drug use, obesity) Social Determinants Patient?s care significantly limited by Social Determinants of Health including: Other Social Determinant of Health Scores Heart Score History: -0- slightly suspicious ECG: -0- normal Age: -1- >45 - <65 Risk factory: -1- 1 or 2 risk factors Troponin: -0- < or = normal limit Score: 2 Risk: 1.7% Critical Care Time Critical Care Time Critical Care Time: No Discharge Plan Discharge Clinical Impression: Chest pain Patient Disposition: Home, Self-Care Instructions: Chest Pain (DC) Additional Instructions: Your workup today was unremarkable. Recommend STOPPING cocaine, this can lead to chest pain and cardiac events. Follow up with your PCP. If you develop new or worsening symptoms call 911 or come back to the ER for further evaluation. Prescriptions: No Action albuterol sulfate [Ventolin HFA] 90 mcg/actuation HFA aerosol inhaler 1 puff PO QID PRN (Reason: for wheezing) Qty: 18 0RF cyclobenzaprine 10 mg tablet 10 mg PO BEDTIME Qty: 14 0RF methadone liquid 80 mg PO DAILY (DME) cane Device See Rx Instructions .Route Qty: 1 0RF Rx Instructions: As directed meloxicam 7.5 mg tablet 15 mg PO DAILY Qty: 30 0RF omeprazole 20 mg capsule,delayed release(DR/EC) 20 mg PO DAILY Qty: 90 1RF gabapentin 400 mg capsule PO fluoxetine 20 mg tablet 20 mg PO DAILY aripiprazole 15 mg tablet 15 mg PO DAILY zolpidem [Ambien] 5 mg tablet 5 mg PO BEDTIME Rx Instructions: may repeat once if no response in 30-60 minutes Referrals: [facility] Services [Provider Group] (chest pain) Francisco Tam MD [Primary Care Provider] -
[2023-01-04 08:57] LABS: Anion Gap 11 (12-20); Blood Urea Nitrogen 8 mg/dL (9-16); Calcium 9.3 mg/dL (8.4-10.2); Carbon Dioxide 26 mmol/L (22-29); Chloride 103 mmol/L (96-108); Creatinine Clr Calc Pharmacy 140.7; Estimated Glomerular Filt Rate > 60; Glucose Random 89 mg/dL (60-115); Potassium 4.1 mmol/L (3.3-5.1); Sodium 136 mmol/L (135-145)
[2023-01-04 09:04] LABS: B Type Natriuretic Peptide 28 pg/mL (<100)
[2023-01-04 09:06] LABS: Troponin-I High Sensitivity < 2.7 ng/L (<3.5-35.0)
[2023-01-04 09:07] VITALS: BP 129/97; PULSE 68; RESP 16; O2SAT 98
--- NOTE | 2023-01-04 09:10 | PC.NURSE ---
pt a&ox3. respirations even and unlabored. lung sounds clear bilaterally. pt reports intermittent left chest pain for 3 days. pt denies radiation to upper extremities. pt denies any nausea, vomiting or shortness of breath. pt denies chest pains currently. pt reports doing some cocaine over the weekend by snorting it. pt normal sinus on tele.
[2023-01-04 10:14] VITALS: PULSE 68
== END 2023-01-04 10:15 | disposition home or self-care (01) ==
PROVIDERS: Emergency Provider Emergency Medicine; PCP Internal Medicine
DX: R07.9 Chest pain, unspecified (principal); F11.20 Opioid dependence, uncomplicated; Z79.899 Other long term (current) drug therapy; Z87.891 Personal history of nicotine dependence
CPT/HCPCS: 36415; 71046; 80048; 83880; 84484; 85025; 93005; 99283; 99284

== ENCOUNTER 2023-01-21 09:20 | Outpatient (AMB) | payer OTHER, SELFPAY ==
--- NOTE | 2023-01-21 09:21 | MHC.OFFVIS ---
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 Pt states he has been having trouble falling asleep and staying asleep thrughout the night. He states he sleeps in increments of 2 hours and is unable to fall back asleep. This results in fatigue and feeling sleepy throughout the day. This has become worse over the past year. Pt states he snores and kylie mouth breather. He wakes up with dry mouth every morning. He denies having a polysomnogram performed. Allergies tetanus and diphtheria toxoids Allergy (Intermediate, Verified 01/21/23 09:55) Rash HPI HPI Comments History of Present Illness Details 52 y/o male patient presents for new in-person visit for sleep consultation. Pt reports difficulty falling asleep and staying sleep. He only can sleep for up to 3 hrs. He uses ambien 10 mg but still wakes frequently at night and it is hard to go back to sleep. He feels tired all day long. Pt reports snoring, coughing up and gasping arousals. Pt has hx of asthma and GERD. He states that he feels fluids going in to his lungs and he coughs a lot. Pt is on methadone 80 mg daily. He gained 60 lb over the last 5 years. Pt reports he is not physically active, watches Youtube all day long. Sleep questionnaire: Have you ever been diagnosed with a sleep disorder? No. Have you ever had a sleep study in the past? No. Have you ever been treated for a sleep disorder? No. Do you take medications for a sleep disorder? Ambien 10 mg, it started 2 months ago. Do you snore? Yes. Do you wake up gasping at night? Yes. Do you have episodes of apneas? Yes. If yes, are they witnessed? Yes. Do you have episodes of nocturnal chest pain or dyspnea? Yes. Do you have difficulty initiating sleep? Yes. Do you have difficulty maintaining sleep? Yes. wakes up 3-4 times. Do you wake up tired? Yes. Do you have headaches upon awakening? No. Do you wake up with dry mouth or throat? Yes. Do you have GERD? Yes. Do you have nocturia? Yes. Do you have nocturnal leg cramps? Yes. Do you have symptoms of restless legs? No. Do you act out your dreams? No. Sleep hygiene questionnaire: What is your usual sleep routine? Usual bedtime is at N/A; Usual wake up time is at 5 am. Do you take naps? Yes. Is your sleep environment cool, dark, and quiet? Not really. Do you exercise? No. Do you take caffeine or other stimulants? One cup of coffee, 2-3 energy drink a day. Do you use electronics in bed? Yes. What is your work schedule? N/A. Hypersomnolence questionnaire: Do you have daytime tiredness or fatigue? Yes. Do you easily fall asleep when inactive? Yes. Have you ever had episodes of sudden weakness? No. Have you ever had episodes of sudden weakness associated with strong emotions? No. PFSH Medical History (Updated 01/21/23 @ 10:29 by Markus Culp CNP) Obstructive sleep apnea GERD (gastroesophageal reflux disease) Lower thoracic back pain Varicose vein of leg Stasis dermatitis of both legs Anxiety Hospital discharge follow-up Substance abuse Surgical History History of varicose vein stripping History of shoulder surgery Family History (Updated 01/21/23 @ 10:07 by Mckenna Guerrier CMA) Mother Diabetes Heart problem Father Esophagus cancer Other Mental health disorder Substance use disorder Social History Household Members: Spouse Housing: House Do you presently have visiting nurse or other home services: No Alcohol intake: never Patient Tobacco Use Status: Former Tobacco user e-Cigarette/Vaping Use: Never Used Second Hand Smoke Exposure: Yes Substance Use Type: Crack/Cocaine service: No Current occupational status: unemployed Cognitive needs: Yes (cane) Hearing needs: No Vision needs: No Review of Systems Const All systems reviewed & are unremarkable except as noted in HPI and below ENT Reports Normal hearing present Neuro Reports Normal hearing present Physical Exam Vital Signs: Last Vital Signs Pulse 88 01/21/23 10:03 Resp 15 01/21/23 10:03 BP 126/88 01/21/23 10:03 BMI result Body Mass Index 40.1 Const General: cooperative and tired appearing Nutritional Appearance: obese Orientation/consciousness: patient oriented x3 Neck Neck: Yes full ROM and Yes supple Resp Effort & Inspection: normal respiratory effort and able to speak in complete sentences Neuro General: patient oriented x3, gait normal and moves all extremities Cranial nerves: Yes Bilaterally intact EOM present, Yes Normal facial strength present, Yes Midline tongue present, Yes Symmetric palate elevation present, Yes Normal hearing present, Yes Ability to bilaterally rotate head present and Yes Ability to bilaterally elevate shoulders present Cognition (Neuro): normal cognition Gait exam (Neuro): Normal gait present Motor exam (neuro): 5/5 motor strength present throughout, Pronator motor function not present and no tremor noted Psych Appearance: grossly normal Speech and movement: Normal speech and movement present Affect: normal affect Attitude: cooperative Assessment & Plan Assessment & Plan (1) Daytime sleepiness: Code(s): R40.0 - Somnolence (2) Snoring: Code(s): R06.83 - Snoring (3) Sleep difficulties: Code(s): G47.9 - Sleep disorder, unspecified (4) Obstructive sleep apnea: Code(s): G47.33 - Obstructive sleep apnea (adult) (pediatric) Plan Pt is advised to undergo home sleep study to assess for sleep apnea. Will f/u with pt after study to discuss results and appropriate treatment options. Sleep hygiene education provided. Advised patient to increase daily physical activity. Walk 30 min daily. Advised patient to limit youtube watches or electronic use before bedtime. Advised patient to try magnesium, calcium and vitamin D supplement. Wt reduction advised. Pt to call with any worsening concerns or questions. Orders: Orders RT home sleep study 01/21/23 G47.33 - Obstructive sleep apnea (adult) (pediatric), G47.9 - Sleep disorder, unspecified, R06.83 - Snoring, R40.0 - Somnolence Coding Level of Care Code New Pt Level 4 (54911) Diagnoses Daytime sleepiness R40.0 Snoring R06.83 Sleep difficulties G47.9 Obstructive sleep apnea G47.33
[2023-01-21 10:03] VITALS: BP 126/88; PULSE 88; RESP 15; BMI 40.1
== END 2023-01-21 10:37 | disposition home or self-care (01) ==
PROVIDERS: PCP Internal Medicine; Visit Provider Nurse Practitioner Family
DX: R40.0 Somnolence (principal); R06.83 Snoring; G47.9 Sleep disorder, unspecified; G47.33 Obstructive sleep apnea (adult) (pediatric)
CPT/HCPCS: 99204

== ENCOUNTER → 2023-01-21 09:20 | Outpatient (BNVA) | payer OTHER, SELFPAY | PROVIDERS: PCP Internal Medicine; Visit Provider Nurse Practitioner Family ==

== ENCOUNTER 2023-02-10 07:13 | Outpatient (REF) | payer OTHER, SELFPAY ==
--- NOTE | ~2023-02-10 | MR_ITS ---
EXAMINATION: MR THORACIC SPINE WITHOUT CONTRAST CLINICAL INFORMATION: Personal history of healed traumatic fracture. COMPARISON: None TECHNIQUE: MRI of the thoracic spine was obtained using routine sequences without contrast. Only a single sagittal T2 sequence was performed. The exam was subsequently terminated due to claustrophobia. FINDINGS: There is multilevel vertebral body height loss from T7 through T12 compatible with compression fractures with up to 45% height loss seen at the T11 level. There is no retropulsion. The intervertebral disc heights are fairly well preserved. The thoracic cord signal appears normal. There is no evidence of cord compression. No definite high-grade neural foraminal narrowing is seen. The extraspinal soft tissues are within normal limits allowing for a moderate size hiatal hernia. MR/MR thoracic spine wo con IMPRESSION: Limited exam with only one sequence obtained. Multilevel chronic appearing compression fractures from T7 through T12. No evidence of cord signal abnormality or cord compression.
== END 2023-02-10 07:14 | disposition home or self-care (01) ==
LOC: HO.MRI 07:13
PROVIDERS: PCP Internal Medicine; Visit Provider Registered Nurse Emergency
DX: Z87.81 Personal history of (healed) traumatic fracture (principal)
CPT/HCPCS: 72146

== ENCOUNTER 2023-02-17 14:11 | Outpatient (AMB) | payer OTHER, SELFPAY ==
--- NOTE | 2023-02-17 14:16 | A.OFFPC_ITS ---
Vital Signs 02/17/23 14:17 Height 5 ft 8 in Weight 247 lb 2 oz BMI 37.6 BP 132/80 Blood Pressure Location Lt brachial Position Sitting Pulse 104 H Pulse Source Pulse Oximeter Pulse Oximetry (%) 94 Oxygen Delivery Method Room Air Intake Visit Reasons: 3mth f/u Intake Note: Patient is here to follow up on Lumbar spondylosis, DANIEL, GERD. Needs forms filled out, complained of chest pain, no shortness of breath, no dizziness Household Appliances Service Technician Required: No Pants Busheler: Not Required per policy Accompanied by: Self / Same As Patient Allergies tetanus and diphtheria toxoids Allergy (Intermediate, Verified 02/18/23 05:29) Rash Medication List - Last Reconciled 02/18/23 by Francisco Tam MD albuterol sulfate 90 mcg/actuation (Ventolin HFA) 1 puff PO QID PRN aripiprazole 15 mg PO DAILY cane As directed cyclobenzaprine 10 mg PO BEDTIME fluoxetine 20 mg PO DAILY gabapentin mg PO [methadone 80 mg PO DAILY] omeprazole 20 mg PO DAILY zolpidem (Ambien) 10 mg PO BEDTIME Tobacco use date assessed: 02/17/23 Dental Screening Dental Screen Date: 02/17/23 Did you have a dental visit in the last 12 months?: No Did you have a dental problem in the last 6 months where you did not have access to dental care?: No Was dental information given to patient?: Patient has dentist HPI 3mth f/u HPI0 Details 52-year-old male presents to the office to discuss his chronic medical conditions. Unfortunately patient has reverted back to substance use. His stress factors include the of his parent and Nephew. Patient is requesting a refill on his cyclobenzaprine. He wants me to sign a form that would allow him to continue with disability. Unfortunately he did not bring the form with him. Continues to be followed up at pain management and a recent MRI could not be completed. Continues to be anxious and depressed. Able to function and do activities of daily living. [facility] Medical History Obstructive sleep apnea GERD (gastroesophageal reflux disease) Lower thoracic back pain Varicose vein of leg Stasis dermatitis of both legs Anxiety Hospital discharge follow-up Substance abuse Surgical History History of varicose vein stripping History of shoulder surgery Family History Mother Diabetes Heart problem Father Esophagus cancer Other Mental health disorder Substance use disorder Social History Household Members: Spouse Housing: House Do you presently have visiting nurse or other home services: No Alcohol intake: never Patient Tobacco Use Status: Former Tobacco user e-Cigarette/Vaping Use: Never Used Second Hand Smoke Exposure: Yes Substance Use Type: Crack/Cocaine service: No Current occupational status: unemployed Cognitive needs: Yes (cane) Hearing needs: No Vision needs: No Questionnaire Thrive Questionnaire Date Thrive assessed: 08/13/22 YOUSUF-7 AMB Questionnaire YOUSUF-7 Date YOUSUF - 7 assessed: 08/13/22 Source: Developed by Drs. Paolo Elam, Shreya Roman, Alberto Seo and colleagues, with an educational ashleigh from [employer]. Physical exam (Primary Care) Vital Signs: Last Vital Signs Pulse 104 H 02/17/23 14:17 BP 132/80 02/17/23 14:17 Pulse Ox 94 02/17/23 14:17 Oxygen Delivery Method Room Air 02/17/23 14:17 Care Plan Goal for BP management: Blood pressure is stable. Continue medications. BMI result Body Mass Index 37.6 Tobacco/Smoking Status: Tobacco use Status Tobacco use date assessed 02/17/23 02/17/23 14:20 Patient Tobacco Use Status Former Tobacco user 02/17/23 14:20 e-Cigarette/Vaping Use Never Used 02/17/23 14:20 Thrive Assessment: Date of Thrive Assessment Date Thrive assessed 08/13/22 02/17/23 14:20 Const General: cooperative and healthy appearing Nutritional Appearance: well nourished Orientation/consciousness: patient oriented x3 Limitations: no limitations HENMT Head: Yes normal to inspection Eyes General: appearance normal, both eyes and all related structures Neck Neck: Yes normal visual inspection Chest Chest palpation & inspection: normal palpation of entire chest wall Resp Effort & Inspection: normal respiratory effort Neuro General: patient oriented x3 Office Procedures Flu Questionnaire Does the patient have a severe egg allergy?: No Does the patient have severe life threatening allergies?: No Does the patient have a fever or illness today?: No Has the patient ever had Guillain-Melvin Syndrome?: No Has the patient ever had any past reaction to a flu shot?: No Immunizations flu vacc [id number] 6mos up(PF) 60 mcg(15 mcgx4)/0.5 mL IM syringe Performing Provider: Francisco Tam MD [facility] Administered by: Shasta Kline on 02/17/23 14:32 Dose Route Admin Location Dispensed Lot Number Expiration Date NDC [employer] 0.5 mL IM Right Deltoid 0.5 mL [id number] 10/16/23 31460-644-68 [employer] VIS Given Date VIS Provided VIS Publication Date 02/17/23 Single Vaccine 20 Eligibility Eligibility Date Funding Source Not [facility] Eligible 02/17/23 Private Assessment and Plan Assessment & Plan (1) Active substance abuse: Code(s): F19.10 - Other psychoactive substance abuse, uncomplicated Plan: Patient was encouraged to get help for substance use, community navigation to be involved. Cyclobenzaprine prescription was ordered. Patient received his flu vaccine. Orders: Orders Influenza [id number] Immunization 02/17/23 Z23 - Encounter for immunization Medications: Refilled cyclobenzaprine 10 mg PO BEDTIME 14 tabs 0RF Coding Level of Care Code Est Pt Level 4 (94461) Diagnoses Active substance abuse F19.10
[2023-02-17 14:17] VITALS: BP 132/80; PULSE 104; O2SAT 94; BMI 37.6
== END 2023-02-17 14:50 | disposition home or self-care (01) ==
PROVIDERS: PCP Internal Medicine; Visit Provider Internal Medicine
DX: Z23 Encounter for immunization (principal)
CPT/HCPCS: 90471; 90686; 99214

== ENCOUNTER 2024-02-27 13:53 | Outpatient (AMB) | payer OTHER, SELFPAY ==
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
[2024-02-27 14:08] VITALS: BP 132/80; PULSE 64; O2SAT 95; BMI 36.8
== END 2024-02-27 15:08 | disposition home or self-care (01) ==
PROVIDERS: PCP Internal Medicine; Visit Provider Internal Medicine
DX: F19.10 Other psychoactive substance abuse, uncomplicated (principal); Z09 Encounter for follow-up examination after completed treatment for conditions other than malignant neoplasm

== ENCOUNTER → 2024-02-27 13:53 | Outpatient (BNVA) | payer OTHER, SELFPAY | PROVIDERS: PCP Internal Medicine; Visit Provider Internal Medicine | DX: Z09 Encounter for follow-up examination after completed treatment for conditions other than malignant neoplasm (principal); F19.10 Other psychoactive substance abuse, uncomplicated | CPT/HCPCS: 96127; 99212 ==

== ENCOUNTER 2024-03-06 14:56 | Outpatient (AMB) | payer OTHER, SELFPAY ==
[2024-03-06 14:57] VITALS: BP 122/80; PULSE 86; O2SAT 95; BMI 34.8
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
== END 2024-03-06 16:00 | disposition home or self-care (01) ==
PROVIDERS: PCP Internal Medicine; Visit Provider Internal Medicine
DX: F19.10 Other psychoactive substance abuse, uncomplicated (principal); K21.9 Gastro-esophageal reflux disease without esophagitis

== ENCOUNTER → 2024-03-06 14:56 | Outpatient (BNVA) | payer OTHER, SELFPAY | PROVIDERS: PCP Internal Medicine; Visit Provider Internal Medicine | DX: Z23 Encounter for immunization (principal); F19.10 Other psychoactive substance abuse, uncomplicated; K21.9 Gastro-esophageal reflux disease without esophagitis | CPT/HCPCS: 90471; 90656; 96127; 99212 ==

== ENCOUNTER 2024-03-07 07:07 | Outpatient (REF) | payer OTHER, SELFPAY ==
[2024-03-07 07:23] LABS: Hematocrit 34.6 % (42.0-52.0); Hemoglobin 11.7 g/dl (14.0-18.0); Mean Corpuscular HGB Conc 33.8 g/dl (31.0-36.0); Mean Corpuscular Hemoglobin 32.6 pg (27.0-33.0); Mean Corpuscular Volume 96.4 fL (80.0-98.0); Mean Platelet Volume 8.7 fL (9.4-12.4); Platelet Count 163 X10*3/uL (160-400); Red Blood Count 3.59 X10*6/uL (4.60-5.80); Red Cell Distribution Width 11.9 % (11.0-16.0); White Blood Count 5.7 X10*3/uL (4.8-10.8)
[2024-03-07 08:03] LABS: Alanine Aminotransferase 22 U/L (0-40); Albumin Level 3.8 g/dL (3.5-5.0); Alkaline Phosphatase 147 U/L (39-117); Anion Gap 12 (12-20); Aspartate Amino Transferase 25 U/L (5-37); Bilirubin Direct 0.1 mg/dL (0.0-0.5); Bilirubin Total 0.4 mg/dL (0.0-1.0); Blood Urea Nitrogen 13 mg/dL (9-16); Calcium 9.3 mg/dL (8.4-10.2); Carbon Dioxide 29 mmol/L (22-29); Chloride 101 mmol/L (96-108); Cholesterol 176 mg/dL (<200); Estimated Glomerular Filt Rate > 60; Glucose Random 89 mg/dL (60-115); HDL Cholesterol 48 mg/dL (>40); LDL Cholesterol Calculated 104 mg/dL (<100); Potassium 4.9 mmol/L (3.3-5.1); Sodium 137 mmol/L (135-145); Total Protein 7.4 g/dL (6.5-8.0); Triglycerides 121 mg/dL (<150)
[2024-03-07 08:10] LABS: Appearance Urine Clear; Color Urine Yellow; Glucose Urine UA Negative (Negative); Leukocyte Esterase Urine Negative (Negative); Nitrite Urine Negative (Negative); PH 6.5 (5.0-9.0); Specific Gravity - Urine 1.015 (1.005-1.025); Urine Blood Negative (Negative); Urine Ketones Negative (Negative); Urine Protein Negative (Neg-Trace)
[2024-03-07 08:18] LABS: Thyroid Stimulating Hormone 2.15 uIU/mL (0.32-4.0)
== END 2024-03-07 07:08 | disposition home or self-care (01) ==
LOC: HO.LAB 07:07
PROVIDERS: PCP Internal Medicine; Visit Provider Internal Medicine
DX: F19.10 Other psychoactive substance abuse, uncomplicated (principal); K21.9 Gastro-esophageal reflux disease without esophagitis
CPT/HCPCS: 36415; 80048; 80061; 80076; 81003; 84443; 85027

== ENCOUNTER 2024-04-09 07:49 | Outpatient (AMB) | payer OTHER, SELFPAY ==
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
--- OUTSIDE RECORDS SUMMARY | 2024-04-09 07:50 | XMS_ITS | Continuity of Care Document ---
Author Organization [place] - [facility], [facility] 1st Floor Address [address] [place] [address] Assessment No assessment recorded. Plan of Treatment Reminders Order Date Submit Date Provider Last Modified By Organization Details Last Modified Time Details Appointments RECHECK 15 2024 11:30A M Yong Otto MD Not available Not available Not available RECHECK 15 2024 10:30A M Kel Gillette MD Not available Not available Not available Lab None recorded. Referral occupatio nal therapist , hand referral - right small finger passive rom and strengthe be 2023 024 [email or web address] Not available 03/28/2024 14:58:20 Procedures None recorded. Surgeries None recorded. Imaging XR, finger(s) , 2 or more view - post op pt 3 views right small finger rm 104 2023 024 [facility], [address], [address], [place], [address], 03/28/2024 13:12:19 Medication Orders None recorded. Patient TargetsNo targets recorded. Patient InstructionsNo instructions recorded. Reason for Referral right small finger passive r om and strengthening Referring Physician: Juani Fontanez, Orthopedic Surgery, Encounter Date: 03/28/2024 Results Created Date Observation Date Name Description Value Unit Range Abnormal Flag Note LastModifiedBy Organization Detail LastModifiedTime 03/06/20 24 03/06/2024 XR, pelvi s, 3 or more view [email or web address] ?Encry pted=s hAaTro YD8dLq bEUv6g %2BXZw aYqtaq 0bqfl% 2Fg9IQ a4ajBk vP9nXo QUaueC m3YtLR FvZl [facility] HZtai3 0a8199 AC0Kqa XyMVqe vKiQtr MwF INTERFACE [facility] [address], [place], [address], 03/06/2024 11:57:55 03/06/20 24 03/06/2024 XR, pelvi s, 3 or more view [email or web address] ?Encry pted=s hAaTro YD8dLq bEUv6g %2BXZw aYqtaq 0bqfl% 2Fg9IQ a4ajBk vP9nXo QUaueC m3YtLR Zl [facility] HZtai3 7a9639 AC0Kqa XyMVqe vKiQtr MwF INTERFACE [facility] [address] [place] [address], [place], [address], 03/06/2024 11:57:58 03/16/20 24 03/16/2024 XR, hand, 3 or more view [email or web address] ?Encry pted=s hAaTro YD8dLq bEUv6g %2BXZw aYqtaq 0bqfl% 2Fg9IQ a4ajBk vP9nXo QUaueC m3YtLR Zl [facility] HZtai[facility] 8e8754 AC0Kqa XiNUqO nKiQtr MwF INTERFACE [facility] [address] [facility] [address], [place], [address], 03/16/2024 09:54:55 03/16/20 24 03/16/2024 XR, hand, 3 or more view [email or web address] ?Encry pted=s hAaTro YD8dLq bEUv6g %2BXZw aYqtaq 0bqfl% 2Fg9IQ a4ajBk vP9nXo QUaueC m3YtLR FvZlgJ [facility] HZtai3 7x4358 AC0Kqa XiNUqO nKiQtr MwF INTERFACE [facility] [address], [place], [address], 03/16/2024 09:54:57 03/28/20 24 03/28/2024 XR, finge r(s), 2 or more view [email or web address] ?Encry pted=s hAaTro YD8dLq bEUv6g %2BXZw aYqtaq 0bqfl% 2Fg9IQ a4ajBk vP9nXo QUaueC m3YtLR FvZlgJ [facility] HZtai3 8u0081 AC0Kqb n2NVKO nKiQtr MwF INTERFACE [facility] [address], [place], [address], 03/28/2024 13:12:20 03/28/20 24 03/28/2024 XR, finge r(s), 2 or more view [email or web address] ?Encry pted=s hAaTro YD8dLq bEUv6g %2BXZw aYqtaq 0bqfl% 2Fg9IQ a4ajBk vP9nXo QUaueC m3YtLR FvZl [facility] HZtai3 2i3063 AC0Kqb n2NVKO nKiQtr MwF INTERFACE [facility] [address], [place], [address], 03/28/2024 13:12:22 Result Notes None recorded. Problems Name Problem SNOMED Code Status Onset Date Resolution Date Notes Provider Name and Address Organization Details Recorded Time Pain in finger of right hand 2096231855937 09 Active 2023 Jaqui Bae PA-C [address], [place], [address], [facility] 4 09:18:55 Multiple closed fractures of pelvis without disruption of pelvic lumbee 0868326048210 04 Active 2023 MARLEEN head [place] - [facility] 4 11:49:05 Problem Notes None recorded. Medical Equipment None Reported. Allergies Allergen ID Allergen Name Allergen Category Reaction Reaction Severity Criticality Documentation Date Start Date Code Code System Note Provider Name and Address Organization Details Recorded Time 156758 Vaccine product containin g only Clostridi um tetani antigen (medicina l product) medicatio n Not available Not available Not available 02/22/2024 73508 2002 SNOMED SHIRA ZAINAB head [place] - [facility] 4 11:54:23 Medications Name Sig Start Date Stop [...] Updated DateTime 03/28/2024 172.72 cm 34.1 kg/m2 147619.69 g Tisha Francois [place] - [facility] 03/28/2024 13:06:16 Social History None recorded. Functional Status None recorded. Mental Status None recorded. Family History Nothing Reported. Medical History No medical history recorded. Past Encounters Encounter ID Performer Location Encounter Start Date Encounter Closed Date Diagnosis/Indication Diagnosis SNOMED-CT Code Diagnosis ICD10 Code [id number] Yong Otto MD [facility] [address] [place] [address] 03/06/2024 11:39:51 03/26/2024 14:38:03 Multiple closed fractures of pelvis without disruption of pelvic lumbee 8025726400 61535 S32.82XA [id number] Jaqui Bae PA-C [facility] [address] [place] [address] 03/16/2024 09:29:40 04/04/2024 12:16:59 Pain in right hand 9958997736 56088 M79.183 [id number] Khushi Miller, OTR/L,CHT [facility] [address] [place] [address] 03/19/2024 09:20:23 03/19/2024 10:12:41 Closed fracture of proximal phalanx of little finger 654455026 S62.646D [id number] Juani Fontanez PA-C [facility] [address] [place] [address] 03/28/2024 12:37:41 03/28/2024 14:00:21 Pain in right hand 4669827501 32730 M79.641 Health Concerns Section Related Observation LastModified by Organization Detai ls LastModified Time None Recorded Concern Status LastModified by Organization Details LastModified Time None Recorded Payers Encounter Date Sequence Insurance Name Policy Number Policy Collazo Covered Member ID Collazo Member ID Guarantor Name 03/28/2024 1 [facility] - HEALTH NET PLAN (MEDICAID HMO) DEMARCO Bonilla [id number] Brian Bonilla Notes Date Note Type Note Provider Name and Address Organization Details Recorded Time 03/28/2024 text/html I am seeing the patient [...] cap refillX-rays ordered, obtained and reviewed at [facility] 3 views right hand reveals to anterior fragment screws within the proximal phalanx. Fracture appears to be aligned. Interval callus noted.Impression/Pl an:Patient will start OT for passive ROM and strengthening and will wean from the brace as he makes progress with OT. Follow-up in 6 weeks. Patient agrees with this plan. All questions were answered.Speech recognition passenger car conductor software was used to create portions of this document. An attempt at proofreading has been made to minimize errors. Please call for corrections. uJani Fontanez PA-C [address] [place], [place] [address] [address], [place], [address], [facility] 03/28/2024 14:00:20
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
--- OUTSIDE RECORDS SUMMARY | 2024-04-09 07:51 | XMS_ITS | Continuity of Care Document ---
Author Organization [facility] 1st Floor Address [address] [place] [address] Assessment Encounter Date Assessment Date Assessment LastModified [...] finger. X-rays ordered, obtained and reviewed at [facility] 3 views of the right small finger demonstrate a displaced fracture of the shaft of the right small proximal phalanx. Impression: Displaced fracture, right small finger proximal phalanx Plan: Surgical treatment was recommended. Discussed with Dr. Veronica. Closed reduction percutaneous pinning, question open reduction. Patient placed in a ulnar gutter splint [email or web address] Not available 02/22/2024 10:08:31 Plan of Treatment Reminders Order Date Submit Date Provider Last Modified By Organization Details Last Modified Time Details Appointments RECHECK 15 2024 11:30A M Yong Otto MD Not available Not available Not available RECHECK 15 2024 10:30A Tawana Gillette MD Not available Not available Not available Lab None recorded . Referral None recorded . Procedures None recorded . Surgeries None recorded . Imaging XR, hand, 3 or more view - room 115 3V R hand 2023 024 [email or web address] [facility], [address], [address], 02/22/2024 10:20:52 Medication Orders None recorded . Patient TargetsNo targets recorded. Patient InstructionsNo instructions recorded. Reason for Referral None Reported. Results Created Date Observation Date Name Description Value Unit Range Abnormal Flag Note LastModifiedBy Organization Detail LastModifiedTime 02/22/20 24 02/22/2024 XR, hand, 3 or more view [email or web address]:/ [email or web address] ?Encry pted=s hAaTro YD8dLq bEUv6g %2BXZw aYqtaq 0bqfl% 2Fg9IQ a4ajBk vP9nXo QUaueC m3YtLR FvZlgJ JJ8mAn HZtai3 5c0328 AC0Kqa HuHWau mKiQtr MwF INTERFACE [facility] [address], [place], [address], 02/22/2024 09:44:28 02/22/20 24 02/22/2024 XR, hand, 3 or more view [email or web address] ?Encry pted=s hAaTro YD8dLq bEUv6g %2BXZw aYqtaq 0bqfl% 2Fg9IQ a4ajBk vP9nXo QUaueC m3YtLR FvZlgJ JJ8mAn HZtai3 8n2243 AC0Kqa HuHWau mKiQtr MwF INTERFACE [facility] [address], [place], [address], 02/22/2024 09:44:30 03/06/20 24 03/06/2024 XR, pelvi s, 3 or more view [email or web address] ?Encry pted=s hAaTro YD8dLq bEUv6g %2BXZw aYqtaq 0bqfl% 2Fg9IQ a4ajBk vP9nXo QUaueC m3YtLR FvZlgJ JJ8mAn HZtai3 7y8299 AC0Kqa XyMVqe vKiQtr MwF INTERFACE [facility] [address], [place], [address], 03/06/2024 11:57:55 03/06/20 24 03/06/2024 XR, pelvi s, 3 or more view [email or web address] ?Encry pted=s hAaTro YD8dLq bEUv6g %2BXZw aYqtaq 0bqfl% 2Fg9IQ a4ajBk vP9nXo QUaueC m3YtLR FvZlgJ JJ8mAn HZtai3 8r8934 AC0Kqa XyMVqe vKiQtr MwF INTERFACE [facility] [address], [place], [address], 03/06/2024 11:57:58 03/16/20 24 03/16/2024 XR, hand, 3 or more view [email or web address] ?Encry pted=s hAaTro YD8dLq bEUv6g %2BXZw aYqtaq 0bqfl% 2Fg9IQ a4ajBk vP9nXo QUaueC m3YtLR FvZlgJ JJ8mAn HZtai3 0d2791 AC0Kqa XiNUqO nKiQtr MwF INTERFACE [facility] [address], [place], [address], 03/16/2024 09:54:55 03/16/20 24 03/16/2024 XR, hand, 3 or more view [email or web address] ?Encry pted=s hAaTro YD8dLq bEUv6g %2BXZw aYqtaq 0bqfl% 2Fg9IQ a4ajBk vP9nXo QUaueC m3YtLR FvZl96 [address] Streettai3 4m0727 AC0Kqa XiNUqO nKiQtr MwF INTERFACE [facility] [address], [place], [address], 03/16/2024 09:54:57 03/28/20 24 03/28/2024 XR, finge r(s), 2 or more view [email or web address] ?Encry pted=s hAaTro YD8dLq bEUv6g %2BXZw aYqtaq 0bqfl% 2Fg9IQ a4ajBk vP9nXo QUaueC m3YtLR [address]ta[address] [address] AC0Kqb n2NVKO nKiQtr MwF INTERFACE [facility] [address] [facility] [address], [place], [address], 03/28/2024 13:12:20 03/28/20 24 03/28/2024 XR, finge r(s), 2 or more view [email or web address] ?Encry pted=s hAaTro YD8dLq bEUv6g %2BXZw aYqtaq 0bqfl% 2Fg9IQ a4ajBk vP9nXo QUaueC m3YtLR Zl [facility] 3j5372 AC0Kqb n2NVKO nKiQtr MwF INTERFACE [facility] [address], [place], [address], 03/28/2024 13:12:22 Result Notes None recorded. Problems Name Problem SNOMED Code Status Onset Date Resolution Date Notes Provider Name and Address Organization Details Recorded Time Pain in finger of right hand 1775154765472 09 Active 2023 Jaqui Bae PA-C [address], [place], [address], [facility] 4 09:18:55 Multiple closed fractures of pelvis without disruption of pelvic campo 4834281681847 04 Active 2023 [facility] 4 11:49:05 Problem Notes None recorded. Medical Equipment None Reported. Allergies Allergen ID Allergen Name Allergen Category Reaction Reaction Severity Criticality Documentation Date Start Date Code Code System Note Provider Name and Address Organization Details Recorded Time 382787 Vaccine product containin g only Clostridi um tetani antigen (medicina l product) medicatio n Not available Not available Not available 02/22/2024 82436 2002 SNOMED [facility] 4 11:54:23 Medications Name Sig Start [...] and Address Organization Details Last Updated DateTime 4 172.72 cm 34.1 kg/m2 021070. 69 g 58 /min 97.9 [degF] 97 % 97 % 16 /min SHIRA LAMB [place] - [facility] 4 10:25:14 Social History None recorded. Functional Status None recorded. Mental Status None recorded. Family History Nothing Reported. Medical History No medical history recorded. Past Encounters Encounter ID Performer Location Encounter Start Date Encounter Closed Date Diagnosis/Indication Diagnosis SNOMED-CT Code Diagnosis ICD10 Code [id number] [facility] [address] [place] [address] 02/22/2024 09:19:04 03/05/2024 14:09:35 Pain in right hand 2535106665 87294 M79.641 Health Concerns Section Related Observation LastModified by Organization Detai ls LastModified Time None Recorded Concern Status LastModified by Organization Details LastModified Time None Recorded Payers Encounter Date Sequence Insurance Name Policy Number Policy Collazo Covered Member ID Collazo Member ID Guarantor Name 02/22/2024 1 [facility] [employer] - HEALTH NET PLAN (MEDICAID HMO) DEMARCO Bonilla [id number] Brian Bonilla
--- OUTSIDE RECORDS SUMMARY | 2024-04-09 07:51 | XMS_ITS | Continuity of Care Document ---
Author Organization [facility], [facility] 1st Floor Address [address] [place] [address] Assessment No assessment recorded. Plan of Treatment Reminders Order Date Submit Date Provider Last Modified By Organization Details Last Modified Time Details Appointments RECHECK 2024 11:30A M Yong Otto MD Not available Not available Not available RECHECK 2024 10:30A M Kel Gillette MD Not available Not available Not available Lab None recorded . Referral None recorded . Procedures None recorded . Surgeries None recorded . Imaging None recorded . Medication Orders None recorded . Patient TargetsNo targets recorded. Patient Instructions Encounter Date Encounter Id Patient Instructions Last Modified By Organization Details Last Modified Time 03/19/[id number] [facility] Custom Hand Orthosis Information Sheet [address] [place] [address] Name: Brian Bonilla Right Diagnosis: Small finger [...] SOURCES: including, but not limited to, the addiction treatment counselor, dryer, stove, furnace, heater, car (on a hot summer day). PETS: they like to chew the plastic. SKIN: watch for redness, blisters or any skin irritations. CLEANING: use warm soapy water, wipes or machine lacer to keep the plastic clean, cotton socks [...] orthosis has been custom fabricated by: Khushi SMITH/Laura, CHT I understand the purpose, precautions and plan for this custom orthosis Patient Signature: [email or web address] Not available 03/19/2024 09:22:39 Reason for Referral None Reported. Results Created Date Observation Date Name Description Value Unit Range Abnormal Flag Note LastModifiedBy Organization Detail LastModifiedTime 02/22/20 24 02/22/2024 XR, hand, 3 or more view [email or web address] ?Encry pted=s hAaTro YD8dLq bEUv6g %2BXZw aYqtaq 0bqfl% 2Fg9IQ a4ajBk vP9nXo QUaueC m3YtLR FvZlgJ JJ8mAn HZtai3 8v2606 AC0Kqa HuHWau mKiQtr Mw INTERFACE [employer] [facility] [address] [address], [place], [address], 02/22/2024 09:44:28 02/22/20 24 02/22/2024 XR, hand, 3 or more view [email or web address] ?Encry pted=s hAaTro YD8dLq bEUv6g %2BXZw aYqtaq 0bqfl% 2Fg9IQ a4ajBk vP9nXo QUaueC m3YtLR FvZlgJ JJ8mAn HZtai3 2p6796 AC0Kqa HuHWau mKiQtr MwF INTERFACE [employer] [facility] [address] [facility] [address], [place], [address], 02/22/2024 09:44:30 03/06/20 24 03/06/2024 XR, pelvi s, 3 or more view [email or web address] ?Encry pted=s hAaTro YD8dLq bEUv6g %2BXZw aYqtaq 0bqfl% 2Fg9IQ a4ajBk vP9nXo QUaueC m3YtLR FvZl JJ8Kindred Healthcaretai3 8r8690 AC0Kqa XyMVqe vKiQtr MwF INTERFACE [facility] [address], [place], [address], 03/06/2024 11:57:55 03/06/20 24 03/06/2024 XR, pelvi s, 3 or more view [email or web address] ?Encry pted=s hAaTro YD8dLq bEUv6g %2BXZw aYqtaq 0bqfl% 2Fg9IQ a4ajBk vP9nXo QUaueC m3YtLR Zl J8Kindred Healthcaretai3 5p1004 AC0Kqa XyMVqe vKiQtr MwF INTERFACE [facility] [address] [address], [place], [address], 03/06/2024 11:57:58 03/16/20 24 03/16/2024 XR, hand, 3 or more view [email or web address] ?Encry pted=s hAaTro YD8dLq bEUv6g %2BXZw aYqtaq 0bqfl% 2Fg9IQ a4ajBk vP9nXo QUaueC m3YtLR Zl J8Kindred Healthcaretai3 5m1340 AC0Kqa XiNUqO nKiQtr MwF INTERFACE [facility] [address] [facility] [address], [place], [address], 03/16/2024 09:54:55 03/16/20 24 03/16/2024 XR, hand, 3 or more view [email or web address] ?Encry pted=s hAaTro YD8dLq bEUv6g %2BXZw aYqtaq 0bqfl% 2Fg9IQ a4ajBk vP9nXo QUaueC m3YtLR FvZlgJ JJ8[place] HZtai3 5v2399 AC0Kqa XiNUqO nKiQtr MwF INTERFACE [facility] [address], [place], [address], 03/16/2024 09:54:57 03/28/20 24 03/28/2024 XR, finge r(s), 2 or more view [email or web address] ?Encry pted=s hAaTro YD8dLq bEUv6g %2BXZw aYqtaq 0bqfl% 2Fg9IQ a4ajBk vP9nXo QUaueC m3YtLR FvZlgJ JJ8[place] HZtai3 2p5175 AC0Kqb n2NVKO nKiQtr MwF INTERFACE [facility] [address], [place], [address], 03/28/2024 13:12:20 03/28/20 24 03/28/2024 XR, finge r(s), 2 or more view [email or web address] ?Encry pted=s hAaTro YD8dLq bEUv6g %2BXZw aYqtaq 0bqfl% 2Fg9IQ a4ajBk vP9nXo QUaueC m3YtLR FvZl J[facility] HZtai3 2n4635 AC0Kqb n2NVKO nKiQtr MwF INTERFACE [facility] [address], [place], [address], 03/28/2024 13:12:22 Result Notes None recorded. Problems Name Problem SNOMED Code Status Onset Date Resolution Date Notes Provider Name and Address Organization Details Recorded Time Pain in finger of right hand 6338071101893 09 Active 2023 Jaqui Bae PA-C [address], [facility] [place], [address], [facility] 4 09:18:55 Multiple closed fractures of pelvis without disruption of pelvic [place] 5256131236124 04 Active 2023 MARLEEN BOYLE adilene [facility] 4 11:49:05 Problem Notes None recorded. Medical Equipment None Reported. Allergies Allergen ID Allergen Name Allergen Category Reaction Reaction Severity Criticality Documentation Date Start Date Code Code System Note Provider Name and Address Organization Details Recorded Time 002936 Vaccine product containin g only Clostridi um tetani antigen (medicina l product) medicatio n Not available Not available Not available 02/22/2024 38508 2002 SNOMED SHIRA ZAINAB [facility] 4 11:54:23 Medications Name Sig Start [...] Available Not Available No t Available Vitals None Recorded Social History None recorded. Functional Status None recorded. Mental Status None recorded. Family History Nothing Reported. Medical History No medical history recorded. Past Encounters Encounter ID Performer Location Encounter Start Date Encounter Closed Date Diagnosis/Indication Diagnosis SNOMED-CT Code Diagnosis ICD10 Code [id number] Drake Flores PA-C [facility] [address] [place] [address] 02/22/2024 09:19:04 03/05/2024 14:09:35 Pain in right hand [id number] 97527 M79.150 [id number] Yong Otto MD [facility] [address] [place] [address] 03/06/2024 11:39:51 03/26/2024 14:38:03 Multiple closed fractures of pelvis without disruption of pelvic [place] 0261997313 27837 S32.82XA [id number] Jaqui Bae PA-C [facility] [address] [place] [address] 03/16/2024 09:29:40 04/04/2024 12:16:59 Pain in right hand [id number] 67480 M79.033 [id number] Khushi Miller, OTR/L,CHT [facility] [address] [place] [address] 03/19/2024 09:20:23 03/19/2024 10:12:41 Closed fracture of proximal phalanx of little finger [id number] S62.646D Health Concerns Section Related Observation LastModified by Organization Detai ls LastModified Time None Recorded Concern Status LastModified by Organization Details LastModified Time None Recorded Payers Encounter Date Sequence Insurance Name Policy Number Policy Collazo Covered Member ID Collazo Member ID Guarantor Name 03/19/2024 1 [facility] HEALTH NET PLAN (MEDICAID HMO) DEMARCO Bonilla [id number] Brian Bonilla Notes Date Note Type Note Provider Name and Address Organization Details Recorded Time 03/19/2024 text/html Surgery with Dr. Gillette on 03/01/2024. Presented to the office on 03/16/2024 for a postoperative visit and was referred for a custom orthosis. Patient presents to the office today on 03/19/2024 to receive this custom piece. Khushi Miller OTR/L,CHT [address] [facility] [address], [place], [address], [facility] [place] [facility] 03/19/2024 09:24:43
--- OUTSIDE RECORDS SUMMARY | 2024-04-09 07:51 | XMS_ITS | Continuity of Care Document ---
Author Organization [place] - [facility], [facility] 1st Floor Address [address] [place] [address] Assessment No assessment recorded. Plan of Treatment [...] 118 3v rhand po 2023 024 [email or web address] [facility] Office, [address] [facility], [facility] [address], [place], [address], 03/19/2024 10:37:17 Medication Orders None recorded . Patient TargetsNo [...] a4ajBk vP9nXo QUaueC m3YtLR FvZlgJ JJ8mAn HZtai3 6j2448 AC0Kqa HuHWau mKiQtr MwF INTERFACE [facility] [address] [facility], [place], [address], 02/22/2024 09:44:28 02/22/20 24 02/22/2024 XR, hand, 3 or more view [email or web address] ?Encry pted=s hAaTro YD8dLq bEUv6g %2BXZw aYqtaq 0bqfl% 2Fg9IQ a4ajBk vP9nXo QUaueC m3YtLR FvZlgJ JJ8mAn HZtai3 5p1208 AC0Kqa HuHWau mKiQtr MwF INTERFACE [facility] [address], [place], [address], 02/22/2024 09:44:30 03/06/20 24 03/06/2024 XR, pelvi s, 3 or more view [email or web address] ?Encry pted=s hAaTro YD8dLq bEUv6g %2BXZw aYqtaq 0bqfl% 2Fg9IQ a4ajBk vP9nXo QUaueC m3YtLR FvZlg JJ8mAn HZtai3 2w7917 AC0Kqa XyMVqe vKiQtr MwF INTERFACE [facility] [address], [place], [address], 03/06/2024 11:57:55 03/06/20 24 03/06/2024 XR, pelvi s, 3 or more view [email or web address] ?Encry pted=s hAaTro YD8dLq bEUv6g %2BXZw aYqtaq 0bqfl% 2Fg9IQ a4ajBk vP9nXo QUaueC m3YtLR FvZlgJ JJ8mAn HZtai3 8j5992 AC0Kqa XyMVqe vKiQtr MwF INTERFACE [facility] [address], [place], [address], 03/06/2024 11:57:58 03/16/20 24 03/16/2024 XR, hand, 3 or more view [email or web address] ?Encry pted=s hAaTro YD8dLq bEUv6g %2BXZw aYqtaq 0bqfl% 2Fg9IQ a4ajBk vP9nXo QUaueC m3YtLR FvZlgJ JJ8mAn HZtai3 5w3346 AC0Kqa XiNUqO nKiQtr MwF INTERFACE [facility] [address], [place], [address], 03/16/2024 09:54:55 03/16/20 24 03/16/2024 XR, hand, 3 or more view [email or web address] ?Encry pted=s hAaTro YD8dLq bEUv6g %2BXZw aYqtaq 0bqfl% 2Fg9IQ a4ajBk vP9nXo QUaueC m3YtLR FvZlgJ JJ8mAn HZtai3 5z2030 AC0Kqa XiNUqO nKiQtr MwF INTERFACE [facility] [address], [place], [address], 03/16/2024 09:54:57 03/28/20 24 03/28/2024 XR, finge r(s), 2 or more view [email or web address] ?Encry pted=s hAaTro YD8dLq bEUv6g %2BXZw aYqtaq 0bqfl% 2Fg9IQ a4ajBk vP9nXo QUaueC m3YtLR FvZlgJ JJ8mAn HZtai3 9p9547 AC0Kqb n2NVKO nKiQtr MwF INTERFACE [facility] [address], [place], [address], 03/28/2024 13:12:20 12/03/07 2403/28/2024 XR, finge r(s), 2 or more view [email or web address] ?Encry pted=s [place]que YD8dLq bEUv6g %2BXZw aYqtaq 0bqfl% 2Fg9IQ a4ajBk vP9nXo QUaueC m3YtLR FvZlgJ JJ8mAn HZtai3 2a9321 AC0Kqb n2NVKO nKiQtr MwF INTERFACE [facility] [address], [place], [address], 03/28/2024 13:12:22 Result Notes None recorded. Problems Name Problem SNOMED Code Status Onset Date Resolution Date Notes Provider Name and Address Organization Details Recorded Time Pain in finger of right hand 0016775462331 09 Active 2023 Jaqui Bae PA-C [address], [place], [address] [place] [address] [facility] 4 09:18:55 Multiple closed fractures of pelvis without disruption of pelvic [place] 1761287097943 04 Active [address] [facility] 4 11:49:05 Problem Notes None recorded. Medical Equipment None Reported. Allergies Allergen ID Allergen Name Allergen Category Reaction Reaction Severity Criticality Documentation Date Start Date Code Code System Note Provider Name and Address Organization Details Recorded Time 965043 Vaccine product containin g only Clostridi um tetani antigen (medicina l product) medicatio n Not available Not available Not available 02/22/2024 08381 [address] [facility] 4 11:54:23 Medications Name Sig Start [...] Updated DateTime 03/16/2024 172.72 cm 34.1 kg/m2 181048.69 g ANGIE BEGUM [place] [facility] 03/16/2024 10:02:54 Social History None recorded. Functional Status None recorded. Mental Status None recorded. Family History Nothing Reported. Medical History No medical history recorded. Past Encounters Encounter ID Performer Location Encounter Start Date Encounter Closed Date Diagnosis/Indication Diagnosis SNOMED-CT Code Diagnosis ICD10 Code [id number] ROLA Bunn 1st Floor [address] [place] [address] 02/22/2024 09:19:04 03/05/2024 14:09:35 Pain in right hand [id number] 46299 M79.485 [id number] MD Yann Nicole 3rd floor [address] [place] [address] 03/06/2024 11:39:51 03/26/2024 14:38:03 Multiple closed fractures of pelvis without disruption of pelvic [place] 0606900329 11164 S32.82XA [id number] ROLA Cruz 1st [address] [place] [address] 03/16/2024 09:29:40 04/04/2024 12:16:59 Pain in right hand 9560687507 94741 M79.641 Health Concerns Section Related Observation LastModified by Organization Detai ls LastModified Time None Recorded Concern Status LastModified by Organization Details LastModified Time None Recorded Payers Encounter Date Sequence Insurance Name Policy Number Policy Collazo Covered Member ID Collazo Member ID Guarantor Name 03/16/2024 1 [facility] HEALTH NET PLAN (MEDICAID HMO) DEMARCO Bonilla [id number] Biran Bonilla Notes Date Note Type Note Provider [...] refill X-rays ordered, obtained and reviewed at [facility] 3 views right hand reveals to anterior fragment screws within the proximal phalanx. Fracture appears to be aligned. Impression/Plan:Stas vazquez will transition into a hand-based ulnar gutter [...] motion and strengthening. Jaqui Bae PA-C [address], [place], [address], [facility] 03/16/2024 10:07:49
--- OUTSIDE RECORDS SUMMARY | 2024-04-09 07:51 | XMS_ITS | Continuity of Care Document ---
Author Organization [facility] Address [address] [place] [address] [address] [place] [address]- Care Team Providers Care Sports Instructor Name Role Phone Not on Staff, PCP Primary Care Physician Unavail able Encounter [facility] Date(s): 02/29/24 - 03/30/[address] [place], [place] [address] Attending Physician: Luis Angel Sarkar Admitting Physician: AdmtrLuis Angel Referring Physician: Admtr, Ar8 Encounter Type: Triage Allergies, Adverse Reactions, Alerts Substance Criticality Severity [...] Team Personnel Name: Katalina Shepard RN Position: [facility] RN Member Role: Primary Care Nurse Name: Jen Magana RN Position: [facility] RN Member Role: Primary Care Nurse Name: Not on Staff, PCP Position: [facility] Physician (General Medicine) Member Role: PCP Name: Dasia Hancock RN Position: S RN Member Role: Primary Care Nurse Name: Kory Hawkins RN Position: S RN Member Role: Primary Care Nurse Name: Flaca Nieto RN Position: [facility] RN Member Role: Primary Care Nurse Name: Elizabeth Mendosa RN Position: S RN Member Role: Primary Care Nurse Care Team Related Persons Name: KAYCEE TURNER Name: HECTOR STEWART Insurance Providers Guarantor name: ERNESTO Health Plan Information #: 1 Payer: [employer] Member Number: NA Policy Number: NA Group Number: NA
--- OUTSIDE RECORDS SUMMARY | 2024-04-09 07:51 | XMS_ITS | Continuity of Care Document ---
Author Organization [facility] Address [address] [place] [address] [address] [place] [address]- Care Team Providers Care Edge Bander Hand Name Role Phone Not on Staff, PCP Primary Care Physician Unavail able Encounter [facility] Date(s): 02/23/24 - 03/24/24 [facility] [address] [place], [place] [address] Encounter Type: Triage Allergies, Adverse Reactions, Alerts [...] Nurse Name: Not on Staff, PCP Position: [facility] Physician (General Medicine) Member Role: PCP Name: Dasia Hancock RN Position: S RN Member Role: Primary Care Nurse Name: Kory Hawkins RN Position: S RN Member Role: Primary Care Nurse Name: Flaca Nieto RN Position: S RN Member Role: Primary Care Nurse Name: Elizabeth Mendosa RN Position: S RN Member Role: Primary Care Nurse Care Team Related Persons Name: TURNERKAYCEE OROZCO Name: HECTOR STEWART Insurance Providers Guarantor name: ERNESTO Health Plan Information #: 1 Payer: [employer] Member Number: NA Policy Number: ERNESTO Group Number: [id number]
--- OUTSIDE RECORDS SUMMARY | 2024-04-09 07:51 | XMS_ITS | Continuity of Care Document ---
Author Organization [facility] ter Address [address] [place] [address] Care Team Providers Care Home Care Scheduler Name Role Phone Not on Staff, PCP Primary Care Physician Unavail able En[place] [facility] Date(s): 02/21/24 - 03/22/[address] [address]- Attending Physician: Not on Staff, Attending MD Admitting Physician: Not on Staff, Admitting MD Referring Physician: Not on Staff, Referring MD Encounter Type: Pre-Outpt Allergies, Adverse Reactions, Alerts Substance Criticality Severity [...] Team Personnel Name: Katalina Shepard RN Position: [facility] RN Member Role: Primary Care Nurse Name: Jen Magana RN Position: [facility] RN Member Role: Primary Care Nurse Name: Not on Staff, PCP Position: [facility] Physician (General Medicine) Member Role: PCP Name: Dasia Hancock RN Position: [facility] RN Member Role: Primary Care Nurse Name: Kory Hawkins RN Position: [facility] RN Member Role: Primary Care Nurse Name: Flaca Nieto RN Position: [facility] RN Member Role: Primary Care Nurse Name: Elizabeth Mendosa RN Position: S RN Member Role: Primary Care Nurse Care Team Related Persons Name: TURNER KAYCEE Name: HETCOR STEWART Insurance Providers Guarantor name: ERNESTO Health Plan Information #: 1 Payer: [employer] Member Number: NA Policy Number: NA Group Number: NA
--- OUTSIDE RECORDS SUMMARY | 2024-04-09 07:51 | XMS_ITS | Continuity of Care Document ---
Author Organization [facility] Address [address] [place] [address]- Care Team Providers Care Magazine Worker Name Role Phone Not on Staff, PCP Primary Care Physician Unavail able Encounter 02/23/24 - 04/05/24 [facility] [address] [place] [address]- Discharge Disposition: GOALS MET Encounter Type: Disch [facility] Allergies, Adverse Reactions, Alerts Substance Criticality Severity [...] Nurse Name: Not on Staff, PCP Position: [facility] Physician (General Medicine) Member Role: PCP Name: Dasia Hancock RN Position: S RN Member Role: Primary Care Nurse Name: Kory Hawkins RN Position: S RN Member Role: Primary Care Nurse Name: Flaca Nieto RN Position: S RN Member Role: Primary Care Nurse Name: Elizabeth Mendosa RN Position: S RN Member Role: Primary Care Nurse Care Team Related Persons Name: TURNERJOERA Name: HECTOR STEWART Insurance Providers Guarantor name: ERNESTO Health Plan Information #: 1 Payer: [employer] Member Number: NA Policy Number: ERNESTO Group Number: [id number]
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
[2024-04-09 08:08] VITALS: BP 140/84; PULSE 68; O2SAT 95; BMI 35.7
== END 2024-04-09 08:31 | disposition home or self-care (01) ==
PROVIDERS: PCP Internal Medicine; Visit Provider Internal Medicine
DX: F19.10 Other psychoactive substance abuse, uncomplicated (principal); I83.90 Asymptomatic varicose veins of unspecified lower extremity; M53.3 Sacrococcygeal disorders, not elsewhere classified

== ENCOUNTER → 2024-04-09 07:49 | Outpatient (BNVA) | payer OTHER, SELFPAY | PROVIDERS: PCP Internal Medicine; Visit Provider Internal Medicine | DX: F19.10 Other psychoactive substance abuse, uncomplicated (principal); I83.90 Asymptomatic varicose veins of unspecified lower extremity; M53.3 Sacrococcygeal disorders, not elsewhere classified | CPT/HCPCS: 99212 ==

== ENCOUNTER 2024-04-13 10:23 | Outpatient (AMB) | payer OTHER, SELFPAY ==
--- OUTSIDE RECORDS SUMMARY | 2024-04-13 10:25 | XMS_ITS | Continuity of Care Document ---
Author Organization MD - [facility] Surgeons [facility], [facility] 1st Floor Address [address] [place] [address] Assessment No assessment recorded. Plan of Treatment Reminders Order Date Submit Date Provider Last Modified By Organization Details Last Modified Time Details Appointments RECHECK 15 2024 11:30A M Yong Otto MD Not available Not available Not available RECHECK 15 2024 10:30A M eKl Gillette MD Not available Not available Not available Lab None recorded. Referral occupatio nal therapist , hand referral - right small finger passive rom and strengthe be 2023 024 [email or web address] Not available 03/28/2024 14:58:20 Procedures None recorded. Surgeries None recorded. Imaging XR, finger(s) , 2 or more view - post op pt 3 views right small finger rm 104 2023 024 TANK [facility], [address], [address], [place], [address], 03/28/2024 13:12:19 Medication Orders None recorded. Patient [...] 0bqfl% 2Fg9IQ a4ajBk vP9nXo QUaueC m3YtLR FvZl JJ8Bob White HZtai3 6y2762 AC0Kqa XyMVqe vKiQtr MwF INTERFACE [facility] [address], [place], [address], 03/06/2024 11:57:55 03/06/20 24 03/06/2024 XR, pelvi s, 3 or more view [email or web address] ?Encry pted=s hAaTro YD8dLq bEUv6g %2BXZw aYqtaq 0bqfl% 2Fg9IQ a4ajBk vP9nXo QUaueC m3YtLR Zl JJ8Bob White HZtai3 0a9642 AC0Kqa XyMVqe vKiQtr MwF INTERFACE [facility] [address] [place] [address], [place], [address], 03/06/2024 11:57:58 03/16/20 24 03/16/2024 XR, hand, 3 or more view [email or web address] ?Encry pted=s hAaTro YD8dLq bEUv6g %2BXZw aYqtaq 0bqfl% 2Fg9IQ a4ajBk vP9nXo QUaueC m3YtLR Zl [facility] HZtai[facility] 8r1272 AC0Kqa XiNUqO nKiQtr MwF INTERFACE [facility] [address] [facility] [address], [place], [address], 03/16/2024 09:54:55 03/16/20 24 03/16/2024 XR, hand, 3 or more view [email or web address] ?Encry pted=s hAaTro YD8dLq bEUv6g %2BXZw aYqtaq 0bqfl% 2Fg9IQ a4ajBk vP9nXo QUaueC m3YtLR FvZlgJ JJ8Bob White HZtai3 1v8719 AC0Kqa XiNUqO nKiQtr MwF INTERFACE [facility] [address], [place], [address], 03/16/2024 09:54:57 03/28/20 24 03/28/2024 XR, finge r(s), 2 or more view [email or web address] ?Encry pted=s hAaTro YD8dLq bEUv6g %2BXZw aYqtaq 0bqfl% 2Fg9IQ a4ajBk vP9nXo QUaueC m3YtLR FvZlgJ JJ8Bob White HZtai3 6m0046 AC0Kqb n2NVKO nKiQtr MwF INTERFACE [facility] [address], [place], [address], 03/28/2024 13:12:20 03/28/20 24 03/28/2024 XR, finge r(s), 2 or more view [email or web address] ?Encry pted=s hAaTro YD8dLq bEUv6g %2BXZw aYqtaq 0bqfl% 2Fg9IQ a4ajBk vP9nXo QUaueC m3YtLR FvZl J8Bob White HZtai3 8y0851 AC0Kqb n2NVKO nKiQtr MwF INTERFACE [facility] [address], [place], [address], 03/28/2024 13:12:22 Result Notes None recorded. Problems Name Problem SNOMED Code Status Onset Date Resolution Date Notes Provider Name and Address Organization Details Recorded Time Pain in finger of right hand 1704726300941 09 Active 2023 Jaqui Bae PA-C [address], [place], [address], [facility] - [facility] 4 09:18:55 Multiple closed fractures of pelvis without disruption of pelvic [place] 0754712014573 04 Active 2023 MARLEEN head [place] - [place] [facility] 4 11:49:05 Problem Notes None recorded. Medical Equipment None Reported. Allergies Allergen ID Allergen Name Allergen Category Reaction Reaction Severity Criticality Documentation Date Start Date Code Code System Note Provider Name and Address Organization Details Recorded Time 234129 Vaccine product containin g only Clostridi um tetani antigen (medicina l product) medicatio n Not available Not available Not available 02/22/2024 91350 2002 SNOMED SHIRA ZAINAB head [place] - [place] [facility] 4 11:54:23 Medications Name Sig Start [...] Updated DateTime 03/28/2024 172.72 cm 34.1 kg/m2 518445.69 g Tisha Francois MD - [place] [facility] 03/28/2024 13:06:16 Social History None recorded. Functional Status None recorded. Mental Status None recorded. Family History Nothing Reported. Medical History No medical history recorded. Past Encounters Encounter ID Performer Location Encounter Start Date Encounter Closed Date Diagnosis/Indication Diagnosis SNOMED-CT Code Diagnosis ICD10 Code [id number] Yong Otto MD [facility] 3rd floor [address] [place] [address] 03/06/2024 11:39:51 03/26/2024 14:38:03 Multiple closed fractures of pelvis without disruption of pelvic [place] 9503039735 03085 S32.82XA [id number] Jaqui Bae PA-C [facility] [address] [place] [address] 03/16/2024 09:29:40 04/04/2024 12:16:59 Pain in right hand 2026433038 65477 M79.651 [id number] Khushi Miller, OTR/L,CHT [facility] [address] [place] [address] 03/19/2024 09:20:23 03/19/2024 10:12:41 Closed fracture of proximal phalanx of little finger 000960513 S62.646D [id number] Juani Fontanez PA-C [facility] [address] [place] [address] 03/28/2024 12:37:41 03/28/2024 14:00:21 Pain in right hand 1723374945 10886 M79.641 Health Concerns Section Related Observation LastModified by Organization Detai ls LastModified Time None Recorded Concern Status LastModified by Organization Details LastModified Time None Recorded Payers Encounter Date Sequence Insurance Name Policy Number Policy Collazo Covered Member ID Collazo Member ID Guarantor Name 03/28/2024 1 [facility] - HEALTH NET PLAN (MEDICAID HMO) DEMARCO Bonilla [id number] Brian Bonilla Notes Date Note Type Note [...] cap refillX-rays ordered, obtained and reviewed at [facility] 3 views right hand reveals to anterior fragment screws within the proximal phalanx. Fracture appears to be aligned. Interval callus noted.Impression/Pl an:Patient will start OT for passive ROM and strengthening and will wean from the brace as he makes progress with OT. Follow-up in 6 weeks. Patient agrees with this plan. All questions were answered.Speech recognition medical certification specialist software was used to create portions of this document. An attempt at proofreading has been made to minimize errors. Please call for corrections. Juani Fontanez PA-C [address] [place], [place] [address] [address], [place], [address], [facility] - [facility] 03/28/2024 14:00:20
--- OUTSIDE RECORDS SUMMARY | 2024-04-13 10:25 | XMS_ITS | Continuity of Care Document ---
Author Organization [facility] - Ravinder Bell Cajordan [facility], [facility] 3rd floor Address [address] [place] [address] Assessment Encounter Date Assessment Date Assessment LastModified [...] - Imaging ordered, obtained, and reviewed at [facility]. Assessment: - Healing left posterior iliac spine fracture, non-displaced. - Persistent lumbar spine pain, likely related to the fracture and recent reduction in pain medication. - History of multiple vertebral fractures and rib fractures. Plan: - Continue to let pain guide activity levels; no specific restrictions. - Rdau-tsp-grngmh r pain management to be coordinated by primary care physician. - Follow-up in a couple of months to reassess pain and healing progress. Disclaimer: This note was accomplished with use of adQ software, which is prone to medical and [...] - 311 5V PELVIS 2023 024 essenger [facility], [address] [facility], [facility] [address], [place], [address], 03/26/2024 14:38:04 Medication Orders None recorded . [...] a4ajBk vP9nXo QUaueC m3YtLR FvZlgJ JJ8mAn HZtai3 [id number] AC0Kqa HuHWau mKiQtr MwF INTERFACE [facility] [address], [place], [address], 02/22/2024 09:44:28 02/22/20 24 02/22/2024 XR, hand, 3 or more view [email or web address] ?Encry pted=s hAaTro YD8dLq bEUv6g %2BXZw aYqtaq 0bqfl% 2Fg9IQ a4ajBk vP9nXo QUaueC m3YtLR FvZlg [place] HZtai3 0b3680 AC0Kqa HuHWau mKiQtr MwF INTERFACE [facility] [address], [place], [address], 02/22/2024 09:44:30 03/06/20 24 03/06/2024 XR, pelvi s, 3 or more view [email or web address] ?Encry pted=s hAaTro YD8dLq bEUv6g %2BXZw aYqtaq 0bqfl% 2Fg9IQ a4ajBk vP9nXo QUaueC m3YtLR FvZlg [place] HZtai3 6v1758 AC0Kqa XyMVqe vKiQtr MwF INTERFACE [facility] [address], [place], [address], 03/06/2024 11:57:55 03/06/20 24 03/06/2024 XR, pelvi s, 3 or more view [email or web address] ?Encry pted=s hAaTro YD8dLq bEUv6g %2BXZw aYqtaq 0bqfl% 2Fg9IQ a4ajBk vP9nXo QUaueC m3YtLR Zl JJ8mAn HZtai3 2y0765 AC0Kqa XyMVqe vKiQtr MwF INTERFACE [facility] [address], [place], [address], 03/06/2024 11:57:58 03/16/20 24 03/16/2024 XR, hand, 3 or more view [email or web address] ?Encry pted=s hAaTro YD8dLq bEUv6g %2BXZw aYqtaq 0bqfl% 2Fg9IQ a4ajBk vP9nXo QUaueC m3YtLR FvZlgJ JJ8mAn HZtai3 [id number] AC0Kqa XiNUqO nKiQtr MwF INTERFACE [facility] [address] [facility] [address], [place], [address], 03/16/2024 09:54:55 03/16/20 24 03/16/2024 XR, hand, 3 or more view [email or web address]:/ [email or web address] ?Encry pted=s hAaTro YD8dLq bEUv6g %2BXZw aYqtaq 0bqfl% 2Fg9IQ a4ajBk vP9nXo QUaueC m3YtLR FvZlgJ [place] HZtai3 8w0562 AC0Kqa XiNUqO nKiQtr MwF INTERFACE [facility] [address] [facility] [address], [place], [address], 03/16/2024 09:54:57 03/28/20 24 03/28/2024 XR, finge r(s), 2 or more view [email or web address]:/ [email or web address] ?Encry pted=s hAaTro YD8dLq bEUv6g %2BXZw aYqtaq 0bqfl% 2Fg9IQ a4ajBk vP9nXo QUaueC m3YtLR FvZl JJ8[place] HZtai3 0n1492 AC0Kqb n2NVKO nKiQtr MwF INTERFACE [facility] [address] [facility] [address], [place], [address], 03/28/2024 13:12:20 03/28/20 24 03/28/2024 XR, finge r(s), 2 or more view [email or web address] ?Encry pted=s hAaTro YD8dLq bEUv6g %2BXZw aYqtaq 0bqfl% 2Fg9IQ a4ajBk vP9nXo QUaueC m3YtLR FvZlgJ JJ8mAn HZtai3 6z7965 AC0Kqb n2NVKO nKiQtr Mw INTERFACE [facility] [address], [place], [address], 03/28/2024 13:12:22 Result Notes None recorded. Problems Name Problem SNOMED Code Status Onset Date Resolution Date Notes Provider Name and Address Organization Details Recorded Time Pain in finger of right hand 9617485924214 09 Active 2023 Jaqui Bae PA-C [address], [place], [address], [facility] 4 09:18:55 Multiple closed fractures of pelvis without disruption of pelvic [place] 4875816313724 04 Active 2023 MARLEEN BOYLE [facility] 4 11:49:05 Problem Notes None recorded. Medical Equipment None Reported. Allergies Allergen ID Allergen Name Allergen Category Reaction Reaction Severity Criticality Documentation Date Start Date Code Code System Note Provider Name and Address Organization Details Recorded Time 163934 Vaccine product containin g only Clostridi um tetani antigen (medicina l product) medicatio n Not available Not available Not available 02/22/2024 33011 2002 SNOMED SHIRA ZAINAB [facility] 4 11:54:23 Medications Name Sig Start [...] Updated DateTime 03/06/2024 172.72 cm 34.1 kg/m2 511176.69 g MARLEEN BOYLE [place] - [place] [facility] 03/06/2024 11:49:28 Social History None recorded. Functional Status None recorded. Mental Status None recorded. Family History Nothing Reported. Medical History No medical history recorded. Past Encounters Encounter ID Performer Location Encounter Start Date Encounter Closed Date Diagnosis/Indication Diagnosis SNOMED-CT Code Diagnosis ICD10 Code [id number] ROLA Bunn 1[address] [place] [address] 02/22/2024 09:19:04 03/05/2024 14:09:35 Pain in right hand 1785904024 18361 M79.694 [id number] MD [facility] 3rd floor [address] [place] [address] 03/06/2024 11:39:51 03/26/2024 14:38:03 Multiple closed fractures of pelvis without disruption of pelvic [place] [id number] 31451 S32.82XA Health Concerns Section Related Observation LastModified by Organization Flower woodall LastModified Time None Recorded Concern Status LastModified by Organization Details LastModified Time None Recorded Payers Encounter Date Sequence Insurance Name Policy Number Policy Collazo Covered Member ID Collazo Member ID Guarantor Name 03/06/2024 1 [facility] [employer] - HEALTH NET PLAN (MEDICAID HMO) DEMARCO Bonilla [id number] Brian Bonilla
[2024-04-13 10:33] VITALS: BMI 35.7
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
== END 2024-04-13 10:53 | disposition home or self-care (01) ==
PROVIDERS: PCP Internal Medicine; Visit Provider Physician Assistant Surgical
DX: I83.11 Varicose veins of right lower extremity with inflammation (principal); I83.12 Varicose veins of left lower extremity with inflammation
CPT/HCPCS: 99214

== ENCOUNTER → 2024-04-13 10:23 | Outpatient (BNVA) | payer OTHER, SELFPAY | PROVIDERS: PCP Internal Medicine; Visit Provider Physician Assistant Surgical | DX: I83.11 Varicose veins of right lower extremity with inflammation (principal); I83.12 Varicose veins of left lower extremity with inflammation | CPT/HCPCS: 99212 ==

== ENCOUNTER 2024-05-01 10:23 | Outpatient (REF) | payer OTHER, SELFPAY ==
--- NOTE | ~2024-05-01 | US_ITS ---
CLINICAL HISTORY: I83.11 - Varicose veins of right lower extremity with inflammation Venous duplex ultrasound bilateral lower extremity Comparison: None Findings: The visualized deep veins are fully compressible with normal Doppler color flow and spectral tracings. No popliteal cyst. No significant venous reflux is identified. IMPRESSION: 1. Negative for bilateral lower extremity deep vein thrombosis. This document has been electronically signed by: Eh [place] MD on 05/04/2024 07:14:48
--- OUTSIDE RECORDS SUMMARY | 2024-05-01 12:00 | XMS_ITS | Data Portability ---
Author Organization [facility], [facility] Address [address] [place] [address] Assessment Encounter Date Assessment Date Assessment LastModified [...] finger. X-rays ordered, obtained and reviewed at [facility] 3 views of the right small finger [...] - Imaging ordered, obtained, and reviewed at [facility]. Assessment: - Healing left posterior iliac spine fracture, non-displaced. - Persistent lumbar spine pain, likely related to the fracture and recent reduction in pain medication. - History of multiple vertebral fractures and rib fractures. Plan: - Continue to let pain guide activity levels; no specific restrictions. - Ogqm-yqr-cmyazx r pain management to be coordinated by primary care physician. - Follow-up in a couple of months to reassess pain and healing progress. Disclaimer: This note was accomplished with use of Bacula software, which is prone to medical and [...] passive rom and strength ening 2023 024 [email or web address] Not available 03/28/2024 14:58:20 Procedures None recorded . Surgeries None recorded . Imaging XR, hand, 3 or more view - room 115 3V R hand 2023 024 [email or web address] [facility], [address], [place], [address], 02/22/2024 10:20:52 XR, pelvis, 3 or more view - 311 5V PELVIS 2023 024 [email or web address] [facility], [address], [address], [place], [address], 03/26/2024 14:38:04 XR, hand, 3 or more view - rm 118 3v rhand po 2023 024 [email or web address] [facility], [address], [address], [place], [address], 03/19/2024 10:37:17 XR, finger(s ), 2 or more view - post op pt 3 views right small finger rm 104 2023 024 TANK [facility], [address], [address], [place], [address], 03/28/2024 13:12:19 Medication Orders None recorded . Patient TargetsNo targets recorded. Patient Instructions Encounter Date Encounter Id Patient Instructions Last Modified By Organization Details Last Modified Time 03/19/[id number] [facility] Custom Hand Orthosis Information Sheet [address] [place] [address] Name: Brian Bonilla Right Diagnosis: Small finger [...] SOURCES: including, but not limited to, the silk screen operator, dryer, stove, furnace, heater, car (on a hot summer day). PETS: they like to chew the plastic. SKIN: watch for redness, blisters or any skin irritations. CLEANING: use warm soapy water, wipes or patient registration specialist to keep the plastic clean, cotton socks [...] plan for this custom orthosis Patient Signature: [email or web address] Not available 03/19/2024 09:22:39 Reason for Referral [...] a4ajBk vP9nXo QUaueC m3YtLR FvZlgJ JJ8mAn HZtai3 4b9121 AC0Kqa HuHWau mKiQtr MwF INTERFACE [facility] [address] [facility] [address] [facility] [address], [place], [address], 02/22/2024 09:44:28 02/22/20 24 02/22/2024 XR, hand, 3 or more view [email or web address] ?Encry pted=s hAaTro YD8dLq bEUv6g %2BXZw aYqtaq 0bqfl% 2Fg9IQ a4ajBk vP9nXo QUaueC m3YtLR FvZlgJ JJ8mAn HZtai3 7o6247 AC0Kqa HuHWau mKiQtr MwF INTERFACE [facility] [address] [facility] [address], [place], [address], 02/22/2024 09:44:30 03/06/20 24 03/06/2024 XR, pelvi s, 3 or more view [email or web address] ?Encry pted=s hAaTro YD8dLq bEUv6g %2BXZw aYqtaq 0bqfl% 2Fg9IQ a4ajBk vP9nXo QUaueC m3YtLR FvZlJ JJ8[facility] HZtai3 1w6452 AC0Kqa XyMVqe vKiQtr MwF INTERFACE [facility] [address] [facility] [address] [facility] [address], [place], [address], 03/06/2024 11:57:55 03/06/20 24 03/06/2024 XR, pelvi s, 3 or more view [email or web address] ?Encry pted=s hAaTro YD8dLq bEUv6g %2BXZw aYqtaq 0bqfl% 2Fg9IQ a4ajBk vP9nXo QUaueC m3YtLR FvZl JJ8mAn HZtai3 5g2677 AC0Kqa XyMVqe vKiQtr MwF INTERFACE [facility] [address] [facility] [facility] [address], [place], [address], 03/06/2024 11:57:58 03/16/20 24 03/16/2024 XR, hand, 3 or more view [email or web address] ?Encry pted=s hAaTro YD8dLq bEUv6g %2BXZw aYqtaq 0bqfl% 2Fg9IQ a4ajBk vP9nXo QUaueC m3YtLR FvZlgJ JJ8mAn HZtai3 7e9958 AC0Kqa XiNUqO nKiQtr MwF INTERFACE [facility] [address], [place], [address], 03/16/2024 09:54:55 03/16/20 24 03/16/2024 XR, hand, 3 or more view [email or web address] ?Encry pted=s hAaTro YD8dLq bEUv6g %2BXZw aYqtaq 0bqfl% 2Fg9IQ a4ajBk vP9nXo QUaueC m3YtLR FvZlgJ JJ8[facility] HZtai3 0w9513 AC0Kqa XiNUqO nKiQtr MwF INTERFACE [facility] [address] [facility] [address] [facility], [place], [address], 03/16/2024 09:54:57 03/28/20 24 03/28/2024 XR, finge r(s), 2 or more view [email or web address] ?Encry pted=s hAaTro YD8dLq bEUv6g %2BXZw aYqtaq 0bqfl% 2Fg9IQ a4ajBk vP9nXo QUaueC m3YtLR FvZlJ JJ8mAn HZtai3 2y2246 AC0Kqb n2NVKO nKiQtr MwF INTERFACE [facility] [address] [place] [address], [place], [address], 03/28/2024 13:12:20 03/28/20 24 03/28/2024 XR, finge r(s), 2 or more view [email or web address] ?Encry pted=s hAaTro YD8dLq bEUv6g %2BXZw aYqtaq 0bqfl% 2Fg9IQ a4ajBk vP9nXo QUaueC m3YtLR FvZlgJ JJ8mAn HZtai3 7t9782 AC0Kqb n2NVKO nKiQtr MwF INTERFACE [facility] [address], [place], [address], 03/28/2024 13:12:22 Result Notes None recorded. Problems Name Problem SNOMED Code Status Onset Date Resolution Date Notes Provider Name and Address Organization Details Recorded Time Pain in finger of right hand 4486448471418 09 Active 2023 Jaqui Bae PA-C [address], [place], [address], [facility] 4 09:18:55 Multiple closed fractures of pelvis without disruption of pelvic [place] 1347771352618 04 Active 2023 MARLEEN BOYLE [place], [place] - [facility] 11:49:05 Problem Notes None recorded. Procedures Surgical History None recorded. Imaging Results Imaging Date Name Status LastModified by Organiz ation Details LastModified Time 02/22/2024 XR, hand, 3 or more view completed INTERFACE [facility] [address], [place], [address], 02/22/2024 09:44:28 02/22/2024 XR, hand, 3 or more view completed INTERFACE [facility] [address], [place], [address], 02/22/2024 09:44:30 03/06/2024 XR, pelvis, 3 or more view completed INTERFACE [facility] [address], [place], [address], 03/06/2024 11:57:55 03/06/2024 XR, pelvis, 3 or more view completed INTERFACE [facility] [address], [place], [address], 03/06/2024 11:57:58 03/16/2024 XR, hand, 3 or more view completed INTERFACE [facility] [address], [place], [address], 03/16/2024 09:54:55 03/16/2024 XR, hand, 3 or more view completed INTERFACE [facility] [address], [place], [address], 03/16/2024 09:54:57 03/28/2024 XR, finger(s), 2 or more view completed INTERFACE [facility] [address], [place], [address], 03/28/2024 13:12:20 03/28/2024 XR, finger(s), 2 or more view completed INTERFACE [facility] [address], [place], [address], 03/28/2024 13:12:22 Procedure Notes None recorded. Medical Equipment None Reported. Allergies Allergen ID Allergen Name Allergen Category Reaction Reaction Severity Criticality Documentation Date Start Date Code Code System Note Provider Name and Address Organization Details Recorded Time 504916 Vaccine product containin g only Clostridi um tetani antigen (medicina l product) medicatio n Not available Not available Not available 02/22/2024 29669 2002 SNOMED SHIRA ZAINAB head [place] - [facility] 11:54:23 Medications Name Sig [...] Last Updated DateTime 172.72 cm 34.1 kg/m2 987020. 69 g 58 /min 97.9 [degF] 97 % 97 % 16 /min SHIRA LAMB [facility] 10:25:14 Date Recorded Body height Body mass index (BMI) Body weight Provider Name and Address Organization Details Last Updated DateTime 03/06/2024 172.72 cm 34.1 kg/m2 088724.69 g MARLEEN BOYLE [facility] 03/06/2024 11:49:28 Date Recorded Body height Body mass index (BMI) Body weight Provider Name and Address Organization Details Last Updated DateTime 03/16/2024 172.72 cm 34.1 kg/m2 924642.69 g ANGIE BEGUM [facility] 03/16/2024 10:02:54 Date Recorded Body height Body mass index (BMI) Body weight Provider Name and Address Organization Details Last Updated DateTime 03/28/2024 172.72 cm 34.1 kg/m2 536320.69 g Tisha Francois [facility] 03/28/2024 13:06:16 Social History None recorded. Functional Status None recorded. Mental Status None recorded. Family History Nothing Reported. Medical History No medical history recorded. Past Encounters Encounter ID Performer Location Encounter Start Date Encounter Closed Date Diagnosis/Indication Diagnosis SNOMED-CT Code Diagnosis ICD10 Code Diagnosis Note [id number] ROLA Bunn [address] [place] [address] 02/22/2024 09:19:04 03/05/2024 14:09:35 Pain in right hand [id number] 66355 M79.513 [id number] Yong Otto MD [facility] [address] floor [address] [place], [place] [address] 03/06/2024 11:39:51 03/26/2024 14:38:03 Multiple closed fractures of pelvis without disruption of pelvic [place] 3451231635 21691 S32.82XA [id number] ROLA [facility] [address] [address] 03/16/2024 09:29:40 04/04/2024 12:16:59 Pain in right hand 3138968841 78326 M79.425 [id number] Khushi Miller, OTR/L,CHT [facility] [address] [address] 03/19/2024 09:20:23 03/19/2024 10:12:41 Closed fracture of proximal phalanx of little finger 886292157 S62.646D Today to protect the fracture site and restrict tendon glide, a hand based small finger and ring finger immobiliza tion orthosis was fabricated . The purpose, precaution s and plan with this orthosis are reviewed with the patient who agrees to wear this full-time for removing it for hygiene and exercise The patient understand s that this is a custom orthosis made of low temp thermoplas tic. Any modificati ons to the orthosis should be done by a Certified Hand Therapist. The patient may call for an appointmen t with me in this office. Or if the patient is receiving hand therapy , the provider at that clinic may adjust the orthosis as needed. The orthosis fabricated today is the appropriat e style for the diagnosis and informatio n provided. A rigid style orthosis is needed to protect the injury / surgery site and maintain alignment of the involved structures . [id number] Juani Fontanez PA-C [facility] [address] [place] [address] 03/28/2024 12:37:41 04/26/2024 14:44:19 Pain in right hand 6970068346 12763 M79.641 Health Concerns Section Related Observation LastModified by Organization Detai ls LastModified Time None Recorded Concern Status LastModified by Organization Details LastModified Time None Recorded Advance Directives Directive None Recorded Payers Encounter Date Sequence Insurance Name Policy Number Policy Collazo Covered Member ID Collazo Member ID Guarantor Name 02/22/2024 1 [facility] HE[facility] NET PLAN (MEDICAID HMO) DEMARCO Bonilla [id number] [facility] 03/06/2024 1 [facility] (MEDICAID HMO) [facility] [id number] [facility] 03/16/2024 1 [facility] NET PLAN (MEDICAID HMO) KRISTYGOODE Brian Bonilla [id number] [facility] 03/19/2024 1 [facility] (MEDICAID HMO) [facility] [id number] [facility] 03/28/2024 1 [facility] PL[facility] (MEDICAID HMO) [facility] [id number] [facility] Notes Date Note Type Note Provider Name [...] refill X-rays ordered, obtained and reviewed at [facility] 3 views right hand reveals to anterior fragment screws within the proximal phalanx. Fracture appears to be aligned. Impression/Plan:Luba garibaynt will transition into a hand-based ulnar gutter [...] motion and strengthening. Jaqui Bae PA-C [address], [place], [address], [facility] 03/16/2024 10:07:49 03/19/2024 text/html Surgery with Dr. Gillette on 03/01/2024. Presented to the office on 03/16/2024 for a postoperative visit and was referred for a custom orthosis. Patient presents to the office today on 03/19/2024 to receive this custom piece. Khushi Miller, OTR/L,CHT [address], [place], [address], [facility] 03/19/2024 09:24:43 03/28/2024 text/html I am seeing [...] cap refillX-rays ordered, obtained and reviewed at [facility] 3 views right hand reveals to anterior fragment screws within the proximal phalanx. Fracture appears to be aligned. Interval callus noted.Impression/Pl an:Patient will start OT for passive ROM and strengthening and will wean from the brace as he makes progress with OT. Follow-up in 6 weeks. Patient agrees with this plan. All questions were answered.Speech recognition tree trimmer helper software was used to create portions of this document. An attempt at proofreading has been made to minimize errors. Please call for corrections. Juani Fontanez PA-C [address], [place], [address], [facility] 03/28/2024 14:00:20
--- OUTSIDE RECORDS SUMMARY | 2024-05-01 12:00 | XMS_ITS | Continuity of Care Document ---
Author Organization [place] - [facility], [facility] 1st Floor Address [address] [place] [address] Assessment No assessment recorded. Plan of Treatment [...] passive rom and strengthe be 2023 024 [email or web address] Not available 03/28/2024 14:58:20 Procedures None recorded. Surgeries None recorded. Imaging XR, finger(s) , 2 or more view - post op pt 3 views right small finger rm 104 2023 024 TANK [facility], [address], [place], [address], 03/28/2024 13:12:19 Medication Orders None recorded. Patient [...] 0bqfl% 2Fg9IQ a4ajBk vP9nXo QUaueC m3YtLR FvZl JJ[place] HZtai3 5b9491 AC0Kqa XyMVqe vKiQtr MwF INTERFACE [facility] [address], [place], [address], 03/06/2024 11:57:55 03/06/20 24 03/06/2024 XR, pelvi s, 3 or more view [email or web address] ?Encry pted=s hAaTro YD8dLq bEUv6g %2BXZw aYqtaq 0bqfl% 2Fg9IQ a4ajBk vP9nXo QUaueC m3YtLR Zl JJ8[place] HZtai3 1z0183 AC0Kqa XyMVqe vKiQtr MwF INTERFACE [facility] [address] [place] [address], [place], [address], 03/06/2024 11:57:58 03/16/20 24 03/16/2024 XR, hand, 3 or more view [email or web address] ?Encry pted=s hAaTro YD8dLq bEUv6g %2BXZw aYqtaq 0bqfl% 2Fg9IQ a4ajBk vP9nXo QUaueC m3YtLR Zl JJAbra[facility] HZtai3 5q5023 AC0Kqa XiNUqO nKiQtr MwF INTERFACE [facility] [address] [facility] [address], [place], [address], 03/16/2024 09:54:55 03/16/20 24 03/16/2024 XR, hand, 3 or more view [email or web address] ?Encry pted=s hAaTro YD8dLq bEUv6g %2BXZw aYqtaq 0bqfl% 2Fg9IQ a4ajBk vP9nXo QUaueC m3YtLR FvZlgJ JJ8[place] HZtai3 0f7424 AC0Kqa XiNUqO nKiQtr MwF INTERFACE [facility] [address], [place], [address], 03/16/2024 09:54:57 03/28/20 24 03/28/2024 XR, finge r(s), 2 or more view [email or web address] ?Encry pted=s hAaTro YD8dLq bEUv6g %2BXZw aYqtaq 0bqfl% 2Fg9IQ a4ajBk vP9nXo QUaueC m3YtLR FvZlgJ JJ8[place] HZtai3 9z6877 AC0Kqb n2NVKO nKiQtr MwF INTERFACE [facility] [address], [place], [address], 03/28/2024 13:12:20 03/28/20 24 03/28/2024 XR, finge r(s), 2 or more view [email or web address] ?Encry pted=s hAaTro YD8dLq bEUv6g %2BXZw aYqtaq 0bqfl% 2Fg9IQ a4ajBk vP9nXo QUaueC m3YtLR FvZl [place] HZtai3 9x1228 AC0Kqb n2NVKO nKiQtr MwF INTERFACE [facility] [address], [place], [address], 03/28/2024 13:12:22 Result Notes None recorded. Problems Name Problem SNOMED Code Status Onset Date Resolution Date Notes Provider Name and Address Organization Details Recorded Time Pain in finger of right hand 4218689257529 09 Active 2023 Jaqui Bae PA-C [address], [place], [address], [facility] 4 09:18:55 Multiple closed fractures of pelvis without disruption of pelvic [place] 1128419793066 04 Active 2023 MARLEEN head [place] - [facility] 4 11:49:05 Problem Notes None recorded. Medical Equipment None Reported. Allergies Allergen ID Allergen Name Allergen Category Reaction Reaction Severity Criticality Documentation Date Start Date Code Code System Note Provider Name and Address Organization Details Recorded Time 902917 Vaccine product containin g only Clostridi um tetani antigen (medicina l product) medicatio n Not available Not available Not available 02/22/2024 22677 2002 SNOMED SHIRA ZAINAB head [place] - [facility] 4 11:54:23 Medications Name Sig [...] Updated DateTime 03/28/2024 172.72 cm 34.1 kg/m2 097800.69 g Tisha Francois [place] - [facility] 03/28/2024 13:06:16 Social History None recorded. Functional Status None recorded. Mental Status None recorded. Family History Nothing Reported. Medical History No medical history recorded. Past Encounters Encounter ID Performer Location Encounter Start Date Encounter Closed Date Diagnosis/Indication Diagnosis SNOMED-CT Code Diagnosis ICD10 Code Diagnosis Note [id number] Yong Otto MD [facility] [address] [place] [address] 03/06/2024 11:39:51 03/26/2024 14:38:03 Multiple closed fractures of pelvis without disruption of pelvic [place] 1952124930 74240 S32.82XA [id number] Jaqui Bae PA-C [facility] [address] [place] [address] 03/16/2024 09:29:40 04/04/2024 12:16:59 Pain in right hand 3920077061 72866 M79.435 [id number] Khushi Miller, OTR/L,CHT [facility] [address] [place] [address] 03/19/2024 09:20:23 03/19/2024 10:12:41 Closed fracture of proximal phalanx of little finger 405877803 S62.646D Today to protect the fracture site [...] maintain alignment of the involved structures . [id number] ROLA Mccann 1[address] [place] [address] 03/28/2024 12:37:41 04/26/2024 14:44:19 Pain in right hand 6776398595 12529 M79.641 Health Concerns Section Related Observation LastModified by Organization Detai ls LastModified Time None Recorded Concern Status LastModified by Organization Details LastModified Time None Recorded Payers Encounter Date Sequence Insurance Name Policy Number Policy Collazo Covered Member ID Collazo Member ID Guarantor Name 03/28/2024 1 [facility] HEALTH NET PLAN (MEDICAID HMO) DEMARCO Bonilla [id number] Brian Bonilla Notes Date Note Type Note [...] cap refillX-rays ordered, obtained and reviewed at [facility] 3 views right hand reveals to anterior fragment screws within the proximal phalanx. Fracture appears to be aligned. Interval callus noted.Impression/Pl an:Patient will start OT for passive ROM and strengthening and will wean from the brace as he makes progress with OT. Follow-up in 6 weeks. Patient agrees with this plan. All questions were answered.Speech recognition professor of management software was used to create portions of this document. An attempt at proofreading has been made to minimize errors. Please call for corrections. Juani Fontanez PA-C [address], [place], [address], [facility] 03/28/2024 14:00:20
--- OUTSIDE RECORDS SUMMARY | 2024-05-01 12:00 | XMS_ITS | Continuity of Care Document ---
Author Organization [place] - [facility], [facility] 1st Floor Address [address] [place] [address] Assessment No assessment recorded. Plan of Treatment [...] 118 3v rhand po [email or web address] [facility] Office, [address] [facility], [facility] [address], [place], [address], 03/19/2024 10:37:17 Medication Orders None recorded . [...] a4ajBk vP9nXo QUaueC m3YtLR FvZlgJ JJ8mAn HZtai3 5m2579 AC0Kqa HuHWau mKiQtr MwF [facility] [address] [facility], [place], [address], 02/22/2024 09:44:28 02/22/20 24 02/22/2024 XR, hand, 3 or more view [email or web address] ?Encry pted=s hAaTro YD8dLq bEUv6g %2BXZw aYqtaq 0bqfl% 2Fg9IQ a4ajBk vP9nXo QUaueC m3YtLR FvZlgJ JJ8mAn HZtai3 3m6881 AC0Kqa HuHWau mKiQtr MwF INTERFACE [facility] [address], [place], [address], 02/22/2024 09:44:30 03/06/20 24 03/06/2024 XR, pelvi s, 3 or more view [email or web address] ?Encry pted=s hAaTro YD8dLq bEUv6g %2BXZw aYqtaq 0bqfl% 2Fg9IQ a4ajBk vP9nXo QUaueC m3YtLR FvZlg JJ8mAn HZtai3 1d3601 AC0Kqa XyMVqe vKiQtr MwF INTERFACE [facility] [address], [place], [address], 03/06/2024 11:57:55 03/06/20 24 03/06/2024 XR, pelvi s, 3 or more view [email or web address] ?Encry pted=s hAaTro YD8dLq bEUv6g %2BXZw aYqtaq 0bqfl% 2Fg9IQ a4ajBk vP9nXo QUaueC m3YtLR FvZlgJ JJ8mAn HZtai3 0w1533 AC0Kqa XyMVqe vKiQtr MwF INTERFACE [facility] [address], [place], [address], 03/06/2024 11:57:58 03/16/20 24 03/16/2024 XR, hand, 3 or more view [email or web address] ?Encry pted=s hAaTro YD8dLq bEUv6g %2BXZw aYqtaq 0bqfl% 2Fg9IQ a4ajBk vP9nXo QUaueC m3YtLR FvZlgJ JJ8mAn HZtai3 7z0968 AC0Kqa XiNUqO nKiQtr MwF INTERFACE [facility] [address], [place], [address], 03/16/2024 09:54:55 03/16/20 24 03/16/2024 XR, hand, 3 or more view [email or web address] ?Encry pted=s hAaTro YD8dLq bEUv6g %2BXZw aYqtaq 0bqfl% 2Fg9IQ a4ajBk vP9nXo QUaueC m3YtLR FvZlgJ JJ8mAn HZtai3 7o8451 AC0Kqa XiNUqO nKiQtr MwF INTERFACE [facility] [address], [place], [address], 03/16/2024 09:54:57 03/28/20 24 03/28/2024 XR, finge r(s), 2 or more view [email or web address] ?Encry pted=s hAaTro YD8dLq bEUv6g %2BXZw aYqtaq 0bqfl% 2Fg9IQ a4ajBk vP9nXo QUaueC m3YtLR FvZlgJ JJ8mAn HZtai3 9c7471 AC0Kqb n2NVKO nKiQtr MwF INTERFACE [facility] [address], [place], [address], 03/28/2024 13:12:20 12/03/07 2403/28/2024 XR, finge r(s), 2 or more view [email or web address] ?Encry pted=s Jacque YD8dLq bEUv6g %2BXZw aYqtaq 0bqfl% 2Fg9IQ a4ajBk vP9nXo QUaueC m3YtLR FvZlgJ JJ8mAn HZtai3 8o1050 AC0Kqb n2NVKO nKiQtr MwF INTERFACE [facility] [address], [place], [address], 03/28/2024 13:12:22 Result Notes None recorded. Problems Name Problem SNOMED Code Status Onset Date Resolution Date Notes Provider Name and Address Organization Details Recorded Time Pain in finger of right hand 6006597540676 09 Active 2023 Jaqui Bae PA-C [address], [place], [address] [place] [address] [facility] 4 09:18:55 Multiple closed fractures of pelvis without disruption of pelvic yavapai-apache 6038898730338 04 Active 2023 MARLEEN BOYLE [facility] 4 11:49:05 Problem Notes None recorded. Medical Equipment None Reported. Allergies Allergen ID Allergen Name Allergen Category Reaction Reaction Severity Criticality Documentation Date Start Date Code Code System Note Provider Name and Address Organization Details Recorded Time 153639 Vaccine product containin g only Clostridi um tetani antigen (medicina l product) medicatio n Not available Not available Not available 02/22/2024 24117 2002 SNOMED SHIRA ZAINAB [facility] 4 11:54:23 Medications Name Sig Start Date [...] Updated DateTime 03/16/2024 172.72 cm 34.1 kg/m2 298506.69 g ANGIE BEGUM [place] - [place] 03/16/2024 10:02:54 Social History None recorded. Functional Status None recorded. Mental Status None recorded. Family History Nothing Reported. Medical History No medical history recorded. Past Encounters Encounter ID Performer Location Encounter Start Date Encounter Closed Date Diagnosis/Indication Diagnosis SNOMED-CT Code Diagnosis ICD10 Code Diagnosis Note [id number] [facility] 1st Floor [address] [place] [address] 02/22/2024 09:19:04 03/05/2024 14:09:35 Pain in right hand [id number] 06638 M79.459 [id number] MD Juanpablo Nicole 3rd floor [address] [place] [address] 03/06/2024 11:39:51 03/26/2024 14:38:03 Multiple closed fractures of pelvis without disruption of pelvic yavapai-apache [id number] 70399 S32.82XA [id number] [facility] 1st Floor [address] [place] [address] 03/16/2024 09:29:40 04/04/2024 12:16:59 Pain in right hand 5425075075 22583 M79.641 Health Concerns Section Related Observation LastModified by Organization Detai ls LastModified Time None Recorded Concern Status LastModified by Organization Details LastModified Time None Recorded Payers Encounter Date Sequence Insurance Name Policy Number Policy Collazo Covered Member ID Collazo Member ID Guarantor Name 03/16/2024 1 [facility] - HEALTH NET PLAN (MEDICAID HMO) DEMARCO Bonilla [id number] Brian Bonilla Notes Date Note Type Note [...] refill X-rays ordered, obtained and reviewed at [facility] 3 views right hand reveals to [...] motion and strengthening. Jaqui Bae PA-C [address], [place], [address], [facility] - [facility] 03/16/2024 10:07:49
--- OUTSIDE RECORDS SUMMARY | 2024-05-01 12:01 | XMS_ITS | Continuity of Care Document ---
Author Organization [facility], [place] 1st Floor Address [address] [place] [address] Assessment Encounter Date Assessment Date Assessment LastModified [...] finger. X-rays ordered, obtained and reviewed at [facility] 3 views of the right small [...] 115 3V R hand 2023 024 [email or web address] [facility] Office, [address], [place], [address], 02/22/2024 10:20:52 Medication Orders None recorded . [...] a4ajBk vP9nXo QUaueC m3YtLR FvZlgJ JJ8mAn HZtai3 9p4235 AC0Kqa HuHWau mKiQtr MwF [facility] [address], [place], [address], 02/22/2024 09:44:28 02/22/20 24 02/22/2024 XR, hand, 3 or more view [email or web address] ?Encry pted=s hAaTro YD8dLq bEUv6g %2BXZw aYqtaq 0bqfl% 2Fg9IQ a4ajBk vP9nXo QUaueC m3YtLR FvZlgJ JJ8mAn HZtai3 0j0222 AC0Kqa HuHWau mKiQtr MwF [facility] [address], [place], [address], 02/22/2024 09:44:30 03/06/20 24 03/06/2024 XR, pelvi s, 3 or more view [email or web address] ?Encry pted=s hAaTro YD8dLq bEUv6g %2BXZw aYqtaq 0bqfl% 2Fg9IQ a4ajBk vP9nXo QUaueC m3YtLR FvZlgJ JJ8mAn HZtai3 5j4158 AC0Kqa XyMVqe vKiQtr MwF INTERFACE [facility] [address], [place], [address], 03/06/2024 11:57:55 03/06/20 24 03/06/2024 XR, pelvi s, 3 or more view [email or web address] ?Encry pted=s hAaTro YD8dLq bEUv6g %2BXZw aYqtaq 0bqfl% 2Fg9IQ a4ajBk vP9nXo QUaueC m3YtLR FvZlgJ JJ8mAn HZtai3 4r1011 AC0Kqa XyMVqe vKiQtr MwF INTERFACE [facility] [address], [place], [address], 03/06/2024 11:57:58 03/16/20 24 03/16/2024 XR, hand, 3 or more view [email or web address] ?Encry pted=s hAaTro YD8dLq bEUv6g %2BXZw aYqtaq 0bqfl% 2Fg9IQ a4ajBk vP9nXo QUaueC m3YtLR FvZlgJ JJ8mAn HZtai3 2f5658 AC0Kqa XiNUqO nKiQtr MwF INTERFACE [facility] [address], [place], [address], 03/16/2024 09:54:55 03/16/20 24 03/16/2024 XR, hand, 3 or more view [email or web address] ?Encry pted=s hAaTro YD8dLq bEUv6g %2BXZw aYqtaq 0bqfl% 2Fg9IQ a4ajBk vP9nXo QUaueC m3YtLR FvZl24 [address] Streettai3 4g3796 AC0Kqa XiNUqO nKiQtr MwF INTERFACE [facility] [address], [place], [address], 03/16/2024 09:54:57 03/28/20 24 03/28/2024 XR, finge r(s), 2 or more view [email or web address] ?Encry pted=s hAaTro YD8dLq bEUv6g %2BXZw aYqtaq 0bqfl% 2Fg9IQ a4ajBk vP9nXo QUaueC m3YtLR [address]tai[address] 3o2266 AC0Kqb n2NVKO nKiQtr MwF INTERFACE [facility] [address] [facility] [address], [place], [address], 03/28/2024 13:12:20 03/28/20 24 03/28/2024 XR, finge r(s), 2 or more view [email or web address] ?Encry pted=s hAaTro YD8dLq bEUv6g %2BXZw aYqtaq 0bqfl% 2Fg9IQ a4ajBk vP9nXo QUaueC m3YtLR Zl J8[facility] Campustai3 1b8072 AC0Kqb n2NVKO nKiQtr MwF INTERFACE [facility] [address], [place], [address], 03/28/2024 13:12:22 Result Notes None recorded. Problems Name Problem SNOMED Code Status Onset Date Resolution Date Notes Provider Name and Address Organization Details Recorded Time Pain in finger of right hand 9402531238861 09 Active 2023 Jaqui Bae PA-C [address], [place], [address], [facility] 4 09:18:55 Multiple closed fractures of pelvis without disruption of pelvic redding 4306766856178 04 Active 2023 MARLEEN BOYLE [facility] 4 11:49:05 Problem Notes None recorded. Medical Equipment None Reported. Allergies Allergen ID Allergen Name Allergen Category Reaction Reaction Severity Criticality Documentation Date Start Date Code Code System Note Provider Name and Address Organization Details Recorded Time 310622 Vaccine product containin g only Clostridi um tetani antigen (medicina l product) medicatio n Not available Not available Not available 02/22/2024 64922 2002 SNOMED SHIRA ZAINAB [facility], [facility] 4 11:54:23 Medications Name Sig [...] Updated DateTime 4 172.72 cm 34.1 kg/m2 713859. 69 g 58 /min 97.9 [degF] 97 % 97 % 16 /min SHIRA LAMB [place] - [facility] 4 10:25:14 Social History None recorded. Functional Status None recorded. Mental Status None recorded. Family History Nothing Reported. Medical History No medical history recorded. Past Encounters Encounter ID Performer Location Encounter Start Date Encounter Closed Date Diagnosis/Indication Diagnosis SNOMED-CT Code Diagnosis ICD10 Code Diagnosis Note [id number] [facility] 1st Floor [address] [place] [address] 02/22/2024 09:19:04 03/05/2024 14:09:35 Pain in right hand [id number] 36364 M79.641 Health Concerns Section Related Observation LastModified by Organization Detai ls LastModified Time None Recorded Concern Status LastModified by Organization Details LastModified Time None Recorded Payers Encounter Date Sequence Insurance Name Policy Number Policy Collazo Covered Member ID Collazo Member ID Guarantor Name 02/22/2024 1 [facility] - HEALTH NET PLAN (MEDICAID HMO) DEMARCO Bonilal [id number] Brian Bonilla
--- OUTSIDE RECORDS SUMMARY | 2024-05-01 12:01 | XMS_ITS | Continuity of Care Document ---
Author Organization [place] - [facility] 3rd floor Address [address] [place] [address] Assessment Encounter Date Assessment Date Assessment LastModified [...] - Imaging ordered, obtained, and reviewed at [facility]. Assessment: - Healing left posterior iliac spine fracture, non-displaced. - Persistent lumbar spine pain, likely related to the fracture and recent reduction in pain medication. - History of multiple vertebral fractures and rib fractures. Plan: - Continue to let pain guide activity levels; no specific restrictions. - Irrh-mle-jicveo r pain management to be coordinated by primary care physician. - Follow-up in a couple of months to reassess pain and healing progress. Disclaimer: This note was accomplished with use of Helios software, which is prone to medical and [...] - 311 5V PELVIS 2023 024 essenger [facility] Office, [address] [facility], [facility] [address], [place], [address], 03/26/2024 14:38:04 Medication Orders None recorded . [...] a4ajBk vP9nXo QUaueC m3YtLR FvZlgJ JJ8mAn HZtai3 6t3998 AC0Kqa HuHWau mKiQtr MwF INTERFACE [facility] [address], [place], [address], 02/22/2024 09:44:28 02/22/20 24 02/22/2024 XR, hand, 3 or more view [email or web address] ?Encry pted=s hAaTro YD8dLq bEUv6g %2BXZw aYqtaq 0bqfl% 2Fg9IQ a4ajBk vP9nXo QUaueC m3YtLR FvZlg JJ8Brundidge HZtai3 6j4773 AC0Kqa HuHWau mKiQtr MwF INTERFACE [facility] [address], [place], [address], 02/22/2024 09:44:30 03/06/20 24 03/06/2024 XR, pelvi s, 3 or more view [email or web address] ?Encry pted=s hAaTro YD8dLq bEUv6g %2BXZw aYqtaq 0bqfl% 2Fg9IQ a4ajBk vP9nXo QUaueC m3YtLR FvZlg JJ8Brundidge HZtai3 6j2133 AC0Kqa XyMVqe vKiQtr MwF INTERFACE [facility] [address], [place], [address], 03/06/2024 11:57:55 03/06/20 24 03/06/2024 XR, pelvi s, 3 or more view [email or web address] ?Encry pted=s hAaTro YD8dLq bEUv6g %2BXZw aYqtaq 0bqfl% 2Fg9IQ a4ajBk vP9nXo QUaueC m3YtLR Zl JJ8mAn HZtai3 0n5189 AC0Kqa XyMVqe vKiQtr MwF INTERFACE [facility] [address], [place], [address], 03/06/2024 11:57:58 03/16/20 24 03/16/2024 XR, hand, 3 or more view [email or web address] ?Encry pted=s hAaTro YD8dLq bEUv6g %2BXZw aYqtaq 0bqfl% 2Fg9IQ a4ajBk vP9nXo QUaueC m3YtLR FvZlgJ JJ8mAn HZtai3 4h0879 AC0Kqa XiNUqO nKiQtr MwF INTERFACE [facility] [address] [facility] [address], [place], [address], 03/16/2024 09:54:55 03/16/20 24 03/16/2024 XR, hand, 3 or more view [email or web address] ?Encry pted=s hAaTro YD8dLq bEUv6g %2BXZw aYqtaq 0bqfl% 2Fg9IQ a4ajBk vP9nXo QUaueC m3YtLR FvZlgJ JJ8Brundidge HZtai3 7e6761 AC0Kqa XiNUqO nKiQtr MwF [facility]FACE [facility] [address] [facility] [address], [place], [address], 03/16/2024 09:54:57 03/28/20 24 03/28/2024 XR, finge r(s), 2 or more view [email or web address]:/ [email or web address] ?Encry pted=s hAaTro YD8dLq bEUv6g %2BXZw aYqtaq 0bqfl% 2Fg9IQ a4ajBk vP9nXo QUaueC m3YtLR FvZl JJ8Brundidge HZtai3 4s3526 AC0Kqb n2NVKO nKiQtr MwF INTERFACE [facility] [address] [facility] [address], [place], [address], 03/28/2024 13:12:20 03/28/20 24 03/28/2024 XR, finge r(s), 2 or more view [email or web address] ?Encry pted=s hAaTro YD8dLq bEUv6g %2BXZw aYqtaq 0bqfl% 2Fg9IQ a4ajBk vP9nXo QUaueC m3YtLR FvZlgJ JJ8mAn HZtai3 2b9179 AC0Kqb n2NVKO nKiQtr Mw INTERFACE [facility] [address], [place], [address], 03/28/2024 13:12:22 Result Notes None recorded. Problems Name Problem SNOMED Code Status Onset Date Resolution Date Notes Provider Name and Address Organization Details Recorded Time Pain in finger of right hand 9817791820033 09 Active 2023 Jaqui Bae PA-C [address], [place], [address], [facility] 4 09:18:55 Multiple closed fractures of pelvis without disruption of pelvic eek 4699317619251 04 Active [address] [facility] 4 11:49:05 Problem Notes None recorded. Medical Equipment None Reported. Allergies Allergen ID Allergen Name Allergen Category Reaction Reaction Severity Criticality Documentation Date Start Date Code Code System Note Provider Name and Address Organization Details Recorded Time 988913 Vaccine product containin g only Clostridi um tetani antigen (medicina l product) medicatio n Not available Not available Not available 02/22/2024 98786 [address] [facility] 4 [...] Updated DateTime 03/06/2024 172.72 cm 34.1 kg/m2 256451.69 g MARLEEN BOYLE [place] - [place] [facility] 03/06/2024 11:49:28 Social History None recorded. Functional Status None recorded. Mental Status None recorded. Family History Nothing Reported. Medical History No medical history recorded. Past Encounters Encounter ID Performer Location Encounter Start Date Encounter Closed Date Diagnosis/Indication Diagnosis SNOMED-CT Code Diagnosis ICD10 Code Diagnosis Note [id number] [facility] Bunn 1st Floor [address] [place] [address] 02/22/2024 09:19:04 03/05/2024 14:09:35 Pain in right hand [id number] 86332 M79.406 [id number] MD [facility] Nicole 3rd floor [address] [place] [address] 03/06/2024 11:39:51 03/26/2024 14:38:03 Multiple closed fractures of pelvis without disruption of pelvic eek [id number] 90441 S32.82XA Health Concerns Section Related Observation LastModified by Organization Detai ls LastModified Time None Recorded Concern Status LastModified by Organization Details LastModified Time None Recorded Payers Encounter Date Sequence Insurance Name Policy Number Policy Collazo Covered Member ID Collazo Member ID Guarantor Name 03/06/2024 1 [facility] - HEALTH NET PLAN (MEDICAID HMO) DEMARCO Bonilla [id number] Brian Bonilla
== END 2024-05-01 10:24 | disposition home or self-care (01) ==
LOC: HO.US 10:23
PROVIDERS: PCP Internal Medicine; Visit Provider Physician Assistant Surgical
DX: I83.11 Varicose veins of right lower extremity with inflammation (principal); I83.12 Varicose veins of left lower extremity with inflammation
CPT/HCPCS: 93970

== ENCOUNTER → 2024-05-01 10:25 | Outpatient (BNV) | payer OTHER, SELFPAY | PROVIDERS: PCP Internal Medicine; Visit Provider Specialist | DX: I83.11 Varicose veins of right lower extremity with inflammation (principal) | CPT/HCPCS: 93970 ==

== ENCOUNTER 2024-05-17 10:30 | Outpatient (AMB) | payer OTHER, SELFPAY ==
--- NOTE | 2024-05-17 10:32 | A.OFFVIS_ITS ---
Intake Visit Reasons: follow up s/p US 05/04/24 Intake Note: Follow Up US , no complaints. Accompanied by: Self / Same As Patient Allergies tetanus and diphtheria toxoids Allergy (Intermediate, Verified 05/17/24 10:33) Rash HPI HPI follow up s/p US 05/04/24: Details: Very pleasant 53-year-old gentleman presents for follow-up regarding right lower extremity swelling. He had prior right lower extremity intervention by us. Continues to have lower extremity swelling and discomfort which has been an issue for him. It is affecting his daily activities including walking and working. Now presents for follow-up with venous insufficiency testing. [facility] Medical History Obstructive sleep apnea GERD (gastroesophageal reflux disease) Lower thoracic back pain Varicose vein of leg Stasis dermatitis of both legs Anxiety Hospital discharge follow-up Substance abuse Surgical History History of colonoscopy with polypectomy (~11/20/14) History of hand surgery History of varicose vein stripping History of shoulder surgery Family History Mother Diabetes Heart problem Father Esophagus cancer Other Mental health disorder Substance use disorder Social History Household Members: Spouse Housing: House Do you presently have visiting nurse or other home services: No Alcohol intake: never Comment: RESTING IN BED Patient Tobacco Use Status: Former Tobacco user e-Cigarette/Vaping Use: Never Used Second Hand Smoke Exposure: Yes Substance Use Type: Crack/Cocaine service: No Current occupational status: unemployed Cognitive needs: Yes (cane) Hearing needs: No Vision needs: No Review of Systems Const All systems reviewed & are unremarkable except as noted in HPI and below Reports no additional complaints ENT Reports Normal hearing present Card Denies chest pain, Denies chest pain at rest, Denies chest pain with activity and Denies pedal edema Resp Denies cough GI Denies abdominal pain Musc Denies abnormal gait, Denies muscle cramps and Denies radiating pain into limb Skin/Breast Denies skin ulcer and Denies wounds Neuro Reports Normal hearing present and Denies abnormal gait Psych Reports no additional complaints Physical Exam Const General: cooperative, healthy appearing and comfortable Orientation/consciousness: oriented to person, oriented to place and oriented to time HEENT Head: Yes normal to inspection Neck Neck: Yes normal visual inspection Carotids: no bruits Chest Chest palpation & inspection: normal inspection of the chest Resp Effort & Inspection: normal respiratory effort and able to speak in complete sentences Auscultation: clear to auscultation bilaterally, no crackles, no rales, no rhonchi and no wheezes Cardio Rate: regular rate Rhythm: regular rhythm Heart sounds: S1 normal heart sound present and S2 normal heart sound present Bruits: no carotid bruits Peripheral pulses: Peripheral pulses 2+ throughout GI Inspection: Yes normal to inspection Skin Wounds: no wounds Hair: normal Neuro General: oriented to person, oriented to place and oriented to time Cranial nerves: Yes CN's II-XII intact bilaterally and Yes Normal hearing present Cognition (Neuro): normal cognition Motor exam (neuro): 5/5 motor strength present throughout Extrem Other: venous exam: No significant superficial varicosities or spider telangiectasias, minimal edema General: No clubbing, No cyanosis and No edema Psych Appearance: grossly normal Mental Status: mental status grossly normal Speech and movement: Normal speech and movement present Results Reviewed Results Reviewed: Brief summary of venous insufficiency testing is as follows: right great saphenous vein: Positive right small saphenous vein: negative right accessory vein: none present left great saphenous vein: negative left small saphenous vein: negative left accessory vein: none present Please note there is no evidence of any venous aneurysms or significant tortuosity Assessment & Plan Assessment & Plan (1) Varicose veins of right lower extremity with inflammation: Comment: 01/15/2022 - right great saphenous vein Cyanoacralate ablation Code(s): I83.11 - Varicose veins of right lower extremity with inflammation Category: Medical Plan: This patient has varicose veins with inflammation. They continue to be a source of discomfort for the patient. The patient has tried conservative treatment with compression, leg elevation and exercise program for over 3 months time. They have been compliant with all treatment. This has provided minimal relief for the patient. I do not anticipate this course of treatment will alter the underlying etiology. The patient has been scheduled for lower extremity venous treatment inclusive of --- right great saphenous vein Cyanoacralate ablation. Risks, benefits, and complications of this procedure has been discussed in detail with the patient including but not limited to bleeding, infection, and the development of a DVT. The patient has demonstrated a clear understanding and has consented. We will schedule the patient as soon as possible. Thank you for allowing us to participate in this patient's care. If there are any questions or concerns please do not hesitate to contact us. Coding Level of Care Code Est Pt Level 4 (23228) Diagnoses Varicose veins of right lower extremity with inflammation I83.11
== END 2024-05-17 11:00 | disposition home or self-care (01) ==
PROVIDERS: PCP Internal Medicine; Visit Provider Surgery Vascular Surgery
DX: I83.11 Varicose veins of right lower extremity with inflammation (principal)
CPT/HCPCS: 99214

== ENCOUNTER → 2024-05-17 10:30 | Outpatient (BNVA) | payer OTHER, SELFPAY | PROVIDERS: PCP Internal Medicine; Visit Provider Surgery Vascular Surgery | DX: I83.11 Varicose veins of right lower extremity with inflammation (principal); Z87.891 Personal history of nicotine dependence | CPT/HCPCS: 99212 ==

== ENCOUNTER 2024-05-31 12:41 | Outpatient (AMB) | payer OTHER, SELFPAY ==
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
[2024-05-31 13:07] VITALS: BP 130/74; PULSE 86; TEMP 36.2; O2SAT 97; BMI 35.4
== END 2024-05-31 14:12 | disposition home or self-care (01) ==
PROVIDERS: PCP Internal Medicine; Visit Provider Internal Medicine
DX: F19.10 Other psychoactive substance abuse, uncomplicated (principal); F41.9 Anxiety disorder, unspecified; I83.11 Varicose veins of right lower extremity with inflammation; I83.12 Varicose veins of left lower extremity with inflammation; M47.812 Spondylosis without myelopathy or radiculopathy, cervical region

== ENCOUNTER → 2024-05-31 12:41 | Outpatient (BNVA) | payer OTHER, SELFPAY | PROVIDERS: PCP Internal Medicine; Visit Provider Internal Medicine | DX: F19.10 Other psychoactive substance abuse, uncomplicated (principal); F41.9 Anxiety disorder, unspecified; I83.11 Varicose veins of right lower extremity with inflammation; I83.12 Varicose veins of left lower extremity with inflammation; M47.812 Spondylosis without myelopathy or radiculopathy, cervical region | CPT/HCPCS: 99212 ==

== ENCOUNTER 2024-06-11 08:19 | Emergency (ER) | payer OTHER, SELFPAY ==
--- NOTE | ~2024-06-11 | CT_ITS ---
EXAMINATION: CT CERVICAL SPINE WITHOUT IV CONTRAST CLINICAL INFORMATION: Fall with head strike. Neck Pain. COMPARISON: 10/20/2020. TECHNIQUE: Spiral CT imaging of the cervical spine performed in axial plane without contrast. Multiplanar reformatted images were constructed from the axial data set. This CT examination was performed using dose optimization techniques as appropriate, variously including the following: *Automated exposure control *Adjustment of mA and/or kV according to patient size (this includes techniques or standardized protocols for targeted exams where dose is matched to indication/reason for exam; i.e. extremities or head) *Use of iterative reconstruction technique FINDINGS: CORONAL ALIGNMENT: -Mild levoconvex scoliosis, apex at C4. SAGITTAL ALIGNMENT: -Normal. No subluxations. C1-C2 AND CRANIOCERVICAL JUNCTION: -Intact and aligned. VERTEBRAL BODIES AND FACETS: -No fracture, compression deformity, traumatic subluxation, or suspicious bone lesion. -Normal facet alignment, with very mild left greater than right degenerative facet changes most notable at C4-5. DISCS: -Mild diffuse disc space narrowing with mild to moderate narrowing C2-3 and C3-4. PREVERTEBRAL AND PARAVERTEBRAL SOFT TISSUES: -Normal. -Normal thyroid. LUNG APICES: -Grossly clear. CT/CT cervical spine w IV con IMPRESSION: 1. No CT evidence of acute cervical spine fracture or injury. Electronically signed by: Robin Oropeza MD 06/11/2024 10:20 AM [facility]
--- NOTE | ~2024-06-11 | XR_ITS ---
EXAMINATION: XR SHOULDER, RIGHT CLINICAL INFORMATION: pain s/p fall COMPARISON: May 28, 2019. TECHNIQUE: AP external rotation, Grashey, scapular Y, and axillary views of the right shoulder. FINDINGS: Subchondral cyst formation sclerosis deformity involving greater tuberosity. Sclerosis of the articular surface in the acromioclavicular joint. No acute cortical disruption or gross malalignment. Calcified plaque thoracic aortic arch. XR/XR shoulder RT min 2V IMPRESSION: Degenerative changes without acute fracture or dislocation. Electronically signed by: Christiano Sheppard MD 06/11/2024 09:44 AM [facility]
--- NOTE | ~2024-06-11 | CT_ITS ---
EXAMINATION: CT FACIAL BONES WITHOUT CONTRAST CLINICAL INFORMATION: Status post fall. COMPARISON: None available. TECHNIQUE: Contiguous axial images through the maxillofacial bones using 3 mm collimation with bone and soft tissue algorithm. Sagittal and coronal reformatted images acquired. This CT examination was performed using dose optimization techniques as appropriate, variously including the following: *Automated exposure control *Adjustment of mA and/or kV according to patient size (this includes techniques or standardized protocols for targeted exams where dose is matched to indication/reason for exam; i.e. extremities or head) *Use of iterative reconstruction technique DLP: 303.35 mGy centimeter. FINDINGS: Cortical irregularity in the nasal bones. Mixed septum and vomer are intact. The orbital rims, orbital fissures and orbital apices are intact. No hematoma, intraconal or extraconal compartments of the orbits. The eyeballs are intact. The lenses are in normal anatomic location. Zygomatic arcs are intact. Maxilla and pterygoid plates are intact. Mandible is intact. Temporomandibular joints are intact. Mucosal thickening in the paranasal sinuses without air-fluid levels. Tympanic cavities and mastoid cells are aerated. Dextroconvex nasal septum configuration. There is a right-sided 4 mm nasal septum spur.. CT/CT facial bones wo IV con IMPRESSION: Nondisplaced nasal bone fractures. Electronically signed by: Christiano Sheppard MD 06/11/2024 10:12 AM [facility]
--- NOTE | ~2024-06-11 | XR_ITS ---
EXAMINATION: XR LUMBOSACRAL SPINE CLINICAL INFORMATION: pain s/p fall COMPARISON: March 04, 2022. TECHNIQUE: Three views of the lumbosacral spine. FINDINGS: There is an old compression deformity at L4 resulting in 50% volume loss without retropulsion. Multilevel endplate sclerosis. Facet joint hypertrophy L4-5 and L5-S1. No acute cortical disruption or gross malalignment. No lytic or blastic lesions. XR/XR lumbar spine 2-3V IMPRESSION: No acute fracture or trauma-related listhesis. Old compression deformity, L4. Multilevel spondylosis. Electronically signed by: Christiano Sheppard MD 06/11/2024 09:42 AM [facility]
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
--- NOTE | ~2024-06-11 | CT_ITS ---
EXAMINATION: CT CHEST WITHOUT CONTRAST CLINICAL INFORMATION: Right-sided rib pain. COMPARISON: CT angiogram chest the protocols dated 11/18/2021. TECHNIQUE: Multidetector volumetric CT imaging of the chest was done. Axial MIP volume rendering provided. Sagittal and coronal reformatted images were obtained. This CT examination was performed using dose optimization techniques as appropriate, variously including the following: *Automated exposure control *Adjustment of mA and/or kV according to patient size (this includes techniques or standardized protocols for targeted exams where dose is matched to indication/reason for exam; i.e. extremities or head) *Use of iterative reconstruction technique DLP: 399 mGy centimeter. FINDINGS: DIE FITTER: No hyperinflation. Upper extremities both size of the head. LUNGS: There are multiple, less than 5 mm, noncalcified peribronchial vascular bundle nodules involving mostly the right upper lobe, and to a lesser extent right middle lobe. Linear attenuation abnormalities in the lung bases lingula and right middle lobe. No bronchiectasis. No honeycombing. Respiratory airways is patent. MEDIASTINUM: No gross lymphadenopathy, mediastinum. There is a 5 mm mediastinal lymph node the right precarinal. No pericardial effusion. Hiatal hernia, moderate size. No pericardial effusion. Calcified plaque in the thoracic aortic arch. No aneurysm, thoracic aorta. CORONARY ARTERY CALCIFICATION: None visualized on this study. PLEURA: No pleural effusion. No pneumothorax. No hemothorax. AXILLA: No lymphadenopathy. UPPER ABDOMEN: Nodular surface of the liver. Calcified plaques in the infrarenal abdominal aorta. OSSEOUS STRUCTURES: Multilevel spondylosis and old compression deformities throughout the vertebral bodies and the mid to lower thoracic spine from T7 to T12 representing 40%/50% volume loss. Sclerosis in the anterior vertebral body of T8. CT/CT chest wo IV con IMPRESSION: Subcentimeter noncalcified nodules, peribronchial-bronchovascular bundle predominantly right upper lobe. Consider pneumonia versus focal pulmonary sarcoidosis versus lymphoproliferative disorder. Recommend follow-up in 3 months. Hepatocellular disease/cirrhosis. Gynecomastia, bilaterally. Hiatal hernia, moderate size. No acute fracture. Fleischner guidelines were followed. Electronically signed by: Christiano Sheppard MD 06/11/2024 01:05 PM [facility] [place]
--- NOTE | ~2024-06-11 | XR_ITS ---
EXAMINATION: XR RIBS, RIGHT CLINICAL INFORMATION: pain s/p fall COMPARISON: Chest x-ray dated January 04, 2023. TECHNIQUE: 3 views of the right ribs were obtained. AP view chest. FINDINGS: No acute cortical disruption within the ribs of the right hemithorax. No consolidation, pleural effusion or pneumothorax. Cardiomediastinal silhouette size is normal. Calcified plaque aortic arch. Multilevel thoracolumbar spondylosis. Degenerative changes in the right shoulder. XR/XR ribs RT min 3V w CXR1V IMPRESSION: No acute displaced rib fracture, right hemithorax. Degenerative changes in the right shoulder. No acute airspace disease. Electronically signed by: Christiano Sheppard MD 06/11/2024 09:47 AM [facility]
[2024-06-11 08:28] VITALS: BP 130/83; PULSE 59; RESP 16; TEMP 36.6; O2SAT 97; BMI 35.5
--- NOTE | 2024-06-11 08:45 | ED.FALL ---
HPI - Fall General Chief Complaint: Fall Stated Complaint: fall on ice rib back r leg pain Time Seen by Provider: 06/11/24 08:33 Source: patient and RN notes reviewed Mode of arrival: ambulatory Limitations: no limitations History of Present Illness ED Provider: Yaritza Brandt PA-C HPI Narrative: 53 yo male with history of DANIEL, GERD, reactive airway disease, anxiety, PVD, substance abuse on methadone with history of IVDA and MSSA bacteremia in the past, who presents emergency department with complaints of right shoulder pain, and right-sided chest wall pain status post mechanical fall which occurred 2 days ago. Patient states that he accidentally slipped and fell landing on the right side of his body. He does report he struck the right side of his face on pavement. Denies loss consciousness. He is not on anticoagulation. Denies any IVDA since January. Denies any fevers, chills, congestion, abdominal pain, nausea, vomiting or diarrhea. Patient reports that he has had ongoing right shoulder pain, states that he does not want to take deep breaths secondary to the pain he has had in his right ribs. Also reporting some back pain since the fall. No other complaints or concerns at this time. MD complaint: fall Onset (ago): day(s) Fall from: standing Fall witnessed: no Place fall occurred: street Symptoms prior to fall: none Context: tripped/slipped Location of injury - extremities: right: shoulder Severity: moderate Quality: aching Associated symptoms (after fall): denies Related Data Home Medications ?Medication ?Instructions ?Recorded ?Confirmed methadone 80 mg PO DAILY 11/26/21 03/13/24 naloxone 4 mg/actuation nasal spray 4 mg intranasal Q2M PRN 02/27/24 03/13/24 Previous Rx's ?Medication ?Instructions ?Recorded cane #1 ea 03/26/22 sennosides 8.6 mg tablet (Senna 8.6 mg PO BEDTIME #90 tabs 02/27/24 Lax) albuterol sulfate 90 mcg/actuation 1 puff PO QID PRN for wheezing #18 04/09/24 aerosol inhaler (Ventolin HFA) grams pantoprazole 20 mg tablet,delayed 20 mg PO DAILY #90 tabs 04/20/24 release aripiprazole 15 mg tablet 15 mg PO DAILY #30 tabs 01/30/25 fluoxetine 20 mg tablet 20 mg PO DAILY #90 tabs 05/17/24 quetiapine 25 mg tablet (Seroquel) 25 mg PO BEDTIME #30 tabs 05/31/24 amoxicillin 875 mg-potassium 1 tab PO BID 7 days #14 tabs 06/11/24 clavulanate 125 mg tablet doxycycline hyclate 100 mg capsule 100 mg PO BID 7 days #14 caps 06/11/24 Allergies Allergy/AdvReac Type Severity Reaction Status Date / Time tetanus and diphtheria Allergy Intermediate Rash Verified 06/11/24 08:29 toxoids Review of Systems Review of Systems: Yes all other systems are reviewed and are negative Constitutional: Constitutional: Reports as per [facility] Past Medical History Medical History Obstructive sleep apnea GERD (gastroesophageal reflux disease) Lower thoracic back pain Varicose vein of leg Stasis dermatitis of both legs Anxiety Hospital discharge follow-up Substance abuse Surgical History History of colonoscopy with polypectomy (~11/20/14) History of hand surgery History of varicose vein stripping History of shoulder surgery Family History Family History Mother Diabetes Heart problem Father Esophagus cancer Other Mental health disorder Substance use disorder Social History Social History Household Members: Spouse Housing: House Do you presently have visiting nurse or other home services: No Alcohol intake: never Comment: RESTING IN BED Patient Tobacco Use Status: Former Tobacco user e-Cigarette/Vaping Use: Never Used Second Hand Smoke Exposure: Yes Substance Use Type: Crack/Cocaine service: No Current occupational status: unemployed Cognitive needs: Yes (cane) Hearing needs: No Vision needs: No Physical Exam Vital Signs: Vital Signs: Last Vital Signs Temp 98.8 F 06/11/24 13:59 Pulse 48 L 06/11/24 13:59 Resp 14 06/11/24 13:59 BP 113/69 06/11/24 13:59 Pulse Ox 98 06/11/24 13:59 O2 Del Method Room Air 06/11/24 13:59 BMI result Body Mass Index 35.5 Const: General: cooperative, comfortable and no acute distress Orientation/consciousness: patient oriented x3 Limitations: no limitations HEENT: Head: Yes normal to inspection, Yes normocephalic, Yes atraumatic, No Velez's sign and No raccoon eyes Ears: hearing grossly normal bilaterally and TM's normal bilaterally General nose exam: Normal external nose present Face and sinus: Yes normal facial exam Mouth: Normal oral and palatal mucosa present, oropharynx normal and moist mucous membranes Throat: Yes posterior oropharynx normal Eyes: General: appearance normal, both eyes and all related structures Eyelids: Yes eyelids normal Conjunctivae: conjunctivae normal Sclerae: sclerae normal Pupils: Equal, round and reactive pupils present EOM: EOMs intact bilaterally Neck: Other: No midline spine tenderness on examination. Neck: Yes normal visual inspection, Yes full ROM and Yes no lymphadenopathy Lymphatic: no lymphadenopathy noted Chest: Other: Patient with tenderness to palpation along the right lateral chest wall, no bony step-off or deformity. No ecchymosis. No hematoma noted Chest palpation & inspection: normal inspection of the chest Resp: Effort & Inspection: normal respiratory effort and able to speak in complete sentences Auscultation: clear to auscultation bilaterally, no crackles, no rales, no rhonchi and no wheezes Cardio: Rate: regular rate Rhythm: regular rhythm Heart sounds: S1 normal heart sound present and S2 normal heart sound present GI: Other: Abdomen is soft, nontender, nondistended. Inspection: Yes normal to inspection Back/Spine/Pelvis: Other: Tenderness palpation along the lumbar musculature, DTRs are 2+. Skin: General skin exam: no rashes or lesions noted Trauma: no lacerations or abrasions Wounds: no wounds Neuro: General: patient oriented x3 and moves all extremities Cranial nerves: Yes CN's II-XII intact bilaterally and Yes Equal, round and reactive pupils present Cognition (Neuro): normal cognition Motor exam (neuro): 5/5 motor strength present throughout Extrem: Other: Patient with tenderness palpation along the right AC joint, full ROM of the shoulder without difficulty. Strong radial pulse, distal sensation circulation intact. General: Yes normal to inspection Right upper extremity: normal to inspection Left upper extremity: normal to inspection Right lower extremity: normal to inspection Left lower extremity: normal to inspection Course Reevaluation(s) Reevaluation #1: CT chest revealing a subcentimeter noncalcified nodule, peribronchial-bronchovascular bundle predominantly right upper lobe. Consider pneumonia versus focal pulmonary sarcoidosis versus lymphoproliferative disorder. Recommend follow-up in 3 months. Hepatocellular disease/cirrhosis. Gynecomastia, bilaterally. Hiatal hernia, moderate size. No acute fracture. I discussed this with the radiologist. Given appearance, he recommends treating as an infectious like process, however educated on following up outpatient to ensure resolution, as it is unclear whether not this is a malignant like process, nodule or infectious. I discussed this with patient. He will follow-up with his primary care physician. Recommending CT scan in 3 months, given strict return precautions. CT scan of the facial bones revealing nondisplaced nasal bone fracture. Right shoulder x-ray revealing degenerative changes without acute fracture or dislocation. Lumbar spine x-ray revealing old compression deformity at L4, and multilevel spondylosis. I discussed these findings with patient. He will follow-up with his primary care physician. Advised to take ibuprofen and or Tylenol as needed for pain and symptoms. Given strict return precautions. Patient stable for discharge. Medical Decision Making Medical Decision Making MDM Narrative: This is a 53-year-old male who presents emergency department with complaints of right-sided rib pain, right shoulder pain, right-sided facial pain, status post mechanical fall which occurred 3 nights ago. On arrival, vital signs within normal limits. He is speaking in full sentences under no acute distress. He is neurologically intact. Patient has tenderness palpation along the right orbital region, with no bony step-off or deformity. He is not anticoagulated. He has no cervical midline spine tenderness. Given fall with positive head strike, will obtain CT head, neck, and facial bones. Will also order right shoulder x-ray, lumbar spine x-ray, and rib x-rays to rule out any bony abnormalities. This was a mechanical fall, he was feeling well prior to the fall. Differential Diagnosis Differential Diagnoses: The differential diagnosis associated with the presentation includes ICH, SDH, facial fracture, pneumothorax, rib fracture Admission/Observation Consideration of admission/observation: Escalation of care including admission/observation considered Radiology Impression Discussion of test interpretation with radiology: I have reviewed the radiologist's reading. Radiologist Impression: Report Number: [id number]: Total DLP = 0.00 mGy-cm EXAMINATION: CT CERVICAL SPINE WITHOUT IV CONTRAST CLINICAL INFORMATION: Fall with head strike. Neck Pain. COMPARISON: 10/20/2020. TECHNIQUE: Spiral CT imaging of the cervical spine performed in axial plane without contrast. Multiplanar reformatted images were constructed from the axial data set. This CT examination was performed using dose optimization techniques as appropriate, variously including the following: *Automated exposure control *Adjustment of mA and/or kV according to patient size (this includes techniques or standardized protocols for targeted exams where dose is matched to indication/reason for exam; i.e. extremities or head) *Use of iterative reconstruction technique FINDINGS: CORONAL ALIGNMENT: -Mild levoconvex scoliosis, apex at C4. SAGITTAL ALIGNMENT: -Normal. No subluxations. C1-C2 AND CRANIOCERVICAL JUNCTION: -Intact and aligned. VERTEBRAL BODIES AND FACETS: -No fracture, compression deformity, traumatic subluxation, or suspicious bone lesion. -Normal facet alignment, with very mild left greater than right degenerative facet changes most notable at C4-5. DISCS: -Mild diffuse disc space narrowing with mild to moderate narrowing C2-3 and C3-4. PREVERTEBRAL AND PARAVERTEBRAL SOFT TISSUES: -Normal. -Normal thyroid. LUNG APICES: -Grossly clear. CT/CT cervical spine w IV con IMPRESSION: 1. No CT evidence of acute cervical spine fracture or injury. Electronically signed by: Robin Oropeza MD 06/11/2024 10:20 AM [facility] Dictated By: Robin Oropeza MD Report Number: [id number]: Total DLP = 0.00 mGy-cm EXAMINATION: CT CERVICAL SPINE WITHOUT IV CONTRAST CLINICAL INFORMATION: Fall with head strike. Neck Pain. COMPARISON: 10/20/2020. TECHNIQUE: Spiral CT imaging of the cervical spine performed in axial plane without contrast. Multiplanar reformatted images were constructed from the axial data set. This CT examination was performed using dose optimization techniques as appropriate, variously including the following: *Automated exposure control *Adjustment of mA and/or kV according to patient size (this includes techniques or standardized protocols for targeted exams where dose is matched to indication/reason for exam; i.e. extremities or head) *Use of iterative reconstruction technique FINDINGS: CORONAL ALIGNMENT: -Mild levoconvex scoliosis, apex at C4. SAGITTAL ALIGNMENT: -Normal. No subluxations. C1-C2 AND CRANIOCERVICAL JUNCTION: -Intact and aligned. VERTEBRAL BODIES AND FACETS: -No fracture, compression deformity, traumatic subluxation, or suspicious bone lesion. -Normal facet alignment, with very mild left greater than right degenerative facet changes most notable at C4-5. DISCS: -Mild diffuse disc space narrowing with mild to moderate narrowing C2-3 and C3-4. PREVERTEBRAL AND PARAVERTEBRAL SOFT TISSUES: -Normal. -Normal thyroid. LUNG APICES: -Grossly clear. CT/CT cervical spine w IV con IMPRESSION: 1. No CT evidence of acute cervical spine fracture or injury. Electronically signed by: Robin Oropeza MD 06/11/2024 10:20 AM EST RP Dictated By: Robin Oropeza MD [place] [address] XRay Report Signed Patient: Brian Bonilla MR#: [id number] : 1970 Acct:[id number] Age/Sex: 53 / M ADM Date: 06/11/24 Loc: HO.ED Attending Dr: Ordering Physician: Yaritza Brandt Date of Service: 06/11/24 Procedure(s): XR lumbar spine 2-3V Accession Number(s): [id number] cc: Yaritza Brandt; Francisco Tam MD~ EXAMINATION: XR LUMBOSACRAL SPINE CLINICAL INFORMATION: pain s/p fall COMPARISON: March 04, 2022. TECHNIQUE: Three views of the lumbosacral spine. FINDINGS: There is an old compression deformity at L4 resulting in 50% volume loss without retropulsion. Multilevel endplate sclerosis. Facet joint hypertrophy L4-5 and L5-S1. No acute cortical disruption or gross malalignment. No lytic or blastic lesions. XR/XR lumbar spine 2-3V IMPRESSION: No acute fracture or trauma-related listhesis. Old compression deformity, L4. Multilevel spondylosis. Electronically signed by: Christiano Sheppard MD 06/11/2024 09:42 AM EST RP Dictated By: Christiano Wiseman MD Signed By: <Electronically signed by Christiano Coy MD in OV> EXAMINATION: XR SHOULDER, RIGHT CLINICAL INFORMATION: pain s/p fall COMPARISON: May 28, 2019. TECHNIQUE: AP external rotation, Grashey, scapular Y, and axillary views of the right shoulder. FINDINGS: Subchondral cyst formation sclerosis deformity involving greater tuberosity. Sclerosis of the articular surface in the acromioclavicular joint. No acute cortical disruption or gross malalignment. Calcified plaque thoracic aortic arch. XR/XR shoulder RT min 2V IMPRESSION: Degenerative changes without acute fracture or dislocation. Electronically signed by: Christiano Sheppard MD 06/11/2024 09:44 AM EST RP Dictated By: Christiano Wiseman MD [address] [address] XRay Report Signed Patient: Brian Bonilla MR#: [id number] : 1970 Acct:[id number] Age/Sex: 53 / M ADM Date: 06/11/24 Loc: HO.ED Attending Dr: Ordering Physician: Yaritza Brandt Date of Service: 06/11/24 Procedure(s): XR ribs RT min 3V w CXR1V Accession Number(s): [id number] cc: Yaritza Brandt; Francisco Tam MD~ EXAMINATION: XR RIBS, RIGHT CLINICAL INFORMATION: pain s/p fall COMPARISON: Chest x-ray dated January 04, 2023. TECHNIQUE: 3 views of the right ribs were obtained. AP view chest. FINDINGS: No acute cortical disruption within the ribs of the right hemithorax. No consolidation, pleural effusion or pneumothorax. Cardiomediastinal silhouette size is normal. Calcified plaque aortic arch. Multilevel thoracolumbar spondylosis. Degenerative changes in the right shoulder. XR/XR ribs RT min 3V w CXR1V IMPRESSION: No acute displaced rib fracture, right hemithorax. Degenerative changes in the right shoulder. No acute airspace disease. Electronically signed by: Christiano Sheppard MD 06/11/2024 09:47 AM EST RP Dictated By: Christiano Wiseman MD [place] [id number] [address] Scan Report Signed Patient: Brian Bonilla MR#: [id number] : 1970 Acct:[id number] Age/Sex: 53 / M ADM Date: 06/11/24 Loc: HO.ED Attending Dr: Ordering Physician: Yaritza Brandt Date of Service: 06/11/24 Procedure(s): CT facial bones wo IV con Accession Number(s): [id number] cc: Yaritza Brandt; Francisoc Tam MD~ Report Number: [id number]: Total DLP = 1665.24 mGy-cm EXAMINATION: CT FACIAL BONES WITHOUT CONTRAST CLINICAL INFORMATION: Status post fall. COMPARISON: None available. TECHNIQUE: Contiguous axial images through the maxillofacial bones using 3 mm collimation with bone and soft tissue algorithm. Sagittal and coronal reformatted images acquired. This CT examination was performed using dose optimization techniques as appropriate, variously including the following: *Automated exposure control *Adjustment of mA and/or kV according to patient size (this includes techniques or standardized protocols for targeted exams where dose is matched to indication/reason for exam; i.e. extremities or head) *Use of iterative reconstruction technique DLP: 303.35 mGy centimeter. FINDINGS: Cortical irregularity in the nasal bones. Mixed septum and vomer are intact. The orbital rims, orbital fissures and orbital apices are intact. No hematoma, intraconal or extraconal compartments of the orbits. The eyeballs are intact. The lenses are in normal anatomic location. Zygomatic arcs are intact. Maxilla and pterygoid plates are intact. Mandible is intact. Temporomandibular joints are intact. Mucosal thickening in the paranasal sinuses without air-fluid levels. Tympanic cavities and mastoid cells are aerated. Dextroconvex nasal septum configuration. There is a right-sided 4 mm nasal septum spur.. CT/CT facial bones wo IV con IMPRESSION: Nondisplaced nasal bone fractures. Electronically signed by: Christiano Sheppard MD 06/11/2024 10:12 AM [facility] [address] [address] [address] Scan Report Signed Patient: Brian Bonilla MR#: [id number] : 1970 Acct:[id number] Age/Sex: 53 / M ADM Date: 06/11/24 Loc: HO.ED Attending Dr: Ordering Physician: Yaritza Brandt Date of Service: 06/11/24 Procedure(s): CT chest wo IV con Accession Number(s): [id number] cc: Yaritza Brandt; Francisco Tam MD~ Report Number: [id number]: Total DLP = 399.00 mGy-cm EXAMINATION: CT CHEST WITHOUT CONTRAST CLINICAL INFORMATION: Right-sided rib pain. COMPARISON: CT angiogram chest the protocols dated 11/18/2021. TECHNIQUE: Multidetector volumetric CT imaging of the chest was done. Axial MIP volume rendering provided. Sagittal and coronal reformatted images were obtained. This CT examination was performed using dose optimization techniques as appropriate, variously including the following: *Automated exposure control *Adjustment of mA and/or kV according to patient size (this includes techniques or standardized protocols for targeted exams where dose is matched to indication/reason for exam; i.e. extremities or head) *Use of iterative reconstruction technique DLP: 399 mGy centimeter. FINDINGS: SLATE SPLITTER: No hyperinflation. Upper extremities both size of the head. LUNGS: There are multiple, less than 5 mm, noncalcified peribronchial vascular bundle nodules involving mostly the right upper lobe, and to a lesser extent right middle lobe. Linear attenuation abnormalities in the lung bases lingula and right middle lobe. No bronchiectasis. No honeycombing. Respiratory airways is patent. MEDIASTINUM: No gross lymphadenopathy, mediastinum. There is a 5 mm mediastinal lymph node the right precarinal. No pericardial effusion. Hiatal hernia, moderate size. No pericardial effusion. Calcified plaque in the thoracic aortic arch. No aneurysm, thoracic aorta. CORONARY ARTERY CALCIFICATION: None visualized on this study. PLEURA: No pleural effusion. No pneumothorax. No hemothorax. AXILLA: No lymphadenopathy. UPPER ABDOMEN: Nodular surface of the liver. Calcified plaques in the infrarenal abdominal aorta. OSSEOUS STRUCTURES: Multilevel spondylosis and old compression deformities throughout the vertebral bodies and the mid to lower thoracic spine from T7 to T12 representing 40%/50% volume loss. Sclerosis in the anterior vertebral body of T8. CT/CT chest wo IV con IMPRESSION: Subcentimeter noncalcified nodules, peribronchial-bronchovascular bundle predominantly right upper lobe. Consider pneumonia versus focal pulmonary sarcoidosis versus lymphoproliferative disorder. Recommend follow-up in 3 months. Hepatocellular disease/cirrhosis. Gynecomastia, bilaterally. Hiatal hernia, moderate size. No acute fracture. Fleischner guidelines were followed. Electronically signed by: Christiano Sheppard MD 06/11/2024 01:05 PM [facility] Dictated By: Christiano Wiseman MD Discharge Plan Discharge Clinical Impression: Fall, Abnormal chest CT, Chest wall contusion Patient Disposition: Home, Self-Care Instructions: Rib Contusion (ED) Additional Instructions: You were seen in the emergency department due to a fall. Your facial bone CT reveals a nondisplaced nasal bone fracture. Ice, and gently blow your nose. Blowing your nose aggressively can cause displacement of the fractures. You may follow-up with ENT. Call to make an appointment. Your CT scan of your chest reveals a calcified nodule, seen in the right upper lobe, it is unclear whether not this is an infection like pneumonia or something else, therefore we are treating you with an antibiotic, please take full course. You need to follow-up in 3 months to ensure that this has resolved. Use incentive spirometer that you have at home to ensure that you are taking deep breaths. You do not have any evidence of any rib fractures. You do have an old compression deformity at L4. Please follow-up with your primary care physician regarding this visit, please call today to make an appointment. If any new or worsening symptoms occur including but not limited to severe chest pain, shortness of breath, please seek emergent care. Prescriptions: New amoxicillin-pot clavulanate 875-125 mg tablet 1 tab PO BID 7 Days Qty: 14 0RF doxycycline hyclate 100 mg capsule 100 mg PO BID 7 Days Qty: 14 0RF No Action sennosides [Senna Lax] 8.6 mg tablet 8.6 mg PO BEDTIME Qty: 90 1RF albuterol sulfate [Ventolin HFA] 90 mcg/actuation HFA aerosol inhaler 1 puff PO QID PRN (Reason: for wheezing) Qty: 18 0RF pantoprazole 20 mg tablet,delayed release (DR/EC) 20 mg PO DAILY Qty: 90 1RF aripiprazole 15 mg tablet 15 mg PO DAILY Qty: 30 0RF fluoxetine 20 mg tablet 20 mg PO DAILY Qty: 90 1RF methadone liquid 80 mg PO DAILY (DME) cane Device See Rx Instructions .Route Qty: 1 0RF Rx Instructions: As directed naloxone 4 mg/actuation spray,non-aerosol 4 mg intranasal Q2M PRN Rx Instructions: spray 1 dose into ONE nostril; alternate nostrils w each dose until help arrives quetiapine [Seroquel] 25 mg tablet 25 mg PO BEDTIME Qty: 30 0RF Referrals: Nate Mcneal [Physician] - Interventions: ED Discharge Assessment Last Done: 06/11/24 13:59 Discharge Date/Time: 06/11/24 14:01 Print Language: Sammarinese
[2024-06-11 12:36] VITALS: BP 113/69; PULSE 48; RESP 14; TEMP 37.1; O2SAT 98
[2024-06-11 13:59] VITALS: BP 113/69; PULSE 48; RESP 14; TEMP 37.1; O2SAT 98
== END 2024-06-11 14:01 | disposition home or self-care (01) ==
PROVIDERS: Emergency Provider Emergency Medicine; PCP Internal Medicine
DX: S20.211A Contusion of right front wall of thorax, initial encounter (principal); R51.9 Headache, unspecified; M54.2 Cervicalgia; M79.604 Pain in right leg; R07.89 Other chest pain; R07.81 Pleurodynia; R93.89 Abnormal findings on diagnostic imaging of other specified body structures; W00.0XXA Fall on same level due to ice and snow, initial encounter; Y93.9 Activity, unspecified; Y92.89 Other specified places as the place of occurrence of the external cause; Y99.8 Other external cause status; Z87.891 Personal history of nicotine dependence; Z79.899 Other long term (current) drug therapy
CPT/HCPCS: 70450; 70486; 71101; 71250; 72100; 72126; 73030; 99283; 99284

== ENCOUNTER → 2024-06-11 08:56 | Outpatient (BNV) | payer OTHER, SELFPAY | PROVIDERS: Emergency Provider Emergency Medicine; PCP Internal Medicine; Visit Provider Radiology Diagnostic Radiology | DX: M54.2 Cervicalgia (principal); R91.8 Other nonspecific abnormal finding of lung field; S02.2XXA Fracture of nasal bones, initial encounter for closed fracture; S09.90XA Unspecified injury of head, initial encounter; R07.81 Pleurodynia; M47.896 Other spondylosis, lumbar region; M19.011 Primary osteoarthritis, right shoulder | CPT/HCPCS: 70450; 70486; 71101; 71250; 72100; 72126; 73030 ==

== ENCOUNTER 2024-06-15 07:21 | Outpatient (AMB) | payer OTHER, SELFPAY ==
--- NOTE | 2024-06-15 07:32 | A.OFFPC_ITS ---
Vital Signs 06/15/24 07:33 Height 5 ft 8 in Weight 231 lb BMI 35.1 BP 130/92 H Blood Pressure Location Lt brachial Position Sitting Pulse 72 Pulse Source Pulse Oximeter Pulse Oximetry (%) 97 Oxygen Delivery Method Room Air Intake Visit Reasons: fell 06/09 Allergies tetanus and diphtheria toxoids Allergy (Intermediate, Verified 06/15/24 07:33) Rash Tobacco use date assessed: 06/15/24 Dental Screening Dental Screen Date: 05/31/24 HPI HPI Comments History of Present Illness Details 53 y/o male patient who presents to the clinic for EDF. Pmhx significant for DANIEL, GERD, reactive airway disease, anxiety, PVD, substance abuse on methadone with history of IVDA and MSSA bacteremia in the past, was admitted at [facility] on 06/11/24 and discharged home the same day. Pt complaints of right shoulder pain, and right-sided chest wall pain status post mechanical fall. Patient states that he accidentally slipped and fell landing on the right side of his body. Denies loss consciousness. CT chest revealing a subcentimeter noncalcified nodule, peribronchial- bronchovascular bundle predominantly right upper lobe. Consider pneumonia versus focal pulmonary sarcoidosis versus lymphoproliferative disorder. Recommend follow-up in 3 months. Hepatocellular disease/cirrhosis. Gynecomastia, bilaterally. Hiatal hernia, moderate size. No acute fracture. He was given Oral Abx upon discharge. CT scan of the facial bones revealing non-displaced nasal bone fracture. [facility] Medical History (Updated 06/15/24 @ 07:58 by Katrin Zuniga NP) Nasal bones, closed fracture Obstructive sleep apnea GERD (gastroesophageal reflux disease) Lower thoracic back pain Varicose vein of leg Stasis dermatitis of both legs Anxiety Hospital discharge follow-up Substance abuse Surgical History History of colonoscopy with polypectomy (~11/20/14) History of hand surgery History of varicose vein stripping History of shoulder surgery Family History Mother Diabetes Heart problem Father Esophagus cancer Other Mental health disorder Substance use disorder Social History Household Members: Spouse Housing: House Do you presently have visiting nurse or other home services: No Alcohol intake: never Comment: RESTING IN BED Patient Tobacco Use Status: Former Tobacco user Tobacco use type: Cigarette e-Cigarette/Vaping Use: Never Used Second Hand Smoke Exposure: Yes Substance Use Type: Crack/Cocaine service: No Current occupational status: unemployed Cognitive needs: Yes (cane) Hearing needs: No Vision needs: No Questionnaire Thrive Questionnaire Date Thrive assessed: 05/31/24 YOUSUF-7 AMB Questionnaire YOUSUF-7 Date YOUSUF - 7 assessed: 05/31/24 Source: Developed by Drs. Paolo Elam, Shreya Roman, Alberto Seo and colleagues, with an educational ashleigh from [employer]. Review of Systems Const All systems reviewed & are unremarkable except as noted in HPI and below Physical exam (Primary Care) Vital Signs: Last Vital Signs Pulse 72 06/15/24 07:33 BP 130/92 H 06/15/24 07:33 Pulse Ox 97 06/15/24 07:33 Oxygen Delivery Method Room Air 06/15/24 07:33 BMI result Body Mass Index 35.1 Tobacco/Smoking Status: Tobacco use Status Tobacco use date assessed 06/15/24 06/15/24 07:34 Patient Tobacco Use Status Former Tobacco user 06/15/24 07:34 Tobacco use type Cigarette 06/15/24 07:34 e-Cigarette/Vaping Use Never Used 06/15/24 07:34 Thrive Assessment: Date of Thrive Assessment Date Thrive assessed 05/31/24 06/15/24 07:34 Const General: cooperative and no acute distress Nutritional Appearance: obese Orientation/consciousness: patient oriented x3 HENOK General nose exam: Abnormal mucous membranes and turbinates present erythematous and Abnormal nasal septum present deviated to the right Face and sinus: Yes sinuses nontender Neuro General: patient oriented x3 and moves all extremities Extrem Right upper extremity: normal capillary refill and shoulder/upper arm Details: tenderness Location: of the proximal humerus and normal ROM (Pain with ROM) Psych Speech and movement: Normal speech and movement present Coding Level of Care Code Est Pt Level 4 (31681) Diagnoses Contusion of right chest wall, initial encounter S20.211A Encounter type: initial encounter Laterality: right Closed fracture of nasal bone, initial encounter S02.2XXA Encounter type: initial encounter Moderate persistent reactive airway disease without complication J45.40 Asthma complication type: uncomplicated Asthma persistence: persistent Asthma severity: moderate Time Spent (min) 20 Assessment & Plan Assessment & Plan (1) Chest wall contusion: Code(s): S20.219A - Contusion of unspecified front wall of thorax, initial encounter Category: Medical Qualifiers: Encounter type: initial encounter Laterality: right Qualified Code(s): S20.211A - Contusion of right front wall of thorax, initial encounter Plan: CT chest revealing a subcentimeter noncalcified nodule, peribronchial- bronchovascular bundle predominantly right upper lobe. Consider pneumonia versus focal pulmonary sarcoidosis versus lymphoproliferative disorder. Recommend follow-up in 3 months. (2) Nasal bones, closed fracture: Code(s): S02.2XXA - Fracture of nasal bones, initial encounter for closed fracture Category: Medical Qualifiers: Encounter type: initial encounter Qualified Code(s): S02.2XXA - Fracture of nasal bones, initial encounter for closed fracture Plan: Educated on the precautions. Ice, and gently blow nose. Blowing nose aggressively can cause displacement of the fractures. (3) Reactive airway disease: Code(s): J45.909 - Unspecified asthma, uncomplicated Category: Medical Qualifiers: Asthma complication type: uncomplicated Asthma persistence: persistent Asthma severity: moderate Qualified Code(s): J45.40 - Moderate persistent asthma, uncomplicated Plan: Ordered Flonase nasal spray. Medications: New acetaminophen 1,000 mg (2 x 500 mg) PO Q6H PRN 30 caps 0RF pain S02.2XXA - Fracture of nasal bones, initial encounter for closed fracture, S20.219A - Contusion of unspecified front wall of thorax, initial encounter fluticasone furoate 27.5 mcg/actuation (Flonase Sensimist) into each nostril 1 spray intranasal DAILY 9.1 mL 0RF J45.40 - Moderate persistent asthma, uncomplicated
[2024-06-15 07:33] VITALS: BP 130/92; PULSE 72; O2SAT 97; BMI 35.1
== END 2024-06-15 09:39 | disposition home or self-care (01) ==
PROVIDERS: PCP Internal Medicine; Visit Provider Nurse Practitioner Family
DX: S20.211A Contusion of right front wall of thorax, initial encounter (principal); S02.2XXA Fracture of nasal bones, initial encounter for closed fracture; J45.40 Moderate persistent asthma, uncomplicated

== ENCOUNTER → 2024-06-15 07:21 | Outpatient (BNVA) | payer OTHER, SELFPAY | PROVIDERS: PCP Internal Medicine; Visit Provider Nurse Practitioner Family | DX: I83.11 Varicose veins of right lower extremity with inflammation (principal); S20.211D Contusion of right front wall of thorax, subsequent encounter; S02.2XXD Fracture of nasal bones, subsequent encounter for fracture with routine healing; J45.40 Moderate persistent asthma, uncomplicated | CPT/HCPCS: 36482; 99212; J2003 ==

== ENCOUNTER 2024-06-15 10:22 | Outpatient (AMB) | payer OTHER, SELFPAY ==
--- NOTE | 2024-06-15 10:41 | MHC.OFFVIS ---
Intake Visit Reasons: Right GSV Venaseal Accompanied by: Self / Same As Patient Allergies tetanus and diphtheria toxoids Allergy (Intermediate, Verified 06/15/24 10:41) Rash COUNTS INCLUDE 234 BEDS AT THE [facility] Medical History Nasal bones, closed fracture Obstructive sleep apnea GERD (gastroesophageal reflux disease) Lower thoracic back pain Varicose vein of leg Stasis dermatitis of both legs Anxiety Hospital discharge follow-up Substance abuse Surgical History History of colonoscopy with polypectomy (~11/20/14) History of hand surgery History of varicose vein stripping History of shoulder surgery Family History Mother Diabetes Heart problem Father Esophagus cancer Other Mental health disorder Substance use disorder Social History Household Members: Spouse Housing: House Do you presently have visiting nurse or other home services: No Alcohol intake: never Comment: RESTING IN BED Patient Tobacco Use Status: Former Tobacco user Tobacco use type: Cigarette e-Cigarette/Vaping Use: Never Used Second Hand Smoke Exposure: Yes Substance Use Type: Crack/Cocaine service: No Current occupational status: unemployed Cognitive needs: Yes (cane) Hearing needs: No Vision needs: No Office Procedures Vascular Office Procedure Details Details: Diagnosis: Right Leg varicose veins with inflammation Procedure: Endovenous Ablation of the right anterior Saphenous Vein and great saphenous vein with VenaSeal Closure System Anesthesia: Local infiltration 5 cc, Tractor Mechanic Helper: None Estimated Blood Loss: min Specimen: none Duplex ultrasound was used to map out the insufficient saphenous vein, and access was determined and marked on the overlying skin. The depth and diameter of the vein(s) to be treated was documented. The patient was placed supine on the procedure table and the leg was prepped and draped using sterile technique. Ultasound guidance was again used to localize the access site. 1% lidocaine was injected as a local anesthetic in the subcutaneous tissues at the target location in the anterior saphenous vein in the lower leg. Using ultrasound guidance, access was gained at this location with the 19 gauge thin walled access needle and followed by introduction of a short guidewire, location confirmed with ultrasound. A small, 3 mm incision was made at the access site to allow for introduction and placement of the 7 Fr x7cm introducer/dilator. The dilator and guidewire were removed. The 0.035 guidewire from the VenaSeal kit was then introduced and positioned at the saphenofemoral junction using ultrasound guidance. The 80 cm 7 Fr introducer sheath/dilator was positioned 5cm from the saphenofemoral junction. The guidewire and dilator were removed, and the remaining sheath was flushed with sterile saline, with the syringe remaining in place prior to the next steps. The cyanoacrylate adhesive was precisely primed into the 5 F delivery catheter and this catheter/syringe combination was attached within the dispenser gun. This assembly was introduced through the 7F sheath and positioned 5 cm caudal of the saphenofemoral junction under ultrasound guidance. The steps from the IFU were followed for dispensing amounts, locations and compression times, 2 aliquots proximally with 3 minutes of compression, and 1 aliquot every 3 cm distally with 30 sec of compression along the course of the vessel. Following the last injection and compression sequence, the catheter and introducer sheath were pulled out from the access site. Hemostasis was achieved with manual compression and an adhesive bandage was applied to the incision. Ultrasound confirmed complete coaptation and closure of the treated segments of the GSV, and the absence of any DVT at the saphenofemoral junction. Treatment time was approximately 4 minutes and the vein length treated was 10 cm. In a similar fashion we approached the below-knee great saphenous vein. We identified this under ultrasound guidance and inserted a 7 Indonesian sheath. There is a proximally a 10 cm segment prior to us reaching the previously ablated great saphenous vein. Once we were able to gain access we introduced the Cyanoacralate ablation kit. We dispensed 1 aliquot every 3 cm with 30 seconds compression along its length. Once again a total of 10 cm was treated and the treatment time was 1-1/2 minutes. The drapes were removed and the patient cleaned and prepared for discharge. Postprocedure ultrasound was done on table in no evidence of DVT, and the patient was given written post-op instructions. 88975 - Endoven Ther Chem Adhes 1st 34657 - Chem Ashes, subsequent vein All charges added?: Procedure code (CPT) selection complete Assessment & Plan Assessment & Plan (1) Varicose veins of right lower extremity with inflammation: Comment: 01/15/2022 - right great saphenous vein Cyanoacralate ablation 06/15/2024 - right anterior saphenous vein and below-knee right great saphenous vein Cyanoacralate ablation Code(s): I83.11 - Varicose veins of right lower extremity with inflammation Category: Medical Plan: See op Coding Level of Care Code Procedure Only Diagnoses Varicose veins of right lower extremity with inflammation I83.11 CPT Codes Details - Vascular 3: 20661 - Endoven Ther Chem Adhes 1st ([id number])
== END 2024-06-15 11:23 | disposition home or self-care (01) ==
PROVIDERS: PCP Internal Medicine; Visit Provider Surgery Vascular Surgery
DX: I83.11 Varicose veins of right lower extremity with inflammation (principal)
CPT/HCPCS: 36482

== ENCOUNTER 2024-06-19 14:22 | Outpatient (RCR) | payer OTHER, SELFPAY ==
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
--- NOTE | 2024-07-17 16:28 | MHC.PT.DC ---
[facility] [place] [facility] [place] [facility] [place] [facility] [address] Kanwal Winkler [address] [phone] F: [phone] F: [phone] F: [phone] F: [phone] Physical Therapy Discharge Report Diagnosis: pain in thoracic spine lower throacic back pain Date of Surgery: unknown Date of Evaluation: 06/19/24 Date of Discharge: 07/17/24 Treatments to Date: 1 Cancellations to Date: 2 No Shows to Date: 2 Discharge Status: Visit Non-compliance Discharge Summary: Pt attended initial PT evaluation on 06/19/24. He has had 2 cancellations and 2 no show appointments since SOC. He is being D/C from skilled PT per [facility] attendance policy. Pt current level of function unknown at this time Electronically signed by: Parul Kline, PT, DPT Please sign and return to therapist. Thank you for your referral.
== END 2024-07-17 16:28 | disposition home or self-care (01) ==
LOC: HO.PT 14:22
PROVIDERS: PCP Internal Medicine; Visit Provider Internal Medicine
DX: M54.6 Pain in thoracic spine (principal)
CPT/HCPCS: 97162

== ENCOUNTER 2024-06-26 10:48 | Outpatient (AMB) | payer OTHER, SELFPAY ==
[2024-06-26 10:55] VITALS: BMI 35.1
--- NOTE | 2024-06-26 10:55 | A.OFFVIS_ITS ---
Vital Signs 06/26/24 10:55 Height 5 ft 8 in Weight 231 lb BMI 35.1 Intake Visit Reasons: 2 wk follow up Right GSV Venaseal 06/15/24 Intake Note: 2 wk follow up Right GSV Venaseal follow up 06/15/24. Pt still has pain over the treated area w/ discoloration Accompanied by: Self / Same As Patient Allergies tetanus and diphtheria toxoids Allergy (Intermediate, Verified 06/26/24 11:01) Rash HPI HPI 2 wk follow up Right GSV Venaseal 06/15/24: Details: The patient is a 53-year-old male presenting with a post-procedural follow-up after a right great saphenous vein ablation two weeks ago. The patient reports hardness at the site of ablation, distinct from swelling he perceives. He appropriately utilizes compression garments, noting that their omission significantly worsens the swelling. Interventions previously include at least one great saphenous vein ablation. He now presents for routine postprocedure follow-up [facility] Medical History Nasal bones, closed fracture Obstructive sleep apnea GERD (gastroesophageal reflux disease) Lower thoracic back pain Varicose vein of leg Stasis dermatitis of both legs Anxiety Hospital discharge follow-up Substance abuse Surgical History History of colonoscopy with polypectomy (~11/20/14) History of hand surgery History of varicose vein stripping History of shoulder surgery Family History Mother Diabetes Heart problem Father Esophagus cancer Other Mental health disorder Substance use disorder Social History Household Members: Spouse Housing: House Do you presently have visiting nurse or other home services: No Alcohol intake: never Comment: RESTING IN BED Patient Tobacco Use Status: Former Tobacco user Tobacco use type: Cigarette e-Cigarette/Vaping Use: Never Used Second Hand Smoke Exposure: Yes Substance Use Type: Crack/Cocaine service: No Current occupational status: unemployed Cognitive needs: Yes (cane) Hearing needs: No Vision needs: No Review of Systems Const Reports as per HPI ENT Reports no additional complaints Card Denies chest pain, Denies chest pain at rest and Denies chest pain with activity Resp Denies chest congestion and Denies cough GI Reports no additional complaints Musc Details: pain over varicosities, aching of lower extremities, swelling, cramping, heaviness and tiredness, itching Denies abnormal gait Skin/Breast Reports pruritus and Denies wounds Neuro Reports no additional complaints and Denies abnormal gait Psych Denies no additional complaints Physical Exam Vital Signs: BMI result Body Mass Index 35.1 Const General: cooperative, healthy appearing and comfortable Orientation/consciousness: oriented to person, oriented to place and oriented to time Neck Carotids: no bruits Chest Chest palpation & inspection: normal inspection of the chest and normal palpation of entire chest wall Resp Effort & Inspection: normal respiratory effort and able to speak in complete sentences Cardio Rate: regular rate Heart sounds: S1 normal heart sound present and S2 normal heart sound present Peripheral pulses: Peripheral pulses 2+ throughout GI Inspection: Yes normal to inspection Skin Other: +2 edema, large rope-like varicosities greater than 4 mm mild veins right medial calf CEAP Classification C4 - skin color changes Ep - Etiology Primary As - superficial veins P - reflux General skin exam: dry skin Neuro General: oriented to person, oriented to place and oriented to time Extrem Right lower extremity: full ROM, normal capillary refill and edema Left lower extremity: full ROM, normal capillary refill and edema Psych Mental Status: mental status grossly normal Assessment & Plan Assessment & Plan (1) Varicose veins of right lower extremity with inflammation: Comment: 01/15/2022 - right great saphenous vein Cyanoacralate ablation 06/15/2024 - right anterior saphenous vein and below-knee right great saphenous vein Cyanoacralate ablation Code(s): I83.11 - Varicose veins of right lower extremity with inflammation Category: Medical Plan: The patient has done extremely well with all venous treatments. Patient's may often experience postprocedure phlebitic episodes and I have discussed with the patient use of warm compresses and NSAIDS if tolerated for pain discomfort. In addition, I have discussed continued conservative measures including use of compression, leg elevation, and exercise. The patient was also given an information sheet regarding appropriate use of compression stockings and future purchases. Thank you for allowing us to care for your patient with venous disease. His varicose veins would not impact his ability to work. I did ask him to reach out to his primary care team regarding disability issues. He will follow up with us on an as-needed basis. Plan Patient was informed and verbally consented to the use of an ambient scribe for clinic note documentation during this visit. Patient Instructions: - Use warm compresses on the affected area to reduce hardness and discomfort. - Take NSAIDs like Advil or Motrin as needed, according to package instructions. - Continue wearing compression stockings daily to help with swelling. - Follow up with your primary care physician regarding work capabilities and potential disability support. - Monitor symptoms, and contact our office if severe pain or unusual changes occur. Coding Level of Care Code Est Pt Level 3 (81033) Diagnoses Varicose veins of right lower extremity with inflammation I83.11
== END 2024-06-26 11:14 | disposition home or self-care (01) ==
LOC: HO.HVS 10:48
PROVIDERS: PCP Internal Medicine; Visit Provider Surgery Vascular Surgery
DX: I83.11 Varicose veins of right lower extremity with inflammation (principal)
CPT/HCPCS: 99213

== ENCOUNTER → 2024-06-26 10:48 | Outpatient (BNVA) | payer OTHER, SELFPAY | PROVIDERS: PCP Internal Medicine; Visit Provider Surgery Vascular Surgery | DX: I83.11 Varicose veins of right lower extremity with inflammation (principal) | CPT/HCPCS: 99212 ==

== ENCOUNTER 2024-09-14 12:18 | Emergency (ER) | payer OTHER, SELFPAY ==
--- NOTE | ~2024-09-14 | XR_ITS ---
EXAMINATION: XR RIBS, LEFT CLINICAL INFORMATION: l rib pain COMPARISON: None available. TECHNIQUE: 3 views of the left ribs were obtained. FINDINGS: Imaged lungs are clear. No consolidation, pneumothorax, or pleural effusion. The partially imaged cardiac and mediastinal contours are normal. Osseous structures are unremarkable. Ribs are intact. No acute fractures are identified. Old healed fracture of the left 11th rib noted. XR/XR ribs LT 2V IMPRESSION: No acute findings. Old left 11th rib fracture. Electronically signed by: Robin Oropeza MD 09/14/2024 02:09 PM EDT
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
[2024-09-14 12:21] VITALS: BP 145/92; PULSE 63; RESP 18; TEMP 36.4; O2SAT 96; BMI 29.4
--- NOTE | 2024-09-14 12:27 | ECG_ITS ---
Test Reason : L RIB PAIN Blood Pressure : */* mmHG Vent. Rate : 50 BPM Atrial Rate : 50 BPM P-R Int : 144 ms QRS Dur : 80 ms QT Int : 424 ms P-R-T Axes : 33 -9 18 degrees QTcB Int : 386 ms Sinus bradycardia Otherwise normal ECG When compared with ECG of 04-Jan-2023 08:27, QT has shortened Referred By: Chet Fuller Electronically Signed By: LETI POWELL MD
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
[2024-09-14 12:51] LABS: MANUAL DIFF FLAG NO
[2024-09-14 12:53] LABS: Basophils Percent Auto 0.6 % (0-2); Hematocrit 36.4 % (42.0-52.0); Hemoglobin 12.4 g/dl (14.0-18.0); Imm Gran Abs Auto 0.02 X10*3/uL (0.00-0.03); Imm Gran Pct Auto 0.4 % (0.0-0.4); Lymphocytes Absolute Auto 1.5 X10*3/uL (1.2-4.9); Mean Corpuscular HGB Conc 34.1 g/dl (31.0-36.0); Mean Corpuscular Hemoglobin 31.6 pg (27.0-33.0); Mean Corpuscular Volume 92.6 fL (80.0-98.0); Mean Platelet Volume 8.5 fL (9.4-12.4); Monocytes Absolute Auto 0.3 X10*3/uL (0.1-1.2); Neutrophils Absolute Auto 3.4 x10*3/uL (2.0-8.3); Platelet Count 164 X10*3/uL (160-400); Red Blood Count 3.93 X10*6/uL (4.60-5.80); White Blood Count 5.2 X10*3/uL (4.8-10.8)
[2024-09-14 13:08] LABS: Alanine Aminotransferase 20 U/L (0-40); Albumin Level 4.1 g/dL (3.5-5.0); Alkaline Phosphatase 72 U/L (39-117); Anion Gap 11 (12-20); Aspartate Amino Transferase 31 U/L (5-37); Bilirubin Total 0.5 mg/dL (0.0-1.0); Blood Urea Nitrogen 6 mg/dL (9-16); Carbon Dioxide 27 mmol/L (22-29); Chloride 107 mmol/L (96-108); Creatinine Clr Calc Pharmacy 143.1; Estimated Glomerular Filt Rate > 60; Glucose Random 100 mg/dL (60-115); Potassium 4.6 mmol/L (3.3-5.1); Sodium 140 mmol/L (135-145); Total Protein 7.4 g/dL (6.5-8.0)
[2024-09-14 13:15] LABS: Troponin-I High Sensitivity < 2.7 ng/L (<3.5-35.0)
[2024-09-14 13:26] LABS: HIV AB/AG Nonreactive (Nonreactive); HIV Num 1 0.08 S/CO (0.00-0.99); Syphilis Screen Nonreactive (Nonreactive)
[2024-09-14] MEDS: cefTRIAXone sodium 500 MG, Lidocaine HCl 1 % MPF 1 ML IM (15:07)
[2024-09-14 15:12] VITALS: BP 142/66; PULSE 65; RESP 18; TEMP 36.4; O2SAT 97
[2024-09-14 16:34] LABS: CT PCR NOT DETECTED (Not Detect.); NG PCR NOT DETECTED (Not Detect.)
== END 2024-09-14 15:13 | disposition home or self-care (01) ==
PROVIDERS: Physician Assistant; Emergency Provider Emergency Medicine Emergency Medical Services; PCP Internal Medicine
DX: R07.81 Pleurodynia (principal); S22.32XD Fracture of one rib, left side, subsequent encounter for fracture with routine healing; X58.XXXD Exposure to other specified factors, subsequent encounter; Z20.2 Contact with and (suspected) exposure to infections with a predominantly sexual mode of transmission
CPT/HCPCS: 36415; 71046; 71100; 80053; 84484; 85025; 86780; 87389; 87491; 87591; 93005; 96372; 99284; J0696; J2003

== ENCOUNTER → 2024-09-14 12:27 | Outpatient (BNV) | payer OTHER, SELFPAY | PROVIDERS: Emergency Provider Emergency Medicine Emergency Medical Services; PCP Internal Medicine; Visit Provider Internal Medicine Cardiovascular Disease | DX: R00.1 Bradycardia, unspecified (principal) | CPT/HCPCS: 93010 ==

== ENCOUNTER → 2024-09-14 12:27 | Outpatient (BNV) | payer OTHER, SELFPAY | PROVIDERS: Emergency Provider Emergency Medicine Emergency Medical Services; PCP Internal Medicine; Visit Provider Radiology Diagnostic Radiology | DX: R07.81 Pleurodynia (principal) | CPT/HCPCS: 71046; 71100 ==

== ENCOUNTER 2024-11-08 12:56 | Outpatient (AMB) | payer OTHER, SELFPAY ==
--- OUTSIDE RECORDS SUMMARY | 2024-11-08 13:09 | XMS_ITS | Encounter Summary ---
Author Organization [facility] Address [address] [place] [address] Care Team Providers Care Instructional Writer Name Role Phone Unavailable Primary Care Provider Unavailabl e Encounter Details Date Type Department Care Team (Latest Contact Info) Description 11/07/2024 Travel Social History Tobacco Use Types Packs/Day Years Used Date Smoking Tobacco: Never Assessed Sex and Gender Information Value Date Recorded Sex Assigned at Male 09/05/2024 10:32 AM EDT Legal Sex Male 3:00 PM EDT Gender Identity Male 09/05/2024 10:32 AM EDT Sexual Orientation Straight 09/05/2024 10 :32 AM EDT documented as of this encounter Plan of Treatment Not on file documented as of this encounter Visit Diagnoses Not on filedocumented in this encounter
--- NOTE | 2024-11-08 13:10 | MHC.PC.OV ---
Vital Signs 11/08/24 13:14 11/08/24 13:36 Height 5 ft 8 in Weight 201 lb 6 oz BMI 30.6 BP 150/90 H 140/80 H Blood Pressure Location Lt brachial Lt brachial Position Sitting Sitting Pulse 77 Pulse Source Pulse Oximeter Temp 97.3 F Temp Source Temporal Artery Scan Pulse Oximetry (%) 97 Oxygen Delivery Method Room Air Intake Visit Reasons: Requesting MRI Intake Note: Patient is here to follow up on Complaint of upper back pain and shortness of breath. [place] Line Attendant Required: No Supervisor Garment Manufacturing: Not Required per policy Accompanied by: Self / Same As Patient Allergies tetanus and diphtheria toxoids Allergy (Intermediate, Verified 11/08/24 13:14) Rash Tobacco use date assessed: 11/08/24 Dental Screening Dental Screen Date: 05/31/24 [facility] Medical History (Updated 11/08/24 @ 13:40 by Francisco Tam MD) Essential hypertension Nasal bones, closed fracture Obstructive sleep apnea GERD (gastroesophageal reflux disease) Lower thoracic back pain Varicose vein of leg Stasis dermatitis of both legs Anxiety Hospital discharge follow-up Substance abuse Surgical History History of colonoscopy with polypectomy (~11/20/14) History of hand surgery History of varicose vein stripping History of shoulder surgery Family History Mother Diabetes Heart problem Father Esophagus cancer Other Mental health disorder Substance use disorder Social History Household Members: Spouse Housing: House Do you presently have visiting nurse or other home services: No Alcohol intake: never Comment: RESTING IN BED Patient Tobacco Use Status: Former Tobacco user Tobacco use type: Cigarette e-Cigarette/Vaping Use: Never Used Second Hand Smoke Exposure: Yes Substance Use Type: Crack/Cocaine and Marijuana service: No Current occupational status: unemployed Cognitive needs: Yes (cane) Hearing needs: No Vision needs: No Questionnaire PHQ-9 Over the last 2 weeks, how often have you been bothered by any of the following problems? 1. Little interest or pleasure in doing things: nearly every day 2. Feeling down, depressed, or hopeless: nearly every day 3. Trouble falling or staying asleep, or sleeping too much: nearly every day 4. Feeling tired or having little energy: nearly every day 5. Poor appetite or overeating: nearly every day 6. Feeling bad about yourself - or that you are a failure or have let yourself or your family down: nearly every day 7. Trouble concentrating on things, such as reading the newspaper or watching television: nearly every day 8. Moving or speaking so slowly that other people could have noticed. Or the opposite - being so fidgety or restless that you have been moving around a lot more than usual: nearly every day 9. Thoughts that you would be better off or of hurting yourself in some way: not at all Total score: 24 Depression Screening Interpretation: Positive Depression Screening Done: Yes Source: Developed by Drs. Paolo Elam, Shreya Roman, Alberto Seo and colleagues, with an educational ashleigh from [employer]. Thrive Questionnaire Date Thrive assessed: 11/08/24 I am a: Patient What is your living situation today?: I do not have a steady places to live I am staying at a fpc Within the past 12 months, did the food you bought not last and you didn't have the money to get more?: Sometimes True Within the past 12 months, did you worry whether your food would run out before you got money to buy more?: Sometimes True Do you have trouble paying for medicines?: No Do you have trouble getting transportation to medical appointments?: Yes Do you have trouble paying your heating and electricity bill?: I choose not to answer this question Do you have trouble taking care of your child, family member or friend?: No Do you have trouble with day-to-day activities such as bathing, preparing meals, shopping, managing finances, etc.?: Yes Are you currently unemployed and looking for a job?: I choose not to answer this question Are you interested in more education?: Yes Please select the resources that you would like help with: Housing/Usp, Food, Transportation and Education Currently or been in a relationship where the following occur: Controlled Emotionally THRIVE Score: 5 AUDIT C Alcohol Use Questionnaire (AUDIT-C) 1. How often do you have a drink containing alcohol?: 2-3 times a week 2. How many drinks containing alcohol do you have on a typical day when you are drinking?: 1 or 2 Total Score: 3 YOUSUF-7 AMB Questionnaire YOUSUF-7 Date YOUSUF - 7 assessed: 11/08/24 Feeling nervous, anxious, or on edge: 3 = Nearly every day Not being able to stop or control worryin = Nearly every day Worrying too much about different things: 3 = Nearly every day Trouble relaxin = Nearly every day Being so restless that it is hard to sit still: 3 = Nearly every day Becoming easily annoyed or irritable: 3 = Nearly every day Feeling afraid as if something awful might happen: 3 = Nearly every day Total YOUSUF-7 score (0-4 normal; 5-9 mild; 10-14 moderate; 15-21 severe): 21 Source: Developed by Drs. Paolo Elam, Shreya Roman, Alberto Seo and colleagues, with an educational ashleigh from [employer]. Physical exam (Primary Care) Vital Signs: Last Vital Signs Temp 97.3 F 11/08/24 13:14 Pulse 77 11/08/24 13:14 BP 150/90 H 11/08/24 13:14 Pulse Ox 97 11/08/24 13:14 Oxygen Delivery Method Room Air 11/08/24 13:14 BMI result Body Mass Index 30.6 Tobacco/Smoking Status: Tobacco use Status Tobacco use date assessed 11/08/24 11/08/24 13:17 Patient Tobacco Use Status Former Tobacco user 11/08/24 13:12 Tobacco use type Cigarette 11/08/24 13:12 e-Cigarette/Vaping Use Never Used 11/08/24 13:12 PHQ-9: PHQ-9 Score PHQ-9: Total score 24 11/08/24 13:12 Depression Screening Interpretation: Positive Thrive Assessment: Date of Thrive Assessment Date Thrive assessed 11/08/24 11/08/24 13:12 Currently or been in a relationship where the following occur: Controlled Emotionally Coding Level of Care Code Est Pt Level 4 (24327) Complex EM visit Add On G2211 Diagnoses Essential hypertension I10 Assessment & Plan Assessment & Plan (1) Essential hypertension: Code(s): I10 - Essential (primary) hypertension Category: Medical Plan: Start Lisinopril Plan History of Present Illness - The patient is a 53-year-old male presenting with high blood pressure and lung nodules. - Essential Hypertension: The patient has experienced elevated blood pressure readings on multiple occasions, prompting the initiation of antihypertensive medication. - Lung Nodule: A lung nodule was detected, and a CAT scan is planned to assess its nature. - Back Pain: The patient attributes his back pain to an accident that occurred in January of the previous year. - History of Tobacco Use: The patient has a past history of smoking and vaping, which he has discontinued. - Methadone Tapering: The patient is in the process of reducing his methadone dosage, currently at 15 mg, with the goal of complete cessation. Social History - The patient reports a history of smoking and vaping, which he has stopped. - The patient is experiencing stress related to personal relationships, which may be impacting his blood pressure. Review of Systems - Cardiovascular: Reports elevated blood pressure readings. Denies chest pain or palpitations. - Respiratory: Reports dyspnea and concerns about lung health due to family history of emphysema and personal history of smoking. Denies cough or wheezing. - Musculoskeletal: Reports back pain following an accident. Physical Exam General: Cooperative and healthy appearing Nutritional Appearance: Well nourished Orientation/consciousness: Patient oriented x3 Limitations: No limitations Head: Normal to inspection General: Appearance normal, both eyes and all related structures Neck: Normal visual inspection Chest: Normal palpation of entire chest wall Respiratory: Patient reports difficulty breathing and inability to get a full breath in. History of smoking and vaping, with concerns about lung health due to family history of emphysema and lung damage. ormal respiratory effort Neurology: Patient oriented x3 Results - Imaging: CAT scan ordered for lung nodule evaluation. Plan 1. Essential Hypertension - Initiate antihypertensive medication to manage elevated blood pressure. 2. Lung Nodule - Schedule a CAT scan to evaluate the lung nodule. 3. Back Pain - Monitor symptoms and consider further evaluation if pain persists. 4. Methadone Tapering - Consult with methadone clinic to ensure safe tapering process. Discussion Notes I discussed the initiation of antihypertensive medication to manage the patient's elevated blood pressure. We also planned a CAT scan to evaluate the lung nodule. I advised the patient to consult with his methadone clinic regarding his tapering process to ensure safety. Follow-up was recommended to monitor blood pressure and lung health. Patient Instructions - Take the prescribed blood pressure medication daily. - Schedule and attend the CAT scan for lung nodule evaluation. - Consult with the methadone clinic regarding tapering process. - Follow up with the doctor to monitor blood pressure and lung health. Medications: New lisinopril 10 mg PO DAILY 90 tabs 1RF
[2024-11-08 13:14] VITALS: BP 150/90; PULSE 77; TEMP 36.3; O2SAT 97; BMI 30.6
[2024-11-08 13:36] VITALS: BP 140/80
== END 2024-11-08 14:17 | disposition home or self-care (01) ==
PROVIDERS: PCP Internal Medicine; Visit Provider Internal Medicine
DX: I10 Essential (primary) hypertension (principal)

== ENCOUNTER → 2024-11-08 12:56 | Outpatient (BNVA) | payer OTHER, SELFPAY | PROVIDERS: PCP Internal Medicine; Visit Provider Internal Medicine | DX: I10 Essential (primary) hypertension (principal); R91.1 Solitary pulmonary nodule; M54.9 Dorsalgia, unspecified; Z87.891 Personal history of nicotine dependence; Z13.31 Encounter for screening for depression; Z13.39 Encounter for screening examination for other mental health and behavioral disorders | CPT/HCPCS: 99212 ==

== ENCOUNTER 2024-11-13 07:09 | Outpatient (REF) | payer OTHER, SELFPAY ==
[2024-11-13 08:50] LABS: Anion Gap 13 (12-20); Blood Urea Nitrogen 15 mg/dL (9-16); Calcium 8.9 mg/dL (8.4-10.2); Carbon Dioxide 26 mmol/L (22-29); Chloride 106 mmol/L (96-108); Estimated Glomerular Filt Rate > 60; Potassium 4.0 mmol/L (3.3-5.1); Sodium 141 mmol/L (135-145)
== END 2024-11-13 07:10 | disposition home or self-care (01) ==
LOC: HO.LAB 07:09
PROVIDERS: Visit Provider Internal Medicine
DX: I10 Essential (primary) hypertension (principal)
CPT/HCPCS: 36415; 80048

== ENCOUNTER → 2024-11-19 08:35 | Outpatient (BNV) | payer OTHER, SELFPAY | PROVIDERS: Emergency Provider Emergency Medicine Emergency Medical Services; PCP Internal Medicine; Visit Provider Internal Medicine | DX: R00.0 Tachycardia, unspecified (principal) | CPT/HCPCS: 93010 ==

== ENCOUNTER 2024-11-19 08:37 | Emergency (ER) | payer OTHER, SELFPAY ==
--- OUTSIDE RECORDS SUMMARY | 2024-11-14 09:00 | XMS_ITS | Encounter Summary ---
Author Organization Interview Master Address [address] [place] [address] Care Team Providers Care Hoop Punch Operator Helper Name Role Phone Unavailable Primary Care Provider Unavailabl e Reason for Visit * Reason Comments GBAT Encounter Details Date Type Department Care Team (Late st Contact Info) Description 11/14/2024 9:00 AM EDT Office Visit [facility] [address] [place] [address] Tha Ortiz MD [address] [place] [address] Substance use disorder (Primary Dx) Social History Tobacco Use Types Packs/Day Years Used Date Smoking Tobacco: Never Assessed Sex and Gender Information Value Date Recorded Sex Assigned at Male 09/05/2024 10:32 AM EDT Legal Sex Male 3:00 PM EDT Gender Identity Male 09/05/2024 10:32 AM EDT Sexual Orientation Straight 09/05/2024 10 :32 AM EDT documented as of this encounter Progress Notes * Tha Ortiz MD - 11/14/2024 9:00 AM EDT LAST GBAT VISIT 11/07/2024 Patient presents for Group-Based Addiction Treatment for STEFANI Has been coming to [facility] Will discuss if any needs for MAT at his future visits Reviewed the group goals, expectations and policies Consented to the group treatment options Actively participated in the group discussion with the topic of: Trauma Following staff present at the visit: Physician, Supply Chain Associate, Clinician, Team RN, and MedicalAssistant Opportunities provided to address individual medical/medication/ concerns States doing well without cravings or relapse TODAY GBAT VISIT 11/14/2024 Patient presents for Group-Based Addiction Treatment for STEFANI Will discuss if any needs for MAT at his future visits Reviewed the group goals, expectations and policies Consented to the group treatment options Actively participated in the group discussion with the topic of: Trauma Following staff present at the visit: Physician, Supply Chain Associate, Clinician, Team RN, and MedicalAssistant Opportunities provided to address individual medical/medication/ concerns States doing well without cravings or relapse Review of Systems Psychiatric/Behavioral: Negative for behavioral problems and dysphoric mood. The patient is not nervous/anxious. Physical Exam Constitutional: Appearance: Normal appearance. Pulmonary: Effort: Pulmonary effort is normal. Neurological: Mental Status: He is alert. Psychiatric: Mood and Affect: Mood normal. Behavior: Behavior normal. Brian was seen today for gbat. Diagnoses and all orders for this visit: Substance use disorder (Primary) Patient presents for Group-Based Addiction Treatment of STEFANI Reviewed the group goals, expectations and policies Consented to the group treatment options Actively participated in the group discussed Future discussion topics reviewed Reviewed behavioral modification and accessing services Group counseling provided with a focus on support system, tools for achieving/maintaining recovery Reviewed barriers for these goals Discussed strategies to address when faced situations that may trigger use [employer] reviewed Following staff present at the visit: Physician, Clinician, Supply Chain Associate, Team RN, and MedicalAssistant Follow up in 1 week for the next GBAT meeting This information has been disclosed to you from records protected by federal confidentiality rules (42 CFR Part 2). The federal rules prohibit you from making any further disclosure of information inthis record that identifies a patient as having or having had a substance use disorder either directly, by reference to publicly available information, or through verification of such identification by another person unless further disclosure is expressly permitted by the written consent of the individual whose information is being disclosed or as otherwise permitted by (see2.3.1). The federal rules restrict any use of the information to investigate or prosecute with regard to a crime any patient with a substance use disorder, except as provided at 2.12??(5) and 2.65. documented in this encounter Plan of Treatment Not on file documented as of this encounter Visit Diagnoses Diagnosis Substance use disorder- Primary documented in this encounter
--- NOTE | 2024-11-19 | ECG_ITS ---
Test Reason : cp Blood Pressure : */* mmHG Vent. Rate : 110 BPM Atrial Rate : 110 BPM P-R Int : 144 ms QRS Dur : 86 ms QT Int : 344 ms P-R-T Axes : 50 -8 36 degrees QTcB Int : 465 ms Sinus tachycardia Otherwise normal ECG When compared with ECG of 14-Sep-2024 12:35, Vent. rate has increased Referred By: Generic ED Physician Electronically Signed By: JAMES MADRIGAL
--- NOTE | ~2024-11-19 | XR_ITS ---
EXAMINATION: XR CHEST CLINICAL INFORMATION: cp COMPARISON: 09/14/2024. 06/11/2024. TECHNIQUE: Frontal view of the chest was obtained. FINDINGS: The cardiac, hilar, and mediastinal contours are normal. The lungs are clear bilaterally. No pneumothorax or effusion. No focal osseous or soft tissue abnormality. Mild degenerative changes in the bilateral shoulders and spine. XR/XR chest 1V IMPRESSION: No active pulmonary disease. Electronically signed by: Robin Oropeza MD 11/19/2024 10:34 AM EDT
[2024-11-19 08:50] VITALS: BP 178/84; PULSE 106; RESP 16; TEMP 36.3; O2SAT 96; BMI 29.5
[2024-11-19 08:55] LABS: MANUAL DIFF FLAG NO
[2024-11-19 09:06] LABS: Hematocrit 41.1 % (42.0-52.0); Hemoglobin 14.3 g/dl (14.0-18.0); Imm Gran Abs Auto 0.05 X10*3/uL (0.00-0.03); Imm Gran Pct Auto 0.5 % (0.0-0.4); Lymphocytes Absolute Auto 1.1 X10*3/uL (1.2-4.9); Mean Corpuscular HGB Conc 34.8 g/dl (31.0-36.0); Mean Corpuscular Hemoglobin 32.3 pg (27.0-33.0); Mean Corpuscular Volume 92.8 fL (80.0-98.0); NRBC Abs Auto 0.000 X10*3/uL (0.0-0.012); NRBC Pct Auto 0.0 /100WBC (0.0-0.2); Platelet Count 226 X10*3/uL (160-400); Red Blood Count 4.43 X10*6/uL (4.60-5.80); White Blood Count 10.5 X10*3/uL (4.8-10.8)
[2024-11-19 09:17] LABS: Alanine Aminotransferase 40 U/L (0-40); Albumin Level 4.6 g/dL (3.5-5.0); Alkaline Phosphatase 118 U/L (39-117); Anion Gap 16 (12-20); Aspartate Amino Transferase 92 U/L (5-37); Blood Urea Nitrogen 14 mg/dL (9-16); Calcium 9.4 mg/dL (8.4-10.2); Carbon Dioxide 22 mmol/L (22-29); Chloride 104 mmol/L (96-108); Creatinine Clr Calc Pharmacy 127.6; Estimated Glomerular Filt Rate > 60; Potassium 3.4 mmol/L (3.3-5.1); Sodium 139 mmol/L (135-145); Total Protein 8.4 g/dL (6.5-8.0)
[2024-11-19 09:26] VITALS: BP 152/97; PULSE 96; RESP 17; O2SAT 97
[2024-11-19 09:34] LABS: Troponin-I High Sensitivity < 2.7 ng/L (<3.5-35.0)
[2024-11-19 09:47] VITALS: BP 152/97; PULSE 96; RESP 17; O2SAT 97
--- NOTE | 2024-11-19 09:55 | PC.NURSE ---
53 M presents to ED with CP since this morning, L chest, sts used cocaine this morning. A+OX4, calm, cooperative. Pt denies any SOB. RR even and unlabored.
--- NOTE | 2024-11-19 10:14 | ED_ITS ---
HPI - Chest Pain General Chief Complaint: Chest Pain Stated Complaint: CP, High BP Time Seen by Provider: 11/19/24 08:57 History of Present Illness HPI narrative: Patient is a 53-year-old male presents today with having chest pain. The chest pain started at approximately 05:00 after patient use cocaine. Patient has a history of hypertension. No fever no chills. No diaphoresis. Patient inhaled the cocaine. Patient denies any history of diabetes, mi, family history of IA. he is from home. The pain lasted for approximately 4 hours now the pain is gone. There is no history of leg swelling. There is no history of blood clots. Patient is from home. No coughing or congestion or upper respiratory symptoms. No recent stress test. Positive history of hypertension no history of high cholesterol no history of smoking no history of IA no family history of coronary artery disease no history of diabetes. The pain was dull. It was over the left side. Now is gone Related Data Home Medications ?Medication ?Instructions ?Recorded ?Confirmed methadone 80 mg PO DAILY 11/26/2102/17 naloxone 4 mg/actuation nasal spray 4 mg intranasal Q2 M PRN 02/27/24 03/13/24 Previous Rx's ?Medication ?Instructions ?Recorded cane #1 ea 03/26/22 sennosides 8.6 mg tablet (Senna 8.6 mg PO BEDTIME #90 tabs 02/27/24 Lax) albuterol sulfate 90 mcg/actuation 1 puff PO QID PRN f or wheezing #18 04/09/24 aerosol inhaler (Ventolin HFA) grams aripiprazole 15 mg tablet 15 mg PO DAILY #30 tabs 04/20 fluoxetine 20 mg tablet 20 mg PO DAILY #90 tabs 04/20 quetiapine 25 mg tablet (Seroquel) 25 mg PO BEDTIME #3 0 tabs 05/31/24 acetaminophen 500 mg capsule 1,000 mg (2 x 500 mg) PO Q6H PRN 06/15/24 pain #30 caps fluticasone furoate 27.5 1 spray intranasal DAILY #9. 1 mL 06/15/24 mcg/actuation nasal spray,suspension (Flonase Sensimist) pantoprazole 20 mg tablet,delayed 20 mg PO DAILY #90 t abs 10/22/24 release lisinopril 10 mg tablet 10 mg PO DAILY #90 tabs 10/17 08/10 Allergies Allergy/AdvReac Type Severity Reaction Status Date / Time tetanus and diphtheria Allergy Intermediate Rash Verified 11/19/24 08:53 toxoids Review of Systems 2 Review of Systems: Positive chest pain Yes all other systems are reviewed and are negative [facility] Past Medical History Attestation statement: The following information was validated with the patient. Medical History Essential hypertension Nasal bones, closed fracture Obstructive sleep apnea GERD (gastroesophageal reflux disease) Lower thoracic back pain Varicose vein of leg Stasis dermatitis of both legs Anxiety Hospital discharge follow-up Substance abuse Surgical History History of colonoscopy with polypectomy (~11/20/14) History of hand surgery History of varicose vein stripping History of shoulder surgery Family History Family History Mother Diabetes Heart problem Father Esophagus cancer Other Mental health disorder Substance use disorder Social History Social History Household Members: Spouse Housing: House Do you presently have visiting nurse or other home services: No Alcohol intake: current Alcohol intake frequency: 0-2 drinks per day Comment: RESTING IN BED Patient Tobacco Use Status: Former Tobacco user Tobacco use type: Cigarette Smoked in Last 30 Days: No e-Cigarette/Vaping Use: Never Used Second Hand Smoke Exposure: Yes Use of substances other than those prescribed or required for medical reasons: Unknown Substance Use Type: Crack/Cocaine and Marijuana Advance Directives: Yes Advance Directives on File: Yes Advance Directives Date on File: 01/21/22 service: No Current occupational status: unemployed Cognitive needs: Yes (cane) Hearing needs: No Vision needs: No Physical Exam 2 Exam: Exam: Appearance: Alert. Oriented X3. No acute distress. Eyes: Pupils equal, round and reactive to light. ENT: Pharynx normal. Neck: Normal inspection. Neck supple. No lymph nodes noted. No crepitus CVS: Normal heart rate and rhythm. Pulses normal. Normal S1 and S2 Respiratory: No respiratory distress. Breath sounds normal. No Wheezing. No rales Abdomen: Soft and nontender. No rigidity. No distention. good BS x4 Skin: Skin warm and dry. Normal skin color. Normal skin turgor. Extremities: No lower extremity edema. Neurovascular intact to all extremities. No Lacerations. No Rash Neuro: Oriented X 3. No motor deficit. No sensory deficit. Moving all extermities. No slurred speech Vital Signs: Vital Signs: Last Vital Signs Temp 97.3 F 11/19/24 08:50 Pulse 96 11/19/24 09:47 Resp 17 11/19/24 09:47 BP 152/97 H 11/19/24 09:47 Pulse Ox 97 11/19/24 09:47 O2 Del Method Room Air 11/19/24 09:47 BMI result Body Mass Index 29.5 Medical Decision Making Medical Decision Making [facility] Narrative: My interpretation patient's EKG showed a sinus rhythm heart rate is 110 NH QRS QTC normal no acute ST segment elevation history not consistent with ACS the 1st set of enzymes negative will get a 2nd set of enzymes get chest x-ray will monitor. Currently no distress. Patient has 1 risk factor also he is 53 his enzymes are negative his EKG is normal his heart score is going to be less than 3. Patient refused to wait for a 2nd set of enzymes. Eloped from the ED. Understood risks of having a heart attack. Understood risk of having a coronary spasm. Eloped from the emergency department. Differential Diagnosis Differential Diagnoses: The differential diagnosis associated with the presentation includes ACS, pneumonia, angina Admission/Observation Consideration of admission/observation: Escalation of care including admission/observation considered Lab Data [facility] Lab Attestation statement: I reviewed the patient's lab results. 11/19/24 08:49 11/19/24 08:49 Labs: Lab Results 11/19/24 11/19/24 Range/Units 08:49 11:02 WBC 10.5 (4.8-10.8) X10*3/uL RBC 4.43 L (4.60-5.80) X10*6/uL Hgb 14.3 (14.0-18.0) g/dl Hct 41.1 L (42.0-52.0) % MCV 92.8 (80.0-98.0) fL MCH 32.3 (27.0-33.0) pg MCHC 34.8 (31.0-36.0) g/dl RDW 13.8 (11.0-16.0) % Plt Count 226 D (160-400) X10*3/uL MPV 8.5 L (9.4-12.4) fL Immature Gran % (Auto) 0.5 H (0.0-0.4) % Neut % (Auto) 80.5 H (45-73) % Lymph % (Auto) 10.7 L (20-40) % [place] % (Auto) 7.8 (2-11) % Eos % (Auto) 0.0 (0-4) % Baso % (Auto) 0.5 (0-2) % Lymph # (Auto) 1.1 L (1.2-4.9) X10*3/uL [place] # (Auto) 0.8 (0.1-1.2) X10*3/uL Eos # (Auto) 0.0 (0.0-0.4) X10*3/uL Baso # (Auto) 0.1 (0.0-0.2) X10*3/uL Abs Immat Gran (auto) 0.05 H (0.00-0.03) X10*3/uL Absolute Neuts (auto) 8.5 H (2.0-8.3) x10*3/uL Absolute Nucleated RBC 0.000 (0.0-0.012) X10*3/uL Nucleated RBC % (auto) 0.0 (0.0-0.2) /100WBC Sodium 139 (135-145) mmol/L Potassium 3.4 (3.3-5.1) mmol/L Chloride 104 (96-108) mmol/L Carbon Dioxide 22 (22-29) mmol/L Anion Gap 16 (12-20) BUN 14 (9-16) mg/dL Creatinine 0.73 (0.5-1.4) mg/dL Estim Creat Clear Calc 127.6 Estimated GFR > 60 Random Glucose 111 (60-115) mg/dL Calcium 9.4 (8.4-10.2) mg/dL Total Bilirubin 0.8 (0.0-1.0) mg/dL AST 92 H (5-37) U/L ALT 40 (0-40) U/L Alkaline Phosphatase 118 H (39-117) U/L Troponin I High Sens < 2.7 3.5 (<3.5-35.0) ng/L Total Protein 8.4 H (6.5-8.0) g/dL Albumin 4.6 (3.5-5.0) g/dL Independent Interpretation I performed an independent interpretation of an: EKG (My interpretation patient's EKG showed a sinus rhythm heart rate is 100 NH QRS QTC normal no acute ST segment elevation.) and Plain X-Ray (My interpretation patient's chest x-ray is grossly negative no pneumonia no pneumothorax) Radiology Impression Discussion of test interpretation with radiology: I have reviewed the radiologist's reading. External Record Review External record reviewed: Inpatient record Chronic Conditions Polysubstance abuse Social Determinants Patient?s care significantly limited by Social Determinants of Health including: Inadequate housing, Low income, Alcoholism and drug addiction in family, Problems related to primary support group and Unemployment Discharge Plan Discharge Clinical Impression: Chest pain Patient Disposition: Elopement Prescriptions: No Action sennosides [Senna Lax] 8.6 mg tablet 8.6 mg PO BEDTIME Qty: 90 1RF albuterol sulfate [Ventolin HFA] 90 mcg/actuation HFA aerosol inhaler 1 puff PO QID PRN (Reason: for wheezing) Qty: 18 0RF aripiprazole 15 mg tablet 15 mg PO DAILY Qty: 30 0RF fluoxetine 20 mg tablet 20 mg PO DAILY Qty: 90 1RF pantoprazole 20 mg tablet,delayed release (DR/EC) 20 mg PO DAILY Qty: 90 1RF methadone liquid 80 mg PO DAILY (DME) cane Device See Rx Instructions .Route Qty: 1 0RF Rx Instructions: As directed naloxone 4 mg/actuation spray,non-aerosol 4 mg intranasal Q2M PRN Rx Instructions: spray 1 dose into ONE nostril; alternate nostrils w each dose until help arrives quetiapine [Seroquel] 25 mg tablet 25 mg PO BEDTIME Qty: 30 0RF acetaminophen 500 mg capsule 1,000 mg PO Q6H PRN (Reason: pain) Qty: 30 0RF Flonase Sensimist 27.5 mcg/actuation spray,suspension 1 spray intranasal DAILY Qty: 9.1 0RF Rx Instructions: into each nostril lisinopril 10 mg tablet 10 mg PO DAILY Qty: 90 1RF Print Language: Danish
--- NOTE | 2024-11-19 11:05 | PC.NURSE ---
PT sts he wants to leave AMA despite provider recommending he stay for results on 2nd troponin. Pt sts he has to leave and cannot wait. aware.
[2024-11-19 11:21] VITALS: BP 152/97; PULSE 96; RESP 17; TEMP 36.6; O2SAT 97
--- NOTE | 2024-11-19 11:21 | PC.NURSE ---
pt walked out AMA.
[2024-11-19 11:37] LABS: Troponin-I High Sensitivity 3.5 ng/L (<3.5-35.0)
== END 2024-11-19 11:21 | disposition left against medical advice (07) ==
PROVIDERS: Emergency Provider Emergency Medicine Emergency Medical Services; PCP Internal Medicine
DX: R07.9 Chest pain, unspecified (principal); I10 Essential (primary) hypertension
CPT/HCPCS: 36415; 71045; 80053; 84484; 85025; 93005; 99283; 99284

== ENCOUNTER → 2024-11-19 10:14 | Outpatient (BNV) | payer OTHER, SELFPAY | PROVIDERS: Emergency Provider Emergency Medicine Emergency Medical Services; PCP Internal Medicine; Visit Provider Radiology Diagnostic Radiology | DX: R07.9 Chest pain, unspecified (principal) | CPT/HCPCS: 71045 ==

== ENCOUNTER 2024-12-20 11:15 | Outpatient (AMB) | payer OTHER, SELFPAY ==
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
[2024-12-20 11:20] VITALS: BP 120/80; PULSE 82; O2SAT 98; BMI 30.1
--- OUTSIDE RECORDS SUMMARY | 2024-12-20 12:56 | XMS_ITS | Encounter Summary ---
Author Organization [employer] Address [address] [facility] [address] [place] [address] Care Team Providers Care Section Beamer Name Role Phone Unavailable Primary Care Provider Unavailabl e Reason for Visit * Reason Comments Transition Of Care (Tcm) HDF unscheduled Encounter Details Date Type Department Care Team (Late st Contact Info) Description 12/19/2024 Patient Outreach [facility] [address] [place] [address] Gricelda Edwards ANP [address] [place] [address] Transition Of Care (Tcm) (HDF unscheduled) Social History Tobacco Use Types Packs/Day Years Used Date Smoking Tobacco: Never Assessed Sex and Gender Information Value Date Recorded Sex Assigned at Male 09/05/2024 10:32 AM EDT Legal Sex Male 3:00 PM EDT Gender Identity Male 09/05/2024 10:32 AM EDT Sexual Orientation Straight 09/05/2024 10 :32 AM EDT documented as of this encounter Progress Notes * Ryanne Morales - 12/19/2024 8:01 AM EDT Patient appeared in [facility] medical collective as seen in [facility] for surgery patient does not have a contact in chart and or assigned a PCP. Chief Security And Safety Officer unable to reach patient for Follow up. documented in this encounter Plan of Treatment Not on file documented as of this encounter Visit Diagnoses Not on filedocumented in this encounter
--- OUTSIDE RECORDS SUMMARY | 2024-12-20 12:56 | XMS_ITS | Clinical Summary ---
Author Organization [employer] Address [address] [facility] [address] [place] [address] Care Team Providers Care Laundry Aide Name Role Phone Unavailable Primary Care Provider Unavailabl e Active Problems Problem Noted Date Diagnosed Date Substance use disorder 10/24/2024 Encounters * This document contains information received from the source organization and may not represent a complete record from that organization. Date Type Department Care Team Description 12/19/2024 Patient Outreach [facility] MED[facility]INE [address] [place] [id number] Gricelda Edwards ANP Transition Of Care (Tcm) (HDF unscheduled) 12/13/2024 Patient Outreach [address] [address] Sudarshan Pérez [facility] 12/11/2024 Patient Outreach [facility]INE [address] [place] [phone] Sudarshan Pérez [facility] 12/07/2024 Patient Outreach [address] [address] Justyn Mcmahon [facility] 12/06/2024 Patient Outreach [address] [address] Sudarshan Pérez [facility] 12/05/2024 9:00 AM EDT Office Visit [address] [address] Tha Ortiz MD Substance use disorder (Primary Dx) 12/05/2024 Travel 12/04/2024 Patient Outreach [facility]INE [address] [place] [id number] Matthew Davies RC [facility] 12/03/2024 Patient Outreach [address] [address] Justyn Mcmahon [facility] 11/30/2024 Patient Outreach [address] [address] Deni Solis RC [facility] 11/28/2024 10:00 AM EDT Office Visit [facility] [address] [facility] [place] [address] Tha Ortiz MD Substance use disorder (Primary Dx) 11/28/2024 Travel 11/27/2024 Patient Outreach [facility] [address] [facility] [place] [place] [address] Sudarshan Pérez [facility] 11/27/2024 Patient Outreach [facility] [address] [place] [address] Matthew Davies [facility] 11/26/2024 Patient Outreach [facility] [address] [place] [address] Justyn Mcmahon [facility] 11/23/2024 Patient Outreach [facility] [address] [place] [address] Deni Solis [facility] 11/21/2024 10:00 AM EDT Office Visit [address] [address] Tha Ortiz MD Substance use disorder (Primary Dx) 11/21/2024 Travel 11/20/2024 Patient Outreach [address] [address] Matthew Davies [facility] 11/14/2024 9:00 AM EDT Office Visit [address] [place] [address] Tha Ortiz MD Substance use disorder (Primary Dx) 11/14/2024 Travel 11/13/2024 Patient Outreach [facility] [address] [place] [address] Matthew Davies [facility] 11/12/2024 Patient Outreach [facility] [address] [place] [address] Justyn Mcmahon [facility] 11/07/2024 9:00 AM EDT Office Visit [address] [address] Tha Ortiz MD Substance use disorder (Primary Dx) 11/07/2024 Travel 11/06/2024 Patient Outreach [facility] [address] [place] [phone] Davies, Matthew RC [facility] 11/05/2024 Patient Outreach [facility] [address] [place] [address] Justyn Mcmahon RC [facility] 11/05/2024 Patient Outreach [facility] [address] [place] [address] Deni Solis RC [facility] 11/01/2024 Patient Outreach [facility] [address] [place] [address] Sudarshan Pérez RC [facility] 10/31/2024 9:00 AM EDT Office Visit [facility] [address] [facility] [place] [place] [address] Tha Ortiz MD Substance use disorder (Primary Dx) 10/31/2024 Travel 10/30/2024 Patient Outreach [facility] [address] [place] [address] Matthew Davies [facility] 10/29/2024 Patient Outreach [facility] [address] [place] [address] Justyn Mcmahon RC [facility] 10/26/2024 Patient Outreach [facility] [address] [place] [address] Matthew Davies [facility] 10/25/2024 Patient Outreach [facility] [address] [place] [address] Matthew Davies [facility] 10/24/2024 10:00 AM EDT Office Visit [address] [address] Tha Ortiz MD Substance use disorder (Primary Dx) 10/24/2024 Travel 10/23/2024 Patient Outreach [facility] [address] [place] [address] Matthew Davies [facility] 10/22/2024 Patient Outreach [facility] [address] [place] [address] Matthew Davies [facility] 10/18/2024 Patient Outreach [facility] [address] [place] [address] Deni Solis RC [facility] 10/17/2024 9:00 AM EDT Office Visit [facility] [address] [place] [address] Tha Ortiz MD Substance use disorder (Primary Dx) 10/17/2024 Travel 10/16/2024 Patient Outreach [address] [address] Deni Solis [facility] 10/15/2024 Patient Outreach [address] [address] Justyn Mcmahon [facility] 10/11/2024 Patient Outreach [address] [address] Justyn Mcmahon [facility] 10/09/2024 Patient Outreach [address] [address] Matthew Davies RC [facility] 10/08/2024 Patient Outreach [address] [address] Justyn Mcmahon [facility] 09/27/2024 Patient Outreach [address] [address] Justyn Mcmahon [facility] from Last 3 Months Social History Tobacco Use Types Packs/Day Years Used Date Smoking Tobacco: Never Assessed Sex and Gender Information Value Date Recorded Sex Assigned at Male 09/05/2024 10:32 AM EDT Legal Sex Male 3:00 PM EDT Gender Identity Male 09/05/2024 10:32 AM EDT Sexual Orientation Straight 09/05/2024 10 :32 AM EDT Plan of Treatment Health Maintenance Due Date Last Done Comments CT Colonography 1971 Colonoscopy 1971 Colorectal Cancer Screening 1971 Depression Screening 1971 FIT DNA/Cologuard 1971 FIT 1971 FOBT 1971 HIV Screening 1971 Lipid Panel 1971 SDOH Screening 1971 Sigmoidoscopy 1971 Disability Screening 1971 Alcohol/Substance Use Screening 1983 Tobacco Screening 1983 Hepatitis C Screening 11/30/1989 DTaP/Tdap/Td Vaccines (1 - Tdap) 11/30/1990 Hepatitis B Vaccines (1 of 3 - 19+ 3-dose series) 11/30/1990 Pneumococcal Vaccine: 50+ Ye ars (1 of 2 - PCV) 11/30/1990 Zoster Vaccines (1 of 2) 11/30/2021 COVID-19 Vaccine (1 - 2023-2 5 season) 2024 Influenza Vaccine (#1) 2024 RSV Patients and Pa tients Aged 60 years or older (1 - 1-dose 75+ series) 11/30/2046 HIB Vaccines Aged Out No longer eligi ble based on patient's age to complete this topic HPV Vaccines Aged Out No longer eligi ble based on patient's age to complete this topic Hepatitis A Vaccines Aged Out No long er eligible based on patient's age to complete this topic IPV Vaccines Aged Out No longer eligi ble based on patient's age to complete this topic Meningococcal B Vaccine Aged Out No l onger eligible based on patient's age to complete this topic Meningococcal Vaccine Aged Out No dana elizabeth eligible based on patient's age to complete this topic RSV under 20 months Aged Out No longe r eligible based on patient's age to complete this topic Rotavirus Vaccines Aged Out No longer eligible based on patient's age to complete this topic Insurance [facility] (O)
== END 2024-12-20 12:31 | disposition home or self-care (01) ==
LOC: HO.HMCH 11:16
PROVIDERS: PCP Internal Medicine
DX: F41.9 Anxiety disorder, unspecified (principal); I10 Essential (primary) hypertension; K21.9 Gastro-esophageal reflux disease without esophagitis; R91.1 Solitary pulmonary nodule; S31.119A Laceration without foreign body of abdominal wall, unspecified quadrant without penetration into peritoneal cavity, initial encounter

== ENCOUNTER → 2024-12-20 11:15 | Outpatient (BNVA) | payer OTHER, SELFPAY | PROVIDERS: PCP Internal Medicine | DX: I10 Essential (primary) hypertension (principal); F41.9 Anxiety disorder, unspecified; K21.9 Gastro-esophageal reflux disease without esophagitis; G47.33 Obstructive sleep apnea (adult) (pediatric); R91.1 Solitary pulmonary nodule; R79.89 Other specified abnormal findings of blood chemistry; S31.119D Laceration without foreign body of abdominal wall, unspecified quadrant without penetration into peritoneal cavity, subsequent encounter; X58.XXXD Exposure to other specified factors, subsequent encounter | CPT/HCPCS: 99212 ==

== ENCOUNTER 2025-01-09 07:57 | Outpatient (AMB) | payer OTHER, SELFPAY ==
--- OUTSIDE RECORDS SUMMARY | 2025-01-09 08:03 | XMS_ITS | Clinical Summary ---
Author Organization [employer] Address [address] [facility] [facility] [facility] [address] [place] [address] Care Team Providers Care Outpatient Coding Specialist Name Role Phone Unavailable Primary Care Provider Unavailabl e Active Problems Problem Noted Date Diagnosed Date Substance use disorder 10/24/2024 Encounters * This document contains information received from the source organization and may not represent a complete record from that organization. Date Type Department Care Team Description 01/08/2025 Patient Outreach [facility] [address] [place] [address] Sudarshan Pérez [facility] Recovery Supports 01/08/2025 Patient Outreach [facility] [address] [place] [address] Matthew Davies [facility] Recovery Supports 01/07/2025 Patient Outreach [facility] [address] [place] [address] Deni Solis [facility] Recovery Supports 01/07/2025 Patient Outreach [facility] [address] [place] [address] Justyn Mcmahon [facility] Recovery Supports 01/03/2025 Patient Outreach [facility] [address] [place] [address] Sudarshan Pérez [facility] Recovery Supports 01/01/2025 Patient Outreach [facility] [address] [place] [address] Sudarshan Pérez [facility] Recovery Supports 01/01/2025 Patient Outreach [facility] [address] [place] [address] Matthew Davies 12/31/2024 Patient Outreach [facility] [address] [place] [address] Jorge Woods [facility] Recovery Supports 12/28/2024 Telephone [facility] [address] [place] [address] Tha Ortiz MD 12/28/2024 Patient Outreach [facility] [address] [place] [address] Sudarshan Pérez [facility] Recovery Supports 12/25/2024 Patient Outreach [facility] [address] [place] [address] Matthew Davies Recovery Supports 12/25/2024 Patient Outreach [facility] [address] [place] [address] Matthew Davies Recovery Supports 12/24/2024 Patient Outreach [facility] [address] [place] [address] Justyn Mcmahon Recovery Supports 12/19/2024 Patient Outreach [facility] [address] [place] [address] Gricelda Edwards ANP Transition Of Care (Tcm) (HDF unscheduled) 12/13/2024 Patient Outreach [facility] [address] [place] [address] Sudarshan Pérez Recovery Supports 12/11/2024 Patient Outreach [address] [address] Sudarshan Pérez Recovery Supports 12/07/2024 Patient Outreach [address] [address] Justyn Mcmahon Recovery Supports 12/06/2024 Patient Outreach [address] [address] Sudarshan Pérez Recovery Supports 12/05/2024 9:00 AM EDT Office Visit [address] [address] Tha Ortiz MD Substance use disorder (Primary Dx) 12/05/2024 Travel 12/04/2024 Patient Outreach [address] [address] Matthew Davies Recovery Supports 12/03/2024 Patient Outreach [address] [address] Justyn Mcmahon Recovery Supports 11/30/2024 Patient Outreach [address] [address] Deni Solis [facility] Recovery Supports 11/28/2024 10:00 AM EDT Office Visit [address] [address] Tha Ortiz MD Substance use disorder (Primary Dx) 11/28/2024 Travel 11/27/2024 Patient Outreach [facility] [address] [place] [address] Sudarshan Pérez Recovery Supports 11/27/2024 Patient Outreach [facility] [address] [place] [address] Matthew Davies Recovery Supports 11/26/2024 Patient Outreach [facility] [address] [place] [address] Justyn Mcmahon Recovery Supports 11/23/2024 Patient Outreach [facility] [address] [place] [address] Deni Solis Recovery Supports 11/21/2024 10:00 AM EDT Office Visit [address] [address] Tha Ortiz MD Substance use disorder (Primary Dx) 11/21/2024 Travel 11/20/2024 Patient Outreach [address] [address] Matthew Davies Recovery Supports 11/14/2024 9:00 AM EDT Office Visit [address] [address] Tha Ortiz MD Substance use disorder (Primary Dx) 11/14/2024 Travel 11/13/2024 Patient Outreach [address] [address] Matthew Davies Recovery Supports 11/12/2024 Patient Outreach [address] [address] Justyn Mcmahon Recovery Supports 11/07/2024 9:00 AM EDT Office Visit [address] [address] Tha Ortiz MD Substance use disorder (Primary Dx) 11/07/2024 Travel 11/06/2024 Patient Outreach [facility] [address] [place] [address] Matthew Davies Recovery Supports 11/05/2024 Patient Outreach [address] [address] Justyn Mcmahon Recovery Supports 11/05/2024 Patient Outreach [facility] [address] [facility] [place] [address] Deni Solis Recovery Supports 11/01/2024 Patient Outreach [facility] [address] [place] [address] Sudarshan Pérez Recovery Supports 10/31/2024 9:00 AM EDT Office Visit [facility] [address] [place] [address] Tha Ortiz MD Substance use disorder (Primary Dx) 10/31/2024 Travel 10/30/2024 Patient Outreach [facility] [address] [place] [address] Matthew Davies Recovery Supports 10/29/2024 Patient Outreach [facility] [address] [place] [address] Justyn Mcmahon Recovery Supports 10/26/2024 Patient Outreach [facility] [address] [place] [address] Matthew Davies Recovery Supports 10/25/2024 Patient Outreach [facility] [address] [place] [address] Matthew Davies Recovery Supports 10/24/2024 10:00 AM EDT Office Visit [facility] [address] [place] [address] Tha Ortiz MD Substance use disorder (Primary Dx) 10/24/2024 Travel 10/23/2024 Patient Outreach [facility] [address] [place] [address] Matthew Davies Recovery Supports 10/22/2024 Patient Outreach [facility] [address] [place] [address] Matthew Davies Recovery Supports 10/18/2024 Patient Outreach [facility] [address] [place] [address] Deni Solis Recovery Supports 10/17/2024 9:00 AM EDT Office Visit [facility] [address] [place] [address] Tha Ortiz MD Substance use disorder (Primary Dx) 10/17/2024 Travel 10/16/2024 Patient Outreach [facility] [address] [place] [address] Deni Solis [facility] Recovery Supports 10/15/2024 Patient Outreach [facility] [address] [place] [address] Justyn Mcmahon [facility] Recovery Supports 10/11/2024 Patient Outreach [facility] [address] [place] [address] Justyn Mcmahon [facility] Recovery Supports 10/09/2024 Patient Outreach [facility] [address] [place] [address] Matthew Davies [facility] Recovery Supports from Last 3 Months Social [...] Vaccines (1 of 2) 11/30/2021 COVID-19 Vaccine ( - 2023-2 5 season) 2024 Influenza Vaccine [...] patient's age to complete this topic Insurance [facility] ([facility])
--- OUTSIDE RECORDS SUMMARY | 2025-01-09 08:03 | XMS_ITS | Encounter Summary ---
Author Organization [employer] Address [address] [facility] [address] [place] [address] Care Team Providers Care Professional Nursing Assistant Name Role Phone Unavailable Primary Care Provider Unavailabl e Reason for Visit * Reason Comments [facility] Recovery Supports Encounter Details Date Type Department Care Team (Late st Contact Info) Description 01/08/2025 Patient Outreach [facility] [address] [place] [address] Sudarshan Pérez Recovery Supports Social History Tobacco Use Types Packs/Day Years Used Date Smoking Tobacco: Never Assessed Sex and Gender Information Value Date Recorded Sex Assigned at Male 09/05/2024 10:32 AM EDT Legal Sex Male 3:00 PM EDT Gender Identity Male 09/05/2024 10:32 AM EDT Sexual Orientation Straight 09/05/2024 10 :32 AM EDT documented as of this encounter Progress Notes * Sudarshan Pérez - 01/08/2025 3:55 PM EDT I met with Brian today. Setting: in person at [facility] Recovery Wellness Goals worked on: Social Stability Action taken/next steps: Attended alcohol and drug free activity Additional comments: Sudarshan Pérez documented in this encounter Plan of Treatment Not on file documented as of this encounter Visit Diagnoses Not on filedocumented in this encounter
--- OUTSIDE RECORDS SUMMARY | 2025-01-09 08:03 | XMS_ITS | Encounter Summary ---
Author Organization [employer] Address [address] [facility] [address] [place] [address] Care Team Providers Care Airflight Attendants Supervisor Name Role Phone Unavailable Primary Care Provider Unavailabl e Reason for Visit * Reason Comments [facility] Recovery Supports Encounter Details Date Type Department Care Team (Late st Contact Info) Description 01/07/2025 Patient Outreach [facility] [address] [place] [address] Justyn Mcmahon Recovery Supports Social History Tobacco Use Types Packs/Day Years Used Date Smoking Tobacco: Never Assessed Sex and Gender Information Value Date Recorded Sex Assigned at Male 09/05/2024 10:32 AM EDT Legal Sex Male 3:00 PM EDT Gender Identity Male 09/05/2024 10:32 AM EDT Sexual Orientation Straight 09/05/2024 10 :32 AM EDT documented as of this encounter Progress Notes * Justyn Mcmahon - 01/07/2025 2:31 PM EDT I met with Brian today. Setting: in person at [facility] Recovery Wellness Goals worked on: Social Stability Action taken/next steps: Attended alcohol and drug free activity Additional comments: Justyn Mcmahon documented in this encounter Plan of Treatment Not on file documented as of this encounter Visit Diagnoses Not on filedocumented in this encounter
--- OUTSIDE RECORDS SUMMARY | 2025-01-09 08:03 | XMS_ITS | Encounter Summary ---
Author Organization [employer] Address [address] [facility] [address] [place] [address] Care Team Providers Care Regulatory Technician Name Role Phone Unavailable Primary Care Provider Unavailabl e Reason for Visit * Reason Comments [facility] Recovery Supports Encounter Details Date Type Department Care Team (Late st Contact Info) Description 01/08/[address] [facility] [address] [place] [address] Matthew Davies Recovery Supports Social History Tobacco Use Types Packs/Day Years Used Date Smoking Tobacco: Never Assessed Sex and Gender Information Value Date Recorded Sex Assigned at Male 09/05/2024 10:32 AM EDT Legal Sex Male 3:00 PM EDT Gender Identity Male 09/05/2024 10:32 AM EDT Sexual Orientation Straight 09/05/2024 10 :32 AM EDT documented as of this encounter Progress Notes * Matthew Davies - 01/08/2025 3:21 PM EDT I met with Brian today. Setting: in person at [facility] Recovery Wellness Goals worked on: Physical Health/Mental Health Social Stability Spiritual Wellness Action taken/next steps: Attended recovery support group Contingency management Additional comments: Matthew Davies documented in this encounter Plan of Treatment Not on file documented as of this encounter Visit Diagnoses Not on filedocumented in this encounter
--- OUTSIDE RECORDS SUMMARY | 2025-01-09 08:03 | XMS_ITS | Encounter Summary ---
Author Organization [employer] Address [address] [facility] 7 [place] [address] Care Team Providers Care Base Filler Name Role Phone Unavailable Primary Care Provider Unavailabl e Reason for Visit * Reason Comments Recovery Supports Encounter Details Date Type Department Care Team (Late st Contact Info) Description 01/07/2025 Patient Outreach [facility] [address] [place] [address] Deni Solis [address] [place] [address] Recovery Supports Social History Tobacco Use Types Packs/Day Years Used Date Smoking Tobacco: Never Assessed Sex and Gender Information Value Date Recorded Sex Assigned at Male 09/05/2024 10:32 AM EDT Legal Sex Male 3:00 PM EDT Gender Identity Male 09/05/2024 10:32 AM EDT Sexual Orientation Straight 09/05/2024 10 :32 AM EDT documented as of this encounter Progress Notes * Deni Solis - 01/07/2025 11:59 PM EDT I met with Brian today. Setting: in person at [facility] Recovery Wellness Goals worked on: Physical Health/Mental Health Social Stability Spiritual Wellness Action taken/next steps: Attended recovery support group Contingency management Additional comments: Deni Solis documented in this encounter Plan of Treatment Not on file documented as of this encounter Visit Diagnoses Not on filedocumented in this encounter
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
[2025-01-09 08:15] VITALS: BP 138/80; PULSE 72; TEMP 36.2; O2SAT 98; BMI 28.3
== END 2025-01-09 08:26 | disposition home or self-care (01) ==
LOC: HO.HMCH 07:58
PROVIDERS: PCP Internal Medicine; Visit Provider Internal Medicine
DX: R91.1 Solitary pulmonary nodule (principal)

== ENCOUNTER → 2025-01-09 07:57 | Outpatient (BNVA) | payer OTHER, SELFPAY | PROVIDERS: PCP Internal Medicine; Visit Provider Internal Medicine | DX: R91.1 Solitary pulmonary nodule (principal) | CPT/HCPCS: 99212 ==

== ENCOUNTER 2025-03-20 13:58 | Outpatient (AMB) | payer OTHER, SELFPAY ==
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
[2025-03-20 14:13] VITALS: BP 146/90; PULSE 88; TEMP 36.2; O2SAT 98; BMI 29.7
--- OUTSIDE RECORDS SUMMARY | 2025-03-20 16:46 | XMS_ITS | Clinical Summary ---
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 Name Role Phone Unavailable Primary Care Provider Unavailabl e Active Problems Problem Noted Date Diagnosed Date Substance use disorder 10/24/2024 Encounters Date Type Department Care Team Description 03/12/2025 Patient Outreach [facility] [address] [place] [address] Matthew Davies Recovery Supports 03/08/2025 Patient Outreach [facility] [address] [place] [phone] Matthew Davies Recovery Supports 02/26/2025 Patient Outreach [facility] [address] [place] [phone] Justyn Mcmahon Recovery Supports 02/21/2025 Patient Outreach [facility] [address] [place] [address] Justyn Mcmahon Recovery Supports 02/18/2025 Patient Outreach [facility] [address] [place] [phone] Justyn Mcmahon Recovery Supports 01/18/2025 Patient Outreach [facility] [address] [place] [phone] Justyn Mcmahon Recovery Supports 01/17/2025 Patient Outreach [facility] [address] [place] [address] Sudarshan Pérez Recovery Supports 01/17/2025 Patient Outreach [facility] [address] [place] [phone] Justyn Mcmahon Recovery Supports 01/15/2025 Patient Outreach [facility] [address] [place] [phone] Matthew Davies Recovery Supports 01/14/2025 Patient Outreach [facility] [address] [place] [phone] Justyn Mcmahon Recovery Supports 01/10/2025 Patient Outreach [facility] [address] [place] [address] Sudarshan Pérez Recovery Supports 01/10/2025 Patient Outreach [facility] [address] [place] [address] Justyn Mcmahon Recovery Supports 01/08/2025 Patient Outreach [facility] [address] [place] [address] Sudarshan Pérez Recovery Supports 01/08/2025 Patient Outreach [facility] [address] [place] [address] Matthew Davies Recovery Supports 01/07/2025 Patient Outreach [facility] [address] [place] [address] Deni Solis RC Recovery Supports 01/07/2025 Patient Outreach [facility] [address] [place] [address] Justyn Mcmahon RC Recovery Supports 01/03/2025 Patient Outreach [facility] [address] [place] [address] Sudarshan Pérez Recovery Supports 01/01/2025 Patient Outreach [facility] [address] [place] [address] Sudarshan Pérez Recovery Supports 01/01/2025 Patient Outreach [facility] [address] [place] [address] Matthew Davies 12/31/2024 Patient Outreach [facility] [address] [place] [address] Jorge Woods RC Recovery Supports 12/28/2024 Telephone [facility] [address] [place] [address] Tha Ortiz MD 12/28/2024 Patient Outreach [facility] [address] [place] [address] Sudarshan Pérez Recovery Supports 12/25/2024 Patient Outreach [facility] [address] [place] [address] Matthew Davies Recovery Supports 12/25/2024 Patient Outreach [facility] [address] [place] [address] Matthew Davies Recovery Supports 12/24/2024 Patient Outreach [facility] [address] [place] [address] Justyn Mcmahon Recovery Supports 12/19/2024 Patient Outreach [facility] [address] [place] [address] Gricelda Edwards ANP Transition Of Care (Tcm) (HDF unscheduled) from Last 3 Months Social History Tobacco [...] of 2) 11/30/2021 COVID-19 Vaccine ( - 2024-2 6 season) 2024 Influenza Vaccine (#1) 2024 RSV [...] patient's age to complete this topic Insurance [place] [address] [place] [address] (O)
== END 2025-03-20 14:56 | disposition home or self-care (01) ==
LOC: HO.HMCH 13:58
PROVIDERS: PCP Internal Medicine; Visit Provider Internal Medicine
DX: R51.9 Headache, unspecified (principal)

== ENCOUNTER → 2025-03-20 13:58 | Outpatient (BNVA) | payer OTHER, SELFPAY | PROVIDERS: PCP Internal Medicine; Visit Provider Internal Medicine | DX: R51.9 Headache, unspecified (principal) | CPT/HCPCS: 99212 ==

== ENCOUNTER 2025-04-17 09:15 | Outpatient (AMB) | payer OTHER, SELFPAY ==
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
[2025-04-17 09:28] VITALS: BP 150/74; PULSE 84; TEMP 36.5; O2SAT 98; BMI 31.2
--- OUTSIDE RECORDS SUMMARY | 2025-04-17 09:29 | XMS_ITS | Clinical Summary ---
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 Role Phone Unavailable Primary Care Provider Unavailabl e Active Problems Problem Noted Date Diagnosed Date Substance use disorder 10/24/2024 Encounters Date Type Department Care Team Description 03/12/2025 Patient Outreach [facility] [address] [place] [phone] Matthew Davies Recovery Supports 03/08/2025 Patient Outreach [facility] [address] [place] [phone] Matthew Davies Recovery Supports 02/26/2025 Patient Outreach [address] [address] Justyn Mcmahon Recovery Supports 02/21/2025 Patient Outreach [facility] [address] [place] [phone] Justyn Mcmahon Recovery Supports 02/18/2025 Patient Outreach [facility] [address] [place] [phone] Justyn Mcmahon Recovery Supports 01/18/2025 Patient Outreach [facility] [address] [place] [phone] Justyn Mcmahon Recovery Supports 01/17/2025 Patient Outreach [facility] [address] [place] [phone] Sudarshan Pérez Recovery Supports 01/17/2025 Patient Outreach [facility] [address] [place] [phone] Justyn Mcmahon Recovery Supports 01/15/2025 Patient Outreach [facility] [address] [place] [phone] Matthew Davies Recovery Supports from Last 3 Months Social [...] of 2) 11/30/2021 COVID-19 Vaccine (1 - 2024-2 6 season) 2024 Influenza Vaccine [...] patient's age to complete this topic Insurance [employer] ([employer])
== END 2025-04-17 10:17 | disposition home or self-care (01) ==
LOC: HO.HMCH 09:16
PROVIDERS: PCP Internal Medicine; Visit Provider Internal Medicine
DX: F41.9 Anxiety disorder, unspecified (principal)

== ENCOUNTER → 2025-04-17 09:15 | Outpatient (BNVA) | payer OTHER, SELFPAY | PROVIDERS: PCP Internal Medicine; Visit Provider Internal Medicine | DX: F41.9 Anxiety disorder, unspecified (principal); Z71.89 Other specified counseling | CPT/HCPCS: 99212 ==